=== PATIENT | male | born 1960 | race American Indian/Alaskan Native ===

== ENCOUNTER 2017-11-22 05:36 | Emergency (ER) | payer MEDICARE, OTHER ==
[~2017-11-22] VITALS: Ht 185.4 cm; Wt 140.6 kg
[~2017-11-22 05:36] MED LIST: ACETAMINOPHEN325 M1 PO; ASCORBIC ACID250 MG PO; AZITHROMYCIN250 MG PO; CATAPRES-TTS 31 EACH TD; CLEOCIN HCL300 MG PO; CYCLOBENZAPRINE5 MG PO; DAILY MULTIPLE1 EACH PO; DILAUDID2 MG PO; FEOSOL325 MG PO; GABAPENTIN300 MG PO; IBUPROFEN600 MG PO; LEVAQUIN500 MG PO; LISINOPRIL10 MG PO; NORCO 10-325 T1 EACH PO; NORVASC10 MG PO; NYSTATIN100000 UN1 PO; OS-CAL 500+D C1 EAC1 PO; OXYCONTIN20 MG PO; PERCOCET 5-3251 EACH PO; PREDNISONE20 MG PO; PROAIR HFA8.5 GM INH; PROVENTIL HFA6.7 GM INH; SYMBICORT 16010.2 GM INH; TRAMADOL HCL50 MG PO; VALIUM5 MG PO; VITAMIN D400 UNI1 PO
[2017-11-22] MEDS ORDERED: BACLOFEN10 MG PO (05:46)
[2017-11-22] MEDS ORDERED: EPIPEN 2-P0.3 MG/0.3 IM (06:40)
== END 2017-11-22 06:56 | disposition home or self-care (01) ==
LOC: ED 05:36
DX: L50.0 Allergic urticaria (principal); Z87.891 Personal history of nicotine dependence; Z79.899 Other long term (current) drug therapy
CPT/HCPCS: 96372; 99283; J1200

== ENCOUNTER 2017-12-17 22:47 | Emergency (ER) | payer MEDICARE, OTHER ==
[~2017-12-17] VITALS: Ht 185.4 cm; Wt 140.6 kg
[~2017-12-17 22:47] MED LIST changes: +BACLOFEN10 MG PO; +EPIPEN 2-P0.3 MG/0.3 IM
--- NOTE | 2017-12-18 21:55 | EKG ---
[facility] [address] [facility] [place], [place] [address] Signed Normal sinus rhythm Nonspecific intraventricular conduction delay Nonspecific T wave abnormality Abnormal ECG No previous ECGs available Confirmed by DAVID LIZARRAGA MD ([id number]) on 12/18/2017 9:55:06 PM Electronically Signed By: DAVID LIZARRAGA MD 12/18/17 2155 PATIENT NAME: HTOM POOLE Electrocardiogram DATE OF : 64 PHYSICIAN: DAVID LIZARRAGA MD REPORT #: [id number] REPORT IS CONFIDENTIAL AND NOT TO BE RELEASED WITHOUT AUTHORIZATION
== END 2017-12-18 03:13 | disposition home or self-care (01) ==
LOC: ED 22:47
DX: R07.9 Chest pain, unspecified (principal); Z87.891 Personal history of nicotine dependence; Z79.899 Other long term (current) drug therapy
CPT/HCPCS: 71045; 71260; 80053; 83690; 84484; 85025; 85379; 93005; 93010; 99284; Q9967

== ENCOUNTER 2018-02-24 22:59 | Emergency (ER) | payer MEDICARE, OTHER ==
[~2018-02-24] VITALS: Ht 185.4 cm; Wt 140.6 kg
== END 2018-02-25 01:03 | disposition home or self-care (01) ==
LOC: ED 22:59
DX: T78.2XXA Anaphylactic shock, unspecified, initial encounter (principal); L50.9 Urticaria, unspecified; Z87.891 Personal history of nicotine dependence
CPT/HCPCS: 96372; 96374; 96375; 99284; J0171; J1200; J2930

== ENCOUNTER 2018-04-18 20:11 | Emergency (ER) | payer MEDICARE, OTHER ==
[~2018-04-18] VITALS: Ht 185.4 cm; Wt 140.6 kg
--- OUTSIDE RECORDS SUMMARY | ~2018-04-18 | XMS | Encounter Summary ---
Demographics + + + | Address | [address] | | | [place] [address] | + + + | Home Phone | | + + + | Preferred Language | Unknown | + + + | Marital Status | Single | + + + | Gnosticism Affiliation | Unknown | + + + | Race | Unknown | + + + | Ethnic Group | Unknown | + + + Author + + + | Author | [facility] | | | and [place] | + + + | Organization | [facility] | | | and [place] | + + + | Address | Unknown | + + + | Phone | Unavailable | + + + Support + + + + + | Name | Relationship | Address | Phone | + + + + + | Bharath,Jollee | ECON | [address] | | | | | [place] | | | | | [address] | | + + + + + Care Team Providers + +------+ + | Care Social Services Analyst Name | Role | Phone | + +------+ + | Yulia Gutierrez PA-C | PCP | | + +------+ + Reason for Visit + + + | Reason | Comments | + + + | New Patient | allegies and talk about testing | + + + Evaluate & Treat (Routine) +--------+--------+ + + + + | Status | Reason | Specialty | Diagnoses / | Referred By | Referred To | | | | | Procedures | Contact | Contact | +--------+--------+ + + + + | Closed | | Otolaryngolog | Diagnoses | Brenda, | Garry Carias | | | | y | allergy | Yulia Torres, | MD Danny [address] | | | | | testing | [place] [address] [address] | | | | | consult, hx | | [address] | | | | | of | [address] | [place], | | | | | anaphylaxis | WAY | [place] [address] | | | | | | [place], | Phone: | | | | | | [place] [address] | [phone] | | | | | | Phone: | Fax: | | | | | | [phone] | [phone] | | | | | | Fax: | | | | | | | [phone] | | +--------+--------+ + + + + Encounter Details +--------+---------+ + + + | Date | Type | Department | Care Team | Description | +--------+---------+ + + + | 04/12/ | Office | [facility] | Garry Carias MD | Multiple allergies | | 2018 | Visit | OTOLARYNGOLOGY [address] | [address] [place] | (Primary Dx); [place] | | | | [address] | [address], | (obstructive sleep | | | | [place], [place] | [place] [address] | apnea) | | | | [address] | [phone] | | | | | [phone] | | | +--------+---------+ + + + [...] + +---------+ + | Alcohol Use | Drinks/We | oz/Week | Comments | | | ek | | | + + +---------+ + | Yes | 35 | 27.0 | today | | | Standard | | | | | drinks or | | | | | | | | | | equivalen | | | | | t 10 | | | | | Cans of | | | | | beer | | | + + +---------+ + + + + | Sex Assigned at | Date Recorded | | | | + + + | Not on file | | + + + as of this encounter Last Filed Vital Signs + + + + | Vital Sign | Reading | Time Taken | + + + + | Blood Pressure | - | - | + + + + | Pulse | 86 | 04/12/2018 1542 PDT | + + + + | Temperature | - | - | + + + + | Respiratory Rate | 16 | 04/12/20181541 PDT | + + + + | Oxygen Saturation | 91% | 04/12/20181541 PDT | + + + + | Inhaled Oxygen | - | - | | Concentration | | | + + + + | Weight | 131.5 kg (290 lb) | 04/12/20181541 PDT | + + + + | Height | 185.4 cm (6' 0.99") | 04/12/20181541 PDT | + + + + | Body Mass Index | 38.27 | 04/12/20181541 PDT | + + + + in this encounter Functional Status + + [...] | | | + + + + as of this encounter Progress Notes Garry Carias MD - 04/12/2018 1515 PDTPatient back a couple months ago suddenly broke out with a lot of welts and rash and had some swelling in the throat area. He was treated with some cortisone and handed this cleared up. He then had another event a back about to 3 week s ago and at the same problem with but was having even more problems with difficulty with br eathing because of the swelling of his throat. He had a lot of hives and welts and came on rather rapidly. He was sent to have this evaluated. He's not had problems with this before . He has no problem with seasonal allergies. He has no difficulty with his vocal function. He occasionally feels a bit of tickle in the back of his throat and some phlegm and has be en diagnosed with obstructive sleep apnea. Examination: Patient is a 57-year-old male in no acute distress. Ears are open and clean a nd drums were clear. Nasal passages did not appear to have any significant obstruction note d. No mass or lesion seen on either side. Patient has a very large tongue. No mass seen i n the oropharynx or the oral cavity. Tongue and soft palate are smooth the moves symmetrica lly. Teeth are in poor repair. His neck is very large and thick. No lymphadenopathy or ma sses noted. Thyroid area was smooth and trachea was midline. His medications were reviewed and is on very minimal medication at the current time. The main medications or medication for his lungs which is a cortisone spray and then also taking a stool softener and some Fab um. 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 Plan: Patient will have a food panel 35 obtained to look at the possible origin of his lisa oedema. He does have an EpiPen to use if he gets into severe problems. He has been encoureryn dasilva to get a CPAP machine because he has been diagnosed with significant obstructive sleep a pnea and has not been treating the problem. He denies any problem with heartburn.in this en counter Plan of Treatment +--------+---------+ + + + | Date | Type | Specialty | Care Team | Description | +--------+---------+ + + + | 04/26/ | Office | Otolaryngology | Garry Carias MD | | | 2017 | Visit | | [address] [facility] | | | | | | [address], | | | | | | [place] [address] | | | | | | [phone] | | | | | | | | +--------+---------+ + + + as of this encounter Results Allergen Panel, Adult Food (04/12/2018 1631) + + + + + | Component | Value | Ref Range | Performed At | + + + + + | Class Description | CommentComment: | | [facility] | | | Levels of | | [facility] | | | Specific IgE | | | | | Class Description of | | | | | | | | | | Class | | | | | ---- | | | | | - | | | | | - | | | | | < | | | | | 0.10 | | | | | 0 | | | | | Negative | | | | | 0.10 | | | | | - 0.31 | | | | | 0/I | | | | | Equivocal/Low | | | | | 0.32 | | | | | - 0.55 | | | | | I | | | | | Low | | | | | 0.56 | | | | | - 1.40 | | | | | | | | | | II Modera | | | | | te | | | | | 1.41 | | | | | - 3.90 | | | | | III | | | | | High | | | | | 3.91 - | | | | | 19.00 | | | | | IV Very | | | | | High | | | | | 19.01 | | | | | - 100.00 | | | | | V | | | | | Very | | | | | High | | | | | >100.00 | | | | | | | | | | Very | | | | | High | | | + + + + + | Egg White IgE | <0.10 | Class 0 kU/L | [facility] | | | | | [facility] | + + + + + | Cow's Milk IgE | <0.10 | Class 0 kU/L | [facility] | | | | | [facility] | + + + + + | Codfish IgE | <0.10 | Class 0 kU/L | [facility] | | | | | [facility] | + + + + + | Wheat IgE | <0.10 | Class 0 kU/L | [facility] | | | | | [facility] | + + + + + | Decker IgE | <0.10 | Class 0 kU/L | [facility] | | | | | [facility] | + + + + + | Barley IgE | <0.10 | Class 0 kU/L | [facility] | | | | | [facility] | + + + + + | Oat IgE | <0.10 | Class 0 kU/L | [facility] | | | | | [facility] | + + + + + | Rice IgE | <0.10 | Class 0 kU/L | [facility] | | | | | [facility] | + + + + + | Allergen Sesame Seed | <0.10 | Class 0 kU/L | [facility] | | IgE | | | [facility] | + + + + + | Pea IgE | <0.10 | Class 0 kU/L | [facility] | | | | | [facility] | + + + + + | Peanut IgE | <0.10 | Class 0 kU/L | [facility] | | | | | [facility] | + + + + + | Soybean IgE | <0.10 | Class 0 kU/L | [facility] | | | | | [facility] | + + + + + | White Reed IgE | <0.10 | Class 0 kU/L | [facility] | | | | | [facility] | + + + + + | Allergen Filbert | <0.10 | Class 0 kU/L | [facility] | | | | | [facility] | + + + + + | ALMONDS | <0.10 | Class 0 kU/L | [facility] | | | | | [facility] | + + + + + | Crab IgE | <0.10 | Class 0 kU/L | [facility] | | | | | [facility] | + + + + + | Shrimp IgE | <0.10 | Class 0 kU/L | [facility] | | | | | [facility] | + + + + + | Tomato IgE | <0.10 | Class 0 kU/L | [facility] | | | | | [facility] | + + + + + | Pork IgE | <0.10 | Class 0 kU/L | [facility] | | | | | [facility] | + + + + + | Beef IgE | <0.10 | Class 0 kU/L | [facility] | | | | | [facility] | + + + + + | Carrot IgE | <0.10 | Class 0 kU/L | [facility] | | | | | [facility] | + + + + + | Waterbury IgE | <0.10 | Class 0 kU/L | [facility] | | | | | [facility] | + + + + + | POTATO (WHITE) IGE | <0.10 | Class 0 kU/L | [facility] | | | | | [facility] | + + + + + | Tuna IgE | <0.10 | Class 0 kU/L | [facility] | | | | | [facility] | + + + + + | Allergen Savanna IgE | <0.10 | Class 0 kU/L | [facility] | | | | | [facility] | + + + + + | ALLERGEN YEAST | <0.10 | Class 0 kU/L | [facility] | | JESSICA'S IGE | | | [facility] | + + + + + | GARLIC | <0.10 | Class 0 kU/L | [facility] | | | | | [facility] | + + + + + | Chicken IgE | <0.10 | Class 0 kU/L | [facility] | | | | | [facility] | + + + + + | MUSTARD | <0.10 | Class 0 kU/L | [facility] | | | | | [facility] | + + + + + | CHOCOLATE, IGE | <0.10 | Class 0 kU/L | [facility] | | | | | [facility] | + + + + + | CASHEW | <0.10 | Class 0 kU/L | [facility] | | | | | [facility] | + + + + + | Lettuce IgE | <0.10 | Class 0 kU/L | [facility] | | | | | [facility] | + + + + + | WALNUT-FOOD IGE | <0.10 | Class 0 kU/L | [facility] | | | | | [facility] | + + + + + | [id number] Green Barrett | <0.10 | Class 0 kU/L | [facility] | | Pepper | | | [facility] | + + + + + | Scallop IgE | <0.10 | Class 0 kU/L | [facility] | | | | | [facility] | + + + + + + + | Specimen | + + | Blood | + + + + + | Narrative | Performed At | + + + | Test(s) [id number] Green Barrett Pepper were developed and had | [facility] | | performance characteristics determined by [facility]. These tests have | [facility] | | not been cleared or approved by the U.S. Food and Drug | | | Administration. The FDA has determined that such clearance or | | | approval is not necessary. These tests are used for clinical | | | purposes. These should not be regarded as investigational or for | | | research. Performed at: [address], | | | [place], [place] [id number] [employer]ractor Engine Assembler: Steve Stroud MD, | | | Phone: [phone] | | + + + + + + + + | Performing | Address | City/State/Zipcode | Phone Number | | Organization | | | | + + + + + | [facility] | [address] | [place] [address] | [phone] | | [facility] | [address] | | | + + + + + in this encounter Visit Diagnoses + + | Diagnosis | + + | Multiple allergies - Primary | + + | Other allergy, other than to medicinal agents | + + | MARY JANE (obstructive sleep apnea) | + + | Obstructive sleep apnea (adult) (pediatric) | + +
--- OUTSIDE RECORDS SUMMARY | ~2018-04-18 | XMS | Clinical Summary ---
Demographics + + + | Address | [address] | | | [place] [address] | + + + | Home Phone | | + + + | Preferred Language | Unknown | + + + | Marital Status | Single | + + + | Taoist Affiliation | Unknown | + + + | Race | Unknown | + + + | Ethnic Group | Unknown | + + + Author + + + | Author | [facility] | | | and [place] | + + + | Organization | [facility] [...] [place] | | | | | [address] | | + + + + + Care Team Providers + +------+ + | Care Patient Intake Representative Name | Role | Phone | + +------+ + | Yulia Gutierrez PA-C | PP | | + +------+ + Allergies No Known Allergies Current Medications + + + +---------+------+------+-------+ | Prescription | Sig. | Disp. | Refills | Star | End | [...] | [facility] | | | | | | + + + +---------+------+------+-------+ | Cholecalciferol | Take 5,000 Units by | | | | | Activ | | (VITAMIN D3) 5000 | mouth Daily. | | | | | e | | UNITS CAPS | | | | | | | + + + +---------+------+------+-------+ | LISINOPRIL PO | Take by mouth | | | | | Activ | | | Daily. | | | | | e | + + + +---------+------+------+-------+ | diazepam (VALIUM) | Take 1 tablet by | 60 | 1 | 07/0 | | Activ | | 5 mg tablet | mouth every 6 hours | tablet | | 920 | | e | | | as needed (muscle | | | 15 | | | | | spasm). | | | | | | + + + +---------+------+------+-------+ | docusate sodium | Take 100 mg by mouth | 60 | 1 | 07/0 | | Activ | | (COLACE) 100 MG | 2 times daily. | capsule | | /20 | | e | | capsule | | | | 15 | | | + + + +---------+------+------+-------+ | fluticasone | 1 spray by Nasal | | | | | Activ | | (FLONASE) 50 | route Daily. | | | | | e | | mcg/nasal spray | | | | | | | + + + +---------+------+------+-------+ | Fexofenadine HCl | Take by mouth. | | | | | Activ | | (DARBY PO) | | | | | | e | + + + +---------+------+------+-------+ | Cyclobenzaprine | Take 2 tablets by | | | | 09/2 | Disco | | HCl (FLEXERIL PO) | mouth nightly. | | | | 6/20 | ntinu | | | | | | | 18 | ed | + + + +---------+------+------+-------+ | fish oil 1,000 mg | Take 1,000 mg by | | | | 09/2 | Disco | | capsule | mouth 3 times daily. | | | | 6/20 | ntinu | | | | | | | 18 | ed | + + + +---------+------+------+-------+ | diazepam (VALIUM) | Take 1 tablet by | 60 | 0 | 09/2 | 09/2 | Disco | | 5 mg tablet | mouth every 6 hours | tablet | | 9/20 | 6/20 | ntinu | | | as needed (muscle | | | 14 | 18 | ed | | | spasm). | | | | | | + + + +---------+------+------+-------+ | Lactulose | Take 15-30 mLs by | 240 mL | 0 | 09/2 | 09/2 | Disco | | Encephalopathy 10 | mouth Daily as | | | 9/20 | 6/20 | ntinu | | g/15 mL SOLN | needed | | | 14 | 18 | ed | | | (Constipation). | | | | | | + + + +---------+------+------+-------+ | | Take 1-2 tablets by | 60 | 0 | 10/1 | 09/2 | Disco | | oxyCODONE-acetaminop | mouth every 4 hours | tablet | | 3/20 | 6/20 | ntinu | | hen (PERCOCET) 5-325 | as needed for Pain. | | | 14 | 18 | ed | | mg per tablet | | | | | | | + + + +---------+------+------+-------+ | | Take 1-2 tablets by | 60 | 0 | 10/1 | 09/2 | Disco | | oxyCODONE-acetaminop | mouth every 4 hours | tablet | | 3/20 | 6/20 | ntinu | | hen (PERCOCET) 5-325 | as needed for Pain. | | | 14 | 18 | ed | | mg per tablet | | | | | | | + + + +---------+------+------+-------+ | | Take 1-2 tablets by | 60 | 0 | 07/1 | 09/2 | Disco | | oxyCODONE-acetaminop | mouth every 4 hours | tablet | | 6/20 | 6/20 | ntinu | | hen (PERCOCET) 5-325 | as needed for Pain. | | | 15 | 18 | ed | | mg per tablet | | | | | | | + + + +---------+------+------+-------+ | | Take 1-2 tablets by | 100 | 0 | 07/2 | 09/2 | Disco | | HYDROcodone-acetamin | mouth every 6 hours | tablet | | 4/20 | 6/20 | ntinu | | ophen (NORCO) 10-325 | as needed for Pain. 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 | | manifestations, not stated as uncontrolled(250.40) (HCC) | | + + + | Hypertriglyceridemia [...] 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) | 01/02/20 | | | | 13 | 4 | + + + + Encounters +--------+---------+ + + + | Date | Type | Specialty | Care Team | Description | +--------+---------+ + + + | 04/12/ | Office | | Garry Carias MD | Multiple allergies | | 2018 | Visit | | | (Primary Dx); [place] | | | | | | (obstructive sleep | | | | | | apnea) | +--------+---------+ + + + from Last 3 Months Immunizations + + + + | Name | Dates Previously Given | Next Due | + + + [...] Comments | + +--------+ + + | Brother | Geoff | Alive | | + [...] on file | | + + + Last Filed Vital Signs + + + + | Vital Sign | Reading | Time Taken | + + + + | Blood Pressure | 146/80 | 02/07/2015 1133 PDT | + + + + | Pulse | 86 | 04/12/20181541 PDT | + + + + | Temperature | 37.1 C (98.8 F) | 02/07/2015 1133 PDT | + + + + | Respiratory [...] 04/12/20181541 PDT | + + + + Plan of Treatment +--------+---------+ + + + | Date | Type | Specialty | Care Team | Description | +--------+---------+ + + + | 04/26/ | Office | | Garry Carias MD | | | 2017 | Visit | | [address] [facility] | | | | | | [address], | | | | | | [place] [address] | | | | | | [phone] | | | | | | | | +--------+---------+ + + + + + + + + | Health Maintenance | Due Date | Last Done | Comments | + + + + + | Diabetic Eye Exam | | | | | (Bi-Annually) | 0 | | | + + + + + | Diabetic Foot Exam | | | | | | 0 | | | + + + + + | Colorectal Cancer | | | | | Screening | 2 | | | | (Colonoscopy) | | | | + + + + + | Hemoglobin A1c Q3 | | 02/07/2013, 12/04/2012 | | | Months | 3 | | | + + + + + | Vaccine: Influenza | | | | | (#1) | 8 | | | + + [...] | Pneumococcal 19-64 | | | | | (PPSV23 only) Medium | | | | | Risk | | | | + + + + + | Hepatitis C | Completed | 01/23/2015, 01/22/2015, | | | Screening | | 01/21/2015, Additional history | | | | | exists | | + + + + + Implants + +------+--------+ +--------+--------+--------+ | Implanted | Type | Area | Manufacture | Device | Expira | Model | | | | | r | | tion | / | | | | | | Identi | Date | Serial | | | | | | fier | | / Lot | + +------+--------+ +--------+--------+--------+ | Cancellous Chips | | N/A: | MEDTRONIC - | | 12/30/ | [id number] | | 5ccImplanted: Qty: 1 on | | Spine | MEDT | | 2019 | | | 04/09/2014 by Fam Bonds | | Lumbar | | | | /[id number] | | A, DO | | | | | | 0-036 | | | | | | | | / | + +------+--------+ +--------+--------+--------+ | ScrewImplanted: Qty: 5 on | | N/A: | MEDTRONIC - | | | [id number] | | 04/09/2014 by Fam Bonds | | Spine | MEDT | | | [id number] | | A, DO | | Lumbar | | | | / / | + +------+--------+ +--------+--------+--------+ | ScrewImplanted: Qty: 2 on | | N/A: | MEDTRONIC - | | | [id number] | | 04/09/2014 by Fam Bonds | | Spine | MEDT | | | [id number] | | A, DO | | Lumbar | | | | / / | + +------+--------+ +--------+--------+--------+ | ScrewImplanted: Qty: 1 on | | N/A: | MEDTRONIC - | | | [id number] | | 04/09/2014 by Fam Bonds | | Spine | MEDT | | | [id number] | | A, DO | | Lumbar | | | | / / | + +------+--------+ +--------+--------+--------+ | Screw 7.5x50mm Sextant - | | N/A: | MEDTRONIC - | | | [id number] | | [id number]: Qty: 2 on | | Spine | MEDT | | | [id number] | | 04/09/2014 by Fam Bonds | | Lumbar | | | | / / | | A DO | | | | | | | + +------+--------+ +--------+--------+--------+ | Imp Spn Spcr Cpstn [id number] - | | N/A: | SOFAMOR | | 08/24/ | [id number] | | [id number]: Qty: 1 on | | Spine | DANEK - DIV | | 2020 | 2 / | | 04/09/2014 by Fam Bonds | | Lumbar | MEDTRONIC | | | /[id number] | | DO Melissa | | | - SFDK | | | 032 | + +------+--------+ +--------+--------+--------+ | Sealant Duraseal Exact Sys | | N/A: | INTEGRA | | 06/16/ | [id number] | | 5ml - [id number]: | | Spine | LIFESCIENCE | | 2014 | / | | Qty: 1 on 04/09/2014 by | | Lumbar | S CHETNA - | | | /[id number] | | Fam Bonds DO | | | RUEL | | | 33X | + +------+--------+ +--------+--------+--------+ | Set Scrw Ns G5 Brk Off Ti | | N/A: | SOFAMOR | | | [id number] | | 4.75 - [id number]: | | Spine | DANEK - DIV | | | 0 / / | | Qty: 11 on 04/09/2014 by | | Lumbar | MEDTRONIC | | | | | Fam Bonds DO | | | - SFDK | | | | + +------+--------+ +--------+--------+--------+ | RodImplanted: Qty: 2 on | | N/A: | MEDTRONIC - | | | [id number] | | 04/09/2014 by Fam Bonds | | Spine | MEDT | | | 6210 / | | DO Melissa | | Lumbar | | | | / | + +------+--------+ +--------+--------+--------+ | Cancellous Chips | | | | | 12/30/ | [id number] | | 5ccImplanted: Qty: 1 on | | | | | 2019 | | | 04/09/2014 | | | | | | /[id number] | | | | | | | | 0-35 / | + +------+--------+ +--------+--------+--------+ | Cancellous Chips | | | | | 03/28/ | [id number] | | 5ccImplanted: Qty: 1 on | | | | | 2019 | | | 04/09/2014 | | | | | | /[id number] | | | | | | | | 7-033 | | | | | | | | / | + +------+--------+ +--------+--------+--------+ | Putty Alexis 10cc Dbm - | | N/A: | OSTEOTECH - | | 11/28/ | [id number] | | [id number]: Qty: 1 | | Spine | OSTT | | 2017 | | | on 04/09/2014 by Cammie, | | Lumbar | | | | /[id number] | | Fam Torres DO | | | | | | 5-036 | | | | | | | | / | + +------+--------+ +--------+--------+--------+ | Graft Infuse Bone Kit Xs - | | N/A: | SOFAMOR | | 10/15/ | [id number] | | [id number]: Qty: 3 on | | Spine | DANEK - DIV | | 2015 | 0 / | | 04/09/2014 by Fam Bonds | | Lumbar | MEDTRONIC | | | /[id number] | | DO Melissa | | | - SFDK | | | [id number] | + +------+--------+ +--------+--------+--------+ | Putty Alexis 10cc Dbm - | | N/A: | OSTEOTECH - | | 11/28/ | [id number] | | [id number]: Qty: 1 | | Spine | OSTT | | 2017 | | | on 04/09/2014 by Cammie, | | Lumbar | | | | /[id number] | | Fam Torres DO | | | | | | 5-033 | | | | | | | | / | + +------+--------+ +--------+--------+--------+ | Cage Xl Wide [id number] - | | N/A: | NUVASIVE - | | | 830010 | | [id number]: Qty: 2 on | | Spine | NVSV | | | 0 / / | | 04/09/2014 by Fam Bonds | | Lumbar | | | | | | DO Melissa | | | | | | | + +------+--------+ +--------+--------+--------+ | Imp Spn Spcr Peek Xlw | | N/A: | NUVASIVE - | | | [id number] | | [id number] - | | Spine | NVSV | | | 5 / / | | [id number]: Qty: 1 on | | Lumbar | | | | | | 04/09/2014 by Fam Bonds | | | | | | | | Melissa DO | | | | | | | + +------+--------+ +--------+--------+--------+ | Imp Spn Spcr Xlxw [id number] 10d | | N/A: | NUVASIVE - | | | [id number] | | - [id number]: Qty: 1 | | Spine | NVSV | | | 0 / / | | on 04/09/2014 by Cammie, | | Lumbar | | | | | | Fam Torres DO | | | | | | | + +------+--------+ +--------+--------+--------+ | Cage Capstone Peek 9x32mm - | | N/A: | MEDTRONIC - | | 03/13/ | [id number] | | [id number]: Qty: 1 on | | Spine | MEDT | | 2020 | 2 / | | 04/09/2014 by Fam Bonds | | Lumbar | | | | /[id number] | | DO Melissa | | | | | | 464 | + +------+--------+ +--------+--------+--------+ | ScrewImplanted: Qty: 1 on | | N/A: | MEDTRONIC - | | | [id number] | | 04/09/2014 by Fam Bonds | | Spine | MEDT | | | 26061 | | A, DO | | Lumbar | | | | / / | + +------+--------+ +--------+--------+--------+ Procedures + +--------+ + + + | Procedure Name | Priori | Date/Time | Associated Diagnosis | Comments | | | ty | | | | + +--------+ + + + | ALLERGEN PANEL, | Routin | 04/12/2018 | Multiple allergies | Results for this | | ADULT FOOD | e | 1631 PDT | | procedure are in the | | | | | | results section. | + +--------+ + + + from Last 3 Months Results Allergen Panel, Adult Food (04/12/2018 1631) [...] | + + + + + | [place] IgE | <0.10 | Class 0 kU/L [...] | + + + + + | [place] IgE | <0.10 | Class 0 kU/L [...] + + + + + | Allergen [place] IgE | <0.10 | Class 0 kU/L [...] | + + + + + | Q210-HgJ Green Barrett | <0.10 | Class 0 [...] At | + + + | Test(s) [id number] Green Barrett Pepper were developed and had | REFERENCE LAB | | performance characteristics determined by [facility]. These tests have | [facility] | | not been cleared or approved by the U.S. Food and Drug | | | Administration. The FDA has determined that such clearance or | | | approval is not necessary. These tests are used for clinical | | | purposes. These should not be regarded as investigational or for | | | research. Performed at: 01 - [facility] [address], | | | [place], [place] [id number] Resident Care Spec: Thom Stroud MD, | | | Phone: [phone] | | + + + + + + + + | Performing | Address | City/State/Zipcode | Phone Number | | Organization | | | | + + + + + | REFERENCE LAB | [address] | [place] [address] | [phone] | | [facility] | [place] | | | + + + + + from Last 3 Months Insurance + +--------+ +--------+-------+---------+ | Payer | Benefi | Subscriber | Type | Phone | Address | | | t Plan | ID | | | | | | / | | | | | | | Group | | | | | + +--------+ +--------+-------+---------+ | [facility] | IHS | [id number] | Indemn | | | | SERVICE | YELLOW | | ity | | | | | [place] | | | | | + +--------+ +--------+-------+---------+ + +--------+ +--------+ + + | Guarantor Name | Accoun | Relation to | Date | Phone | Billing Address | | | t Type | Patient | of | | | | | | | | | | + +--------+ +--------+ + + | THOM POOLE | Person | Self [birth year] Home: | [address] | | | al/Fam | | 2 | [phone] | [address] [place] | | | [place] | | | [phone] | [phone] | + +--------+ +--------+ + +
--- OUTSIDE RECORDS SUMMARY | ~2018-04-18 | XMS | Encounter Summary ---
Demographics + + + | Address | [address] | | | [place] [address] | + + + | Home Phone [...] | Organization | [facility] [...] [place] | | | | | [address] | | + + + + + Care Team Providers + +------+ + | Care Miller Supervisor Name | Role | Phone | + +------+ + | Yulia Gutierrze PA-C | PCP | | + +------+ [...] | | | | testing | [place] [address] | | | | | consult, hx | | [address] | | | | | of | [address] | [address], | | | | | anaphylaxis | [address] | [place] [address] | | | | | | [place], | Phone: | | | | | | [place] [address] | [phone] | | | | | | Phone: | Fax: | | | | | | [phone] | [phone] | | | | | | Fax: | | | | | | | [phone] | | +--------+--------+ + + + + Encounter Details +--------+---------+ + + + | Date | Type | Department | Care Team | Description | +--------+---------+ + + + | 04/12/ | Office | [facility] | Garry Carias MD | Multiple allergies | | 2018 | Visit | OTOLARYNGOLOGY [address] | [address] [place] | (Primary Dx); [place] | | | | [address] | [address], | (obstructive sleep | | | | [place], [place] | [place] [address] | apnea) | | | | [address] | [phone] | | | | | [phone] | | | +--------+---------+ + + + [...] 2017 | Visit | | [address] [facility] | | | | | | [address], | | | | | | [place] [address] | | | | | | [phone] | | | | | | | [...] | + + + + + | [place] IgE | <0.10 | Class 0 kU/L [...] | + + + + + | [place] IgE | <0.10 | Class 0 kU/L [...] + + + + + | Allergen [place] IgE | <0.10 | Class 0 kU/L [...] | + + + + + | Y315-BnK Green Barrett | <0.10 | Class 0 [...] At | + + + | Test(s) [id number] Green Barrett Pepper were developed and had | REFERENCE LAB | | performance characteristics determined by [employer]. These tests have | [facility] [...] | | research. Performed at: 01 - [address], | | | [place], [place] [id number] Practice Coordinator: Steve Stroud MD, | | | Phone: [phone] | | + + + + + + + + | Performing | Address | City/State/Zipcode | Phone Number | | Organization | | | | + + + + + | REFERENCE LAB | [address] | [place] [address] | [phone] | | [facility] | Drive [...]
--- OUTSIDE RECORDS SUMMARY | ~2018-04-18 | XMS | Clinical Summary ---
Demographics + + + | Address | [address] | | | [place] [address] | + + + | Home Phone [...] + | Organization | [facility] | [...] [place] | | | | | [address] | | + + + + + Care Team Providers + +------+ + | Care Vp Software Support Name | Role | Phone | + [...] + + + | Overview: Problem list flask maker utility | + + + + + [...] +--------+ + | Hypertension | Brother | Aaorn | | + + +--------+ + | [...] 2017 | Visit | | [address] [facility] | | | | | | [address], | | | | | | [place] [address] | | | | | | [phone] | | | | | | | [...] | MEDTRONIC - | | 12/30/ | [id number] | | 5ccImplanted: Qty: 1 on | [...] N/A: | MEDTRONIC - | | | [id number] | | 04/09/2014 by Fam Bonds | | Spine | MEDT | | | 49598 | | A, DO | | Lumbar | | | | / / | + +------+--------+ +--------+--------+--------+ | ScrewImplanted: Qty: 2 on | | N/A: | MEDTRONIC - | | | [id number] | | 04/09/2014 by Fam Bonds | | Spine | MEDT | | | 52405 | | A, DO | | Lumbar | | | | / / | + +------+--------+ +--------+--------+--------+ | ScrewImplanted: Qty: 1 on | | N/A: | MEDTRONIC - | | | [id number] | | 04/09/2014 by Fam Bonds | | Spine | MEDT | | | 40240 | | A, DO | | Lumbar | | | | / / | + +------+--------+ +--------+--------+--------+ | Screw 7.5x50mm Sextant - | | N/A: | MEDTRONIC - | | | [id number] | | [id number]: Qty: 2 on | | Spine | MEDT | | | [id number] | | 04/09/2014 by Fam Bonds | | Lumbar | | | | / / | | A DO | | | | | | | + +------+--------+ +--------+--------+--------+ | Imp Spn Spcr Cpstn [id number] - | | N/A: | SOFAMOR | | 08/24/ | [id number] | | [id number]: Qty: 1 on | | Spine | DANEK - DIV | | 2020 | 2 / | | 04/09/2014 by Fam Bonds | | Lumbar | MEDTRONIC | | | /[id number] | | DO Melissa | | | - SFDK | | | 032 | + +------+--------+ +--------+--------+--------+ | Sealant Duraseal Exact Sys | | N/A: | INTEGRA | | 06/16/ | [id number] | | 5ml - [id number]: | | Spine | LIFESCIENCE | | 2014 | / | | Qty: 1 on 04/09/2014 by | | Lumbar | S CHETNA - | | | /[id number] | | Fam Bonds DO | | | RUEL | | | 33X | + +------+--------+ +--------+--------+--------+ | Set Scrw Ns G5 Brk Off Ti | | N/A: | SOFAMOR | | | [id number] | | 4.75 - [id number]: | | Spine | DANEK - DIV | | | 0 / / | | Qty: 11 on 04/09/2014 by | | Lumbar | MEDTRONIC | | | | | Fam Bonds DO | | | - SFDK | | | | + +------+--------+ +--------+--------+--------+ | RodImplanted: Qty: 2 on | | N/A: | MEDTRONIC - | | | [id number] | | 04/09/2014 by Fam Bonds | | Spine | MEDT | | | 6210 / | | DO Melissa | | Lumbar | | | | / | + +------+--------+ +--------+--------+--------+ | Cancellous Chips | | | | | 12/30/ | [id number] | | 5ccImplanted: Qty: 1 on | | | | | 2019 | | | 04/09/2014 | | | | | | /[id number] | | | | | | | | 0-35 / | + +------+--------+ +--------+--------+--------+ | Cancellous Chips | | | | | 03/28/ | [id number] | | 5ccImplanted: Qty: 1 on | | | | | 2019 | | | 04/09/2014 | | | | | | /[id number] | | | | | | | | 7-033 | | | | | | | | / | + +------+--------+ +--------+--------+--------+ | Putty Alexis 10cc Dbm - | | N/A: | OSTEOTECH - | | 11/28/ | [id number] | | [id number]: Qty: 1 | | Spine | OSTT [...] N/A: | SOFAMOR | | 10/15/ | [id number] | | [id number]: Qty: 3 on | | Spine | [...] | OSTEOTECH - | | 11/28/ | [id number] | | [id number]: Qty: 1 | | Spine | OSTT | | 2017 | | | on 04/09/2014 by Cammie, | | Lumbar | | | | /[id number] | | Fam Torres DO | | | | | | 5-033 | | | | | | | | / | + +------+--------+ +--------+--------+--------+ | Cage Xl Wide [id number] - | | N/A: | NUVASIVE - | | | 632341 | | [id number]: Qty: 2 on | | Spine | NVSV | | | 0 / / | | 04/09/2014 by Fam Bonds | | Lumbar | | | | | | DO Melissa | | | | | | | + +------+--------+ +--------+--------+--------+ | Imp Spn Spcr Peek Xlw | | N/A: | NUVASIVE - | | | [id number] | | [id number] - | | Spine | NVSV | | | 5 / / | | [id number]: Qty: 1 on | | Lumbar | | | | | | 04/09/2014 by Fam Bonds | | | | | | | | Melissa DO | | | | | | | + +------+--------+ +--------+--------+--------+ | Imp Spn Spcr Xlxw [id number] 10d | | N/A: | NUVASIVE - | | | [id number] | | - [id number]: Qty: 1 | | Spine | NVSV | | | 0 / / | | on 04/09/2014 by Cammie, | | Lumbar | | | | | | Fam Torres DO | | | | | | | + +------+--------+ +--------+--------+--------+ | Cage Capstone Peek 9x32mm - | | N/A: | MEDTRONIC - | | 03/13/ | [id number] | | [id number]: Qty: 1 on | | Spine | MEDT | | 2020 | 2 / | | 04/09/2014 by Fam Bonds | | Lumbar | | | | /[id number] | | DO Melissa | | | | | | 464 | + +------+--------+ +--------+--------+--------+ | ScrewImplanted: Qty: 1 on | | N/A: | MEDTRONIC - | | | [id number] | | 04/09/2014 by Fam Bonds | | Spine | MEDT | | | 86290 | | A, DO | | Lumbar [...] | + + + + + | [place] IgE | <0.10 | Class 0 [...] | + + + + + | [place] IgE | <0.10 | Class 0 kU/L [...] + + + + + | Allergen [place] IgE | <0.10 | Class 0 kU/L [...] | + + + + + | R227-NgC Green Barrett | <0.10 | Class 0 [...] At | + + + | Test(s) [id number] Green Barrett Pepper were developed and had | REFERENCE LAB | | performance characteristics determined by [employer]. These tests have | [facility] [...] | | research. Performed at: 01 - [facility] [address], | | | [place], [place] [id number] Supervisor Metalizing: Thom Strodu MD, | | | Phone: [phone] | | + + + + + + + + | Performing | Address | City/State/Zipcode | Phone Number | | Organization | | | | + + + + + | REFERENCE LAB | [address] | [place] [address] | [phone] | | [facility] | Saleem [...] | | | + +--------+ +--------+-------+---------+ | [facility] | [facility] | [phone] | Indemn | | | | SERVICE [...] | | | [place] | | | [phone] | + +--------+ +--------+ + +
[2018-04-18] MEDS ORDERED: IPRAT-ALBUT 0.5-3 ML INH (21:29)
[2018-04-18] MEDS ORDERED: PREDNISONE20 MG PO (21:29)
[2018-04-18] MEDS ORDERED: TRUNEB NEBULIZ1 EACH NEB (21:30)
--- NOTE | 2018-04-19 14:47 | EKG ---
[facility] [address] [facility] [place] [address] Signed Normal sinus rhythm Nonspecific intraventricular block T wave abnormality, consider anterior ischemia Abnormal ECG When compared with ECG of 17-DEC-2017 22:48, T wave inversion more evident in Anterior leads Confirmed by WANDA GOOD DO ([id number]) on 04/19/2018 2:47:25 PM Electronically Signed By: WANDA GOOD DO 04/19/18 1447 PATIENT NAME: VIRGILIOTHOM RIZO Electrocardiogram DATE OF : 64 PHYSICIAN: WANDA GOOD DO REPORT #: [id number] REPORT IS CONFIDENTIAL AND NOT TO BE RELEASED WITHOUT AUTHORIZATION
== END 2018-04-18 21:39 | disposition home or self-care (01) ==
LOC: ED 20:11
DX: J44.1 Chronic obstructive pulmonary disease with (acute) exacerbation (principal); Z79.899 Other long term (current) drug therapy
CPT/HCPCS: 71045; 80053; 83735; 84484; 85025; 93005; 93010; 94640; 96374; 99285; J2930

== ENCOUNTER 2019-07-02 06:47 | Inpatient (IN) | payer MEDICARE, OTHER ==
[~2019-07-02] VITALS: Ht 185.4 cm; Wt 130.6 kg
--- OUTSIDE RECORDS SUMMARY | ~2019-07-02 | XMS | Encounter Summary ---
Demographics + + + | Address | [address] [facility] [address] | | | [place] [address] | + + + | Home Phone | | + + + | Preferred Language | Unknown | + + + | Marital Status | Single | + + + | Buddhism Affiliation | Unknown | + + + | Race | Unknown | + + + | Ethnic Group | Unknown | + + + Author + + + | Author | [facility] | | | and [place] | + + + | Organization | [facility] | | | and [place] | + + + | Address | Unknown | + + + | Phone | Unavailable | + + + Support + + + + + | Name | Relationship | Address | Phone | + + + + + | Craig Sinha | ECON | [address] | | | | | [place] | | | | | [address] | | + + + + + Care Team Providers + +------+ + | Care Mental Health Case Manager Name | Role | Phone | + +------+ + | Stefano Padgett PA-C | PCP | | + +------+ + Reason for Visit +--------+ + | Reason | Comments | +--------+ + | Other | Surgery reminder | +--------+ + Encounter Details +--------+ + + + + | Date | Type | Department | Care Team | Description | +--------+ + + + + | 04/05/ | Telephone | [facility] | Fam Bonds, | Other (Surgery | | 2013 | | NE[address]URGERY [address] | DO [address] | reminder ) | | | | [address] | [address] [place], [place] | | | | | [place], [place] | [id number] | | | | | [address] | | | | | | [phone] | | | +--------+ + + + + Social History + + + +--------+ + | Tobacco Use | Types | Packs/Day | Years | Date | | | | | Used | | + + + +--------+ + | Former Smoker | Cigarettes | 1 | 15 | Quit: 01/10/2013 | + + + +--------+ + + + | Comments: his sister smokes inside, has been around others who smoke | + + + + +---------+ + | Alcohol Use | Drinks/Week | oz/Week | Comments | + + +---------+ + | Yes | 35 Standard drinks | 29.2 | | | | or equivalent | | | + + +---------+ + + + + | Sex Assigned at | Date Recorded | | | | + + + | Not on file | | + + + + + + + | Job Start Date | Occupation | Industry | + + + + | Not on file | Not on file | Not on file | + + + + + + + + | Travel History | Travel Start | Travel End | + + + + + + | No recent travel history available. | + + documented as of this encounter Plan of Treatment +--------+---------+ + + + | Date | Type | Specialty | Care Team | Description | +--------+---------+ + + + | 07/04/ | Office | Gastroenterology | [facility], | | | 2019 | Visit | | GILMA Alexander [address] | | | | | | [address] | | | | | | [place] | | | | | | [id number] | | | | | | | | +--------+---------+ + + + documented as of this encounter Visit Diagnoses Not on filedocumented in this encounter"
--- OUTSIDE RECORDS SUMMARY | ~2019-07-02 | XMS | Encounter Summary ---
Demographics + + + | Address | [address] [facility] [address] | | | [place] [address] | + + + | Home Phone | | + + + | Preferred Language | Unknown | + + + | Marital Status | Single | + + + | Yazidi Affiliation | Unknown | + + + | Race | Unknown | + + + | Ethnic Group | Unknown | + + + Author + + + | Author | [facility] | | | and [place] | + + + | Organization | [facility] | | | and [place] | + + + | Address | Unknown | + + + | Phone | Unavailable | + + + Support + + + + + | Name | Relationship | Address | Phone | + + + + + | Craig Sinha | ECON | [address] | | | | [place] | | | | | [address] | | + + + + + Care Team Providers + +------+ + | Care Quality Control Analyst Name | Role | Phone | + +------+ + | Lisa Morrow MD | PCP | | + +------+ + Encounter Details +--------+ + + + + | Date | Type | Department | Care Team | Description | +--------+ + + + + | 09/07/ | Orders Only | [facility] [place] | Fam Bonds, | Back pain (Primary | | 2014 | | NEUROSUR[address]ERY [address] | DO [address] | Dx) | | | | [address] | [address] [place], [place] | | | | | [place], [place] | [address] | | | | | [address] | | | | | | [phone] | | | +--------+ + + + + Social History + +-------+ +--------+ + | Tobacco Use | Types | Packs/Day | Years | Date | | | | | Used | | + +-------+ +--------+ + | Former Smoker | | | | Quit: 01/10/2013 | + +-------+ +--------+ + + + + | Sex Assigned [...] | 07/04/ | Office | Gastroenterology | [facility], | | | 2019 | Visit | | GILMA Alexander [address] | | | | | | [address] | | | | | | [place] | | | | | | [address] | | | | | | | | +--------+---------+ + + + documented as of this encounter Results XR Lumbar Spine 2 or 3 Vw (10/22/2013 2:03 PM PDT) + + | Specimen | + + | | + + + + + | Narrative | Performed At | + + + | XR LUMBAR SPINE 2 OR 3 VW. 10/22/2013 2:03 PM HISTORY: Back pain | [facility] | | . COMPARISON: MRI lumbar spine 02/15/2013 FINDINGS: | LAB | | Vertebral body alignment is maintained on the upright neutral, as well | | | as the flexion and extension views. Vertebral body heights are | | | also maintained. There is diffuse degenerative disc disease, with | | | multilevel loss of disc height, endplate sclerotic change, and | | | osteophyte formation, greatest at the levels of L2-3 and L5-S1. | | | There is facet degenerative hypertrophy. IMPRESSION - | | | Degenerative disc disease and spondylotic change, without evidence of | | | spondylolisthesis. Dictated and Signed by: Richi Brown MD | | | Electronically signed: 10/22/2013 5:58 PM | | + + + + + | Procedure Note | + + | Kyle, Rad Results In - 10/22/2013 6:01 PM PDT XR LUMBAR SPINE 2 OR 3 VW. 10/22/2013 | | 2:03 PMHISTORY: Back pain . COMPARISON: MRI lumbar spine 02/15/2013FINDINGS:Vertebral | | body alignment is maintained on the upright neutral, as well as theflexion and extension | | views. Vertebral body heights are also maintained. Thereis diffuse degenerative disc | | disease, with multilevel loss of disc height,endplate sclerotic change, and osteophyte | | formation, greatest at the levels ofL2-3 and L5-S1. There is facet degenerative | | hypertrophy.IMPRESSION -Degenerative disc disease and spondylotic change, without | | evidence ofspondylolisthesis.Dictated and Signed by: Richi Brown MD Electronically | | signed: 10/22/2013 5:58 PM | |is diffuse degenerative disc disease, with multilevel loss of disc height, | |endplate sclerotic change, and osteophyte formation, greatest at the levels of | |L2-3 and L5-S1. There is facet degenerative hypertrophy. | | | | | |IMPRESSION - | |Degenerative disc disease and spondylotic change, without evidence of | |spondylolisthesis. | | | |Dictated and Signed by: Richi Brown MD | | Electronically signed: 10/22/2013 5:58 PM | + + + +---------+ + + | Performing | Address | City/State/Zipcode | Phone Number | | Organization | | | | + +---------+ + + | [facility] | | | [phone] | + +---------+ + + | [facility] | | | [phone] | + +---------+ + + documented in this encounter Visit Diagnoses + + | Diagnosis | + + | Back pain - Primary Backache, unspecified | + + documented in this encounter"
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
--- OUTSIDE RECORDS SUMMARY | ~2019-07-02 | XMS | Encounter Summary ---
Demographics + + + | Address | [address] [facility] [address] | | | [place] [address] | + + + | Home Phone | | + + + | Preferred Language | Unknown | + + + | Marital Status | Single | + + + | Mandaeism Affiliation | Unknown | + + + | Race | Unknown | + + + | Ethnic Group | Unknown | + + + Author + + + | Author | [facility] | | | and [place] | + + + | Organization | [facility] | | | and [place] | [...] [place] | | | | | [address] | | + + + + + Care Team Providers + +------+ + | Care Intermodal Dispatcher Name | Role | Phone | + +------+ + | Stefano Padgett PA-C | PCP | | + +------+ + Reason for Visit Auth/Cert +--------+--------+ + + + + | Status | Reason | Specialty | Diagnoses / | Referred By | Referred To | | | | | Procedures | Contact | Contact | +--------+--------+ + + + + | Closed | | | Diagnoses | | | | | | | Lumbosacral | | | | | | | spondylosis | | | | | | | without | | | | | | | myelopathy | | | | | | | Other | | | | | | | lordosis | | | | | | | (acquired) | | | | | | | Lipoma of | | | | | | | other | | | | | | | specified | | | | | | | sites | | | | | | | Spinal | | | | | | | stenosis, | | | | | | | lumbar | | | | | | | region, | | | | | | | without | | | | | | | neurogenic | | | | | | | claudication | | | | | | | Thoracic | | | | | | | or | | | | | | | lumbosacral | | | | | | | neuritis or | | | | | | | radiculitis, | | | | | | | unspecified | | | | | | | | | | | | | | Lumbosacral | | | | | | | spondylosis | | | | | | | without | | | | | | | myelopathy | | | | | | | Other | | | | | | | lordosis | | | | | | | (acquired) | | | | | | | Lipoma of | | | | | | | other | | | | | | | specified | | | | | | | sites | | | | | | | Spinal | | | | | | | stenosis, | | | | | | | lumbar | | | | | | | region, | | | | | | | without | | | | | | | neurogenic | | | | | | | claudication | | | | | | | Thoracic | | | | | | | or | | | | | | | lumbosacral | | | | | | | neuritis or | | | | | | | radiculitis, | | | | | | | unspecified | | | | | | | Procedures | | | | | | | [place] | | | | | | | ARTHRODESIS | | | | | | | POSTERIOR/PO | | | | | | | STEROLATERAL | | | | | | | LUMBAR [place] | | | | | | | LUMBAR SPINE | | | | | | | | | | | | | | FUSION,ANTER | | | | | | | APPRCH [place] | | | | | | | APPLICATION | | | | | | | INTERVERTEBR | | | | | | | AL | | | | | | | BIOMECHANICA | | | | | | | L DEVICE [place] | | | | | | | SPINE | | | | | | | FUSN,POST | | | | | | | TECH,EA | | | | | | | ADDNL SGMT | | | | | | | [place] SPINAL | | | | | | | FUSION,ANT,E | | | | | | | A ADNL LEVEL | | | | | | | [place] | | | | | | | APPLICATION | | | | | | | INTERVERTEBR | | | | | | | AL | | | | | | | BIOMECHANICA | | | | | | | L DEVICE | | | | | | | POSTERIOR | | | | | | | SEGMENTAL | | | | | | | INSTRUMENTAT | | | | | | | ION 3-6 VRT | | | | | | | SEG [place] | | | | | | | ARTHDSIS | | | | | | | POST/POSTERO | | | | | | | LATRL/POSTIN | | | | | | | TERBODY | | | | | | | LUMBAR | | | | | | | LAMINEC/FACE | | | | | | | TECT/FORAMIN | | | | | | | ,LUMBAR 1 | | | | | | | SEG [place] | | | | | | | LAMINEC/FACE | | | | | | | TECT/FORAMIN | | | | | | | ,EACH ADDNL | | | | | | | [place] ARTHDSIS | | | | | | | | | | | | | | POST/POSTERL | | | | | | | ATRL/POSTINT | | | | | | | RBDYADL | | | | | | | SPC/SEG | | | | | | | POSTERIOR | | | | | | | SEGMENTAL | | | | | | | INSTRUMENTAT | | | | | | | ION 3-6 VRT | | | | | | | SEG [place] | | | | | | | APPLICATION | | | | | | | INTERVERTEBR | | | | | | | AL | | | | | | | BIOMECHANICA | | | | | | | L DEVICE | | | | | | | FUSION-LUMBA | | | | | | | R DIRECT | | | | | | | LATERAL | | | | | | | INTERBODY | | | +--------+--------+ + + + + Encounter Details +--------+ + + + + | Date | Type | Department | Care Team | Description | +--------+ + + + + | 04/09/ | Anesthesia | [facility] | Branden Goldsmith MD | | | 2013 | Event | [facility] | [address] | | | | | [address] | [place] | | | | | [place] | [id number] | | | | | [phone] | | | | | | [phone] | | | +--------+ + + + + Anesthesia Record + + + + + | Procedure Name | Responsible | Anesthesia Start | Anesthesia Stop Time | | | Anesthesiologist | Time | | + + + + + | T12-L1, L1-2, L2-3, | | 04/09/14 1112 | 04/09/142004 | | L3-4, LAIF WITH L4-5 | | | | | AND L5-S1 TLIF AND | | | | | LAMINECTOMY T12-S1 | | | | | (N/A Spine Lumbar) | | | | + + + + + +----+---+ + + | Da | T | Event | Comment | | te | i | | | | | m | | | | | e | | | +----+---+ + + | 09 | 1 | An Checkout | Pre-use anesthesia machine/equipment checkout. | | /2 | 1 | | | | 3/ | 1 | | | | 20 | 2 | | | | 14 | | | | +----+---+ + + | | 1 | An Start | Reassessment prior to anesthesia induction/procedure. | | | 1 | | | | | 1 | | | | | 2 | | | +----+---+ + + | | 1 | Antibiotic | | | | 1 | Given | | | | 1 | | | | | 2 | | | +----+---+ + + | | 1 | Preoxygenat | | | | 1 | ed | | | | 1 | | | | | 9 | | | +----+---+ + + | | 1 | An | | | | 1 | Induction | | | | 2 | | | | | 0 | | | +----+---+ + + | | 1 | An | | | | 1 | Intubation | | | | 2 | | | | | 1 | | | +----+---+ + + | | 1 | [place] | | | | 1 | 43-degrees | | | | 5 | | | | | 6 | | | +----+---+ + + | | 1 | | | | | 8 | | | | | 3 | | | | | 2 | | | +----+---+ + + | | 1 | Breathing | | | | 9 | Spontaneous | | | | 2 | ly | | | | 9 | | | +----+---+ + + | | 2 | Oropharynx | | | | 0 | Suctioned | | | | 0 | | | | | 2 | | | +----+---+ + + | | 2 | Moving | | | | 0 | Purposefull | | | | 0 | y | | | | 2 | | | +----+---+ + + | | 2 | Extubated | | | | 0 | Awake | | | | 0 | | | | | 2 | | | +----+---+ + + | | 2 | an stop | | | | 0 | data | | | | 0 | | | | | 2 | | | +----+---+ + + | | 2 | An Stop | Patient handed off to recovery nurse. | | | 0 | | | | | 5 | | | +----+---+ + + +------+ | Meds | +------+ + + + | Name | Total | + + + | fentaNYL | 200 mcg | + + + | lidocaine 2% | 40 mg | + + + | propofol | 400 mg | + + + | HYDROmorphone | 6 mg | + + + | Phenylephrine 100mcg/mL SYRINGE | 100 mcg | + + + | ondansetron | 4 mg | + + + | midazolam | 2 mg | + + + | ceFAZolin in dextrose (ANCEF) | 3 g | | IVPB 2 g | | + + + | vasopressin | 2 Units | + + + | ketamine | 50 mg | + + + | ketamine | 101.15 mg | + + + | magnesium sulfate | 2 g | + + + | metoclopramide | 10 mg | + + + | diphenhydrAMINE | 25 mg | + + + | succinylcholine | 50 mg | + + + | dexmedetomidine (Bolus) | 40 mcg | + + + | labetalol | 10 mg | + + + | sodium chloride 0.9% (NS) | 1,000 mL | | infusion | | + + + | LR (Infusion) | 3,400 mL | + + + + + | Name | + + | N2O Flow Rate (L/Min) | + + | O2 Flow Rate (L/Min) | + + | Insp O2 | + + | Exp AMANDA | + + | Air Flow Rate (L/Min) | + + + + | No blood administrations on file. | + + +--------+ + + + | Type | Details | Placement | Removal | +--------+ + + + | [READ | 04/09/14; 828; Blood Bank (blood | 04/09/14 08 by | 04/12/14 0000 by | | ONLY] | sugar); healing within | Cornelia Torres | Agustina Hua RN | | | expectations; 04/12/14 | | | | Periph | | | | | eral | | | | | IV - | | | | | Single | | | | | Lumen | | | | | | | | | +--------+ + + + | Airway | Placement Date: 04/09/14; | 04/09/14 112 by | 04/09/142001 by | | | Placement Time: 1121; Mask | Branden Goldsmith MD | Branden Goldsmith MD | | | Ventilation: EZ w/OA; Airway | | | | | Grade: II; With: CP; Successful | | | | | Technique: Mac; Laryngoscope | | | | | Blade Size: 4; Attempts: 1; | | | | | Airway Type: endotracheal, | | | | | cuffed; Size: 6.5; Position: | | | | | Right; Airway Tube Secured At: | | | | | 0.22 m (8.66"); Tube Reference | | | | | Point: lip, secure and patent; | | | | | Trauma: none; Placement Check: | | | | | verified by capnography; Placed | | | | | By: Anesthesiologist; Removal | | | | | Date: 04/09/14; Removal Time: | | | | | 2001 | | | +--------+ + + + | Read | 04/09/14; 1246; Left; flank; | 04/09/14 1246 by | 04/15/14 0000 by | | only - | healing within expectations; | Christian De Leon RN | Carlita Queen RN | | | 04/15/14 | | | | Incisi | | | | | on | | | | +--------+ + + + | Read | 04/09/14; 1712; Bilateral; back; | 04/09/141711 by | 04/15/14 0000 by | | only - | healing within expectations; | Trixie Min RN | Carlita Queen RN | | | 04/15/14 | | | | Incisi | | | | | on | | | | +--------+ + + + | Drain/ | 04/09/14; 1918; #1; Right:; | 04/09/141918 by | 04/12/14 0000 by | | Device | lower; lumbar spine; 10mm ROUND; | Trixie Min RN | Agustina Hua RN | | Site | healing within expectations; | | | | | 04/12/14 | | | +--------+ + + + documented in this encounter Social History + + + +--------+ + [...] | 07/04/ | Office | Gastroenterology | [facility], | | | 2019 | Visit | | GILMA [address] | | | | | [place], [place] [address] | | | | | | [place] | | | | | | [id number] | | | | | | | | +--------+---------+ + + + documented as of this encounter Visit Diagnoses Not on filedocumented in this encounter Administered Medications + +--------+ +------+------+------+ | Medication Order | MAR | Action | Dose | Rate | Site | | | Action | Date | | | | + +--------+ +------+------+------+ | ceFAZolin in dextrose (ANCEF) | Given | 04/09/20 | 1 g | | | | IVPB 2 g 2 g, Intravenous, | | 14 4:18 | | | | | Administer over 30 Minutes, Prior | | PM PDT | | | | | to Incision, Starting Tue | | | | | | | 04/09/14 at 0756, For 1 dose, | | | | | | | Administer within 1 hour of | | | | | | | surgical incision., Pre-op | | | | | | + +--------+ +------+------+------+ +-------+ +-----+---+---+ | Given | 04/09/20 | 2 g | | | | | 14 11:12 | | | | | | AM PDT | | | | +-------+ +-----+---+---+ +---+---+ | | | +---+---+ + +-------+ +--------+---+---+ | dexmedetomidine (PRECEDEX) in | Given | 04/09/20 | 10 mcg | | | | sodium chloride bolus infusion | | 14 5:20 | | | | | Intravenous, PRN, Starting Tue | | PM PDT | | | | | 04/09/14 at 1659, Anesthesia | | | | | | | Intra-op | | | | | | + +-------+ +--------+---+---+ +-------+ +--------+---+---+ | Given | 04/09/20 | 10 mcg | | | | | 14 5:07 | | | | | | PM PDT | | | | +-------+ +--------+---+---+ | Given | 04/09/20 | 10 mcg | | | | | 14 5:02 | | | | | | PM PDT | | | | +-------+ +--------+---+---+ +---+---+ | | | +---+---+ + +-------+ +-------+---+---+ | diphenhydrAMINE (BENADRYL) | Given | 04/09/20 | 25 mg | | | | injection Intravenous, PRN, | | 14 12:29 | | | | | Itching, Starting 04/09/14 at | | PM PDT | | | | | 1229, Anesthesia Intra-op | | | | | | + +-------+ +-------+---+---+ +---+---+ | | | +---+---+ + +-------+ +---------+---+---+ | fentaNYL injection | Given | 04/09/20 | 100 mcg | | | | Intravenous, PRN, Pain, Starting | | 14 5:36 | | | | | e 04/09/14 at 1120, Anesthesia | | PM PDT | | | | | Intra-op | | | | | | + +-------+ +---------+---+---+ +-------+ +---------+---+---+ | Given | 04/09/20 | 100 mcg | | | | | 14 11:20 | | | | | | AM PDT | | | | +-------+ +---------+---+---+ +---+---+ | | | +---+---+ + +-------+ +------+---+---+ | HYDROmorphone (PF) (DILAUDID) 2 | Given | 04/09/20 | 1 mg | | | | mg/mL injection Intravenous, | | 14 6:13 | | | | | PRN, Pain, Starting 04/09/14 | | PM PDT | | | | | at 1126, Anesthesia Intra-op | | | | | | + +-------+ +------+---+---+ +-------+ +------+---+---+ | Given | 04/09/20 | 1 mg | | | | | 14 6:09 | | | | | | PM PDT | | | | +-------+ +------+---+---+ | Given | 04/09/20 | 2 mg | | | | | 14 12:20 | | | | | | PM PDT | | | | +-------+ +------+---+---+ +---+---+ | | | +---+---+ + +---------+ + +-------+---+ | ketamine 50 mg/mL injection | New Bag | 04/09/20 | 4 | 0.6 | | | CONTINUOUS PRN, Starting Tu | | 14 12:03 | mcg/kg/m | mL/hr | | | 04/09/14 at 1203, Anesthesia | | PM PDT | in | | | | Intra-op | | | | | | + +---------+ + +-------+---+ +---+---+ | | | +---+---+ + +-------+ +-------+---+---+ | ketamine 50 mg/mL injection | Given | 04/09/20 | 50 mg | | | | PRN, Starting 04/09/14 at | | 14 5:40 | | | | | 1740, Anesthesia Intra-op | | PM PDT | | | | + +-------+ +-------+---+---+ +---+---+ | | | +---+---+ + +-------+ +-------+---+---+ | labetalol (TRANDATE) 5 mg/mL | Given | 04/09/20 | 10 mg | | | | injection Intravenous, PRN, | | 14 5:47 | | | | | Starting Tue04/09/14 at 1747, | | PM PDT | | | | | Anesthesia Intra-op | | | | | | + +-------+ +-------+---+---+ +---+---+ | | | +---+---+ + +---------+ +----+---+---+ | lactated ringers (LR) infusion | New Bag | 04/09/20 | mL | | | | Intravenous, CONTINUOUS PRN, | | 14 1:43 | | | | | Starting Tue04/09/14 at 1343, | | PM PDT | | | | | Anesthesia Intra-op | | | | | | + +---------+ +----+---+---+ +---+---+ | | | +---+---+ + +-------+ +-------+---+---+ | lidocaine (PF) 2% injection | Given | 04/09/20 | 40 mg | | | | Intravenous, PRN, Starting e | | 14 11:20 | | | | | 04/09/14 at 1120, Anesthesia | | AM PDT | | | | | Intra-op | | | | | | + +-------+ +-------+---+---+ +---+---+ | | | +---+---+ + +-------+ +-----+---+---+ | magnesium sulfate 500 mg/mL | Given | 04/09/20 | 1 g | | | | injection Intravenous, PRN, | | 14 12:19 | | | | | Starting 04/09/14 at 1211, | | PM PDT | | | | | Anesthesia Intra-op | | | | | | + +-------+ +-----+---+---+ +-------+ +-----+---+---+ | Given | 04/09/20 | 1 g | | | | | 14 12:11 | | | | | | PM PDT | | | | +-------+ +-----+---+---+ +---+---+ | | | +---+---+ + +-------+ +-------+---+---+ | metoclopramide (REGLAN) 5 mg/mL | Given | 04/09/20 | 10 mg | | | | injection Intravenous, PRN, | | 14 12:29 | | | | | Nausea, Vomiting, Starting Tue | | PM PDT | | | | | 04/09/14 at 1229, Anesthesia | | | | | | | Intra-op | | | | | | + +-------+ +-------+---+---+ +---+---+ | | | +---+---+ + +-------+ +------+---+---+ | midazolam (VERSED) 1 mg/mL | Given | 04/09/20 | 2 mg | | | | injection Intravenous, PRN, | | 14 11:13 | | | | | Anxiety, Starting 04/09/14 at | | AM PDT | | | | | 1113, Anesthesia Intra-op | | | | | | + +-------+ +------+---+---+ +---+---+ | | | +---+---+ + +-------+ +------+---+---+ | ondansetron (ZOFRAN) injection | Given | 04/09/20 | 4 mg | | | | Intravenous, PRN, Nausea, | | 14 7:27 | | | | | Vomiting, Starting 04/09/14 at | | PM PDT | | | | | 1927, Anesthesia Intra-op | | | | | | + +-------+ +------+---+---+ +---+---+ | | | +---+---+ + +-------+ +---------+---+---+ | phenylephrine 100 mcg/mL | Given | 04/09/20 | 100 mcg | | | | (TERRI-SYNEPHRINE) injection | | 14 11:56 | | | | | Intravenous, PRN, Starting Tue | | AM PDT | | | | | 04/09/14 at 1156, Anesthesia | | | | | | | Intra-op | | | | | | + +-------+ +---------+---+---+ +---+---+ | | | +---+---+ + +-------+ +--------+---+---+ | propofol (DIPRIVAN) injection | Given | 04/09/20 | 400 mg | | | | Intravenous, PRN, Starting Tue | | 14 11:20 | | | | | 04/09/14 at 1120, Anesthesia | | AM PDT | | | | | Intra-op | | | | | | + +-------+ +--------+---+---+ +---+---+ | | | +---+---+ + +---------+ +----+---+---+ | sodium chloride 0.9% (NS) | New Bag | 04/09/20 | mL | | | | infusion at 10-100 mL/hr, | | 14 11:12 | | | | | Intravenous, CONTINUOUS, Starting | | AM PDT | | | | | 04/09/14 at 0815, TKO. Use | | | | | | | this instead of LR if both are | | | | | | | ordered., Pre-op | | | | | | + +---------+ +----+---+---+ +---------+ +---+ +---+ | New Bag | 04/09/20 | | 75 mL/hr | | | | 14 8:40 | | | | | | AM PDT | | | | +---------+ +---+ +---+ +---+---+ | | | +---+---+ + +-------+ +-------+---+---+ | succinylcholine (ANECTINE) | Given | 04/09/20 | 50 mg | | | | injection Intravenous, PRN, | | 14 11:20 | | | | | Starting 04/09/14 at 1120, | | AM PDT | | | | | Anesthesia Intra-op | | | | | | + +-------+ +-------+---+---+ +---+---+ | | | +---+---+ + +-------+ +---------+---+---+ | vasopressin (PITRESSIN) | Given | 04/09/20 | 2 Units | | | | injection Intravenous, PRN, | | 14 12:06 | | | | | Starting 04/09/14 at 1206, | | PM PDT | | | | | Anesthesia Intra-op | | | | | | + +-------+ +---------+---+---+ +---+---+ | | | +---+---+ documented in this encounter
--- OUTSIDE RECORDS SUMMARY | ~2019-07-02 | XMS | Clinical Summary ---
Demographics + + + | Address | [address] | | | [place] [address] | + + + | Home Phone | | + + + | Preferred Language | Unknown | + + + | Marital Status | Single | + + + | Evangelical Affiliation | Unknown | + + + | Race | Unknown | + + + | Ethnic Group | Unknown | + + + Author + + + | Author | [facility] | | | and [place] | + + + | Organization | [facility] | | | and [place] | + + + | Address | Unknown | + + + | Phone | Unavailable | + + + Support + + + + + | Name | Relationship | Address | Phone | + + + + + | Craig Sinha | ECON | [address] | | | | | [place] | | | | | [address] | | + + + + + Care Team Providers + +------+ + | Care Director Game Name | Role | Phone | + +------+ + | Yulia Gutierrez PA-C | PCP | | + +------+ + Allergies No Known Allergies Medications + + + +---------+------+------+-------+ | Medication | Sig | Dispensed | Refills | Star | End | Statu | | | | | | t | Date | s | | | | | | Date | | | + + + +---------+------+------+-------+ | | Inhale 2 puffs into | 1 | 11 | 07/0 | | Activ | | budesonide-formotero | the lungs 2 times | Inhaler | | 7/20 | | e | | l (SYMBICORT) | daily. Murali | | | 14 | | | | 160-4.5 mcg/puff | GOLDEN Padgett, | | | | | | | inhaler | Anahi | | | | | | + + + +---------+------+------+-------+ | Cholecalciferol | Take 5,000 Units by | | 0 | | | Activ | | (VITAMIN D3) 5000 | mouth Daily. | | | | | e | | UNITS CAPS | | | | | | | + + + +---------+------+------+-------+ | LISINOPRIL PO | Take by mouth | | 0 | | | Activ | | | Daily. | | | | | e | + + + +---------+------+------+-------+ | diazepam (VALIUM) | Take 1 tablet by | 60 | 1 | 07/0 | | Activ | | 5 mg tablet | mouth every 6 hours | tablet | | 9/20 | | e | | | as needed (muscle | | | 15 | | | | | spasm). | | | | | | + + + +---------+------+------+-------+ | docusate sodium | Take 100 mg by mouth | 60 | 1 | 07/0 | | Activ | | (COLACE) 100 MG | 2 times daily. | capsule | | 9/20 | | e | | capsule | | | | 15 | | | + + + +---------+------+------+-------+ | fluticasone | 1 spray by Nasal | | 0 | | | Activ | | (FLONASE) 50 | route Daily. | | | | | e | | mcg/nasal spray | | | | | | | + + + +---------+------+------+-------+ | Fexofenadine HCl | Take by mouth. 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 | + + + + + | PLMD (periodic limb movement disorder) | 01/21/2014 | + + + | COPD (chronic obstructive pulmonary disease) | 01/21/2014 | + + + | MARY JANE (obstructive sleep apnea) | 11/15/2013 | + + + | Lumbar radiculopathy | 04/14/2013 | + + + | Spinal stenosis of lumbar region at multiple levels - | 04/14/2013 | | multifactorial, prominent epidural lipomatosis | | + + + | DDD (degenerative disc disease), lumbar - multilevel | 04/14/2013 | + + + | Foraminal stenosis of lumbar region - especially right L5-S1 | 04/14/2013 | + + + | Obesity | 04/14/2013 | + + + | Chronic kidney disease, stage III (moderate) | 01/01/2013 | + + + | 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/01/2013 | | manifestations, not stated as uncontrolled(250.40) | | + + + | Hypertriglyceridemia | 01/01/2013 | + + + | Osteoarthritis | | + + + | Acid reflux | | + + + | Gout | | + + + | Hepatitis C | | + + + Resolved Problems + + + + | Problem | Noted | Resolved | | | Date | Date | + + + + | Need for Tdap vaccination | 01/22/20 | | | | 14 | 4 | + + + + | Acute kidney failure with lesion of tubular necrosis | 01/02/20 | | | | 13 | 4 | + + + + Encounters +--------+ + + + + | Date | Type | Specialty | Care Team | Description | +--------+ + + + + | 06/28/ | Abstract | Gastroenterology | Provider, | | | 2018 | | | MD Do | | +--------+ + + + + | 06/13/ | Abstract | Gastroenterology | Provider, | | | 2019 | | | MD Do | | +--------+ + + + + from Last 3 Months Immunizations + + + + | Name | Administration Dates | Next Due | + + + + | PNEUMOCOCCAL | 10/22/2013 | | | POLYSACCHARIDE | | | | 23-VALENT (PPSV23) | | | + + + + | TDAP, (ADOL/ADULT) | 01/21/2014 | | + + + + Family History + + +--------+ + | Medical History | Relation | Name | Comments | + + +--------+ + | Alcohol abuse | Brother | Geoff | | + + +--------+ + | Alcohol abuse | Brother | Kendell | | + + +--------+ + | Diabetes | Brother | Aaron | | + + +--------+ + | Hypertension | Brother | Aaron | | + + +--------+ + | Tobacco Use | Brother | | | + + +--------+ + | Alcohol abuse | Brother | | | + + +--------+ + | Alcohol abuse | Mother | | | + + +--------+ + | Breast cancer | Mother | | | + + +--------+ + | COPD | Sister | | | + + +--------+ + | Fibromyalgia | Sister | | | + + +--------+ + | Rheum arthritis | Sister | | | + + +--------+ + | Tobacco Use | Sister | | | + + +--------+ + | Substance abuse | Sister | Lauren | | + + +--------+ + | Tobacco Use | Sister | Lauren | | + + +--------+ + + +--------+ + + | Relation | Name | Status | Comments | + +--------+ + + | | Geoff | Alive | | + +--------+ + + | Brother | | Alive | | + +--------+ + + | Brother | Kendell | Alive | | + +--------+ + + | Brother | Aaron | Alive | | + +--------+ + + | Brother | | | pneumonia | + +--------+ + + | Brother | | | AIDs | + +--------+ + + | Father | | | pneumonia | | | | (Age | | | | | 49) | | + +--------+ + + | Mother | | | metastatic breast cancer | | | | (Age | | | | | 71) | | + +--------+ + + | Sister | | Alive | | + +--------+ + + | Sister | Lauren | Alive | | + +--------+ + + Social History + + + [...] recent travel history available. | + + Last Filed Vital Signs + + + + + | Vital Sign | Reading | Time Taken | Comments | + + + + + | Blood Pressure | 146/80 | 02/07/2015 11:33 AM | | | | | PDT | | + + + + + | Pulse | 97 | 04/26/2018 12:59 PM | | | | | PDT | | + + + + + | Temperature | 37.1 C (98.8 F) | 02/07/2015 11:33 AM | | | | | PDT | | + + + + + | Respiratory Rate | 16 | 04/26/2018 12:59 PM | | | | | PDT | | + + + + + | Oxygen Saturation | 93% | 04/26/2018 12:59 PM | | | | | PDT | | + + + + + | Inhaled Oxygen | - | - | | | Concentration | | | | + + + + + | Weight | 131.5 kg (290 lb) | 04/26/2018 12:59 PM | | | | | PDT | | + + + + + | Height | 182.9 cm (6') | 04/26/2018 12:59 PM | | | | | PDT | | + + + + + | Body Mass Index | 39.33 | 04/26/2018 12:59 PM | | | | | PDT | | + + + + + Plan of Treatment +--------+---------+ + + + | Date | Type | Specialty | Care Team | Description | +--------+---------+ + + + | 07/04/ | Office | Gastroenterology | [facility], | | | 2019 | Visit | | GILMA [address] | | | | | [address] | | | | | | [place] | | | | | | [phone] | | | | | | | | +--------+---------+ + + + + + + + + | Health Maintenance | Due Date | Last Done | Comments | + + + + + | Diabetic Eye Exam | | | | | | 0 | | | + + + + + | Diabetic Foot Exam | | | | | | 0 | | | + + + + + | Vaccine: Zoster (1 | | | | | of 2) | 2 | | | + + + + + | Adult Annual | | | | | Wellness Visit | 8 | | | + + + + + | Statin Therapy | | | | | (optimal intensity) | 8 | | | + + + + + | Vaccine: Influenza | | | | | (#1) | 9 | | | + + + + + | Hemoglobin A1c | | 05/16/2019, 02/07/2013, | | | Screening | 0 | 12/04/2012 | | + + + + + | Vaccine: | | 01/21/2014 | | | Dtap/Tdap/Td (2 - | 4 | | | | Td) | | | | + + + + + | Colorectal Cancer | | 07/23/2015 | | | Screening | 6 | | | | (Colonoscopy) | | | | + + + + + | Vaccine: | Completed | 10/22/2013 | | | Pneumococcal 19-64 | | | | + + + + + | Hepatitis C | Completed | 01/23/2015, 01/22/2015, | | | Screening | | 01/21/2015, Additional history | | | | | exists | | + + + + + Implants + +------+--------+ +--------+--------+--------+ | Implanted | Type | Area | Manufacture | Device | Shelf | Model | | | | | r | | Expira | / | | | | | | Identi | tion | Serial | | | | | | fier | Date | / Lot | + +------+--------+ +--------+--------+--------+ | Cancellous Chips | | N/A: | [employer] - | | 12/30/ | [id number] | | 5ccImplanted: Qty: 1 on | | Spine | MEDT | | 2019 | | | 04/09/2014 by Fam Bonds | | Lumbar | | | | /[id number] | | ADO at [facility] | | | | | | 0-036 | | [facility] | | | | | | / | + +------+--------+ +--------+--------+--------+ | ScrewImplanted: Qty: 5 on | | N/A: | [employer] - | | | [id number] | | 04/09/2014 by Fam Bonds | | Spine | MEDT | | | [id number] | | A, DO at [facility] | | Lumbar | | | | / / | | [facility] | | | | | | | + +------+--------+ +--------+--------+--------+ | ScrewImplanted: Qty: 2 on | | N/A: | [employer] - | | | [id number] | | 04/09/2014 by Fam Bonds | | Spine | MEDT | | | [id number] | | A, DO at [facility] | | Lumbar | | | | / / | | [facility] | | | | | | | + +------+--------+ +--------+--------+--------+ | ScrewImplanted: Qty: 1 on | | N/A: | [employer] - | | | [id number] | | 04/09/2014 by Fam Bonds | | Spine | MEDT | | | [id number] | | A, DO at [facility] | | Lumbar | | | | / / | | [facility] | | | | | | | + +------+--------+ +--------+--------+--------+ | Screw 7.5x50mm Sextant - | | N/A: | [employer] - | | | [id number] | | [id number]: Qty: 2 on | | Spine | MEDT | | | [id number] | | 04/09/2014 by Fam Bonds | | Lumbar | | | | / / | | A DO at [facility] | | | | | | | | [facility] | | | | | | | + +------+--------+ +--------+--------+--------+ | Imp Spn Spcr Cpstn [id number] - | | N/A: | SOFAMOR | | 08/24/ | [id number] | | [id number]: Qty: 1 on | | Spine | DANEK - DIV | | 2020 | 2 / | | 04/09/2014 by Fam Bonds | | Lumbar | [employer] | | | /[id number] | | A, DO at [facility] | | | - SFDK | | | 032 | | [facility] | | | | | | | + +------+--------+ +--------+--------+--------+ | Sealant Duraseal Exact Sys | | N/A: | [employer]TE[employer]RA | | 06/16/ | [id number] | | 5ml - [id number]: | | Spine | LIFESCIENCE | | 2015 | / | | Qty: 1 on 04/09/2014 by | | Lumbar | S CHETNA - | | | [id number] | | Fam Bonds DO at [facility] | | | RUEL | | | 33X | | [facility] | | [facility] | | | | | | | + +------+--------+ +--------+--------+--------+ | Set Scrw Ns G5 Brk Off Ti | | N/A: | SOFAMOR | | | [id number] | | 4.75 - [id number]: | | Spine | DANEK - DIV | | | 0 / / | | Qty: 11 on 04/09/2014 by | | Lumbar | [employer] | | | | | Fam Bonds DO at [facility] | | | - SFDK | | | | | [facility] | | | [facility] | [facility] | | | | | | | + +------+--------+ +--------+--------+--------+ | RodImplanted: Qty: 2 on | | N/A: | [employer] - | | | [id number] | | 04/09/2014 by Fam Bonds | | Spine | MEDT | | | [id number] / | Emerita Torres DO at [facility] | | Lumbar | | | | / | | [facility] | | | | | | | + +------+--------+ +--------+--------+--------+ | Cancellous Chips | | | | | 12/30/ | [id number] | | 5ccImplanted: Qty: 1 on | | | | | 2018 | | | 04/09/2014 at [facility] | | | | | | /[id number] | | [facility] | | | | | | 0-35 / | + +------+--------+ +--------+--------+--------+ | Cancellous Chips | | | | | 03/28/ | [id number] | | 5ccImplanted: Qty: 1 on | | | | | 2018 | | | 04/09/2014 at [facility] | | | | | | /[id number] | | [facility] | | | | | | 7-033 | | | | | | | | / | + +------+--------+ +--------+--------+--------+ | Putty Alexis 10cc Dbm - | | N/A: | [employer] - | | 11/28/ | [id number] | | [id number]: Qty: 1 | | Spine | OSTT | | 2017 | | | on 04/09/2014 by Cammie, | | Lumbar | | | | /[id number] | | Fam Torres DO at [facility] | | | | | | 5-036 | | [facility] | | | | | | / | + +------+--------+ +--------+--------+--------+ | Graft Infuse Bone Kit Xs - | | N/A: | SOFAMOR | | 10/15/ | [id number] | | [id number]: Qty: 3 on | | Spine | DANEK - DIV | | 2014 | 0 / | | 04/09/2014 by Fam Bonds | | Lumbar | [employer] | | | /[id number] | | DO Melissa at [facility] | | | - SFDK | | | [id number] | | [facility] | | | | | | | + +------+--------+ +--------+--------+--------+ | Putty Bacon 10cc Dbm - | | N/A: | OSTEOTECH - | | 11/28/ | [id number] | | [id number]: Qty: 1 | | Spine | OSTT | | 2017 | | | on 04/09/2014 by Cammie, | | Lumbar | | | | /[id number] | | Fam Torres DO at [facility] | | | | | | 5-033 | | [facility] | | | | | | / | + +------+--------+ +--------+--------+--------+ | Cage Xl Wide [id number] - | | N/A: | NUVASIVE - | | | [id number] | | [id number]: Qty: 2 on | | Spine | NVSV | | | 0 / / | | 04/09/2014 by Fam Bonds | | Lumbar | | | | | | A DO at [facility] | | | | | | | | [facility] | | | | | | | + +------+--------+ +--------+--------+--------+ | Imp Spn Spcr Peek Xlw | | N/A: | NUVASIVE - | | | [id number] | | [id number] | | Spine | NVSV | | | 5 / / | | [id number]: Qty: 1 on | | Lumbar | | | | | | 04/09/2014 by Fam Bonds | | | | | | | | ADO at [facility] | | | | | | | | [facility] | | | | | | | + +------+--------+ +--------+--------+--------+ | Imp Spn Spcr Xlxw [id number] | | N/A: | NUVASIVE - | | | [id number] | | - [id number]: Qty: 1 | | Spine | NVSV | | | 0 / / | | on 04/09/2014 by Cammie, | | Lumbar | | | | | | Fam Torres DO at [facility] | | | | | | | | [facility] | | | | | | | + +------+--------+ +--------+--------+--------+ | Cage Aston Miranda [id number] - | | N/A: | [employer] - | | 03/13/ | [id number] | | [id number]: Qty: 1 on | | Spine | MEDT | | 2021 | 2 / | | 04/09/2014 by Fam Bonds | | Lumbar | | | | /[id number] | | A, DO at [facility] | | | | | | 464 | | [facility] | | | | | | | + +------+--------+ +--------+--------+--------+ | ScrewImplanted: Qty: 1 on | | N/A: | [employer] - | | | [id number] | | 04/09/2014 by Fam Bonds | | Spine | MEDT | | | [id number] | | A, DO at [facility] | | Lumbar | | | | / / | | [facility] | | | | | | | + +------+--------+ +--------+--------+--------+ Procedures + +--------+ + + + | Procedure Name | Priori | Date/Time | Associated Diagnosis | Comments | | | ty | | | | + +--------+ + + + | CBC WITH | Routin | 05/16/2019 | | Results for this | | DIFFERENTIAL | e | | | procedure are in the | | | | | | results section. | + +--------+ + + + | EXTERNAL LAB: CBC | Routin | 05/16/2019 | | Results for this | | | e | | | procedure are in the | | | | | | results section. | + +--------+ + + + | EXTERNAL LAB: T4, | Routin | 05/16/2019 | | Results for this | | FREE | e | | | procedure are in the | | | | | | results section. | + +--------+ + + + | EXTERNAL LAB: | Routin | 05/16/2019 | | Results for this | | VITAMIN D, | e | | | procedure are in the | | 25-HYDROXY | | | | results section. | + +--------+ + + + | EXTERNAL LAB: TSH | Routin | 05/16/2019 | | Results for this | | | e | | | procedure are in the | | | | | | results section. | + +--------+ + + + | BASIC METABOLIC | Routin | 05/16/2019 | | Results for this | | PANEL | e | | | procedure are in the | | | | | | results section. | + +--------+ + + + | HEMOGLOBIN A1C | Routin | 05/16/2019 | | Results for this | | | e | | | procedure are in the | | | | | | results section. | + +--------+ + + + | EXTERNAL LAB: BUN | Routin | 05/16/2019 | | Results for this | | | e | | | procedure are in the | | | | | | results section. | + +--------+ + + + | EXTERNAL LAB: | Routin | 05/16/2019 | | Results for this | | GLUCOSE | e | | | procedure are in the | | | | | | results section. | + +--------+ + + + | EXTERNAL LAB: ALT | Routin | 05/16/2019 | | Results for this | | | e | | | procedure are in the | | | | | | results section. | + +--------+ + + + | EXTERNAL LAB: AST | Routin | 05/16/2019 | | Results for this | | | e | | | procedure are in the | | | | | | results section. | + +--------+ + + + | EXTERNAL LAB: | Routin | 05/16/2019 | | Results for this | | ALKALINE PHOSPHATASE | e | | | procedure are in the | | | | | | results section. | + +--------+ + + + | EXTERNAL LAB: | Routin | 05/16/2019 | | Results for this | | BILIRUBIN, TOTAL | e | | | procedure are in the | | | | | | results section. | + +--------+ + + + | EXTERNAL LAB: | Routin | 05/16/2019 | | Results for this | | ALBUMIN | e | | | procedure are in the | | | | | | results section. | + +--------+ + + + | EXTERNAL LAB: | Routin | 05/16/2019 | | Results for this | | PROTEIN, TOTAL | e | | | procedure are in the | | | | | | results section. | + +--------+ + + + | EXTERNAL LAB: | Routin | 05/16/2019 | | Results for this | | CALCIUM | e | | | procedure are in the | | | | | | results section. | + +--------+ + + + | EXTERNAL LAB: CARBON | Routin | 05/16/2019 | | Results for this | | DIOXIDE | e | | | procedure are in the | | | | | | results section. | + +--------+ + + + | EXTERNAL LAB: | Routin | 05/16/2019 | | Results for this | | CHLORIDE | e | | | procedure are in the | | | | | | results section. | + +--------+ + + + | EXTERNAL LAB: | Routin | 05/16/2019 | | Results for this | | POTASSIUM | e | | | procedure are in the | | | | | | results section. | + +--------+ + + + | EXTERNAL LAB: SODIUM | Routin | 05/16/2019 | | Results for this | | | e | | | procedure are in the | | | | | | results section. | + +--------+ + + + | EXTERNAL LAB: | Routin | 05/16/2019 | | Results for this | | TRIGLYCERIDES | e | | | procedure are in the | | | | | | results section. | + +--------+ + + + | EXTERNAL LAB: | Routin | 05/16/2019 | | Results for this | | CHOLESTEROL, HDL | e | | | procedure are in the | | | | | | results section. | + +--------+ + + + | EXTERNAL LAB: | Routin | 05/16/2019 | | Results for this | | CHOLESTEROL, TOTAL | e | | | procedure are in the | | | | | | results section. | + +--------+ + + + | EXTERNAL LAB: | Routin | 05/16/2019 | | Results for this | | CHOLESTEROL, LDL | e | | | procedure are in the | | | | | | results section. | + +--------+ + + + | EXTERNAL LAB: EGFR | Routin | 05/16/2019 | | Results for this | | | e | | | procedure are in the | | | | | | results section. | + +--------+ + + + | EXTERNAL LAB: | Routin | 05/16/2019 | | Results for this | | CREATININE | e | | | procedure are in the | | | | | | results section. | + +--------+ + + + from Last 3 Months Results External Lab: BUN (05/16/2019) + +-------+ + + + | Component | Value | Ref Range | Performed | Pathologist | | | | | At | Signature | + +-------+ + + + | BUN, | 6 (A) | 8 - 25 | EXTERNAL | | | External | | | LAB | | + +-------+ + + + + +---------+ + + | Performing | Address | City/State/Zipcode | Phone Number | | Organization | | | | + +---------+ + + | EXTERNAL LAB | | | | + +---------+ + + External Lab: Glucose (05/16/2019) + +---------+ + + + | Component | Value | Ref Range | Performed | Pathologist | | | | | At | Signature | + +---------+ + + + | Glucose, | 116 (A) | 65 - 99 | EXTERNAL | | | External | | | LAB | | + +---------+ + + + + +---------+ + + | Performing | Address | City/State/Zipcode | Phone Number | | Organization | | | | + +---------+ + + | EXTERNAL LAB | | | | + +---------+ + + External Lab: ALT (05/16/2019) + +--------+ + + + | Component | Value | Ref Range | Performed | Pathologist | | | | | At | Signature | + +--------+ + + + | ALT, | 68 (A) | 0 - 41 | EXTERNAL | | | External | | | LAB | | + +--------+ + + + + +---------+ + + | Performing | Address | City/State/Zipcode | Phone Number | | Organization | | | | + +---------+ + + | EXTERNAL LAB | | | | + +---------+ + + External Lab: AST (05/16/2019) + +--------+ + + + | Component | Value | Ref Range | Performed | Pathologist | | | | | At | Signature | + +--------+ + + + | AST, | 60 (A) | 0 - 40 | EXTERNAL | | | External | | | LAB | | + +--------+ + + + + +---------+ + + | Performing | Address | City/State/Zipcode | Phone Number | | Organization | | | | + +---------+ + + | EXTERNAL LAB | | | | + +---------+ + + External Lab: Alkaline Phosphatase (05/16/2019) + +-------+ + + + | Component | Value | Ref Range | Performed | Pathologist | | | | | At | Signature | + +-------+ + + + | ALP, | 125 | 40 - 129 | EXTERNAL | | | External | | | LAB | | + +-------+ + + + + +---------+ + + | Performing | Address | City/State/Zipcode | Phone Number | | Organization | | | | + +---------+ + + | EXTERNAL LAB | | | | + +---------+ + + External Lab: Bilirubin, Total (05/16/2019) + +-------+ + + + | Component | Value | Ref Range | Performed | Pathologist | | | | | At | Signature | + +-------+ + + + | Bilirubin, | 0.8 | 0.1 - 1.1 | EXTERNAL | | | Total, | | | LAB | | | External | | | | | + +-------+ + + + + +---------+ + + | Performing | Address | City/State/Zipcode | Phone Number | | Organization | | | | + +---------+ + + | EXTERNAL LAB | | | | + +---------+ + + External Lab: Albumin (05/16/2019) + +-------+ + + + | Component | Value | Ref Range | Performed | Pathologist | | | | | At | Signature | + +-------+ + + + | Albumin, | 4.2 | 3.5 - 5 | EXTERNAL | | | External | | | LAB | | + +-------+ + + + + +---------+ + + | Performing | Address | City/State/Zipcode | Phone Number | | Organization | | | | + +---------+ + + | EXTERNAL LAB | | | | + +---------+ + + External Lab: Protein, Total (05/16/2019) + +-------+ + + + | Component | Value | Ref Range | Performed | Pathologist | | | | | At | Signature | + +-------+ + + + | Protein, | 7.4 | 6.5 - 8.5 | EXTERNAL | | | Total, | | | LAB | | | External | | | | | + +-------+ + + + + +---------+ + + | Performing | Address | City/State/Zipcode | Phone Number | | Organization | | | | + +---------+ + + | EXTERNAL LAB | | | | + +---------+ + + External Lab: Calcium (05/16/2019) + +-------+ + + + | Component | Value | Ref Range | Performed | Pathologist | | | | | At | Signature | + +-------+ + + + | Calcium, | 9.7 | 8.5 - 10 | EXTERNAL | | | External | | | LAB | | + +-------+ + + + + +---------+ + + | Performing | Address | City/State/Zipcode | Phone Number | | Organization | | | | + +---------+ + + | EXTERNAL LAB | | | | + +---------+ + + External Lab: Carbon Dioxide (05/16/2019) + +-------+ + + + | Component | Value | Ref Range | Performed | Pathologist | | | | | At | Signature | + +-------+ + + + | Carbon | 29 | 22 - 29 | EXTERNAL | | | Dioxide, | | | LAB | | | External | | | | | + +-------+ + + + + +---------+ + + | Performing | Address | City/State/Zipcode | Phone Number | | Organization | | | | + +---------+ + + | EXTERNAL LAB | | | | + +---------+ + + External Lab: Chloride (05/16/2019) + +--------+ + + + | Component | Value | Ref Range | Performed | Pathologist | | | | | At | Signature | + +--------+ + + + | Chloride, | 96 (A) | 97 - 107 | EXTERNAL | | | External | | | LAB | | + +--------+ + + + + +---------+ + + | Performing | Address | City/State/Zipcode | Phone Number | | Organization | | | | + +---------+ + + | EXTERNAL LAB | | | | + +---------+ + + External Lab: Potassium (05/16/2019) + +-------+ + + + | Component | Value | Ref Range | Performed | Pathologist | | | | | At | Signature | + +-------+ + + + | Potassium, | 4.4 | 3.5 - 5 | EXTERNAL | | | External | | | LAB | | + +-------+ + + + + +---------+ + + | Performing | Address | City/State/Zipcode | Phone Number | | Organization | | | | + +---------+ + + | EXTERNAL LAB | | | | + +---------+ + + External Lab: Sodium (05/16/2019) + +---------+ + + + | Component | Value | Ref Range | Performed | Pathologist | | | | | At | Signature | + +---------+ + + + | Sodium, | 134 (A) | 135 - 145 | EXTERNAL | | | External | | | LAB | | + +---------+ + + + + +---------+ + + | Performing | Address | City/State/Zipcode | Phone Number | | Organization | | | | + +---------+ + + | EXTERNAL LAB | | | | + +---------+ + + External Lab: Vitamin D, 25-Hydroxy (05/16/2019) + +-------+ + + + | Component | Value | Ref Range | Performed | Pathologist | | | | | At | Signature | + +-------+ + + + | Vitamin D, | 99.7 | 30 - 100 | EXTERNAL | | | 25-Hydroxy, | | | LAB | | | External | | | | | + +-------+ + + + + + | Specimen | + + | Blood | + + + +---------+ + + | Performing | Address | City/State/Zipcode | Phone Number | | Organization | | | | + +---------+ + + | EXTERNAL LAB | | | | + +---------+ + + External Lab: CBC (05/16/2019) + + + + + + | Component | Value | Ref Range | Performed | Pathologist | | | | | At | Signature | + + + + + + | WBC, | 10.42 | 4 - 11 | EXTERNAL | | | External | | | LAB | | + + + + + + | HGB, | 14.14 | 13.5 - 16 | EXTERNAL | | | External | | | LAB | | + + + + + + | HCT, | 41.97 | 40 - 50 | EXTERNAL | | | External | | | LAB | | + + + + + + | PLT, | 274 | 140 - 440 | EXTERNAL | | | External | | | LAB | | + + + + + + | Neutrophils | 69.9 (A) | 37 - 67 | EXTERNAL | | | %, | | | LAB | | | External | | | | | + + + + + + | Lymphocytes | 20.1 (A) | 24 - 44 | EXTERNAL | | | %, | | | LAB | | | External | | | | | + + + + + + | Monocytes | 5.8 | 5 - 12 | EXTERNAL | | | %, External | | | LAB | | + + + + + + | Eosinophils | 3.6 | 0 - 5 | EXTERNAL | | | %, | | | LAB | | | External | | | | | + + + + + + | Neutrophils | 7.29 (A) | 1.3 - 7 | EXTERNAL | | | , Absolute, | | | LAB | | | External | | | | | + + + + + + | Lymphocytes | 2.1 | 0.8 - 3 | EXTERNAL | | | , Absolute, | | | LAB | | | External | | | | | + + + + + + | Monocytes, | 0.6 | 0.2 - 1 | EXTERNAL | | | Absolute, | | | LAB | | | External | | | | | + + + + + + | Eosinophils | 0.38 | 0 - 0.8 | EXTERNAL | | | , Absolute | | | LAB | | + + + + + + | Basophils, | 0.06 | 0 - 0.1 | EXTERNAL | | | Absolute | | | LAB | | + + + + + + | RBC, | 4.38 | 4.3 - 5 | EXTERNAL | | | External | | | LAB | | + + + + + + | MCV, | 96 | 81 - 99 | EXTERNAL | | | External | | | LAB | | + + + + + + | RDW, | 14.6 | 10.5 - 15 | EXTERNAL | | | External | | | LAB | | + + + + + + + +---------+ + + | Performing | Address | City/State/Zipcode | Phone Number | | Organization | | | | + +---------+ + + | EXTERNAL LAB | | | | + +---------+ + + External Lab: TSH (05/16/2019) + +-------+ + + + | Component | Value | Ref Range | Performed | Pathologist | | | | | At | Signature | + +-------+ + + + | TSH, | 3.36 | 0.45 - 5 | EXTERNAL | | | External | | | LAB | | + +-------+ + + + + + | Specimen | + + | Blood | + + + +---------+ + + | Performing | Address | City/State/Zipcode | Phone Number | | Organization | | | | + +---------+ + + | EXTERNAL LAB | | | | + +---------+ + + External Lab: Triglycerides (05/16/2019) + +-------+ + + + | Component | Value | Ref Range | Performed | Pathologist | | | | | At | Signature | + +-------+ + + + | Triglycerid | 56 | 0 - 150 | EXTERNAL | | | es, | | | LAB | | | External | | | | | + +-------+ + + + + + | Specimen | + + | Blood | + + + +---------+ + + | Performing | Address | City/State/Zipcode | Phone Number | | Organization | | | | + +---------+ + + | EXTERNAL LAB | | | | + +---------+ + + External Lab: Cholesterol, HDL (05/16/2019) + +-------+ + + + | Component | Value | Ref Range | Performed | Pathologist | | | | | At | Signature | + +-------+ + + + | HDL | 49 | 40 - 99,999 | EXTERNAL | | | Cholesterol | | mg/dl | LAB | | | , External | | | | | + +-------+ + + + + + | Specimen | + + | Blood | + + + +---------+ + + | Performing | Address | City/State/Zipcode | Phone Number | | Organization | | | | + +---------+ + + | EXTERNAL LAB | | | | + +---------+ + + External Lab: Cholesterol, Total (05/16/2019) + +---------+ + + + | Component | Value | Ref Range | Performed | Pathologist | | | | | At | Signature | + +---------+ + + + | Cholesterol | 201 (A) | 0 - 200 mg/dl | EXTERNAL | | | , Total, | | | LAB | | | External | | | | | + +---------+ + + + + + | Specimen | + + | Blood | + + + +---------+ + + | Performing | Address | City/State/Zipcode | Phone Number | | Organization | | | | + +---------+ + + | EXTERNAL LAB | | | | + +---------+ + + External Lab: Cholesterol, LDL (05/16/2019) + +---------+ + + + | Component | Value | Ref Range | Performed | Pathologist | | | | | At | Signature | + +---------+ + + + | LDL | 141 (A) | 0 - 100 | EXTERNAL | | | Cholesterol | | | LAB | | | , Direct, | | | | | | External | | | | | + +---------+ + + + + + | Specimen | + + | Blood | + + + +---------+ + + | Performing | Address | City/State/Zipcode | Phone Number | | Organization | | | | + +---------+ + + | EXTERNAL LAB | | | | + +---------+ + + External Lab: eGFR (05/16/2019) + +-------+ + + + | Component | Value | Ref Range | Performed | Pathologist | | | | | At | Signature | + +-------+ + + + | eGFR, | >60 | 60 - 99,999 | EXTERNAL | | | External | | | LAB | | + +-------+ + + + + + | Specimen | + + | Blood | + + + +---------+ + + | Performing | Address | City/State/Zipcode | Phone Number | | Organization | | | | + +---------+ + + | EXTERNAL LAB | | | | + +---------+ + + External Lab: Creatinine (05/16/2019) + +-------+ + + + | Component | Value | Ref Range | Performed | Pathologist | | | | | At | Signature | + +-------+ + + + | Creatinine, | 0.7 | 0.7 - 1.25 | EXTERNAL | | | External | | | LAB | | + +-------+ + + + + + | Specimen | + + | Blood | + + + +---------+ + + | Performing | Address | City/State/Zipcode | Phone Number | | Organization | | | | + +---------+ + + | EXTERNAL LAB | | | | + +---------+ + + External Lab: T4, Free (05/16/2019) + +-------+ + + + | Component | Value | Ref Range | Performed | Pathologist | | | | | At | Signature | + +-------+ + + + | Free T4, | 1.22 | 0.70 - 1.70 | EXTERNAL | | | External | | | LAB | | + +-------+ + + + + +---------+ + + | Performing | Address | City/State/Zipcode | Phone Number | | Organization | | | | + +---------+ + + | EXTERNAL LAB | | | | + +---------+ + + CBC with Differential (05/16/2019) + +-------+ + + + | Component | Value | Ref Range | Performed | Pathologist | | | | | At | Signature | + +-------+ + + + | MCH | 32.31 | 27 - 33 | | | + +-------+ + + + | MCHC | 32.31 | 30 - 36 | | | + +-------+ + + + | Basophils % | 0.6 | 0 - 2 | | | + +-------+ + + + + + | Specimen | + + | Blood | + + Hemoglobin A1C (05/16/2019) + + + + + + | Component | Value | Ref Range | Performed | Pathologist | | | | | At | Signature | + + + + + + | Hemoglobin | 5.5Comment: Estimated | % | EXTERNAL | | | A1c | average Glucose: 111 | | LAB | | + + + + + + + + | Specimen | + + | Blood | + + + +---------+ + + | Performing | Address | City/State/Zipcode | Phone Number | | Organization | | | | + +---------+ + + | EXTERNAL LAB | | | | + +---------+ + + Basic Metabolic Panel (05/16/2019) + +--------+ + + + | Component | Value | Ref Range | Performed | Pathologist | | | | | At | Signature | + +--------+ + + + | Anion Gap | 13 (A) | 14 - 22 mmol/L | | | + +--------+ + + + | BUN/Creatin | 9 (A) | 11 - 30 | | | | ine Ratio | | | | | + +--------+ + + + + + | Specimen | + + | Blood | + + from Last 3 Months Insurance + +--------+ +--------+ +---------+--------+ | Payer | Benefi | Subscriber | Effect | Phone | Address | Type | | | t Plan | ID | lucinda | | | | | | / | | Dates | | | | | | Group | | | | | | + +--------+ +--------+ +---------+--------+ | MEDICARE | MEDICA | [id number] | 07/18/19 | [phone] | | Medica | | | RE | | 16-Pre | 5 | | re | | | PART A | | sent | | | | | | AND B | | | | | | + +--------+ +--------+ +---------+--------+ | [place] | MEDICA | [id number] | | [phone] | | Medica | | | [place] | | 017-Pr | 2 | | id | | | PLUS | | esent | | | | + +--------+ +--------+ +---------+--------+ | [facility] | IHS | [id number] | 08/21/19 | | | [place] | | SERVICE | YELLOW | | 15-Pre | | | ity | | | HAWK | | sent | | | | + +--------+ +--------+ +---------+--------+ + +--------+ +--------+ + + | Guarantor Name | Accoun | Relation to | Date | Phone | Billing Address | | | t Type | Patient | of | | | | | | | | | | + +--------+ +--------+ + + | Steve Carpenter | Person | Self | [birth year] | [address] | | | al/Fam | | [phone] | [phone] | [address] | | | [place] | | | [address] (Home) | [place] [address] | + +--------+ +--------+ + + Advance Directives + + + + + | Type | Date Recorded | Patient | Explanation | | | | Restaurant Service Manager | | + + + + + | Power of | | | | | Advertising Manager | | | | + + + + + | Advance | 01/21/2014 12:32 | | | | Directive | PM | | | + + + + + + + + + + | Code Status | Date | Date | Comments | | | Activated | Inactivated | | + + + + + | Full Code | 01/18/2015 | 01/23/2015 | | | | 9:40 PM | 4:03 PM | | + + + + + + + + +---+ | | | | | + + + +---+ | Full Code | 04/09/2014 | 04/15/2014 | | | | 10:05 PM | 1:19 PM | | + + + +---+"
--- OUTSIDE RECORDS SUMMARY | ~2019-07-02 | XMS | Encounter Summary ---
Demographics + + + | Address | [address] [facility] [address] | | | [place] [address] | + + + | Home Phone | | + + + | Preferred Language | Unknown | + + + | Marital Status | Single | + + + | Faith Affiliation | Unknown | + + + | Race | Unknown | + + + | Ethnic Group | Unknown | + + + Author + + + | Author | [facility] | | | and [place] | + + + | Organization | [facility] | | | and [...] [place] | | | | | [address] | | + + + + + Care Team Providers + +------+ + | Care Land Mobile Radio Technician Name | Role | Phone | + +------+ + | Lisa Mrorow MD | PCP | | + +------+ [...] [address] | [address] [place], [place] | | | | | [place], [place] | [address] | | | | | [address] | | | | | | [phone] | | | +--------+ + + + [...] | 07/04/ | Office | Gastroenterology | [facility], | | | 2019 | Visit | | GILMA Alexander [address] | | | | | | [address] | | | | | | [place] | | | | | | [address] | | | | | | | [...] + | MISCELLANEOUS LAB | | | [phone] | + +---------+ + + | MISCELANIOUS LAB | | | [phone] | + +---------+ + + documented in this encounter Visit Diagnoses + + | Diagnosis | + + | Back pain - Primary Backache, unspecified | + + documented in this encounter"
--- OUTSIDE RECORDS SUMMARY | ~2019-07-02 | XMS | Encounter Summary ---
Demographics + + + | Address | [address] [facility] [address] | | | [place] [address] | + + + | Home Phone | | + + + | Preferred Language | Unknown | + + + | Marital Status | Single | + + + | Rastafari Affiliation | Unknown | + + + | Race | Unknown | + + + | Ethnic Group | Unknown | + + + Author + + + | Author | [facility] | | | and [place] | + + + | Organization | [facility] | | | and [place] [...] [place] | | | | | [address] | | + + + + + Care Team Providers + +------+ + | Care Welt Treater Name | Role | Phone | + +------+ + | Stefano Padgett PA-C | PCP | | + +------+ + Encounter Details +--------+ + + + + | Date | Type | Department | Care Team | Description | +--------+ + + + + | 08/22/ | Hospital | [facility] | Hola Villanueva, | S/P lumbar fusion | | 2015 | Encounter | MED CTR XRAY [address] | PA-C [address] | | | | | [facility] [place] | [address] [place] | | | | | [place] [address] | [place] [address] | | | | | [phone] | [phone] | | | | | | | [...] + + documented as of this encounter Medications at Time of Discharge + + + +---------+ + + | Medication | Sig | Dispensed | Refills | Start | End Date | | | | | | Date | | + + + +---------+ + + | | Inhale 2 puffs into | 1 | 11 | /02/03 | | | budesonide-formotero | the lungs 2 times | Inhaler | | 14 | | | l (SYMBICORT) | daily. Murali | | | | | | 160-4.5 mcg/puff | GOLDEN Padgett, | | | | | | inhaler | [facility] | | | | | + + + +---------+ + + | Cholecalciferol | Take 5,000 Units by | | 0 | | | | (VITAMIN D3) 5000 | mouth Daily. | | | | | | UNITS CAPS | | | | | | + + + +---------+ + + | LISINOPRIL PO | Take by mouth | | 0 | | | | | Daily. | | | | | + + + +---------+ + + | Cyclobenzaprine | Take 2 tablets by | | 0 | | | | HCl (FLEXERIL PO) | mouth nightly. | | | | 8 | + + + +---------+ + + | diazepam (VALIUM) | Take 1 tablet by | 60 | 0 | 04/15/20 | | | 5 mg tablet | mouth every 6 hours | tablet | | 14 | 8 | | | as needed (muscle | | | | | | | spasm). | | | | | + + + +---------+ + + | fish oil 1,000 mg | Take 1,000 mg by | | 0 | | | | capsule | mouth 3 times daily. | | | | 8 | + + + +---------+ + + | gabapentin | Take 1 capsule by | 90 | 2 | 04/25/20 | | | (NEURONTIN) 300 mg | mouth 3 times daily. | capsule | | 14 | 5 | | capsule | | | | | | + + + +---------+ + + | | Take 1 tablet by | 60 | 0 | 07/05/20 | | | HYDROcodone-acetamin | mouth every 8 hours | tablet | | 14 | 5 | | ophen (NORCO) 10-325 | as needed for Pain. | | | | | | mg per | | | | | | | tabletIndications: | | | | | | | Status post lumbar | | | | | | | spinal fusion | | | | | | + + + +---------+ + + | Lactulose | Take 15-30 mLs by | 240 mL | 0 | 04/15/20 | | | Encephalopathy 10 | mouth Daily as | | | 14 | 8 | | g/15 mL SOLN | needed | | | | | | | (Constipation). | | | | | + + + +---------+ + + | | Take 1-2 tablets by | 60 | 0 | 04/29/20 | | | oxyCODONE-acetaminop | mouth every 4 hours | tablet | | 14 | 8 | | hen (PERCOCET) 5-325 | as needed for Pain. | | | | | | mg per tablet | | | | | | + + + +---------+ + + | | Take 1-2 tablets by | 60 | 0 | 04/29/20 | | | oxyCODONE-acetaminop | mouth every 4 hours | tablet | | 14 | 8 | | hen (PERCOCET) 5-325 | as needed for Pain. | | | | | | mg per tablet | | | | | | + + + +---------+ + + documented as of this encounter Plan of Treatment +--------+---------+ + + + | Date | Type | Specialty | Care Team | Description | +--------+---------+ + + + | 07/04/ | Office | Gastroenterology | [facility], | | | 2019 | Visit | | GILMA Alexander [address] | | | | | | [address] | | | | | | [place] | | | | | | [address] | | | | | | | | +--------+---------+ + + + documented as of this encounter Procedures + +--------+ + + + | Procedure Name | Priori | Date/Time | Associated Diagnosis | Comments | | | ty | | | | + +--------+ + + + | XR LUMBAR SPINE 2 OR | Routin | 08/22/2014 | S/P lumbar fusion | Results for this | | 3 VW | e | 12:23 PM | | procedure are in the | | | | PST | | results section. | + +--------+ + + + documented in this encounter Results XR Lumbar Spine 2 or 3 Vw (08/22/2014 12:23 PM PST) + + | Specimen | + + | | + + + + + | Narrative | Performed At | + + + | LUMBAR SPINE: 08/22/2014 12:23 PM CLINICAL HISTORY: Postop | MISCELANIOUS | | COMPARISON: 06/17/2014 FINDINGS: AP and lateral views of the lumbar | LAB | | spine. Posterior pedicle screw and royal and interbody fusion | | | extending from T12 to L1 fixation components are intact and show | | | stable configuration and position. Vertebral body heights are normally | | | maintained. Redemonstration of endplate sclerotic changes with no | | | focal acute bony abnormality. Alignment is normal. Surgical clips in | | | the right lower quadrant. No other adjacent abnormality. | | | IMPRESSION - Stable T12-S1 posterior and interbody fusion. | | | Dictated and Signed by: Farrukh Sim MD Electronically signed: | | | 08/22/2014 2:02 PM | | + + + + + | Procedure Note | + + | Kyle, Rad Results In - 08/22/2014 2:05 PM PST LUMBAR SPINE: 08/22/2014 12:23 PM | | | | CLINICAL HISTORY: Postop | | | | COMPARISON: 06/17/2014 | | | | FINDINGS: AP and lateral views of the lumbar spine. Posterior pedicle screw and | | royal and interbody fusion extending from T12 to L1 fixation components are intact | | and show stable configuration and position. Vertebral body heights are normally | | maintained. Redemonstration of endplate sclerotic changes with no focal acute | | bony abnormality. Alignment is normal. Surgical clips in the right lower | | quadrant. No other adjacent abnormality. | | | | IMPRESSION - Stable T12-S1 posterior and interbody fusion. | | | | Dictated and Signed by: Farrukh Sim MD | | Electronically signed: 08/22/2014 2:02 PM | + + + +---------+ + + | Performing | Address | City/State/Zipcode | Phone Number | | Organization | | | | + +---------+ + + | MISCELLANEOUS LAB | | | [phone] | + +---------+ + + | MISCELANIOUS LAB | | | [phone] | + +---------+ + + documented in this encounter Visit Diagnoses + + | Diagnosis | + + | S/P lumbar fusion Arthrodesis status | + + documented in this encounter"
--- OUTSIDE RECORDS SUMMARY | ~2019-07-02 | XMS | Encounter Summary ---
Demographics + + + | Address | [address] [facility] [address] | | | [place] [address] | + + + | Home Phone | | + + + | Preferred Language | Unknown | + + + | Marital Status | Single | + + + | Restoration Affiliation | Unknown | + + + | Race | Unknown | + + + | Ethnic Group | Unknown | + + + Author + + + | Author | [facility] | | | and [place] | + + + | Organization | [facility] | | | and [place] [...] [place] | | | | | [address] | | + + + + + Care Team Providers + +------+ + | Care End Frazer Name | Role | Phone | + +------+ + | Stefano Padgett PA-C | PCP | | + +------+ + Reason for Visit +--------+ + | Reason | Comments | +--------+ + | Other | | +--------+ + Encounter Details +--------+ + + + + | Date | Type | Department | Care Team | Description | +--------+ + + + + | 06/26/ | Telephone | [facility] | Fam Bonds, | Other | | 2013 | | NEUROSURGERY [address] | DO [address] | | | | | [address] | [address] [place], [place] | | | | | [place], [place] | [address] | | | | | [address] | | | | | | [phone] | | | +--------+ + + + [...] | 07/04/ | Office | Gastroenterology | [facility], | | | 2018 | Visit | | GILMA Alexander [address] | | | | | | [address] | | | | | | [place] | | | | | | [address] | | | | | | | | +--------+---------+ + + + documented as of this encounter Visit Diagnoses Not on filedocumented in this encounter"
--- OUTSIDE RECORDS SUMMARY | ~2019-07-02 | XMS | Encounter Summary ---
Demographics + + + | Address | [address] [facility] [address] | | | [place] [address] | + + + | Home Phone | | + + + | Preferred Language | Unknown | + + + | Marital Status | Single | + + + | Christian Affiliation | Unknown | + + + | Race | Unknown | + + + | Ethnic Group | Unknown | + + + Author + + + | Author | [facility] | | | and [place] | + + + | Organization | [facility] | | | and [place] [...] [place] | | | | | [address] | | + + + + + Care Team Providers + +------+ + | Care Collar Turner Name | Role | Phone | + +------+ + | Stefano Padgett PA-C | PCP | | + +------+ + Reason for Visit +--------+ + | Reason | Comments | +--------+ + | Other | clarifying that rx fentanyl patches will be picked up at | | | [facility] | +--------+ + Encounter Details +--------+ + + + + | Date | Type | Department | Care Team | Description | +--------+ + + + + | 04/24/ | Telephone | [facility] | Fam Bonds, | Other (clarifying | | 2013 | | NEUROSURGERY [address] | DO [address] | that rx fentanyl | | | | [address] | [address] [place], [place] | patches will be | | | | [place] | [address] | picked up at | | | | [address] | | [place]) | | | | [phone] | | | +--------+ + + + [...] | 07/04/ | Office | Gastroenterology | [facility] | | | 2019 | Visit | | GILMA Alexander [address] | | | | | | [address] | | | | | | [place] | | | | | | [address] | | | | | | | | +--------+---------+ + + + documented as of this encounter Visit Diagnoses Not on filedocumented in this encounter"
--- OUTSIDE RECORDS SUMMARY | ~2019-07-02 | XMS | Encounter Summary ---
Demographics + + + | Address | [address] [facility] [address] | | | [place] [address] | + + + | Home Phone [...] + + + | Author | [facility] | | | and [place] | + + + | Organization | [facility] | | | and [place] [...] [place] | | | | | [address] | | + + + + + Care Team Providers + +------+ + | Care Construction Skills Teacher Name | Role | Phone | + [...] | | | | | | | Trauma Rib | | | | | | | fractures, | | | | | | | right, | | | | | | | closed, | | | | | | | initial | | | | | | | encounter | | | | | | | | | | +--------+--------+ + + + + Encounter Details +--------+ + + + + | Date | Type | Department | Care Team | Description | +--------+ + + + + | 01/21/ | Anesthesia | [facility] | Eddie Keating, | | | 2015 | Event | MED CTR SURGICAL | MD [address] | | | | | [address] [place] | [place] | | | | | [place] [address] | [address] | | | | | [phone] | | | +--------+ + + + + Anesthesia Record + + + + + | Procedure Name | Responsible | Anesthesia Start | Anesthesia Stop Time | | | Anesthesiologist | Time | | + + + + + | NEURAXIAL:THORACIC/C | | | | | ERVICAL CATHETER | | | | | PLACEMENT | | | | + + + + + +----+---+ + + | Da | T | Event | Comment | | te | i | | | | | m | | | | | e | | | +----+---+ + + | 07 | 1 | | | | /0 | 6 | | | | 7/ | 3 | | | | 20 | 6 | | | | 15 | | | | +----+---+ + + | | 1 | Pre-Procedu | | | | 6 | ral Timeout | | | | 3 | Completed | | | | 8 | | | +----+---+ + + | | 1 | an aaliyah now | Procedure aborted after draping and local anesthetic. Patient | | | 6 | | was in excruciating pain from original needle placement and could | | | 5 | | not sit still. After 7 cm on two separate tracks, no contact | | | 1 | | with transverse process. Wary of going deeper in patient is | | | | | moving. No landmarks were palpable on this patient. His | | | | | responses were our of proportion with what I expected given local | | | | | administration (included local administration). Discussed with | | | | | Dr. Hassan, who agreed the better part of valor may be | | | | | discontinuing this course of action. May be a candidate for | | | | | fluoroscopy-guided placement; however, I am not an expert on that | | | | | technique. Moreover, patient indicated he was not comfortable | | | | | with the idea of laying down, so I am not sure it will be an | | | | | amenable plan to the patient. | +----+---+ + + | | 1 | Out of OR | | | | 6 | Device Stop | | | | 5 | | | | | 6 | | | +----+---+ + + +------+ | Meds | +------+ + + + No medications | on file. | + + + + + | No agents on file. | + + + + | No blood administrations on file. | + + + + | No LDAs on file. | + + documented in this encounter Social [...] this encounter Last Filed Vital Signs + +---------+ + + | Vital Sign | Reading | Time Taken | Comments | + +---------+ + + | Blood Pressure | 164/126 | 01/21/2015 4:53 PM | | | | | PDT | | + +---------+ + + | Pulse | 92 | 01/21/2015 4:56 PM | | | | | PDT | | + +---------+ + + | Temperature | - | - | | + +---------+ + + | Respiratory Rate | 17 | 01/21/2015 4:56 PM | | | | | PDT | | + +---------+ + + | Oxygen Saturation | 95% | 01/21/2015 4:49 PM | | | | | PDT | | + +---------+ + + | Inhaled Oxygen | - | - | | | Concentration | | | | + +---------+ + + | Weight | - | - | | + +---------+ + + | Height | - | - | | + +---------+ + + | Body Mass Index | - | - | | + +---------+ + + documented in this encounter Plan of Treatment +--------+---------+ + + + | Date | Type | Specialty | Care Team | Description | +--------+---------+ + + + | 07/04/ | Office | Gastroenterology | [facility], | | | 2018 | Visit | | GILMA Alexander [address] | | | | | | [address] | | | | | | [place] | | | | | | [address] | | | | | | | | +--------+---------+ + + + documented as of this encounter Visit Diagnoses Not on filedocumented in this encounter"
--- OUTSIDE RECORDS SUMMARY | ~2019-07-02 | XMS | Encounter Summary ---
Demographics + + + | Address | [address] | | | [place] [address] | + + + | Home Phone | | + + + | Preferred Language | Unknown | + + + | Marital Status | Single | + + + | Caodaism Affiliation | Unknown | + + + | Race | Unknown | + + + | Ethnic Group | Unknown | + + + Author + + + | Author | [facility] | | | and [place] | + + + | Organization | [facility] | | | and [place] [...] [place] | | | | | [address] | | + + + + + Care Team Providers + +------+ + | Care Social Work Nurse Name | Role | Phone | + [...] | | | | | | | [place] | | | | | | | ARTHRODESIS | | | | | | | POSTERIOR/PO | | | | | | | STEROLATERAL | | | | | | | LUMBAR [place] | | | | | | | LUMBAR SPINE | | | | | | | | | | | | | | FUSION,ANTER | | | | | | | APPRCH [place] | | | | | | | APPLICATION | | | | | | | INTERVERTEBR | | | | | | | AL | | | | | | | BIOMECHANICA | | | | | | | L DEVICE [place] | | | | | | | SPINE | | | | | | | FUSN,POST | | | | | | | TECH,EA | | | | | | | ADDNL SGMT | | | | | | | [place] SPINAL | | | | | | | FUSION,ANT,E | | | | | | | A ADNL LEVEL | | | | | | | [place] | | | | | | | [...] | | | | | | SEG [place] | | | | | | | [...] | | | | | | SEG [place] | | | | | | | LAMINEC/FACE | | | | | | | TECT/FORAMIN | | | | | | | ,EACH ADDNL | | | | | | | [place] ARTHDSIS | | | | | | [...] | | | | | | SEG [place] | | | | | | | [...] + + + + | 04/09/ | Hospital | [facility] | Fam Bonds, | | | 2013 - | Encounter | [facility] | DO [address] | | | | | [address] [place] | [place] [address] [place] [address] | | | 04/15/ | | [place] [address] | [id number] | | | 2013 | | [phone] | | | +--------+ + + + [...] + + + | Blood Pressure | 145/92 | 04/15/2014 7:57 AM | | | | | PDT | | + + + + + | Pulse | 98 | 04/15/2014 7:57 AM | | | | | PDT | | + + + + + | Temperature | 35.6 C (96 F) | 04/15/2014 7:57 AM | | | | | PDT | | + + + + + | Respiratory Rate | 21 | 04/15/2014 7:57 AM | | | | | PDT | | + + + + + | Oxygen Saturation | 97% | 04/15/2014 7:57 AM | | | | | PDT | | + + + + + | Inhaled Oxygen | - | - | | | Concentration | | | | + + + + + | Weight | 133.8 kg (295 lb) | 04/09/2014 7:00 AM | | | | | PDT | | + + + + + | Height | 182.9 cm (6') | 04/09/2014 7:00 AM | | | | | PDT | | + + + + + | Body Mass Index | 40.01 | 04/09/2014 7:00 AM | | | | | PDT | | + + + + + documented in this encounter Discharge Summaries Fam Bonds DO - 04/15/2014 7:38 AM PDTFormatting of this note might be different fro m the original. Date of admission: 04/09/2014 Date of discharge: 04/15/2014 Admission diagnosis: Spondylosis and stenosis T12-S1 Discharge diagnosis: same Procedure performed: XLIF T12-L4, TLIF L4-S1 Service: Neurosurgery, Dr. Bonds, attending. Hospital course: Steve Carpenter was admitted 04/09/2014 to undergo elective T12-S1 fus ion. He tolerated the procedure well. Postoperatively, his course was uneventful. He is tole rating his orals, ambulating, and voiding. He is requesting to be discharged today. Disposition: Discharge to home. Condition: Improving Special instructions: Patient is instructed to follow-up with me in 1 month. He is to avoid any extreme bending o r twisting of his back or lifting more that 5 pounds. He verbally agrees to comply with the instructions. Medications: Steve Carpenter Home Medication Instructions JOAQUIN:[id number] Printed on:04/15/14 9152 Medication Information Cyclobenzaprine HCl (FLEXERIL PO) Take 2 tablets by mouth nightly. budesonide-formoterol (SYMBICORT) 160-4.5 mcg/puff inhaler Inhale 2 puffs into the lungs 2 times daily. GOLDEN Guzmán, [facility] Cholecalciferol (VITAMIN D3) 5000 UNITS CAPS Take 5,000 Units by mouth Daily. fish oil 1,000 mg capsule Take 1,000 mg by mouth 3 times daily. diazepam (VALIUM) 5 mg tablet Take 1 tablet by mouth every 6 hours as needed (muscle spasm). oxyCODONE (OXYCONTIN) 60 mg ER abuse-deterrent tablet Take 1 tablet by mouth every 12 hours. oxyCODONE-acetaminophen (PERCOCET) 5-325 mg per tablet Take 1-2 tablets by mouth every 4 hours as needed for Pain. Lactulose Encephalopathy 10 g/15 mL SOLN Take 15-30 mLs by mouth Daily as needed (Constipation). documented in this en counter Medications at Time of Discharge + + + +---------+ + + | Medication | Sig | Dispensed | Refills | Start | End Date | | | | | | Date | | + + + +---------+ + + | | Inhale 2 puffs into | 1 | 11 | 01/22/20 | | | budesonide-formotero | the lungs 2 times | Inhaler | | 14 | | | l (SYMBICORT) | daily. Murali | | | | | | 160-4.5 mcg/puff | GOLDEN Padgett, | | | | | | inhaler | [place] | | | | | + + [...] + + + +---------+ + + | oxyCODONE | Take 1 tablet by | 60 | 0 | 04/15/20 | | | (OXYCONTIN) 60 mg ER | mouth every 12 | tablet | | 14 | 4 | | abuse-deterrent | hours. | | | | | | tablet | | | | | | + + + +---------+ + + | | Take 1-2 tablets by | 60 | 0 | 04/15/20 | | | oxyCODONE-acetaminop | mouth every 4 hours | tablet | | 14 | 4 | | hen (PERCOCET) 5-325 | as needed for Pain. | | | | | | mg per tablet | | | | | | + + + +---------+ + + documented as of this encounter Progress Notes Fam Bonds DO - 04/15/2014 7:34 AM PDTFormatting of this note might be different fro m the original. Subjective The patient was seen and examined by me today. He feels okay today. Surgical pain and leg pain improved. He feels like he may have overdid it yesterday. He would like to go home today. Objective Filed Vitals: 04/15/14 0400 BP: 106/75 Pulse: 91 Temp: 36.5 C (97.7 F) Resp: 18 No results found for this or any previous visit (from the past 24 hour(s)). Level of consciousness: Alert and orientated to person, place, and time. Motor: Moving all extremities well. Sensations: Sensation intact. Incision: Dressing is clean, dry, and intact. Assessment Steve Carpenter is a 53 y.o. y.o. male s/p T12-S1 fusion postoperative day # 6. Plan -Neuro improved - doing well -Increase diet/activity -PT/OT -Pain control -DVT prophylaxis -DC plan: uncertain. DC home with [facility] today. Fam Cortez DO - 04/14/2014 9:07 AM PDT Subjective The patient was seen and examined by me today. He feels much better today. Surgical pain and leg pain significantly improved. He would lik e to go home tomorrow rather than try to find a rehab facility that will accept him. Objective Filed Vitals: 04/14/14 0835 BP: Pulse: 84 Temp: Resp: 16 No results found for this or any previous visit (from the past 24 hour(s)). Level of consciousness: Alert and orientated to person, place, and time. Motor: Moving all extremities well. Sensations: Sensation intact. Incision: Dressing is clean, dry, and intact. Assessment Steve Carpenter is a 53 y.o. y.o. male s/p T12-S1 fusion postoperative day # 5. Plan -Neuro improved - doing well -Increase diet/activity -PT/OT -Pain control -DVT prophylaxis -DC plan: uncertain. Plan for DC home tomorrow after inpatient therapy today and tomorrow i nstead of trying to find a rehab facility that will accept him. Nestor Heard RN - 04/13/2014 10:40 AM PDTPt refused OT this morning, wanted to sleep. Call light within reach. No other needs made known at the moment. Nestor Heard RN - 04/13/2014 9:00 AM PDTPatient c/ o back pain, oxycontin 60 mg routine pain medication given with Valium. Call light within r each. No other needs made known at the moment. Fam Cortez DO - 04/13/2014 7:54 AM PDTFormatting of t his note might be different from the original. Subjective The patient was seen and examined by me today. He complains of bilateral anterior thigh spasm. He says his surgical pain is not adequately controlled. He feels very strong, but says the pain too too severe. Objective Filed Vitals: 04/13/14 0736 BP: 160/84 Pulse: 82 Temp: 35.7 C (96.3 F) Resp: 20 No results found for this or any previous visit (from the past 24 hour(s)). Level of consciousness: Alert and orientated to person, place, and time. Motor: Moving all extremities well. Sensations: Sensation intact. Incision: Dressing is clean, dry, and intact. Assessment Steve Carpenter is a 53 y.o. y.o. male s/p T12-S1 fusion postoperative day # 4. Plan -Neuro stable -Increase diet/activity -PT/OT -Pain control -DVT prophylaxis -DC plan: uncertain. Likely not safe for home, but no rehab place is available to him. Poss ibly home after the weekend. Mary Castellon RN - 04/12/2014 9:25 AM PDTSpoke with patient and his sister regarding inpatient rehab and its requirements. Patient verbalized that he didn't think he would be able to participate fully in inpatient rehab program right away, but "maybe in a few days." Patient and his sister yana beauchamp said they would like to talk to Abbie in discharge planning before making a decision, as they would both like to "be closer to home" in [place]. Informed patient that insurance w ould need to give approval for inpatient rehab, so would need to know his decision soon. In formation relayed to Abbie Bhatt. Fam Cortez DO - 04/12/2014 8:00 AM PDTFormatting of this note might be dif ferent from the original. Subjective The patient was seen and examined by me today. He is sitting at the side of his bed. He feels much better then yesterday. He would like to get up and be more active today and possibly discharge tomorrow. He is requesting a short s nathaly at [facility] in [place] if possible. Objective Filed Vitals: 04/12/14 0505 BP: 120/72 Pulse: 98 Temp: 36.6 C (97.9 F) Resp: 18 No results found for this or any previous visit (from the past 24 hour(s)). Level of consciousness: Alert and orientated to person, place, and time. Motor: Moving all extremities well. Sensations: Sensation intact. Incision: Dressing is clean, dry, and intact. Assessment Steve Carpenter is a 53 y.o. y.o. male s/p T12-S1 fusion postoperative day # 3. Plan -Doing better -Increase diet/activity -PT/OT -Pain control -DVT prophylaxis -DC plan: ready for DC tomorrow - IPR versus SNF. He is requesting [facility] if not accep baltazar to IPR. Mary Castellon RN - 04/11/2014 2:22 PM PDTPatient hasn't been able to participate very well in therapy today, so isn't ready for inpatient rehab. His insurance requires that he be able to participate i n 3 hours of therapy 7 days a week. IPR will continue to follow progress. Electronically s igned by Mary Pradhan RN at 04/11/2014 2:24 PM Mary Castellon RN - 04/11/2014 8:13 AM PDTOrder received for acute rehab consult. Awaiting therapy evaluations to be completed before making a recommendation on rehab services. Insurance authorization will have to be obtained. IPR will follow progress. Thank you for this referral. Kalyan Marquez nically signed by Mary Pradhan RN at 04/11/2014 8:14 AM Fam Cortez DO - 014 6:56 AM PDT Subjective The patient was seen and examined by me today. He says his surgical pain is somewhat improved. He was able to get some sleep. He admits to some left thigh numbness and dyscordination. No other complaints. Objective Filed Vitals: 04/11/14 0453 BP: 150/90 Pulse: Temp: Resp: No results found for this or any previous visit (from the past 24 hour(s)). Level of consciousness: Alert and orientated to person, place, and time. Motor: Moving all extremities well. Sensations: Sensation intact except left anterior thigh dysesthesia. Incision: Dressing is clean, dry, and intact. DENNIS 165 cc Assessment Steve Carpenter is a 53 y.o. y.o. male s/p T12-S1 fusion postoperative day # 2. Plan -Doing well -Increase diet/activity -PT/OT -Pain control -DVT prophylaxis -DC plan: will obtain IPR consult for possible short IPR stay. est, GOLDEN Velazquez - 04/10/2014 7:30 AM PDT [facility] PROGRESS NOTE Pt. Name/Age/: Steve Carpenter 53 y.o. 1960 Med. Record Number: [id number] Date of admission: 04/09/2014 Subjective: The patient chart and medications were reviewed in detail and the patient was s een and examined. The patient is doing ok post op. Some Left ant thigh paresthesia. C/o pain. Pt has not p assed gas yet. Objective: Temp: 36.7 C (98.1 F) BP: 165/79 mmHg Pulse: 106 Resp: 22 SpO2: 94 % on Min/Max Temp past 24 hours:Temp Av.6 C (97.9 F) Min: 36.2 C (97.2 F) Max: 3 7.3 C (99.1 F) Intake/Output Summary (Last 24 hours) at 04/10/14 0731 Last data filed at 04/10/14 0615 Gross per 24 hour Intake 5458 ml Output 1765 ml Net 3693 ml Wt. Admission: Weight: 133.811 kg (295 lb) Wt. Current: Weight: 133.811 kg (295 lb) Exam: General: A&O Cardiovascular: RRR Respiratory: clear Abdomen: Distended./benign Extremities: No edema Skin: clear Neurological: Decreases sensation L ant thigh. Strength ok Diagnostic studies: Available data and images were reviewed personally. See reports. Signi ficant results and findings are addressed here or in the Assessment and Plan. Assessment and Plan: Sp lumbar fusion Patient Active Problem List Diagnosis Chronic kidney disease, stage III (moderate) Type II or unspecified type diabetes mellitus with renal manifestations, not stated as uncontrolled Hypertriglyceridemia Lumbar radiculopathy Spinal stenosis of lumbar region at multiple levels - multifactorial, prominent epidura l lipomatosis DDD (degenerative disc disease), lumbar - multilevel Foraminal stenosis of lumbar region - especially right L5-S1 Obesity Osteoarthritis Acid reflux MARY JANE (obstructive sleep apnea) PLMD (periodic limb movement disorder) COPD (chronic obstructive pulmonary disease) Gout Hepatitis C Plan. Start oxycontin. 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 Electronically signed by: Carson Alegria, 04/10/2014 7:31 [facility] documented in th is encounter Plan of Treatment +--------+---------+ + + + | Date | Type | Specialty | Care Team | Description | +--------+---------+ + + + | 07/04/ | Office | Gastroenterology | [facility], | | | 2018 | Visit | | GILMA Alexander [address] | | | | | | [address] | | | | | | [place] | | | | | | [id number] | | | | | | | | +--------+---------+ + + + documented as of this encounter Procedures + +--------+ + + + | Procedure Name | Priori | Date/Time | Associated Diagnosis | Comments | | | ty | | | | + +--------+ + + + | XR LUMBAR SPINE 2 OR | Routin | 04/11/2014 | | Results for this | | 3 VW | e | 2:16 PM | | procedure are in the | | | | PDT | | results section. | + +--------+ + + + | POC GLUCOSE | Routin | 04/09/2014 | | Results for this | | | e | 8:42 PM | | procedure are in the | | | | PDT | | results section. | + +--------+ + + + | FUSION-LUMBAR DIRECT | | 04/09/2014 | Lumbosacral | | | LATERAL INTERBODY | | 10:42 AM | spondylosis without | | | | | PDT | myelopathy Other | | | | | | lordosis (acquired) | | | | | | Lipoma of other | | | | | | specified sites | | | | | | Spinal stenosis, | | | | | | lumbar region, | | | | | | without neurogenic | | | | | | claudication | | | | | | Thoracic or | | | | | | lumbosacral neuritis | | | | | | or radiculitis, | | | | | | unspecified | | + +--------+ + + + +---+--------+ | | Case | | | Notes | | | | | | DRILL, | | | | | | MICROS | | | COPE, | | | METRX, | | | | | | O-ARMB | | | IOLOGI | | | CS: | | | INFUSE | | | , | | | GRAFTO | | | N | | | PASTE, | | | BONE | | | CHIPSE | | | ST | | | TIME: | | | 8 | | | HOURS | +---+--------+ | | | | | Specia | | | l | | | Needs | | | HALEY | | | | | | SHAKILA | | | ; | | | CAPSTO | | | NE; | | | LONGIT | | | UDE | | | AND | | | EDILIA | | | CONKLI | | | N; | | | XLIF | | | CAGE | +---+--------+ + +--------+ +---+ + | POC GLUCOSE | Routin | 04/09/2014 | | Results for this | | | e | 8:32 AM | | procedure are in the | | | | PDT | | results section. | + +--------+ +---+ + | TYPE AND SCREEN | Routin | 04/09/2014 | | Results for this | | | e | 8:30 AM | | procedure are in the | | | | PDT | | results section. | + +--------+ +---+ + documented in this encounter Results XR Lumbar Spine 2 or 3 Vw (04/11/2014 2:16 PM PDT) + + | Specimen | + + | | + + + + + | Narrative | Performed At | + + + | XR LUMBAR SPINE 2 OR 3 VW 04/11/2014 2:16 PM HISTORY: S/p fusion. | MISCELANIOUS | | COMPARISON: 10/22/2013. FINDINGS: There has been interval | LAB | | placement of hardware for posterior fusion extending from T12 through | | | S1 with interbody hardware at these levels. At levels L2 and L4, | | | only right screws are present. At levels L3 and L5, only right screws | | | are seen. The hardware remains intact. There is moderate spondylosis | | | of the lower thoracic spine and lumbar spine. Vertebral body height | | | are preserved with no evidence for compression fractures. Mild disc | | | narrowing is at L4-5. Multilevel facet sclerosis and hypertrophy are | | | seen. There is no evidence for spondylolysis. Visualized ribs and | | | pelvic osseous structures show no acute findings. A right drain | | | catheter is seen. There is an external brace. IMPRESSION - | | | Interval posterior fusion from T12 through S1. Dictated and Signed | | | by: Justin Menendez MD Electronically signed: 04/11/2014 3:16 PM | | + + + + + | Procedure Note | + + | Kyle, Rad Results In - 04/11/2014 3:19 PM PDT XR LUMBAR SPINE 2 OR 3 VW 04/11/2014 | | 2:16 PMHISTORY: S/p fusion.COMPARISON: 10/22/2013.FINDINGS:There has been interval | | placement of hardware for posterior fusion extendingfrom T12 through S1 with interbody | | hardware at these levels. At levels L2 andL4, only right screws are present. At levels | | L3 and L5, only right screws areseen. The hardware remains intact. There is moderate | | spondylosis of the lowerthoracic spine and lumbar spine. Vertebral body height are | | preserved with noevidence for compression fractures. Mild disc narrowing is at L4-5. | | Multilevelfacet sclerosis and hypertrophy are seen. There is no evidence | | forspondylolysis. Visualized ribs and pelvic osseous structures show no acutefindings. A | | right drain catheter is seen. There is an external brace.IMPRESSION -Interval posterior | | fusion from T12 through S1.Dictated and Signed by: Justin Menendez MD Electronically | | signed: 04/11/2014 3:16 PM | |evidence for compression fractures. Mild disc narrowing is at L4-5. Multilevel | |facet sclerosis and hypertrophy are seen. There is no evidence for | |spondylolysis. Visualized ribs and pelvic osseous structures show no acute | |findings. A right drain catheter is seen. There is an external brace. | | | |IMPRESSION - | |Interval posterior fusion from T12 through S1. | | | |Dictated and Signed by: Justin Menendez MD | | Electronically signed: 04/11/2014 3:16 PM | + + + +---------+ + + | Performing | Address | City/State/Zipcode | Phone Number | | Organization | | | | + +---------+ + + | [facility] | | | [phone] | + +---------+ + + | [facility] | | | [phone] | + +---------+ + + POC Glucose (04/09/2014 8:42 PM PDT) + +-------+ + + + | Component | Value | Ref Range | Performed | Pathologist | | | | | At | Signature | + +-------+ + + + | Glucose, | 144 | 79 - 150 mg/dL | [facility] | | [facility] | | | [facility] | | | | | | [facility]ICAL | | | | | | CENTER - | | | | | | LABORATORY | | + +-------+ + + + + + | Specimen | + + | Blood | + + + + + + + | Performing | Address | City/State/Zipcode | Phone Number | | Organization | | | | + + + + + | [facility] | [address] | [place] | [phone] | | [facility] | | [address] | | | - LABORATORY | | | | + + + + + | [facility] | [address] | [place] | | | [facility] | | [address] | | | - LABORATORY | | | | + + + + + POC Glucose (04/09/2014 8:32 AM PDT) + +-------+ + + + | Component | Value | Ref Range | Performed | Pathologist | | | | | At | Signature | + +-------+ + + + | Glucose, | 113 | 79 - 150 mg/dL | [facility] | | [facility] | | [facility] | | | | | | MEDICAL | | | | | | CENTER - | | | | | | LABORATORY | | + +-------+ + + + + + | Specimen | + + | Blood | + + + + + + + | Performing | Address | City/State/Zipcode | Phone Number | | Organization | | | | + + + + + | [facility] | [address] | [place] | [phone] | | [facility] | | [address] | | | - LABORATORY | | | | + + + + + | [facility] | [address] | [place] | | | [facility] | | [address] | | | - LABORATORY | | | | + + + + + Type and Screen (04/09/2014 8:30 AM PDT) + + + + + + | Component | Value | Ref Range | Performed | Pathologist | | | | | At | Signature | + + + + + + | ABO | O | | [facility] | | | | | | [facility] | | | | | | MEDICAL | | | | | | CENTER - | | | | | | BLOOD BANK | | + + + + + + | Rh Type | Positive | | [facility] | | | | | | [facility] | | | | | | MEDICAL | | | | | | CENTER - | | | | | | BLOOD BANK | | + + + + + + | Antibody | Negative | | [facility] | | | Screen | | | [facility] | | | | | | MEDICAL | | | | | | CENTER - | | | | | | BLOOD BANK | | + + + + + + + + | Specimen | + + | Blood specimen | | (specimen) | + + + + + + + | Performing | Address | City/State/Zipcode | Phone Number | | Organization | | | | + + + + + | [facility] | [address] | [place], [place] | | | [facility] | | [address] | | | - BLOOD BANK | | | | + + + + + documented in this encounter Visit Diagnoses Not on filedocumented in this encounter Administered Medications + +--------+ +--------+------+------+ | Medication Order | MAR | Action | Dose | Rate | Site | | | Action | Date | | | | + +--------+ +--------+------+------+ | albuterol 2.5 mg/3 mL nebulizer | Given | 04/14/20 | 2.5 mg | | | | solution 2.5 mg 2.5 mg, | | 14 8:25 | | | | | Nebulization, RT Q6H, First dose | | PM PDT | | | | | on Tue04/10/14 at 0900, | | | | | | | Therapeutic Interchange for | | | | | | | Symbicort (budesonide/formoterol) | | | | | | | . . Danay Crooks, PHARMD | | | | | | | 04/10/2014 8:42 RT will | | | | | | | administer., | | | | | | + +--------+ +--------+------+------+ +-------+ +--------+---+---+ | Given | 04/14/20 | 2.5 mg | | | | | 14 2:47 | | | | | | PM PDT | | | | +-------+ +--------+---+---+ | Given | 04/14/20 | 2.5 mg | | | | | 14 8:32 | | | | | | AM PDT | | | | +-------+ +--------+---+---+ +---+---+ | | | +---+---+ + +-------+ +--------+---+---+ | budesonide (PULMICORT) 0.5 mg/2 | Given | 04/14/20 | 0.5 mg | | | | mL nebulizer solution 0.5 mg | | 14 8:25 | | | | | 0.5 mg, Nebulization, RT BID, | | PM PDT | | | | | First dose on Tue04/10/14 at | | | | | | | 0900, Therapeutic Interchange for | | | | | | | Symbicort | | | | | | | (budesonide/formoterol) . Danay Adame | | | | | | | Daksha, PHARMRyan 04/10/2014 8:39 | | | | | | | RT will administer. Shake well. | | | | | | | Protect from light. Rinse mouth | | | | | | | after use., | | | | | | + +-------+ +--------+---+---+ +-------+ +--------+---+---+ | Given | 04/14/20 | 0.5 mg | | | | | 14 8:32 | | | | | | AM PDT | | | | +-------+ +--------+---+---+ | Given | 04/13/20 | 0.5 mg | | | | | 14 9:07 | | | | | | PM PDT | | | | +-------+ +--------+---+---+ +---+---+ | | | +---+---+ + +---------+ +-----+---+---+ | cefazolin in NS (ANCEF) IVPB 2 | New Bag | 04/10/20 | 2 g | | | | g 2 g, Intravenous, Administer | | 14 8:57 | | | | | over 30 Minutes, EVERY 8 HOURS | | AM PDT | | | | | INTERVAL, First dose on Wed | | | | | | | 04/10/14 at 0000, For 2 doses, | | | | | | | Start 8 hours after previous | | | | | | | dose, Post-op/Phase II | | | | | | + +---------+ +-----+---+---+ +---------+ +-----+---+---+ | New Bag | 04/10/20 | 2 g | | | | | 14 12:47 | | | | | | AM PDT | | | | +---------+ +-----+---+---+ +---+---+ | | | +---+---+ + +-------+ +------+---+---+ | dexamethasone (DECADRON) tablet | Given | 04/12/20 | 4 mg | | | | 4 mg 4 mg, Oral, EVERY 6 HOURS | | 14 12:02 | | | | | (4 times per day), First dose on | | AM PDT | | | | | [facility] 04/11/14 at 0615, For 4 doses | | | | | | + +-------+ +------+---+---+ +-------+ +------+---+---+ | Given | 04/11/20 | 4 mg | | | | | 14 5:55 | | | | | | PM PDT | | | | +-------+ +------+---+---+ | Given | 04/11/20 | 4 mg | | | | | 14 12:10 | | | | | | PM PDT | | | | +-------+ +------+---+---+ +---+---+ | | | +---+---+ + +-------+ +--------+---+---+ | diazepam (VALIUM) injection | Given | 04/10/20 | 2.5 mg | | | | 2.5-5 mg 2.5-5 mg, Intravenous, | | 14 4:18 | | | | | EVERY 6 HOURS PRN, Muscle spasms, | | AM PDT | | | | | Starting Tue04/09/14 at 2204, | | | | | | | Post-op/Phase II | | | | | | + +-------+ +--------+---+---+ +-------+ +--------+---+---+ | Given | 04/10/20 | 2.5 mg | | | | | 14 1:31 | | | | | | AM PDT | | | | +-------+ +--------+---+---+ +---+---+ | | | +---+---+ + +-------+ +------+---+---+ | diazepam (VALIUM) tablet 5 mg | Given | 04/15/20 | 5 mg | | | | 5 mg, Oral, EVERY 6 HOURS PRN, | | 14 8:20 | | | | | Muscle spasms, Starting Tue | | AM PDT | | | | | 04/09/14 at 2204, Post-op/Phase II | | | | | | + +-------+ +------+---+---+ +-------+ +------+---+---+ | Given | 04/14/20 | 5 mg | | | | | 14 11:00 | | | | | | PM PDT | | | | +-------+ +------+---+---+ | Given | 04/13/20 | 5 mg | | | | | 14 8:25 | | | | | | AM PDT | | | | +-------+ +------+---+---+ +---+---+ | | | +---+---+ + +-------+ +--------+---+---+ | docusate sodium (COLACE) | Given | 04/15/20 | 100 mg | | | | capsule 100 mg 100 mg, Oral, 2 | | 14 8:20 | | | | | TIMES DAILY, First dose on Tue | | AM PDT | | | | | 04/09/14 at 2230, Hold for loose | | | | | | | stools, Post-op/Phase II | | | | | | + +-------+ +--------+---+---+ +-------+ +--------+---+---+ | Given | 04/14/20 | 100 mg | | | | | 14 8:14 | | | | | | PM PDT | | | | +-------+ +--------+---+---+ | Given | 04/14/20 | 100 mg | | | | | 14 8:02 | | | | | | AM PDT | | | | +-------+ +--------+---+---+ +---+---+ | | | +---+---+ + +-------+ +-------+---+---+ | famotidine (PEPCID) tablet 20 | Given | 04/15/20 | 20 mg | | | | mg 20 mg, Oral, 2 TIMES DAILY, | | 14 8:20 | | | | | First dose on Tue04/09/14 at | | AM PDT | | | | | 2230, Post-op/Phase II | | | | | | + +-------+ +-------+---+---+ +-------+ +-------+---+---+ | Given | 04/14/20 | 20 mg | | | | | 14 8:14 | | | | | | PM PDT | | | | +-------+ +-------+---+---+ | Given | 04/14/20 | 20 mg | | | | | 14 8:04 | | | | | | AM PDT | | | | +-------+ +-------+---+---+ +---+---+ | | | +---+---+ + +-------+ +--------+---+---+ | gabapentin (NEURONTIN) capsule | Given | 04/10/20 | 300 mg | | | | 300 mg 300 mg, Oral, NIGHTLY, | | 14 9:16 | | | | | First dose on Tue04/09/14 at | | PM PDT | | | | | 2230, Post-op/Phase II | | | | | | + +-------+ +--------+---+---+ +-------+ +--------+---+---+ | Given | 04/09/20 | 300 mg | | | | | 14 10:43 | | | | | | PM PDT | | | | +-------+ +--------+---+---+ +---+---+ | | | +---+---+ + +-------+ +--------+---+---+ | gabapentin (NEURONTIN) capsule | Given | 04/12/20 | 300 mg | | | | 300 mg 300 mg, Oral, 3 TIMES | | 14 7:57 | | | | | DAILY, First dose (after last | | PM PDT | | | | | modification) on Darlene 04/11/14 at | | | | | | | 0900 | | | | | | + +-------+ +--------+---+---+ +-------+ +--------+---+---+ | Given | 04/12/20 | 300 mg | | | | | 14 2:28 | | | | | | PM PDT | | | | +-------+ +--------+---+---+ | Given | 04/12/20 | 300 mg | | | | | 14 8:38 | | | | | | AM PDT | | | | +-------+ +--------+---+---+ +---+---+ | | | +---+---+ + +-------+ +--------+---+---+ | gabapentin (NEURONTIN) capsule | Given | 04/15/20 | 600 mg | | | | 600 mg 600 mg, Oral, 3 TIMES | | 14 8:20 | | | | | DAILY, First dose (after last | | AM PDT | | | | | modification) on 04/13/14 at | | | | | | | 0900 | | | | | | + +-------+ +--------+---+---+ +-------+ +--------+---+---+ | Given | 04/14/20 | 600 mg | | | | | 14 8:14 | | | | | | PM PDT | | | | +-------+ +--------+---+---+ | Given | 04/14/20 | 600 mg | | | | | 14 1:33 | | | | | | PM PDT | | | | +-------+ +--------+---+---+ +---+---+ | | | +---+---+ + +-------+ +--------+---+---+ | HYDROmorphone (DILAUDID) | Given | 04/09/20 | 0.2 mg | | | | injection 0.2-0.5 mg 0.2-0.5 mg, | | 14 9:45 | | | | | Intravenous, EVERY 5 MIN PRN, | | PM PDT | | | | | Pain, Starting Tue04/09/14 at | | | | | | | 2005, Maximum total dose 4 mg. | | | | | | | PACU IV Narcotic Priority: Only | | | | | | | use fentanyl for immediate | | | | | | | post-op pain (one dose) or | | | | | | | breakthrough pain when any other | | | | | | | IV narcotics ordered have been | | | | | | | ineffective (if ordered). If | | | | | | | both morphine and hydromorphone | | | | | | | are ordered, use morphine first, | | | | | | | and use hydromporphone if | | | | | | | morphine ineffective., | | | | | | | Recovery/Phase I | | | | | | + +-------+ +--------+---+---+ +-------+ +--------+---+---+ | Given | 04/09/20 | 0.5 mg | | | | | 14 8:33 | | | | | | PM PDT | | | | +-------+ +--------+---+---+ | Given | 04/09/20 | 0.5 mg | | | | | 14 8:24 | | | | | | PM PDT | | | | +-------+ +--------+---+---+ +---+---+ | | | +---+---+ + +-------+ +------+---+---+ | HYDROmorphone (DILAUDID) | Given | 04/11/20 | 1 mg | | | | injection 0.25-1 mg 0.25-1 mg, | | 14 9:23 | | | | | Intravenous, EVERY 2 HOURS PRN, | | AM PDT | | | | | Pain, Starting 04/09/14 at | | | | | | | 2204, Slow IV push, not faster | | | | | | | than 0.3 mg/minute. If | | | | | | | ineffective or not tolerated and | | | | | | | unable to take oral opioid - | | | | | | | contact MDMercy, Post-op/Phase II | | | | | | + +-------+ +------+---+---+ +---+---+ | | | +---+---+ + +---------+ +-------+---+---+ | HYDROmorphone in saline | New Bag | 04/09/20 | 30 mg | | | | (DILAUDID) 1 mg/mL [employer] | | 14 10:33 | | | | | Intravenous, CONTINUOUS, Starting | | PM PDT | | | | | 04/09/14 at 2230, for adult | | | | | | | patients LESS than 65 years old | | | | | | | and NO risk of sleep apnea, | | | | | | | Post-op/Phase II, Loading | | | | | | | Dose(mg): 0, Starting [employer] | | | | | | | Dose(mg): 0.2, Incremental | | | | | | | Increase [employer] Dose(mg): 0.1, | | | | | | | Maximum [employer] Dose(mg): 0.4, | | | | | | | Lockout Interval(min): 10, One | | | | | | | Hour Limit(mg): 3 | | | | | | + +---------+ +-------+---+---+ +---+---+ | | | +---+---+ + +-------+ +-------+---+---+ | labetalol (TRANDATE) 5 mg/mL | Given | 04/11/20 | 20 mg | | | | injection 10-20 mg 10-20 mg, | | 14 10:24 | | | | | Intravenous, EVERY 1 HOUR PRN, | | AM PDT | | | | | SBP >160, hold if HR < 60, | | | | | | | Starting Darlene 04/11/14 at 1009 | | | | | | + +-------+ +-------+---+---+ +---+---+ | | | +---+---+ + +-------+ +-------+---+---+ | lisinopril (PRINIVIL, ZESTRIL) | Given | 04/15/20 | 10 mg | | | | tablet 10 mg 10 mg, Oral, DAILY, | | 14 8:20 | | | | | First dose on Tue04/10/14 at | | AM PDT | | | | | 1030 | | | | | | + +-------+ +-------+---+---+ +-------+ +-------+---+---+ | Given | 04/14/20 | 10 mg | | | | | 14 8:02 | | | | | | AM PDT | | | | +-------+ +-------+---+---+ | Given | 04/13/20 | 10 mg | | | | | 14 8:25 | | | | | | AM PDT | | | | +-------+ +-------+---+---+ +---+---+ | | | +---+---+ + +-------+ +---------+---+---+ | magnesium citrate liquid 300 mL | Given | 04/12/20 | 300 mLs | | | | 300 mL, Oral, ONCE, Tue04/12/14 | | 14 8:37 | | | | | at 0830, For 1 dose | | AM PDT | | | | + +-------+ +---------+---+---+ +---+---+ | | | +---+---+ + +---------+ +--------+--------+---+ | methocarbamol (ROBAXIN) 750 mg | New Bag | 04/10/20 | 750 mg | 143.3 | | | in sodium chloride 0.9% 100 mL | | 14 6:15 | | mL/hr | | | IVPB 750 mg, Intravenous, | | AM PDT | | | | | Administer over 45 Minutes, EVERY | | | | | | | 8 HOURS (3 times per day), First | | | | | | | dose on Tue04/09/14 at 2200, For | | | | | | | 3 doses | | | | | | + +---------+ +--------+--------+---+ +---------+ +--------+--------+---+ | New Bag | 04/09/20 | 750 mg | 143.3 | | | | 14 10:08 | | mL/hr | | | | PM PDT | | | | +---------+ +--------+--------+---+ +---+---+ | | | +---+---+ + +-------+ + +---+---+ | methocarbamol (ROBAXIN) tablet | Given | 04/14/20 | 1,500 mg | | | | 1,500 mg 1,500 mg, Oral, EVERY 6 | | 14 5:02 | | | | | HOURS PRN, Muscle spasms, | | PM PDT | | | | | Starting 04/10/14 at 1007, | | | | | | | Post-op/Phase II | | | | | | + +-------+ + +---+---+ +-------+ + +---+---+ | Given | 04/14/20 | 1,500 mg | | | | | 14 11:01 | | | | | | AM PDT | | | | +-------+ + +---+---+ | Given | 04/14/20 | 1,500 mg | | | | | 14 3:05 | | | | | | AM PDT | | | | +-------+ + +---+---+ +---+---+ | | | +---+---+ + +-------+ +--------+---+---+ | methocarbamol (ROBAXIN) tablet | Given | 04/10/20 | 750 mg | | | | 750 mg 750 mg, Oral, EVERY 6 | | 14 8:57 | | | | | HOURS PRN, Muscle spasms, | | AM PDT | | | | | Starting 04/09/14 at 2204, | | | | | | | Post-op/Phase II | | | | | | + +-------+ +--------+---+---+ +---+---+ | | | +---+---+ + +-------+ +-------+---+ + | methylnaltrexone (RELISTOR) | Given | 04/12/20 | 12 mg | | Abdomen- | | injection 12 mg 12 mg, | | 14 8:37 | | | LLQ | | Subcutaneous, ONCE, 04/12/14 | | AM PDT | | | | | at 0830, For 1 dose | | | | | | + +-------+ +-------+---+ + +---+---+ | | | +---+---+ + +-------+ +------+---+---+ | methylPREDNISolone (MEDROL) | Given | 04/15/20 | 4 mg | | | | tablet 4 mg 4 mg, Oral, EVERY 6 | | 14 6:33 | | | | | HOURS (4 times per day), First | | AM PDT | | | | | dose on 04/13/14 at 0815 | | | | | | + +-------+ +------+---+---+ +-------+ +------+---+---+ | Given | 04/15/20 | 4 mg | | | | | 14 12:51 | | | | | | AM PDT | | | | +-------+ +------+---+---+ | Given | 04/14/20 | 4 mg | | | | | 14 5:02 | | | | | | PM PDT | | | | +-------+ +------+---+---+ +---+---+ | | | +---+---+ + + + +-------+---+---+ | metoclopramide (REGLAN) 5 mg/mL | Given by | 04/09/20 | 10 mg | | | | injection 10 mg 10 mg, | Other | 14 10:41 | | | | | Intravenous, ONCE, 04/09/14 at | | PM PDT | | | | | 2030, For 1 dose, Recovery/Phase | | | | | | | I | | | | | | + + + +-------+---+---+ +-------+ +-------+---+---+ | Given | 04/09/20 | 10 mg | | | | | 14 9:41 | | | | | | PM PDT | | | | +-------+ +-------+---+---+ +---+---+ | | | +---+---+ + +-------+ +-------+---+---+ | metoclopramide (REGLAN) 5 mg/mL | Given | 04/09/20 | 10 mg | | | | injection 10 mg 10 mg, | | 14 11:00 | | | | | Intravenous, EVERY 4 HOURS PRN, | | PM PDT | | | | | Nausea, Vomiting, Starting Tue | | | | | | | 04/09/14 at 2204, Use if | | | | | | | ondansetron and prochlorperazine | | | | | | | ineffective after 30min or not | | | | | | | ordered. Use PO option unless NPO | | | | | | | status or unable to tolerate., | | | | | | | Post-op/Phase II | | | | | | + +-------+ +-------+---+---+ +---+---+ | | | +---+---+ + +-------+ +------+---+---+ | ondansetron (ZOFRAN) injection | Given | 04/09/20 | 4 mg | | | | 4 mg 4 mg, Intravenous, ONCE | | 14 9:16 | | | | | PRN, Nausea, Starting 04/09/14 | | PM PDT | | | | | at 2005, For 1 dose, | | | | | | | Recovery/Phase I | | | | | | + +-------+ +------+---+---+ +---+---+ | | | +---+---+ + +-------+ +-------+---+---+ | oxyCODONE (oxyCONTIN) ER | Given | 04/11/20 | 20 mg | | | | abuse-deterrent tablet 20 mg 20 | | 14 8:09 | | | | | mg, Oral, EVERY 12 HOURS (2 times | | AM PDT | | | | | per day), First dose on Tue | | | | | | | 04/10/14 at 0900, Do not cut or | | | | | | | crush., | | | | | | + +-------+ +-------+---+---+ +-------+ +-------+---+---+ | Given | 04/10/20 | 20 mg | | | | | 14 9:16 | | | | | | PM PDT | | | | +-------+ +-------+---+---+ | Given | 04/10/20 | 20 mg | | | | | 14 8:53 | | | | | | AM PDT | | | | +-------+ +-------+---+---+ +---+---+ | | | +---+---+ + +-------+ +-------+---+---+ | oxyCODONE (oxyCONTIN) ER | Given | 04/12/20 | 40 mg | | | | abuse-deterrent tablet 40 mg 40 | | 14 7:56 | | | | | mg, Oral, EVERY 12 HOURS (2 times | | PM PDT | | | | | per day), First dose (after last | | | | | | | modification) on [facility] 04/11/14 at | | | | | | | 2100, Do not cut or crush., | | | | | | + +-------+ +-------+---+---+ +-------+ +-------+---+---+ | Given | 04/12/20 | 40 mg | | | | | 14 8:38 | | | | | | AM PDT | | | | +-------+ +-------+---+---+ | Given | 04/11/20 | 40 mg | | | | | 14 9:12 | | | | | | PM PDT | | | | +-------+ +-------+---+---+ +---+---+ | | | +---+---+ + +-------+ +-------+---+---+ | oxyCODONE (oxyCONTIN) ER | Given | 04/15/20 | 60 mg | | | | abuse-deterrent tablet 60 mg 60 | | 14 8:20 | | | | | mg, Oral, EVERY 12 HOURS (2 times | | AM PDT | | | | | per day), First dose (after last | | | | | | | modification) on 04/13/14 at | | | | | | | 0900, Do not cut or crush., | | | | | | + +-------+ +-------+---+---+ +-------+ +-------+---+---+ | Given | 04/14/20 | 60 mg | | | | | 14 8:15 | | | | | | PM PDT | | | | +-------+ +-------+---+---+ | Given | 04/14/20 | 60 mg | | | | | 14 8:02 | | | | | | AM PDT | | | | +-------+ +-------+---+---+ +---+---+ | | | +---+---+ + +-------+ +---------+---+---+ | oxyCODONE-acetaminophen | Given | 04/15/20 | 2 | | | | (PERCOCET) 5-325 mg per tablet | | 14 5:14 | tablets | | | | 1-2 tablet 1-2 tablet, Oral, | | AM PDT | | | | | EVERY 4 HOURS PRN, Pain, Starting | | | | | | | Tu04/09/14 at 2204, If | | | | | | | ineffective use oxycodone if | | | | | | | ordered. If not tolerated use | | | | | | | NORCO 10/ if ordered. MAX 12 | | | | | | | tabs/24 hrs., Post-op/Phase II | | | | | | + +-------+ +---------+---+---+ +-------+ +---------+---+---+ | Given | 04/14/20 | 2 | | | | | 14 11:00 | tablets | | | | | PM PDT | | | | +-------+ +---------+---+---+ | Given | 04/14/20 | 2 | | | | | 14 1:33 | tablets | | | | | PM PDT | | | | +-------+ +---------+---+---+ +---+---+ | | | +---+---+ + +-------+ +--------+---+---+ | senna (SENOKOT) tablet 8.6 mg | Given | 04/15/20 | 8.6 mg | | | | 8.6 mg, Oral, 2 TIMES DAILY, | | 14 8:20 | | | | | First dose on e 04/09/14 at | | AM PDT | | | | | 2230, If docusate ineffective or | | | | | | | not ordered, give BID until BM, | | | | | | | then PRN. Hold for loose stools, | | | | | | | Post-op/Phase II | | | | | | + +-------+ +--------+---+---+ +-------+ +--------+---+---+ | Given | 04/14/20 | 8.6 mg | | | | | 14 8:14 | | | | | | PM PDT | | | | +-------+ +--------+---+---+ | Given | 04/14/20 | 8.6 mg | | | | | 14 8:04 | | | | | | AM PDT | | | | +-------+ +--------+---+---+ +---+---+ | | | +---+---+ + +-------+ +--------+---+---+ | senna (SENOKOT) tablet 8.6 mg | Given | 04/13/20 | 8.6 mg | | | | 8.6 mg, Oral, 2 TIMES DAILY PRN, | | 14 8:25 | | | | | Constipation, Starting Tue | | AM PDT | | | | | 04/09/14 at 2204, If docusate | | | | | | | ineffective or not ordered, give | | | | | | | BID until BM, then PRN. Hold for | | | | | | | loose stools, Post-op/Phase II | | | | | | + +-------+ +--------+---+---+ +-------+ +--------+---+---+ | Given | 04/10/20 | 8.6 mg | | | | | 14 6:30 | | | | | | PM [...] +---+ +---+---+ | | | +---+---+ + +---------+ +---+ +---+ | sodium chloride 0.9% (NS) | New Bag | 04/11/20 | | 25 mL/hr | | | infusion at 25 mL/hr, | | 14 9:16 | | | | | Intravenous, CONTINUOUS, Starting | | PM PDT | | | | | 04/09/14 at 2230, Stop when | | | | | | | tolerating orals, Post-op/Phase | | | | | | | II | | | | | | + +---------+ +---+ +---+ + + +---+ +---+ | Rate/Dose Change | 04/11/20 | | 25 mL/hr | | | | 14 11:25 | | | | | | AM PDT | | | | + + +---+ +---+ | New Bag | 04/10/20 | | 100 | | | | 14 8:57 | | mL/hr | | | | PM PDT | | | | + + +---+ +---+ +---+---+ | | | +---+---+ documented in this encounter
--- OUTSIDE RECORDS SUMMARY | ~2019-07-02 | XMS | Encounter Summary ---
Demographics + + + | Address | [address] | | | [place] [address] | + + + | Home Phone | | + + + | Preferred Language | Unknown | + + + | Marital Status | Single | + + + | Confucianism Affiliation | Unknown | + + + | Race | Unknown | + + + | Ethnic Group | Unknown | + + + Author + + + | Author | [facility] | | | and [place] | + + + | Organization | [facility] | | | and [place] [...] [place] | | | | | [address] | | + + + + + Care Team Providers + +------+ + | Care Health Care Recruiter Name | Role | Phone | + +------+ + | Lisa Morrow MD | PCP | | + +------+ + Encounter Details +--------+ + + + + | Date | Type | Department | Care Team | Description | +--------+ + + + + | 12/13/ | Hospital | [facility] | Nikki Muñiz, | | | 2013 - | Encounter | MED CTR MED ONC | [address] | | | | | [address] [place] | [place] | | | 12/18/ | | [place] [address] | [address] | | | 2012 | | [phone] | | | | | | | Aida Almazan | | | | | | M, DO [address] | | | | | | [address] | | | | | | [place] | | | | | | [address] | | | | | | | | +--------+ + + + + Social History + +-------+ +--------+------+ | Tobacco Use | Types | Packs/Day | Years | Date | | | | | Used | | + +-------+ +--------+------+ | Never Assessed | | | | | + +-------+ +--------+------+ + + + | Sex Assigned at [...] + + documented as of this encounter Discharge Summaries Aida Almazan DO - 03/12/2013 8:39 [place] [address] Patient Name: THOM POOLE Provider: Aida Almazan DO Unit #: [id number] Location : [address] [place] [address] #: [id number] : 1960 ADMISSION DATE: 12/13/2012 DISCHARGE DATE: 12/18/2012 DISCHARGE DIAGNOSES 1. NONOLIGURIC ANGELES, RESOLVING. 2. STATUS POST SEPSIS SYNDROME AND CELLULITIS LEFT LOWER EXTREMITY, RESOLVING. 3. 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 4. HISTORY OF HYPERTENSION. 5. HISTORY OF HEPATITIS C VIRUS. 6. HISTORY OF ETOH ABUSE. 7. CENTRIPETAL OBESITY. PROCEDURES: Renal ultrasound, 12/13/2012: Right kidney 15.0 cm, left 13.9 cm. No evidence o f obstruction, normal echogenicity. HOSPITAL COURSE: This is a very pleasant 52-year-old male who was transferr ed from the [facility] as a direct admit. He was recently admitted to [facility] with sepsis syndrome, originated from soft tissue infection and cellulitis in his left leg. At that institution he was treated with vancomycin. Apparently he had also, from review of the records, received 1 or 2 doses of IV Toradol. He also in that setting had had a contrast load to screen for pulmonary emboli. This culminated in oliguric and rise in Scr. His baseline Scr is apparently 1.27 and on a r outine followup to the clinic he was found to be more elevated at 9.25. However, he was janis ing urine, by his report. He was not uremic, encephalopathic, and did not have EKG change. He had very mild hyperkalemia with a serum potassium of 5.50 mEq/L. Basically, he was given 1 dose of Kayexalate and IV bicarbonate drip. His urine volume incr eased greatly from there and at one point he was making 7 liters of urine per day, and I el ected to watch him on step-down ICU and then the floor. Basically, given his robust urine o utput and his normal kidney size, I think there is a good probability that his Scr will ret urn to his previous baseline in the next 6 weeks. His cellulitis did appear to be resolved and he did not have a lot of erythema at this time . He was very alert and cooperative. He understands that he needs to avoid NSAIDs, and like ly try to make some efforts at lifestyle modification to see if his BMI could be reduced so mewhat to avoid him from evolving into a difficult to control diabetic. DISCHARGE MEDICATIONS 1. Clonidine TTS 0.3 mg patch q.week. 2. Ranitidine 300 mg daily. 3. Gabapentin 300 mg at bedtime for diabetic neuropathy. 4. Tylenol No. 3, one q.12h. p.r .n. 5. Clindamycin 300 mg p.o. t.i.d. for cellulitis. At the time of discharge his weight = 142.6 kg. The Scr was 9.28 at the time of discharge, but again, he was making approximately 5 liters of urine per day. At that point dialysis is not warranted as the potential for hypotension, and activation of his immune system in con tact with the artificial dialyzer could have deleterious effects. Basically, with medical a nd supportive therapy he appears to be improving over time. He is going to have followup clinic appointment with me in 1 week at the [facility]. I gave him a standing order to have a renal panel done outpatient week , to follow him. DICTATED BY: Aida Almazan DO Nephrology JOB #: [id number] EXT JOB #:[id number] cc: [facility] <<Signature on File>> Aida Almazan DO03/26/13 1056 < documented in t his encounter Medications at Time of Discharge + + + +---------+ + + | Medication | Sig | Dispensed | Refills | Start | End Date | | | | | | Date | | + + + +---------+ + + | | Take 1 tablet by | 30 | 0 | 12/19/19 | | | acetaminophen-codein | mouth Twice daily | tablet | | 13 | 3 | | e (TYLENOL #3) | as needed for Pain. | | | | | | 300-30 mg per tablet | | | | | | + + + +---------+ + + | cloNIDine | Place 1 patch onto | 4 patch | 0 | 12/19/19 | | | (CATAPRES) 0.3 mg/24 | the skin Once a | | | 13 | 3 | | hr | week. | | | | | + + + +---------+ + + | gabapentin | Take 1 capsule by | 30 | 11 | 12/19/19 | 09/29/201 | | (NEURONTIN) 300 mg | mouth nightly. | capsule | | 13 | 4 | | capsule | | | | | | + + + +---------+ + + | Multiple Vitamin | Take 1 tablet by | | 0 | 12/19/19 | | | Essential TABS | mouth Daily. | | | 13 | 4 | + + + +---------+ + + | ranitidine | Take 1 tablet by | 60 | 6 | 12/19/19 | | | (ZANTAC) 300 MG | mouth Daily. | tablet | | 13 | 4 | | tablet | | | | | | + + + +---------+ + + documented as of this encounter Plan of Treatment +--------+---------+ + + + | Date | Type | Specialty | Care Team | Description | +--------+---------+ + + + | 07/04/ | Office | Gastroenterology | [facility], | | | 2019 | Visit | | GILMA Alexander [address] | | | | | | [address] [place] [address] | | | | | | [place] | | | | | | [address] | | | | | | | | +--------+---------+ + + + documented as of this encounter Procedures + +--------+ + + + | Procedure Name | Priori | Date/Time | Associated Diagnosis | Comments | | | ty | | | | + +--------+ + + + | RENAL FUNCTION PANEL | Routin | 12/18/2012 | | Results for this | | | e | 6:10 AM | | procedure are in the | | | | PDT | | results section. | + +--------+ + + + | RENAL FUNCTION PANEL | Routin | 12/17/2012 | | Results for this | | | e | 6:35 AM | | procedure are in the | | | | PDT | | results section. | + +--------+ + + + | CBC WITH | Routin | 12/16/2012 | | Results for this | | DIFFERENTIAL | e | 6:50 AM | | procedure are in the | | | | PDT | | results section. | + +--------+ + + + | HEPATIC FUNCTION | Routin | 12/16/2012 | | Results for this | | PANEL | e | 6:50 AM | | procedure are in the | | | | PDT | | results section. | + +--------+ + + + | RENAL FUNCTION PANEL | Routin | 12/16/2012 | | Results for this | | | e | 6:50 AM | | procedure are in the | | | | PDT | | results section. | + +--------+ + + + | CBC WITH | Routin | 12/15/2012 | | Results for this | | DIFFERENTIAL | e | 4:53 AM | | procedure are in the | | | | PDT | | results section. | + +--------+ + + + | RENAL FUNCTION PANEL | Routin | 12/15/2012 | | Results for this | | | e | 4:53 AM | | procedure are in the | | | | PDT | | results section. | + +--------+ + + + | BASIC METABOLIC | Routin | 12/14/2012 | | Results for this | | PANEL | e | 6:09 PM | | procedure are in the | | | | PDT | | results section. | + +--------+ + + + | US RENAL LIMITED | Routin | 12/14/2012 | | Results for this | | | e | 8:52 AM | | procedure are in the | | | | PDT | | results section. | + +--------+ + + + | ANCA PANEL | Routin | 12/14/2012 | | Results for this | | | e | 5:11 AM | | procedure are in the | | | | PDT | | results section. | + +--------+ + + + | SEDIMENTATION RATE | Routin | 12/14/2012 | | Results for this | | | e | 4:29 AM | | procedure are in the | | | | PDT | | results section. | + +--------+ + + + | CBC WITH | Routin | 12/14/2012 | | Results for this | | DIFFERENTIAL | e | 4:29 AM | | procedure are in the | | | | PDT | | results section. | + +--------+ + + + | PROTEIN | Routin | 12/14/2012 | | Results for this | | ELECTROPHORESIS, | e | 4:29 AM | | procedure are in the | | SERUM | | PDT | | results section. | + +--------+ + + + | HEPATIC FUNCTION | Routin | 12/14/2012 | | Results for this | | PANEL | e | 4:29 AM | | procedure are in the | | | | PDT | | results section. | + +--------+ + + + | RENAL FUNCTION PANEL | Routin | 12/14/2012 | | Results for this | | | e | 4:29 AM | | procedure are in the | | | | PDT | | results section. | + +--------+ + + + | CBC WITH | Routin | 12/13/2012 | | Results for this | | DIFFERENTIAL | e | 3:35 PM | | procedure are in the | | | | PDT | | results section. | + +--------+ + + + | BASIC METABOLIC | Routin | 12/13/2012 | | Results for this | | PANEL | e | 3:35 PM | | procedure are in the | | | | PDT | | results section. | + +--------+ + + + | SODIUM, URINE, | Routin | 12/13/2012 | | Results for this | | RANDOM | e | 2:36 PM | | procedure are in the | | | | PDT | | results section. | + +--------+ + + + | OSMOLALITY, URINE | Routin | 12/13/2012 | | Results for this | | | e | 2:36 PM | | procedure are in the | | | | PDT | | results section. | + +--------+ + + + | CREATININE, URINE, | Routin | 12/13/2012 | | Results for this | | RANDOM | e | 2:36 PM | | procedure are in the | | | | PDT | | results section. | + +--------+ + + + | CULTURE, MRSA | Routin | 12/13/2012 | | | | | e | 2:07 PM | | | | | | PDT | | | + +--------+ + + + documented in this encounter Results Renal Function Panel (12/18/2012 6:10 AM PDT) + + + + + + | Component | Value | Ref Range | Performed | Pathologist | | | | | At | Signature | + + + + + + | Glucose | 93 | 70 - 109 mg/dL | [facility] | | | | | | [facility] | | | | | | [facility] | | | | | | [facility] - | | | | | | LABORATORY | | + + + + + + | Calcium | 8.7 | 8.3 - 10.5 | [facility] | | | | | mg/dL | [facility] | | | | | | MEDICAL | | | | | | CENTER - | | | | | | LABORATORY | | + + + + + + | Phosphorus | 9.0 ()Comment: @VALUE | 2.5 - 4.6 mg/dL | [facility] | | | | CONSISTENT WITH PREVIOUS | | [facility] | | | | RESULTS | | MEDICAL | | | | | | CENTER - | | | | | | LABORATORY | | + + + + + + | Albumin | 3.3 | 3.2 - 5.0 gm/dL | [facility] | | | | | | [facility] | | | | | | [facility] | | | | | | CENTER - | | | | | | LABORATORY | | + + + + + + | BUN | 57 (H) | 7 - 18 mg/dL | [facility] | | | | | | [facility] | | | | | | MEDICAL | | | | | | CENTER - | | | | | | LABORATORY | | + + + + + + | Creatinine | 9.28 (HH)Comment: @VALUE | 0.60 - 1.30 | [facility] | | | | CONSISTENT WITH | mg/dL | [facility] | | | | PREVIOUS RESULTS | | MEDICAL | | | | | | CENTER - | | | | | | LABORATORY | | + + + + + + | Estimated | 6 (L)Comment: For | >60 mL/min/A | [facility] | | | GFR | -Americans, | | [facility] | | | | please multiply the | | MEDICAL | | | | result by 1.210 | | CENTER - | | | | This is an estimated | | LABORATORY | | | | GFR and is based on a | | | | | | standard adult | | | | | | body mass (A=1.73m2) and | | | | | | serum creatinine | | | | + + + + + + | BUN/Creatin | 6.1 (L) | 12 - 20 | [facility] | | | ine Ratio | | | [facility] | | | | | | MEDICAL | | | | | | CENTER - | | | | | | LABORATORY | | + + + + + + | Na | 139 | 136 - 149 mEq/L | [facility] | | | | | | [facility] | | | | | | MEDICAL | | | | | | CENTER - | | | | | | LABORATORY | | + + + + + + | K | 4.1 | 3.5 - 5.1 mEq/l | [facility] | | | | | | [facility] | | | | | | MEDICAL | | | | | | CENTER - | | | | | | LABORATORY | | + + + + + + | Cl | 103 | 98 - 109 mEq/l | [facility] | | | | | | [facility] | | | | | | MEDICAL | | | | | | CENTER - | | | | | | LABORATORY | | + + + + + + | CO2 | 25 | 24 - 31 mEq/L | [facility] | | | | | | [facility] | | | | | | MEDICAL | | | | | | CENTER - | | | | | | LABORATORY | | + + + + + + | Anion Gap | 15.1 | 6.0 - 17.0 | [facility] | | | | | | [facility] | | | | | | MEDICAL | | | | | | CENTER - | | | | | | LABORATORY | | + + + + + + + + | Specimen | + + | | + + + + + + + | Performing | Address | City/State/Zipcode | Phone Number | | Organization | | | | + + + + + | [facility] | [address] | [place], [place] | [phone] | | [facility] | | [address] | | | - LABORATORY | | | | + + + + + | [facility] | [address] | [place], [place] | | | [facility] | | [address] | | | - LABORATORY | | | | + + + + + Renal Function Panel (12/17/2012 6:35 AM PDT) + + + + + + | Component | Value | Ref Range | Performed | Pathologist | | | | | At | Signature | + + + + + + | Glucose | 94 | 70 - 109 mg/dL | [facility] | | | | | | [facility] | | | | | | MEDICAL | | | | | | CENTER - | | | | | | LABORATORY | | + + + + + + | Calcium | 8.4 | 8.3 - 10.5 | [facility] | | | | | mg/dL | [facility] | | | | | | MEDICAL | | | | | | CENTER - | | | | | | LABORATORY | | + + + + + + | Phosphorus | 8.6 ()Comment: @VALUE | 2.5 - 4.6 mg/dL | [facility] | | | | CONSISTENT WITH PREVIOUS | | [facility] | | | | RESULTS | | MEDICAL | | | | | | CENTER - | | | | | | LABORATORY | | + + + + + + | Albumin | 3.3 | 3.2 - 5.0 gm/dL | [facility] | | | | | | [facility] | | | | | | MEDICAL | | | | | | CENTER - | | | | | | LABORATORY | | + + + + + + | BUN | 53 (H) | 7 - 18 mg/dL | [facility] | | | | | | [facility] | | | | | | MEDICAL | | | | | | CENTER - | | | | | | LABORATORY | | + + + + + + | Creatinine | 9.91 (HH)Comment: @VALUE | 0.60 - 1.30 | [facility] | | | | CONSISTENT WITH | mg/dL | [facility] | | | | PREVIOUS RESULTS | | MEDICAL | | | | | | CENTER - | | | | | | LABORATORY | | + + + + + + | Estimated | 6 (L)Comment: For | >60 mL/min/A | [facility] | | | GFR | -Americans, | | [facility] | | | | please multiply the | | MEDICAL | | | | result by 1.210 | | CENTER - | | | | This is an estimated | | LABORATORY | | | | GFR and is based on a | | | | | | standard adult | | | | | | body mass (A=1.73m2) and | | | | | | serum creatinine | | | | + + + + + + | BUN/Creatin | 5.3 (L)Comment: @VALUE | 12 - 20 | [facility] | | | ine Ratio | CONSISTENT WITH PREVIOUS | | [facility] | | | | RESULTS | | MEDICAL | | | | | | CENTER - | | | | | | LABORATORY | | + + + + + + | Na | 139 | 136 - 149 mEq/L | [facility] | | | | | | [facility] | | | | | | MEDICAL | | | | | | CENTER - | | | | | | LABORATORY | | + + + + + + | K | 4.1 | 3.5 - 5.1 mEq/l | [facility] | | | | | | [facility] | | | | | | MEDICAL | | | | | | CENTER - | | | | | | LABORATORY | | + + + + + + | Cl | 101 | 98 - 109 mEq/l | [facility] | | | | | | [facility] | | | | | | MEDICAL | | | | | | CENTER - | | | | | | LABORATORY | | + + + + + + | CO2 | 26 | 24 - 31 mEq/L | [facility] | | | | | | [facility] | | | | | | MEDICAL | | | | | | CENTER - | | | | | | LABORATORY | | + + + + + + | Anion Gap | 16.1 | 6.0 - 17.0 | [facility] | | | | | | [facility] | | | | | | MEDICAL | | | | | | CENTER - | | | | | | LABORATORY | | + + + + + + + + | Specimen | + + | | + + + + + + + | Performing | Address | City/State/Zipcode | Phone Number | | Organization | | | | + + + + + | [facility] | [address] | [place] | [phone] | | [facility] | | [address] | | | - LABORATORY | | | | + + + + + | [facility] | [address] | [place] | | | [facility] | | [address] | | | - LABORATORY | | | | + + + + + CBC with Differential (12/16/2012 6:50 AM PDT) + + + + + + | Component | Value | Ref Range | Performed | Pathologist | | | | | At | Signature | + + + + + + | MANUAL | NO | | [facility] | | | DIFFERENTIA | | | [facility] | | | L ? | | | MEDICAL | | | | | | CENTER - | | | | | | LABORATORY | | + + + + + + | WBC | 10.4 | 4.0 - 11.0 K/uL | [facility] | | | | | | [facility] | | | | | | MEDICAL | | | | | | CENTER - | | | | | | LABORATORY | | + + + + + + | RBC | 3.79 (L) | 4.30 - 5.70 | [facility] | | | | | M/uL | [facility] | | | | | | MEDICAL | | | | | | CENTER - | | | | | | LABORATORY | | + + + + + + | Hemoglobin | 11.6 (L) | 13.5 - 18.0 | [facility] | | | | | gm/dL | [facility] | | | | | | MEDICAL | | | | | | CENTER - | | | | | | LABORATORY | | + + + + + + | Hematocrit | 35.3 (L) | 40.0 - 51.0 % | [facility] | | | | | | [facility] | | | | | | MEDICAL | | | | | | CENTER - | | | | | | LABORATORY | | + + + + + + | MCV | 92.9 | 83.0 - 101.0 fL | [facility] | | | | | | [facility] | | | | | | MEDICAL | | | | | | CENTER - | | | | | | LABORATORY | | + + + + + + | MCH | 30.7 | 28.0 - 35.0 pg | [facility] | | | | | | [facility] | | | | | | MEDICAL | | | | | | CENTER - | | | | | | LABORATORY | | + + + + + + | MCHC | 33.0 | 32.0 - 36.0 | [facility] | | | | | g/dL | [facility] | | | | | | MEDICAL | | | | | | CENTER - | | | | | | LABORATORY | | + + + + + + | RDW-CV | 15.1 (H) | <15.0 % | [facility] | | | | | | [facility] | | | | | | MEDICAL | | | | | | CENTER - | | | | | | LABORATORY | | + + + + + + | Platelet | 377 | 140 - 440 K/uL | [facility] | | | Count | | | [facility] | | | | | | MEDICAL | | | | | | CENTER - | | | | | | LABORATORY | | + + + + + + | % | 69.7 | 45 - 75 % | [facility] | | | Neutrophils | | | [facility] | | | | | | MEDICAL | | | | | | CENTER - | | | | | | LABORATORY | | + + + + + + | % | 17.6 (L) | 20 - 45 % | [facility] | | | Lymphocytes | | | [facility] | | | | | | MEDICAL | | | | | | CENTER - | | | | | | LABORATORY | | + + + + + + | % Monocytes | 6.1 | 4 - 12 % | [facility] | | | | | | [facility] | | | | | | MEDICAL | | | | | | CENTER - | | | | | | LABORATORY | | + + + + + + | % | 6.0 (H) | 0 - 5 % | [facility] | | | Eosinophils | | | [facility] | | | | | | MEDICAL | | | | | | CENTER - | | | | | | LABORATORY | | + + + + + + | % Basophils | 0.6 | 0 - 1 % | [facility] | | | | | | [facility] | | | | | | MEDICAL | | | | | | CENTER - | | | | | | LABORATORY | | + + + + + + | Absolute | 7.2 (H) | 1.5 - 6.6 K/uL | [facility] | | | Neutrophils | | | [facility] | | | | | | MEDICAL | | | | | | CENTER - | | | | | | LABORATORY | | + + + + + + | Absolute | 1.8 | 0.6 - 3.2 K/uL | [facility] | | | Lymphocytes | | | [facility] | | | | | | MEDICAL | | | | | | CENTER - | | | | | | LABORATORY | | + + + + + + | Absolute | 0.6 | 0.0 - 1.0 K/uL | [facility] | | | Monocytes | | | [facility] | | | | | | MEDICAL | | | | | | CENTER - | | | | | | LABORATORY | | + + + + + + | Absolute | 0.6 (H) | 0.0 - 0.4 K/uL | [facility] | | | Eosinophils | | | [facility] | | | | | | MEDICAL | | | | | | CENTER - | | | | | | LABORATORY | | + + + + + + | Absolute | 0.1 | 0.0 - 0.1 K/uL | [facility] | | | Basophils | | | [facility] | | | | | | MEDICAL | | | | | | CENTER - | | | | | | LABORATORY | | + + + + + + + + | Specimen | + + | | + + + + + + + | Performing | Address | City/State/Zipcode | Phone Number | | Organization | | | | + + + + + | [facility] | [address] | [place] | [phone] | | [facility] | | [address] | | | - LABORATORY | | | | + + + + + | [facility] | [address] | [place] | | | [facility] | | [address] | | | - LABORATORY | | | | + + + + + Hepatic Function Panel (12/16/2012 6:50 AM PDT) + + + + + + | Component | Value | Ref Range | Performed | Pathologist | | | | | At | Signature | + + + + + + | Alkaline | 74 | 40 - 110 IU/L | [facility] | | | Phosphatase | | | [facility] | | | | | | MEDICAL | | | | | | CENTER - | | | | | | LABORATORY | | + + + + + + | AST | 22 | 10 - 42 IU/L | [facility] | | | | | | [facility] | | | | | | MEDICAL | | | | | | CENTER - | | | | | | LABORATORY | | + + + + + + | ALT | 28 | 6 - 45 IU/L | [facility] | | | | | | [facility] | | | | | | MEDICAL | | | | | | CENTER - | | | | | | LABORATORY | | + + + + + + | Bilirubin | 1.3 (H) | 0.2 - 1.0 mg/dL | [facility] | | | Total | | | [facility] | | | | | | MEDICAL | | | | | | CENTER - | | | | | | LABORATORY | | + + + + + + | Bilirubin | <0.1 | 0.0 - 0.2 mg/dL | [facility] | | | Direct | | | [facility] | | | | | | MEDICAL | | | | | | CENTER - | | | | | | LABORATORY | | + + + + + + | BILIRUBIN | 1.2 (H)Comment: DIRECT | 0.00 - 1.00 | [facility] | | | INDIRECT | BILI = CONJUGATED | mg/dL | [facility] | | | | INDIRECT BILI = | | MEDICAL | | | | UNCONJUGATED | | CENTER - | | | | | | LABORATORY | | + + + + + + | Total | 7.9 (H) | 6.0 - 7.8 gm/dL | [facility] | | | Protein | | | [facility] | | | | | | MEDICAL | | | | | | CENTER - | | | | | | LABORATORY | | + + + + + + + + | Specimen | + + | | + + + + + + + | Performing | Address | City/State/Zipcode | Phone Number | | Organization | | | | + + + + + | [facility] | [address] | [place], [place] | [phone] | | [facility] | | [address] | | | - LABORATORY | | | | + + + + + | [facility] | [address] | [place], [place] | | | [facility] | | [address] | | | - LABORATORY | | | | + + + + + Renal Function Panel (12/16/2012 6:50 AM PDT) + + + + + + | Component | Value | Ref Range | Performed | Pathologist | | | | | At | Signature | + + + + + + | Glucose | 97 | 70 - 109 mg/dL | [facility] | | | | | | [facility] | | | | | | MEDICAL | | | | | | CENTER - | | | | | | LABORATORY | | + + + + + + | Calcium | 8.1 (L) | 8.3 - 10.5 | [facility] | | | | | mg/dL | [facility] | | | | | | MEDICAL | | | | | | CENTER - | | | | | | LABORATORY | | + + + + + + | Phosphorus | 9.5 (HH)Comment: @VALUE | 2.5 - 4.6 mg/dL | [facility] | | | | CONSISTENT WITH PREVIOUS | | [facility] | | | | RESULTS | | MEDICAL | | | | | | CENTER - | | | | | | LABORATORY | | + + + + + + | Albumin | 3.2 | 3.2 - 5.0 gm/dL | [facility] | | | | | | [facility] | | | | | | MEDICAL | | | | | | CENTER - | | | | | | LABORATORY | | + + + + + + | BUN | 58 (H) | 7 - 18 mg/dL | [facility] | | | | | | [facility] | | | | | | MEDICAL | | | | | | CENTER - | | | | | | LABORATORY | | + + + + + + | Creatinine | 10.42 (HH)Comment: | 0.60 - 1.30 | [facility] | | | | @VALUE [facility] WITH | mg/dL | [facility] | | | | PREVIOUS RESULTS | | MEDICAL | | | | | | CENTER - | | | | | | LABORATORY | | + + + + + + | Estimated | 5 (L)Comment: For | >60 mL/min/A | [facility] | | | GFR | -Americans, | | [facility] | | | | please multiply the | | MEDICAL | | | | result by 1.210 | | CENTER - | | | | This is an estimated | | LABORATORY | | | | GFR and is based on a | | | | | | standard adult | | | | | | body mass (A=1.73m2) and | | | | | | serum creatinine | | | | + + + + + + | BUN/Creatin | 5.6 (L)Comment: @VALUE | 12 - 20 | [facility] | | | ine Ratio | [facility] WITH PREVIOUS | | [facility] | | | | RESULTS | | MEDICAL | | | | | | CENTER - | | | | | | LABORATORY | | + + + + + + | Na | 138 | 136 - 149 mEq/L | [facility] | | | | | | [facility] | | | | | | MEDICAL | | | | | | CENTER - | | | | | | LABORATORY | | + + + + + + | K | 4.0 | 3.5 - 5.1 mEq/l | [facility] | | | | | [facility] | | | | | | MED[facility] | | | | | | CENTER - | | | | | | LABORATORY | | + + + + + + | Cl | 99 | 98 - 109 mEq/l | [facility] | | [facility] | [facility] | | | | | | MED[facility] | | | | | | CENTER - | | | | | | LABORATORY | | + + + + + + | CO2 | 26 | 24 - 31 mEq/L | [facility] | [facility] | [facility] | | | | | | MED[facility] | | | | | | CENTER - | | | | | | LABORATORY | | + + + + + + | Anion Gap | 17.0 | 6.0 - 17.0 | [facility] | | | | | [facility] | | | | | | [facility] | | | | | | [facility]ENTER - | | | | | | LABORATORY | | + + + + + + + + | Specimen | + + | | + + + + + + + | Performing | Address | City/State/Zipcode | Phone Number | | Organization | | | | + + + + + | [facility] | [address] | [place], [place] | [phone] | | [facility] | | [id number] | | | - LABORATORY | | | | + + + + + | [facility] | [address] | [place], [place] | | | [facility] | | [id number] | | | - LABORATORY | | | | + + + + + CBC with Differential (12/15/2012 4:53 AM PDT) + + + + + + | Component | Value | Ref Range | Performed | Pathologist | | | | | At | Signature | + + + + + + | MANUAL | NO | | [facility] | [facility] | [facility] | | | [facility] ? | | | [facility] | | | | | | [facility] - | | | | | | LABORATORY | | + + + + + + | WBC | 9.5 | 4.0 - 11.0 K/uL | [facility] | | | | | | [facility] | | | | | | [facility] | | | | | | CENTER - | | | | | | LABORATORY | | + + + + + + | RBC | 3.59 (L) | 4.30 - 5.70 | [facility] | | | | | M/uL | [facility] | | | | | | MEDICAL | | | | | | CENTER - | | | | | | LABORATORY | | + + + + + + | Hemoglobin | 11.3 (L) | 13.5 - 18.0 | [facility] | | | | | gm/dL | [facility] | | | | | | MEDICAL | | | | | | CENTER - | | | | | | LABORATORY | | + + + + + + | Hematocrit | 32.9 (L) | 40.0 - 51.0 % | [facility] | | | | | | [facility] | | | | | | MEDICAL | | | | | | CENTER - | | | | | | LABORATORY | | + + + + + + | MCV | 91.9 | 83.0 - 101.0 fL | [facility] | | | | | | [facility] | | | | | | [facility] | | | | | | CENTER - | | | | | | LABORATORY | | + + + + + + | MCH | 31.4 | 28.0 - 35.0 pg | [facility] | | | | | | [facility] | | | | | | [facility]ICAL | | | | | | CENTER - | | | | | | LABORATORY | | + + + + + + | MCHC | 34.1 | 32.0 - 36.0 | [facility] | | | | | g/dL | [facility] | | | | | | MEDICAL | | | | | | CENTER - | | | | | | LABORATORY | | + + + + + + | RDW-CV | 15.4 (H) | <15.0 % | [facility] | | | | | | [facility] | | | | | | MEDICAL | | | | | | CENTER - | | | | | | LABORATORY | | + + + + + + | Platelet | 361 | 140 - 440 K/uL | [facility] | | | Count | | | [facility] | | | | | | MEDICAL | | | | | | CENTER - | | | | | | LABORATORY | | + + + + + + | % | 69.4 | 45 - 75 % | [facility] | | | Neutrophils | | | [facility] | | | | | | MEDICAL | | | | | | CENTER - | | | | | | LABORATORY | | + + + + + + | % | 17.1 (L) | 20 - 45 % | [facility] | | | Lymphocytes | | | [facility] | | | | | | MEDICAL | | | | | | CENTER - | | | | | | LABORATORY | | + + + + + + | % Monocytes | 7.0 | 4 - 12 % | [facility] | | | | | | [facility] | | | | | | MEDICAL | | | | | | CENTER - | | | | | | LABORATORY | | + + + + + + | % | 5.3 (H) | 0 - 5 % | [facility] | | | Eosinophils | | | [facility] | | | | | | MEDICAL | | | | | | CENTER - | | | | | | LABORATORY | | + + + + + + | % Basophils | 1.2 (H) | 0 - 1 % | [facility] | | | | | | [facility] | | | | | | [facility]ICAL | | | | | | CENTER - | | | | | | LABORATORY | | + + + + + + | Absolute | 6.6 | 1.5 - 6.6 K/uL | [facility] | | | Neutrophils | | | [facility] | | | | | | MEDICAL | | | | | | CENTER - | | | | | | LABORATORY | | + + + + + + | Absolute | 1.6 | 0.6 - 3.2 K/uL | [facility] | | | Lymphocytes | | | [facility] | | | | | | MEDICAL | | | | | | CENTER - | | | | | | LABORATORY | | + + + + + + | Absolute | 0.7 | 0.0 - 1.0 K/uL | [facility] | | | Monocytes | | | [facility] | | | | | | MEDICAL | | | | | | CENTER - | | | | | | LABORATORY | | + + + + + + | Absolute | 0.5 (H) | 0.0 - 0.4 K/uL | [facility] | | | Eosinophils | | | [facility] | | | | | | MEDICAL | | | | | | CENTER - | | | | | | LABORATORY | | + + + + + + | Absolute | 0.1 | 0.0 - 0.1 K/uL | [facility] | | | Basophils | | | [facility] | | | | | | MEDICAL | | | | | | CENTER - | | | | | | LABORATORY | | + + + + + + + + | Specimen | + + | | + + + + + + + | Performing | Address | City/State/Zipcode | Phone Number | | Organization | | | | + + + + + | [facility] | [address] | [place] | [phone] | | [facility] | | [address] | | | - LABORATORY | | | | + + + + + | [facility] | [address] | [place] | | | [facility] | | [address] | | | - LABORATORY | | | | + + + + + Renal Function Panel (12/15/2012 4:53 AM PDT) + + + + + + | Component | Value | Ref Range | Performed | Pathologist | | | | | At | Signature | + + + + + + | Glucose | 105 | 70 - 109 mg/dL | [facility] | | | | | | [facility] | | | | | | MEDICAL | | | | | | CENTER - | | | | | | LABORATORY | | + + + + + + | Calcium | 7.8 (L) | 8.3 - 10.5 | [facility] | | | | | mg/dL | [facility] | | | | | | MEDICAL | | | | | | CENTER - | | | | | | LABORATORY | | + + + + + + | Phosphorus | 9.4 (HH)Comment: | 2.5 - 4.6 mg/dL | [facility] | | | | ALERT | | [facility] | | | | VALUE PHOS, CREAT. | | MEDICAL | | | | DO NOT DISCARD WRITTEN | | CENTER - | | | | DOCUMENTATION. PLACE IN | | LABORATORY | | | | NURSING NOTES Nursing | | | | | | documentation will NOT | | | | | | be included on Summary | | | | | | Report @TELEPHONE | | | | | | NOTIFICATION? DC/ICU | | | | | | 12/15/12 @0505 by SHAYNE | | | | | | Clinical Provider | | | | | | notification at Nurses | | | | | | discretion Report | | | | | | by Nursing Staff to | | | | | | Clinical Provider who | | | | | | will act/intervene on | | | | | | this value: Nurse | | | | | | Calling Result: | | | | | | | | | | | | Date/Time: | | | | | | Provider or licensee | | | | | | called: | | | | | | | | | | | | Time Provider | | | | | | called/paged: | | | | | | Time spoke to | | | | | | Provider: | | | | + + + + + + | Albumin | 2.9 (L) | 3.2 - 5.0 gm/dL | [facility] | | | | | | [facility] | | | | | | MEDICAL | | | | | | CENTER - | | | | | | LABORATORY | | + + + + + + | BUN | 59 (H) | 7 - 18 mg/dL | [facility] | | | | | | [facility] | | | | | | MEDICAL | | | | | | CENTER - | | | | | | LABORATORY | | + + + + + + | Creatinine | 10.77 (HH) | 0.60 - 1.30 | [facility] | | | | | mg/dL | [facility] | | | | | | MEDICAL | | | | | | CENTER - | | | | | | LABORATORY | | + + + + + + | Estimated | 5 (L)Comment: For | >60 mL/min/A | [facility] | | | GFR | -Americans, | | [facility] | | | | please multiply the | | MEDICAL | | | | result by 1.210 | | CENTER - | | | | This is an estimated | | LABORATORY | | | | GFR and is based on a | | | | | | standard adult | | | | | | body mass (A=1.73m2) and | | | | | | serum creatinine | | | | + + + + + + | BUN/Creatin | 5.5 (L) | 12 - 20 | [facility] | | | ine Ratio | | | [facility] | | | | | | MEDICAL | | | | | | CENTER - | | | | | | LABORATORY | | + + + + + + | Na | 138 | 136 - 149 mEq/L | [facility] | | | | | | [facility] | | | | | | MEDICAL | | | | | | CENTER - | | | | | | LABORATORY | | + + + + + + | K | 4.2 | 3.5 - 5.1 mEq/l | [facility] | | | | | | [facility] | | | | | | MEDICAL | | | | | | CENTER - | | | | | | LABORATORY | | + + + + + + | Cl | 101 | 98 - 109 mEq/l | [facility] | | | | | | [facility] | | | | | | MEDICAL | | | | | | CENTER - | | | | | | LABORATORY | | + + + + + + | CO2 | 25 | 24 - 31 mEq/L | [facility] | | | | | | [facility] | | | | | | MEDICAL | | | | | | CENTER - | | | | | | LABORATORY | | + + + + + + | Anion Gap | 16.2 | 6.0 - 17.0 | [facility] | | | | | | [facility] | | | | | | MEDICAL | | | | | | CENTER - | | | | | | LABORATORY | | + + + + + + + + | Specimen | + + | | + + + + + + + | Performing | Address | City/State/Zipcode | Phone Number | | Organization | | | | + + + + + | [facility] | [address] | [place] | [phone] | | [facility] | | [address] | | | - LABORATORY | | | | + + + + + | [facility] | [address] | [place] | | | [facility] | | [address] | | | - LABORATORY | | | | + + + + + Basic Metabolic Panel (12/14/2012 6:09 PM PDT) + + + + + + | Component | Value | Ref Range | Performed | Pathologist | | | | | At | Signature | + + + + + + | Glucose | 102 | 70 - 109 mg/dL | [facility] | | | | | | [facility] | | | | | | MEDICAL | | | | | | CENTER - | | | | | | LABORATORY | | + + + + + + | Calcium | 8.1 (L) | 8.3 - 10.5 | [facility] | | | | | mg/dL | [facility] | | | | | | MEDICAL | | | | | | CENTER - | | | | | | LABORATORY | | + + + + + + | BUN | 55 (H) | 7 - 18 mg/dL | [facility] | | | | | | [facility] | | | | | | MEDICAL | | | | | | CENTER - | | | | | | LABORATORY | | + + + + + + | Creatinine | 10.47 (HH)Comment: | 0.60 - 1.30 | [facility] | | | | @VALUE CONSISTENT WITH | mg/dL | [facility] | | | | PREVIOUS RESULTS | | MEDICAL | | | | | | CENTER - | | | | | | LABORATORY | | + + + + + + | Estimated | 5 (L)Comment: For | >60 mL/min/A | [facility] | | | GFR | -Americans, | | [facility] | | | | please multiply the | | MEDICAL | | | | result by 1.210 | | CENTER - | | | | This is an estimated | | LABORATORY | | | | GFR and is based on a | | | | | | standard adult | | | | | | body mass (A=1.73m2) and | | | | | | serum creatinine | | | | + + + + + + | BUN/Creatin | 5.3 (L) | 12 - 20 | [facility] | | | ine Ratio | | | [facility] | | | | | | MEDICAL | | | | | | CENTER - | | | | | | LABORATORY | | + + + + + + | Na | 138 | 136 - 149 mEq/L | [facility] | | | | | | [facility] | | | | | | MEDICAL | | | | | | CENTER - | | | | | | LABORATORY | | + + + + + + | K | 4.2 | 3.5 - 5.1 mEq/l | [facility] | | | | | | [facility] | | | | | | MEDICAL | | | | | | CENTER - | | | | | | LABORATORY | | + + + + + + | Cl | 100 | 98 - 109 mEq/l | [facility] | | | | | | [facility] | | | | | | MEDICAL | | | | | | CENTER - | | | | | | LABORATORY | | + + + + + + | CO2 | 24 | 24 - 31 mEq/L | [facility] | | | | | | [facility] | | | | | | MEDICAL | | | | | | CENTER - | | | | | | LABORATORY | | + + + + + + | Anion Gap | 18.2 (H) | 6.0 - 17.0 | [facility] | | | | | | [facility] | | | | | | MEDICAL | | | | | | CENTER - | | | | | | LABORATORY | | + + + + + + + + | Specimen | + + | | + + + + + + + | Performing | Address | City/State/Zipcode | Phone Number | | Organization | | | | + + + + + | [facility] | [address] | [place] | [phone] | | [facility] | | [address] | | | - LABORATORY | | | | + + + + + | [facility] | [address] | [place] | | | [facility] | | [address] | | | - LABORATORY | | | | + + + + + US Renal Limited (12/14/2012 8:52 AM PDT) + + | Specimen | + + | | + + + + + | Narrative | Performed At | + + + | [facility] | [place] | | Department [address] [facility] | [facility] | | [ rep ct [address]] [ rep [facility] | | st zip] Signed | - IMAGING | | | | | Patient Name: THOM POOLE Physician: | | | STRO.01 : 1960 Age: 52 Sex: M Unit #: [id number] | | | Exam Date: 12/13/12 Location: [address] [place] [address] | | | Report #: [id number] Page: | | | %(RAD)RES..mtdd.print.filter("pg") of %(RAD) | | | RES..mtdd.print.filter("tpg") | | | | | | Accession Number: [id number] | | | ULTRASOUND RENAL CLINICAL HISTORY: ACUTE RENAL FAILURE. | | | COMPARISON: None. FINDINGS: Kidneys are | | | symmetric in size, contour, and echogenicity. Cortical echotexture | | | in the right kidney is normal. It is also normal in the left | | | kidney. In the inferior pole of the left kidney , there is a | | | somewhat hypoechoic region in the expected location of the calices. | | | Centrally, the renal pelvis is not dilated. The right | | | kidney measures 15.0 cm and the left 13.9 cm longitudinally. | | | Prevoid images of the bladder are unremarkable. Postvoid | | | residual is 28 mL. Ureteral jets are not identified. | | | Resistive indices on the right are 0.75 and 0.65, and on the left 0.68 | | | and 0.74. IMPRESSION: 1. NO RIGHT OBSTRUCTIVE | | | UROPATHY. 2. HYPOECHOIC REGION IN THE INFERIOR LEFT | | | POLE. LIMITED VISUALIZATION OF THIS PROCESS. IT MAY REPRESENT A | | | FOCALLY DILATED CALYX OR A PERIPELVIC CYST. Dictated | | | Date/Time: 12/14/2012 08:52 Transcribed Date/Time: 12/14/2012 | | | 09:06 Medical Doctor Md/Medical Director: <<Signature | | | on File>> | | | Ede | | | Samuel Tapia MD12/14/122009 <Electronically signed by Ede Baker | | | Willie FRANCIS> Ede Tapia MD 12/14/12 0852 | | | Medical Doctor Md/Medical Director: Vidable [id number] | | | Aida Almazan DO | | + + + + + + + + | Performing | Address | City/State/Zipcode | Phone Number | | Organization | | | | + + + + + | [facility] | [address] | [place] | [phone] | | [facility] | | [address] | | | - IMAGING | | | | + + + + + HUGH Blunt (12/14/2012 5:11 AM PDT) + + + + + + | Component | Value | Ref Range | Performed | Pathologist | | | | | At | Signature | + + + + + + | Anti-Neutro | 1:160Comment: Reference | () | [facility] | | | marcello | Range: <1:20 | | [facility] | | | Cytoplasmic | | | MEDICAL | | | Antibody | | | CENTER - | | | | | | LABORATORY | | + + + + + + | ANCA | SEE BELOWComment: | () | [facility] | | | PATTERN | PERINUCLEAR PATTERN | | [facility] | | | | The perinuclear | | MEDICAL | | | | pattern of anti | | CENTER - | | | | neutrophil cytoplasmic | | LABORATORY | | | | antibodies (P ANCA) is | | | | | | associated with several | | | | | | vasculitic diseases, | | | | | | inflammatory bowel | | | | | | disease and primary | | | | | | sclerosing | | | | | | cholangitis. The P | | | | | | ANCA pattern is | | | | | | associated with | | | | | | antibodies to several | | | | | | cellular antigens, | | | | | | including | | | | | | myeloperoxidase, | | | | | | lactoferrin, lysozyme, | | | | | | elastase, cathepsin G | | | | | | and other as yet | | | | | | undefined antigens. | | | | | | Antibodies to | | | | | | myeloperoxidase are | | | | | | associated with various | | | | | | diseases, including | | | | | | idiopathic crescentic | | | | | | glomerulonephritis, | | | | | | Churg-Harmony | | | | | | syndrome, polyarteritis | | | | | | nodosum with visceral | | | | | | involvement, and | | | | | | vasculitic overlap | | | | | | syndromes. The results | | | | | | of ANCA tests should | | | | | | always be interpreted in | | | | | | the context of other | | | | | | clinical, laboratory, | | | | | | and histopathologic data | | | | | | when establishing a | | | | | | diagnosis of Osman's | | | | | | granulomatosis or | | | | | | other systemic | | | | | | vasculitis or when | | | | | | making decisions about | | | | | | treatment. Testing | | | | | | Performed: [address] | | | | | | [address], [place] | | | | | | [address] CLIA: [id number] | | | | | | Test Performed by | | | | | | [facility] | | | | | | [facility] | | | | | | | | | | | | [address], | | | | | | [place] [address] | | | | + + + + + + + + | Specimen | + + | | + + + + + + + | Performing | Address | City/State/Zipcode | Phone Number | | Organization | | | | + + + + + | [facility] | [address] | [place] | [phone] | | [facility] | | [address] | | | - LABORATORY | | | | + + + + + | [facility] | [address] | [place], [place] | | | [facility] | | [address] | | | - LABORATORY | | | | + + + + + CBC with Differential (12/14/2012 4:29 AM PDT) + + + + + + | Component | Value | Ref Range | Performed | Pathologist | | | | | At | Signature | + + + + + + | MANUAL | NO | | [facility] | | | [facility] | | | [facility] | | | L ? | | | MEDICAL | | | | | | CENTER - | | | | | | LABORATORY | | + + + + + + | WBC | 9.9 (A) | 4.0 - 11.0 K/uL | [facility] | | | | | | [facility] | | | | | | MEDICAL | | | | | | CENTER - | | | | | | LABORATORY | | + + + + + + | RBC | 3.88 (L) | 4.30 - 5.70 | [facility] | | | | | M/uL | [facility] | | | | | | MEDICAL | | | | | | CENTER - | | | | | | LABORATORY | | + + + + + + | Hemoglobin | 12.0 (L) | 13.5 - 18.0 | [facility] | | | | | gm/dL | [facility] | | | | | | MEDICAL | | | | | | CENTER - | | | | | | LABORATORY | | + + + + + + | Hematocrit | 36.1 (L) | 40.0 - 51.0 % | [facility] | | | | | | [facility] | | | | | | MEDICAL | | | | | | CENTER - | | | | | | LABORATORY | | + + + + + + | MCV | 93.0 | 83.0 - 101.0 fL | [facility] | | | | | | [facility] | | | | | | MEDICAL | | | | | | CENTER - | | | | | | LABORATORY | | + + + + + + | MCH | 31.1 | 28.0 - 35.0 pg | [facility] | | | | | | [facility] | | | | | | MEDICAL | | | | | | CENTER - | | | | | | LABORATORY | | + + + + + + | MCHC | 33.4 | 32.0 - 36.0 | [facility] | | | | | g/dL | [facility] | | | | | | MEDICAL | | | | | | CENTER - | | | | | | LABORATORY | | + + + + + + | RDW-CV | 15.2 (H) | <15.0 % | [facility] | | | | | | [facility] | | | | | | MEDICAL | | | | | | CENTER - | | | | | | LABORATORY | | + + + + + + | Platelet | 380 | 140 - 440 K/uL | [facility] | | | Count | | | [facility] | | | | | | MEDICAL | | | | | | CENTER - | | | | | | LABORATORY | | + + + + + + | % | 72.8 | 45 - 75 % | [facility] | | | Neutrophils | | | [facility] | | | | | | MEDICAL | | | | | | CENTER - | | | | | | LABORATORY | | + + + + + + | % | 15.3 (L) | 20 - 45 % | [facility] | | | Lymphocytes | | | [facility] | | | | | | MEDICAL | | | | | | CENTER - | | | | | | LABORATORY | | + + + + + + | % Monocytes | 6.7 | 4 - 12 % | [facility] | | | | | | [facility] | | | | | | MEDICAL | | | | | | CENTER - | | | | | | LABORATORY | | + + + + + + | % | 4.7 | 0 - 5 % | [facility] | | | Eosinophils | | | [facility] | | | | | | MEDICAL | | | | | | CENTER - | | | | | | LABORATORY | | + + + + + + | % Basophils | 0.5 | 0 - 1 % | [facility] | | | | | | [facility] | | | | | | MEDICAL | | | | | | CENTER - | | | | | | LABORATORY | | + + + + + + | Absolute | 7.2 (H) | 1.5 - 6.6 K/uL | [facility] | | | Neutrophils | | | [facility] | | | | | | MEDICAL | | | | | | CENTER - | | | | | | LABORATORY | | + + + + + + | Absolute | 1.5 | 0.6 - 3.2 K/uL | [facility] | | | Lymphocytes | | | [facility] | | | | | | MEDICAL | | | | | | CENTER - | | | | | | LABORATORY | | + + + + + + | Absolute | 0.7 | 0.0 - 1.0 K/uL | [facility] | | | Monocytes | | | [facility] | | | | | | MEDICAL | | | | | | CENTER - | | | | | | LABORATORY | | + + + + + + | Absolute | 0.5 (H) | 0.0 - 0.4 K/uL | [facility] | | | Eosinophils | | | [facility] | | | | | | MEDICAL | | | | | | CENTER - | | | | | | LABORATORY | | + + + + + + | Absolute | 0.1 | 0.0 - 0.1 K/uL | [facility] | | | Basophils | | | [facility] | | | | | | MEDICAL | | | | | | CENTER - | | | | | | LABORATORY | | + + + + + + + + | Specimen | + + | | + + + + + + + | Performing | Address | City/State/Zipcode | Phone Number | | Organization | | | | + + + + + | [facility] | [address] | [place] | [phone] | | [facility] | | [address] | | | - LABORATORY | | | | + + + + + | [facility] | [address] | [place] | | | [facility] | | [address] | | | - LABORATORY | | | | + + + + + Sedimentation Rate (12/14/2012 4:29 AM PDT) + +--------+ + + + | Component | Value | Ref Range | Performed | Pathologist | | | | | At | Signature | + +--------+ + + + | ESR | 69 (H) | 0 - 15 mm/hr | [facility] | | | | | | [facility] | | | | | | MEDICAL | | | | | | CENTER - | | | | | | LABORATORY | | + +--------+ + + + + + | Specimen | + + | | + + + + + + + | Performing | Address | City/State/Zipcode | Phone Number | | Organization | | | | + + + + + | [facility] | [address] | [place], [place] | [phone] | | [facility] | | [address] | | | - LABORATORY | | | | + + + + + | [facility] | [address] | [place] | | | [facility] | | [address] | | | - LABORATORY | | | | + + + + + Protein Electrophoresis, Serum (12/14/2012 4:29 AM PDT) + + + + + + | Component | Value | Ref Range | Performed | Pathologist | | | | | At | Signature | + + + + + + | Total | 7.3 | 6.2 - 7.8 gm/dL | [facility] | | | Protein | | | [facility] | | | | | | MEDICAL | | | | | | CENTER - | | | | | | LABORATORY | | + + + + + + | SPEP | See BelowComment: | | [facility] | | | Interpretat | Negative for a | | [facility] | | | ion | monoclonal protein. | | MEDICAL | | | | Beth Adam MD | | CENTER - | | | | 12-15-12 | | LABORATORY | | | | PLEASE NOTE NEW | | | | | | REFERENCE RANGE | | | | + + + + + + | ELP | 49.7 | % | [facility] | | | Albumin% | | | [facility] | | | | | | MEDICAL | | | | | | CENTER - | | | | | | LABORATORY | | + + + + + + | ELP Albumin | 3.6 | 3.6 - 5.7 g/dL | [facility] | | | | | | [facility] | | | | | | MEDICAL | | | | | | CENTER - | | | | | | LABORATORY | | + + + + + + | ELP Alpha | 3.8 | % | [facility] | | | A1% | | | [facility] | | | | | | MEDICAL | | | | | | CENTER - | | | | | | LABORATORY | | + + + + + + | ELP Alpha | 0.3 (H) | 0.1 - 0.2 g/dL | [facility] | | | A1 | | | [facility] | | | | | | MEDICAL | | | | | | CENTER - | | | | | | LABORATORY | | + + + + + + | ELP Alpha | 11.6 | % | [facility] | | | A2 % | | | [facility] | | | | | | MEDICAL | | | | | | CENTER - | | | | | | LABORATORY | | + + + + + + | ELP Alpha | 0.8 | 0.4 - 0.9 g/dL | [facility] | | | A2 | | | [facility] | | | | | | [facility] | | | | | | CENTER - | | | | | | LABORATORY | | + + + + + + | ELP Beta 1 | 7.6 | % | [facility] | | | % | | | [facility] | | | | | | [facility] | | | | | | CENTER - | | | | | | LABORATORY | | + + + + + + | ELP Beta 1 | 0.6 | 0.3 - 0.7 g/dL | [facility] | | | | | | [facility] | | | | | | [facility] | | | | | | [facility] - | | | | | | LABORATORY | | + + + + + + | ELP Beta 2 | 5.9 | % | [facility] | | | % | | | [facility] | | [facility] | | | [facility] | | | | | | CENTER - | | | | | | LABORATORY | | + + + + + + | ELP Beta 2 | 0.4 | 0.1 - 0.4 g/dL | [facility] | | | | | | [facility] | | | | | | [facility] | | | | | | [facility] - | | | | | | LABORATORY | | + + + + + + | ELP Gamma % | 21.4 | % | [facility] | | [facility] | [facility] | | | [facility] | | [facility] | | | | | | C[facility] - | | | | | | LABORATORY | | + + + + + + | ELP Gamma | 1.6 (H) | 0.4 - 1.2 g/dL | [facility] | | | | | | [facility] | | | | | | [facility] | | | | | | CENTER - | | | | | | LABORATORY | | + + + + + + | ELP A/G | 0.99 | | [facility] | | | RATIO | | | [facility] | | | | | | [facility]ICAL | | | | | | CENTER - | | | | | | LABORATORY | | + + + + + + + + | Specimen | + + | | + + + + + + + | Performing | Address | City/State/Zipcode | Phone Number | | Organization | | | | + + + + + | [facility] | [address] | [place] | [phone] | | [facility] | | [address] | | | - LABORATORY | | | | + + + + + | [facility] | [address] | [place] | | | [facility] | | [address] | | | - LABORATORY | | | | + + + + + Hepatic Function Panel (12/14/2012 4:29 AM PDT) + + + + + + | Component | Value | Ref Range | Performed | Pathologist | | | | | At | Signature | + + + + + + | Alkaline | 72 | 40 - 110 IU/L | [facility] | | | Phosphatase | | | [facility] | | | | | | [facility] | | | | | | CENTER - | | | | | | LABORATORY | | + + + + + + | AST | 23 | 10 - 42 IU/L | [facility] | | | | | | [facility] | | | | | | MEDICAL | | | | | | CENTER - | | | | | | LABORATORY | | + + + + + + | ALT | 40 | 6 - 45 IU/L | [facility] | | | | | | [facility] | | | | | | MEDICAL | | | | | | CENTER - | | | | | | LABORATORY | | + + + + + + | Bilirubin | 0.9 | 0.2 - 1.0 mg/dL | [facility] | | | Total | | | [facility] | | | | | | MEDICAL | | | | | | CENTER - | | | | | | LABORATORY | | + + + + + + | Bilirubin | 0.1 | 0.0 - 0.2 mg/dL | [facility] | | | Direct | | | [facility] | | | | | | MEDICAL | | | | | | CENTER - | | | | | | LABORATORY | | + + + + + + | BILIRUBIN | 0.8Comment: DIRECT BILI | 0.00 - 1.00 | [facility] | | | INDIRECT | = CONJUGATED | mg/dL | [facility] | | | | INDIRECT BILI = | | MEDICAL | | | | UNCONJUGATED | | CENTER - | | | | | | LABORATORY | | + + + + + + | Total | 7.4 | 6.0 - 7.8 gm/dL | [facility] | | | Protein | | | [facility] | | | | | | MEDICAL | | | | | | CENTER - | | | | | | LABORATORY | | + + + + + + + + | Specimen | + + | | + + + + + + + | Performing | Address | City/State/Zipcode | Phone Number | | Organization | | | | + + + + + | [facility] | [address] | [place] | [phone] | | [facility] | | [address] | | | - LABORATORY | | | | + + + + + | [facility] | [address] | [place] | | | [facility] | | [address] | | | - LABORATORY | | | | + + + + + Renal Function Panel (12/14/2012 4:29 AM PDT) + + + + + + | Component | Value | Ref Range | Performed | Pathologist | | | | | At | Signature | + + + + + + | Glucose | 106 | 70 - 109 mg/dL | [facility] | | | | | | [facility] | | | | | | MEDICAL | | | | | | CENTER - | | | | | | LABORATORY | | + + + + + + | Calcium | 8.1 (L) | 8.3 - 10.5 | [facility] | | | | | mg/dL | [facility] | | | | | | MEDICAL | | | | | | CENTER - | | | | | | LABORATORY | | + + + + + + | Phosphorus | 10.3 (HH)Comment: | 2.5 - 4.6 mg/dL | [facility] | | | | | | [facility] | | | | ALERT VALUE | | MEDICAL | | | | DO NOT DISCARD WRITTEN | | CENTER - | | | | DOCUMENTATION. PLACE IN | | LABORATORY | | | | NURSING NOTES Nursing | | | | | | documentation will NOT | | | | | | be included on Summary | | | | | | Report @TELEPHONE | | | | | | NOTIFICATION? JANN/ICU | | | | | | 12/14/12 @0520 by SHAYNE | | | | | | Clinical Provider | | | | | | notification at Nurses | | | | | | discretion Report | | | | | | by Nursing Staff to | | | | | | Clinical Provider who | | | | | | will act/intervene on | | | | | | this value: Nurse | | | | | | Calling Result: | | | | | | | | | | | | Date/Time: | | | | | | Provider or licensee | | | | | | called: | | | | | | | | | | | | Time Provider | | | | | | called/paged: | | | | | | Time spoke to | | | | | | Provider: | | | | + + + + + + | Albumin | 2.8 (L) | 3.2 - 5.0 gm/dL | [facility] | | | | | | [facility] | | | | | | [facility]ICAL | | | | | | [facility] - | | | | | | LABORATORY | | + + + + + + | BUN | 51 (H) | 7 - 18 mg/dL | [facility] | | | | | | [facility] | | | | | | MEDICAL | | | | | | CENTER - | | | | | | LABORATORY | | + + + + + + | Creatinine | 10.01 ()Comment: | 0.60 - 1.30 | [facility] | | | | | mg/dL | [facility] | | | | ALERT VALUE | | MEDICAL | | | | DO NOT DISCARD WRITTEN | | CENTER - | | | | DOCUMENTATION. PLACE IN | | LABORATORY | | | | NURSING NOTES Nursing | | | | | | documentation will NOT | | | | | | be included on Summary | | | | | | Report @TELEPHONE | | | | | | NOTIFICATION? DC/ICU | | | | | | 12/14/12 @0451 by SHAYNE | | | | | | Clinical Provider | | | | | | notification at Nurses | | | | | | discretion Report | | | | | | by Nursing Staff to | | | | | | Clinical Provider who | | | | | | will act/intervene on | | | | | | this value: Nurse | | | | | | Calling Result: | | | | | | | | | | | | Date/Time: | | | | | | Provider or licensee | | | | | | called: | | | | | | | | | | | | Time Provider | | | | | | called/paged: | | | | | | Time spoke to | | | | | | Provider: | | | | + + + + + + | Estimated | 6 (L)Comment: For | >60 mL/min/A | [facility] | | | GFR | -Americans, | | [facility] | | | | please multiply the | | MEDICAL | | | | result by 1.210 | | CENTER - | | | | This is an estimated | | LABORATORY | | | | GFR and is based on a | | | | | | standard adult | | | | | | body mass (A=1.73m2) and | | | | | | serum creatinine | | | | + + + + + + | BUN/Creatin | 5.1 (L) | 12 - 20 | [facility] | | | ine Ratio | [facility] | | | | | [facility] | | | | | | CENTER - | | | | | | LABORATORY | | + + + + + + | Na | 136 | 136 - 149 mEq/L | [facility] | | | | | [facility] | [facility] | [facility] | | | | | | CENTER - | | | | | | LABORATORY | | + + + + + + | K | 4.7 | 3.5 - 5.1 mEq/l | [facility] | | | | | | [facility] | | | | | | MEDICAL | | | | | | CENTER - | | | | | | LABORATORY | | + + + + + + | Cl | 105 | 98 - 109 mEq/l | [facility] | | | | | | [facility] | | | | | | MEDICAL | | | | | | CENTER - | | | | | | LABORATORY | | + + + + + + | CO2 | 20 (L) | 24 - 31 mEq/L | [facility] | | | | | | [facility] | | | | | | MEDICAL | | | | | | CENTER - | | | | | | LABORATORY | | + + + + + + | Anion Gap | 15.7 | 6.0 - 17.0 | [facility] | | | | | | [facility] | | | | | | [facility]ICAL | | | | | | CENTER - | | | | | | LABORATORY | | + + + + + + + + | Specimen | + + | | + + + + + + + | Performing | Address | [facility] | Phone Number | | Organization | | | | + + + + + | [facility] | [address] | [place] | [phone] | | [facility] | | [address] | | | - LABORATORY | | | | + + + + + | [facility] | [address] | [place] | | | [facility] | | [address] | | | - LABORATORY | | | | + + + + + CBC with Differential (12/13/2012 3:35 PM PDT) + + + + + + | Component | Value | Ref Range | Performed | Pathologist | | | | | At | Signature | + + + + + + | MANUAL | NO | | [facility] | | | DIFFERENTIA | | | [facility] | | | L ? | | | MEDICAL | | | | | | CENTER - | | | | | | LABORATORY | | + + + + + + | WBC | 11.2 (H) | 4.0 - 11.0 K/uL | [facility] | | | | | | [facility] | | | | | | [facility] | | | | | | CENTER - | | | | | | LABORATORY | | + + + + + + | RBC | 3.58 (L) | 4.30 - 5.70 | [facility] | | | | | M/uL | [facility] | | | | | | MEDICAL | | | | | | CENTER - | | | | | | LABORATORY | | + + + + + + | Hemoglobin | 11.0 (L) | 13.5 - 18.0 | [facility] | | | | | gm/dL | [facility] | | | | | | MEDICAL | | | | | | CENTER - | | | | | | LABORATORY | | + + + + + + | Hematocrit | 33.1 (L) | 40.0 - 51.0 % | [facility] | | | | | | [facility] | | | | | | MEDICAL | | | | | | CENTER - | | | | | | LABORATORY | | + + + + + + | MCV | 92.5 | 83.0 - 101.0 fL | [facility] | | | | | | [facility] | | | | | | MEDICAL | | | | | | CENTER - | | | | | | LABORATORY | | + + + + + + | MCH | 30.6 | 28.0 - 35.0 pg | [facility] | | | | | | [facility] | | | [facility] | | MEDICAL | | | | | | CENTER - | | | | | | LABORATORY | | + + + + + + | MCHC | 33.1 | 32.0 - 36.0 | [facility] | | | | | g/dL | [facility] | | | | | | MEDICAL | | | | | | CENTER - | | | | | | LABORATORY | | + + + + + + | RDW-CV | 15.1 (H) | <15.0 % | [facility] | | | | | | [facility] | | | | | | MEDICAL | | | | | | CENTER - | | | | | | LABORATORY | | + + + + + + | Platelet | 349 | 140 - 440 K/uL | [facility] | | | Count | | | [facility] | | | | | | MEDICAL | | | | | | CENTER - | | | | | | LABORATORY | | + + + + + + | % | 73.8 | 45 - 75 % | [facility] | | | Neutrophils | | | [facility] | | | | | | MEDICAL | | | | | | CENTER - | | | | | | LABORATORY | | + + + + + + | % | 15.8 (L) | 20 - 45 % | [facility] | | | Lymphocytes | | | [facility] | | | | | | MEDICAL | | | | | | CENTER - | | | | | | LABORATORY | | + + + + + + | % Monocytes | 6.1 | 4 - 12 % | [facility] | | | | | | [facility] | | | | | | MEDICAL | | | | | | CENTER - | | | | | | LABORATORY | | + + + + + + | % | 3.7 | 0 - 5 % | [facility] | | | Eosinophils | | | [facility] | | | | | | MEDICAL | | | | | | CENTER - | | | | | | LABORATORY | | + + + + + + | % Basophils | 0.6 | 0 - 1 % | [facility] | | | | | | [facility] | | | | | | MEDICAL | | | | | | CENTER - | | | | | | LABORATORY | | + + + + + + | Absolute | 8.3 (H) | 1.5 - 6.6 K/uL | [facility] | | | Neutrophils | | | [facility] | | | | | | MEDICAL | | | | | | CENTER - | | | | | | LABORATORY | | + + + + + + | Absolute | 1.8 | 0.6 - 3.2 K/uL | [facility] | | | Lymphocytes | | | [facility] | | | | | | MEDICAL | | | | | | CENTER - | | | | | | LABORATORY | | + + + + + + | Absolute | 0.7 | 0.0 - 1.0 K/uL | [facility] | | | Monocytes | | | [facility] | | | | | | MEDICAL | | | | | | CENTER - | | | | | | LABORATORY | | + + + + + + | Absolute | 0.4 | 0.0 - 0.4 K/uL | [facility] | | | Eosinophils | | | [facility] | | | | | | MEDICAL | | | | | | CENTER - | | | | | | LABORATORY | | + + + + + + | Absolute | 0.1 | 0.0 - 0.1 K/uL | [facility] | | | Basophils | | | [facility] | | | | | | MEDICAL | | | | | | CENTER - | | | | | | LABORATORY | | + + + + + + + + | Specimen | + + | | + + + + + + + | Performing | Address | City/State/Zipcode | Phone Number | | Organization | | | | + + + + + | [facility] | [address] | [place] | [phone] | | [facility] | | [address] | | | - LABORATORY | | | | + + + + + | [facility] | [address] | [place] | | | [facility] | | [address] | | | - LABORATORY | | | | + + + + + Basic Metabolic Panel (12/13/2012 3:35 PM PDT) + + + + + + | Component | Value | Ref Range | Performed | Pathologist | | | | | At | Signature | + + + + + + | Glucose | 95 | 70 - 109 mg/dL | [facility] | | | | | | [facility] | [facility] | | | | | | CENTER - | | | | | | LABORATORY | | + + + + + + | Calcium | 8.0 (L) | 8.3 - 10.5 | [facility] | | | | | mg/dL | [facility] | | | | | | MEDICAL | | | | | | CENTER - | | | | | | LABORATORY | | + + + + + + | BUN | 46 (H) | 7 - 18 mg/dL | [facility] | | | | | | [facility] | | | | | | MEDICAL | | | | | | CENTER - | | | | | | LABORATORY | | + + + + + + | Creatinine | 9.25 (HH)Comment: RESULT | 0.60 - 1.30 | [facility] | | | | CALLED TO DR. MUÑIZ | mg/dL | [facility] | | | | 12/13/12 @5865 by JONNA | | MEDICAL | | | | @ * READ BACK MUST BE | | CENTER - | | | | OBTAINED * READ BACK | | LABORATORY | | | | PERFORMED? YES | | | | + + + + + + | Estimated | 6 (L)Comment: For | >60 mL/min/A | [facility] | | | GFR | -Americans, | | [facility] | | | | please multiply the | | MEDICAL | | | | result by 1.210 | | CENTER - | | | | This is an estimated | | LABORATORY | | | | GFR and is based on a | | | | | | standard adult | | | | | | body mass (A=1.73m2) and | | | | | | serum creatinine | | | | + + + + + + | BUN/Creatin | 5.0 (L) | 12 - 20 | [facility] | | | ine Ratio | | | [facility] | | | | | | MEDICAL | | | | | | CENTER - | | | | | | LABORATORY | | + + + + + + | Na | 134 (L) | 136 - 149 mEq/L | [facility] | | | | | | [facility] | | | | | | MEDICAL | | | | | | CENTER - | | | | | | LABORATORY | | + + + + + + | K | 5.5 (H) | 3.5 - 5.1 mEq/l | [facility] | | | | | | [facility] | | | | | | MEDICAL | | | | | | CENTER - | | | | | | LABORATORY | | + + + + + + | Cl | 102 | 98 - 109 mEq/l | [facility] | | | | | | [facility] | | | | | | MEDICAL | | | | | | CENTER - | | | | | | LABORATORY | | + + + + + + | CO2 | 19 (L) | 24 - 31 mEq/L | [facility] | | | | | | [facility] | | | | | | MEDICAL | | | | | | CENTER - | | | | | | LABORATORY | | + + + + + + | Anion Gap | 18.5 (H) | 6.0 - 17.0 | [facility] | | | | | | [facility] | | | | | | MEDICAL | | | | | | CENTER - | | | | | | LABORATORY | | + + + + + + + + | Specimen | + + | | + + + + + + + | Performing | Address | City/State/Zipcode | Phone Number | | Organization | | | | + + + + + | [facility] | [address] | [place] | [phone] | | [facility] | | [address] | | | - LABORATORY | | | | + + + + + | [facility] | [address] | [place] | | | [facility] | | [address] | | | - LABORATORY | | | | + + + + + Sodium, Urine, Random (12/13/2012 2:36 PM PDT) + + + + + + | Component | Value | Ref Range | Performed | Pathologist | | | | | At | Signature | + + + + + + | Sodium, | 34Comment: NO NORMAL | mEq/L | [facility] | | | Urine | RANGE FOR RANDOM URINE | | [facility] | | | Random | SPECIMEN | | MEDICAL | | | | | | CENTER - | | | | | | LABORATORY | | + + + + + + + + | Specimen | + + | | + + + + + + + | Performing | Address | City/State/Zipcode | Phone Number | | Organization | | | | + + + + + | [facility] | [address] | [place] | [phone] | | [facility] | | [address] | | | - LABORATORY | | | | + + + + + | [facility] | [address] | [place] | | | [facility] | | [address] | | | - LABORATORY | | | | + + + + + Creatinine, Urine, Random (12/13/2012 2:36 PM PDT) + + + + + + | Component | Value | Ref Range | Performed | Pathologist | | | | | At | Signature | + + + + + + | Creatinine, | 42.04Comment: NO NORMAL | mg/dL | [facility] | | | Urine, | RANGE FOR RANDOM URINE | | [facility] | | | Random | SPECIMEN | | MEDICAL | | | | | | CENTER - | | | | | | LABORATORY | | + + + + + + + + | Specimen | + + | | + + + + + + + | Performing | Address | City/State/Zipcode | Phone Number | | Organization | | | | + + + + + | [facility] | [address] | [place] | [phone] | | [facility] | | [address] | | | - LABORATORY | | | | + + + + + | [facility] | [address] | [place] | | | [facility] | | [address] | | | - LABORATORY | | | | + + + + + Osmolality, Urine (12/13/2012 2:36 PM PDT) + +---------+ + + + | Component | Value | Ref Range | Performed | Pathologist | | | | | At | Signature | + +---------+ + + + | OSMO URINE | 138 (L) | 300 - 1,000 | [facility] | | | | | MOSM/KG | [facility] | | | | | | MEDICAL | | | | | | CENTER - | | | | | | LABORATORY | | + +---------+ + + + + + | Specimen | + + | | + + + + + + + | Performing | Address | City/State/Zipcode | Phone Number | | Organization | | | | + + + + + | [facility] | [address] | [place], [place] | [phone] | | [facility] | | [address] | | | - LABORATORY | | | | + + + + + | [facility] | [address] | [place], [place] | | | [facility] | | [address] | | | - LABORATORY | | | | + + + + + Culture, MRSA (12/13/2012 2:07 PM PDT) + + | Specimen | + + | | + + + + + + + | Performing | Address | City/State/Zipcode | Phone Number | | Organization | | | | + + + + + | [facility] | [address] | [place] | [phone] | | [facility] | | [address] | | | - LABORATORY | | | | + + + + + documented in this encounter Visit Diagnoses Not on filedocumented in this encounter
--- OUTSIDE RECORDS SUMMARY | ~2019-07-02 | XMS | Encounter Summary ---
Demographics + + + | Address | [address] | | | [place] [address] | + + + | Home Phone | | + + + | Preferred Language | Unknown | + + + | Marital Status | Single | + + + | Jew Affiliation | Unknown | + + + | Race | Unknown | + + + | Ethnic Group | Unknown | + + + Author + + + | Author | [facility] | | | and [place] | + + + | Organization | [facility] | | | and [...] [place] | | | | | [address] | | + + + + + Care Team Providers + +------+ + | Care Procurement Manager Name | Role | Phone | + +------+ + | Lisa Morrow MD | PCP | | + +------+ + Encounter Details +--------+ + + + + | Date | Type | Department | Care Team | Description | +--------+ + + + + | 02/15/ | Hospital | [facility] | Lisa Morrow MD | | | 2012 | Encounter | MED CTR XRAY [address] | | | | | [place] | [place], [place] | | | | | [place] [address] | [address] | | | | | [phone] | | | +--------+ + + + [...] | | 0 | | | | capsuleIndications: | mouth 3 times daily. 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 | capsule | | 13 | 4 | | capsule | | | | | | + + + +---------+ + + | lisinopril | Take 1 tablet by | 30 | 0 | 01/02/20 | | | (PRINIVIL, ZESTRIL) | mouth Daily. | tablet | | 13 | 4 | | 5 mg tablet | | | | | | [...] | 07/04/ | Office | Gastroenterology | [facility] | | | 2019 | Visit | | GILMA Alexander [address] | | | | | | [address] | | | | | | [place] | | | | | | [address] | | | | | | | | +--------+---------+ + + + documented as of this encounter Procedures + +--------+ + + + | Procedure Name | Priori | Date/Time | Associated Diagnosis | Comments | | | ty | | | | + +--------+ + + + | MRI LUMBAR SPINE WO | Routin | 02/15/2013 | | Results for this | | CONTRAST | e | 1:53 PM | | procedure are in the | | | | PDT | | results section. | + +--------+ + + + documented in this encounter Results MRI Lumbar Spine wo Contrast (02/15/2013 1:53 PM PDT) + + | Specimen | + + | | + + + + + | Narrative | Performed At | + + + | [facility] | [facility] | | Department [address] | [facility] | | [ rep [address]] [ rep [facility] | | st zip] Signed | - IMAGING | | | | | Patient Name: STEVE POOLE Physician: | | | EHLE. : 1960 Age: 52 Sex: M Unit #: [id number] | | | Exam Date: 02/15/13 Location: [facility] | | | Report #: [id number] Page: | | | %(RAD)RES..mtdd.print.filter("pg") of %(RAD) | | | RES..mtdd.print.filter("tpg") | | | | | | Accession Number: [id number] | | | MRI OF THE LUMBAR SPINE CLINICAL HISTORY: LUMBAR | | | RADICULOPATHY ON THE RIGHT SIDE. COMPARISON: None. | | | PROTOCOL: Sagittal T2, sagittal T1, axial T2, axial T1, | | | sagittal STIR, and coronal T2. FINDINGS: There is | | | minimal dextroscoliosis of the lumbar spine. Vertebral body heights | | | are preserved with no evidence for compression fractures. There | | | are moderate-sized anterior osteophytes of the lower thoracic spine. | | | Moderate to large anterior osteophytes extend from L1 through L3. | | | There are large anterior osteophytes at L4. Moderate-sized | | | anterior osteophytes are at L5. Modic type II changes are seen at | | | L1-2, L2-3, L4-5, and L5-S1. There is disk desiccation | | | throughout the entire lumbar spine. Moderate disk height loss at | | | L1-L2, moderate to severe disk height loss is at L2-3. Moderate | | | disk height loss is present from L3-4 through L5-S1. | | | Visualized spinal cord and cauda equina demonstrate normal signal | | | with no evidence for myelomalacia or mass lesions. There is | | | extensive epidural fat involving the lower thoracic spine through the | | | upper sacrum. There are no acute findings in the | | | visualized abdomen or pelvis. T12-L1: A 5-mm | | | posterior disk bulge is present along with prominent epidural fat. | | | There is overall moderate central canal stenosis. The AP | | | dimension of the central canal is 8 mm. Mild left neural foraminal | | | canal stenosis is seen. L1-2: A 4-mm posterior disk | | | bulge is present along with moderate facet hypertrophy and prominent | | | epidural fat. There is overall moderate to severe central canal | | | stenosis. AP dimension of the central canal is 7 mm. Mild | | | bilateral neural foraminal canal stenoses are seen. | | | L2-3: A 3-mm posterior disk bulge is present along with moderate | | | facet hypertrophy, right facet joint small effusion, and prominent | | | epidural fat that lead to severe central canal stenosis. The AP | | | dimension of the central canal is 6 mm. Mild right and moderate left | | | neural foraminal canal stenoses are present. L3-4: | | | A 2-mm posterior disk bulge is present along with severe facet | | | hypertrophy and prominent epidural fat. There is severe central | | | canal stenosis. The AP dimension of the central canal is 4 mm. | | | Mild bilateral neural foraminal canal stenoses are seen. | | | L4-5: A 4-mm posterior disk bulge is present along with facet | | | hypertrophy, left small facet effusion , and prominent epidural fat. | | | There is overall severe central canal stenosis. The AP dimension | | | of the central canal is 3 mm. Mild right and moderate left neural | | | foraminal canal stenoses are seen. There is encroachment upon the | | | left L4 nerve root. L5-S1: A 5-mm posterior disk | | | bulge is present along with moderate facet hypertrophy and prominent | | | epidural fat. There is severe central canal stenosis. The AP | | | dimension is 3 mm. Moderate right and mild left neural foraminal | | | canal stenoses are present. On the right side, there is encroachment | | | upon the right L5 and S1 nerve roots by the disk bulge. On the | | | left side, there is encroachment upon the left L5 nerve root. | | | IMPRESSION: 1. EXTENSIVE PROMINENT EPIDURAL FAT FROM | | | THE THORACIC SPINE DOWN TO THE UPPER SACRUM. ALONG WITH DISK | | | BULGES AND FACET HYPERTROPHY, THERE ARE SEVERE CENTRAL CANAL STENOSES | | | FROM L2-3 THROUGH L5-S1. MILD TO MODERATE NEURAL FORAMINAL CANAL | | | STENOSES ARE NOTED AT MULTIPLE LEVELS WELL. AT THE LEVEL OF | | | L4-5, THERE IS ENCROACHMENT UPON THE LEFT L4 NERVE ROOT. AT THE | | | LEVEL OF L5-S1, THERE IS ENCROACHMENT UPON THE RIGHT L5 AND S1 NERVE | | | ROOTS WELL THE LEFT L5 NERVE ROOT. Dictated | | | Date/Time: 02/15/2013 13:53 Transcribed Date/Time: 02/15/2013 | | | 14:11 Information Security Engineer: <<Signature | | | on File>> | | | Justin | | | MD Shon02/15/132 <Electronically signed by Justin Menendez MD> | | | Justin Menendez MD 02/15/13 1953 Information Security Engineer: Radha | | | [id number]/01/13 1411 Lisa Morrow MD | | + + + + + + + + | Performing | Address | City/State/Zipcode | Phone Number | | Organization | | | | + + + + + | [facility] | [address] | [place] | [phone] | | [facility] | | [address] | | | - IMAGING | | | | + + + + + documented in this encounter Visit Diagnoses Not on filedocumented in this encounter
--- OUTSIDE RECORDS SUMMARY | ~2019-07-02 | XMS | Encounter Summary ---
Demographics + + + | Address | [address] | | | [place] [address] | + + + | Home Phone | | + + + | Preferred Language | Unknown | + + + | Marital Status | Single | + + + | Shinto Affiliation | Unknown | + + + | Race | Unknown | + + + | Ethnic Group | Unknown | + + + Author + + + | Author | [facility] | | | and [place] | + + + | Organization | [facility] | | | and [place] [...] [place] | | | | | [address] | | + + + + + Care Team Providers + +------+ + | Care Scientific Process Operator Name | Role | Phone | + +------+ + | Stefano Padgett PA-C | PCP | | + +------+ + Reason for Visit + + + | Reason | Comments | + + + | Letter for | | | School/Work | | + + + Encounter Details +--------+ + + + + | Date | Type | Department | Care Team | Description | +--------+ + + + + | 10/23/ | Telephone | [facility] | Fam Bonds, | Letter for | | 2013 | | NEUROSURGERY [address] | DO [address] | School/Work | | | | [address] | [address] [place], [place] | | | | | [place], [place] | [id number] | | | | | [address] | | | | | | [phone] | | | +--------+ + + + + Social History + + + +--------+ + | Tobacco Use | Types | Packs/Day | Years | Date | | | | | Used | | + + + +--------+ + | Former Smoker | Cigarettes | | | Quit: 01/10/2013 | + + + +--------+ + + + +---------+ + | Alcohol Use | Drinks/Week | oz/Week | Comments | + + +---------+ + | Yes | | | moderately | + + +---------+ + + + [...] | 07/04/ | Office | Gastroenterology | [facility], | | | 2019 | Visit | | GILMA [address] | | | | | | [address] | | | | | | [place] | | | | | | [id number] | | | | | | | | +--------+---------+ + + + documented as of this encounter Visit Diagnoses Not on filedocumented in this encounter"
--- OUTSIDE RECORDS SUMMARY | ~2019-07-02 | XMS | Encounter Summary ---
Demographics + + + | Address | [address] | | | [place] [address] | + + + | Home Phone | | + + + | Preferred Language | Unknown | + + + | Marital Status | Single | + + + | Mu-Ism Affiliation | Unknown | + + + | Race | Unknown | + + + | Ethnic Group | Unknown | + + + Author + + + | Author | [facility] | | | and [place] | + + + | Organization | [facility] | | | and [...] [place] | | | | | [address] | | + + + + + Care Team Providers + +------+ + | Care Director Of Recruitment Name | Role | Phone | + +------+ + | Stefano Padgett PA-C | PCP | | + +------+ + Reason for Visit +--------+ + | Reason | Comments | +--------+ + | Other | Surgery clearance | +--------+ + Encounter Details +--------+ + + + + | Date | Type | Department | Care Team | Description | +--------+ + + + + | 04/08/ | Telephone | [facility] | Fam Bonds, | Other (Surgery | | 2013 | | NEUROSURGERY [address] | DO [address] | clearance) | | | | [address] | [address] [place], [place] | | | | | [place], [place] | [id number] | | | | | [address] | | | | | | [phone] | | | +--------+ + + + [...] | 07/04/ | Office | Gastroenterology | [facility], | | | 2019 | Visit | | GILMA Alexander [address] | | | | | | [address] | | | | | | [place] | | | | | | [address] | | | | | | | | +--------+---------+ + + + documented as of this encounter Visit Diagnoses Not on filedocumented in this encounter"
--- OUTSIDE RECORDS SUMMARY | ~2019-07-02 | XMS | Encounter Summary ---
Demographics + + + | Address | [address] | | | [place] [address] | + + + | Home Phone | | + + + | Preferred Language | Unknown | + + + | Marital Status | Single | + + + | Christian Affiliation | Unknown | + + + | Race | Unknown | + + + | Ethnic Group | Unknown | + + + Author + + + | Author | [facility] | | | and [place] | + + + | Organization | [facility] | | | and [...] [place] | | | | | [address] | | + + + + + Care Team Providers + +------+ + | Care Marketing Operations Intern Name | Role | Phone | + [...] | | | | | | | CA | | | | | | | ARTHRODESIS | | | | | | | POSTERIOR/PO | | | | | | | STEROLATERAL | | | | | | | LUMBAR CA | | | | | | | LUMBAR SPINE | | | | | | | | | | | | | | FUSION,ANTER | | | | | | | APPRCH CA | | | | | | | APPLICATION | | | | | | | INTERVERTEBR | | | | | | | AL | | | | | | | BIOMECHANICA | | | | | | | L DEVICE CA | | | | | | | SPINE | | | | | | | FUSN,POST | | | | | | | TECH,EA | | | | | | | ADDNL SGMT | | | | | | | CA SPINAL | | | | | | | FUSION,ANT,E | | | | | | | A ADNL LEVEL | | | | | | | CA | | | | | | | [...] | | | | | | SEG CA | | | | | | | [...] | | | | | | SEG CA | | | | | | | LAMINEC/FACE | | | | | | | TECT/FORAMIN | | | | | | | ,EACH ADDNL | | | | | | | CA ARTHDSIS | | | | | | [...] | | | | | | SEG CA | | | | | | | [...] + + | 04/09/ | Hospital | [facility] | Fam Bonds, | Lumbosacral | | 2013 | Encounter | MED CTR XRAY [address] | DO [address] | spondylosis without | | | | [place] | [address] [place] | myelopathy (Primary | | | | [place] [address] | [address] | Dx) | | | | [phone] | | | +--------+ + + + [...] | Anahi | | | | | + + + +---------+ + + | Cholecalciferol | Take 5,000 Units by | | 0 | | | | (VITAMIN D3) 5000 | mouth Daily. | | | | | | UNITS CAPS | | | | | | + + + +---------+ + + | albuterol | Inhale 2 puffs into | 1 | 6 | 01/22/20 | | | (PROVENTIL HFA) 90 | the lungs every 4 | Inhaler | | 14 | 4 | | mcg/puff inhaler | hours as needed for | | | | | | | Wheezing or | | | | | | | Shortness of Breath. | | | | | | | GOLDEN Guzmán | | | | | | | [place] | | | | | + + [...] | | Take 1 tablet by | | 0 | | | | HYDROcodone-acetamin | mouth every 8 hours | | | | 4 | | ophen (NORCO) 10-325 | as needed. | | | | | | mg [...] + + + +---------+ + + | traMADol (ULTRAM) | Take 50 mg by mouth | | 0 | | | | 50 mg tablet | every 6 hours as | | | | 4 | | | needed. | | | | | + + + +---------+ + + documented as of this encounter Plan of Treatment +--------+---------+ + + + | Date | Type | Specialty | Care Team | Description | +--------+---------+ + + + | 07/04/ | Office | Gastroenterology | [facility], | | | 2019 | Visit | | GILMA Alexander [address] | | | | | | [address] | | | | | | [place] | | | | | | [address] | | | | | | | | +--------+---------+ + + + documented as of this encounter Procedures + +--------+ + + + | Procedure Name | Priori | Date/Time | Associated Diagnosis | Comments | | | ty | | | | + +--------+ + + + | FL BARAK STATS NO | Routin | 04/09/2014 | Lumbosacral | Results for this | | CHARGE | e | 7:33 PM | spondylosis without | procedure are in the | | | | PDT | myelopathy | results section. | + +--------+ + + + documented in this encounter Results SURINDER Jules (04/09/2014 7:33 PM PDT) + + | Specimen | + + | | + + + + + | Narrative | Performed At | + + + | No Radiologist interpretation, please see Chart Review. | [facility] | + + + + + | Procedure Note | + + | 04/09/2014 7:33 PM PDT No Radiologist interpretation, please see Chart Review. 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
--- OUTSIDE RECORDS SUMMARY | ~2019-07-02 | XMS | Encounter Summary ---
Demographics + + + | Address | [address] [facility] [address] | | | [place] [address] | + + + | Home Phone | | + + + | Preferred Language | Unknown | + + + | Marital Status | Single | + + + | Congregational Affiliation | Unknown | + + + | Race | Unknown | + + + | Ethnic Group | Unknown | + + + Author + + + | Author | [facility] | | | and [place] | + + + | Organization | [facility] | | | and [place] [...] [place] | | | | | [address] | | + + + + + Care Team Providers + +------+ + | Care Stable Hand Name | Role | Phone | + +------+ + | Stefano Padgett PA-C | PCP | | + +------+ + Reason for Visit +--------+ + | Reason | Comments | +--------+ + | Other | Medication approval | +--------+ + Encounter Details +--------+ + + + + | Date | Type | Department | Care Team | Description | +--------+ + + + + | 04/16/ | Telephone | [facility] | Fam Bonds, | Other (Medication | | 2013 | | NEUROSURGERY [address] | DO [address] | approval ) | | | | [address] | [address] [place], [place] | | | | | [place], [place] | [address] | | | | | [address] | | | | | | [phone] | | | +--------+ + + + [...] | 07/04/ | Office | Gastroenterology | [facility], | | | 2019 | Visit | | GILMA Alexander [address] | | | | | | [address] | | | | | | [place] | | | | | | [address] | | | | | | | | +--------+---------+ + + + documented as of this encounter Visit Diagnoses Not on filedocumented in this encounter"
--- OUTSIDE RECORDS SUMMARY | ~2019-07-02 | XMS | Encounter Summary ---
Demographics + + + | Address | [address] | | | [place] [address] | + + + | Home Phone | | + + + | Preferred Language | Unknown | + + + | Marital Status | Single | + + + | Episcopal Affiliation | Unknown | + + + | Race | Unknown | + + + | Ethnic Group | Unknown | + + + Author + + + | Author | [facility] | | | and [place] | + + + | Organization | [facility] | | | and [place] [...] [place] | | | | | [address] | | + + + + + Care Team Providers + +------+ + | Care Manager Bar Name | Role | Phone | + +------+ + | Stefano Padgett PA-C | PCP | | + +------+ + Encounter Details +--------+ + + + + | Date | Type | Department | Care Team | Description | +--------+ + + + + | 06/17/ | Hospital | [facility] | Fam Bonds, | Status post lumbar | | 2013 | Encounter | MED CTR XRAY [address] | DO [address] | spinal fusion | | | | [place] | [address] [place], [place] | | | | | [place] [address] | [address] | | | | | [phone] | | | +--------+ + + + [...] tablet by | 60 | 0 | 06/17/20 | | | HYDROcodone-acetamin | mouth every 8 hours | tablet | | 14 | 4 | | ophen (NORCO) 10-325 [...] | 07/04/ | Office | Gastroenterology | [place], | | | 2019 | Visit | | GILMA Alexander [address] | | | | | | [address] | | | | | | [place] | | | | | | [address] | | | | | | | | +--------+---------+ + + + documented as of this encounter Procedures + +--------+ + + + | Procedure Name | Priori | Date/Time | Associated Diagnosis | Comments | | | ty | | | | + +--------+ + + + | XR LUMBAR SPINE 2 OR | Routin | 06/17/2014 | Status post lumbar | Results for this | | 3 VW | e | 10:44 AM | spinal fusion | procedure are in the | | | | PST | | results section. | + +--------+ + + + documented in this encounter Results XR Lumbar Spine 2 or 3 Vw (06/17/2014 10:44 AM [facility]) + + | Specimen | + + | | + + + + + | Narrative | Performed At | + + + | XR LUMBAR SPINE 2 OR 3 VW 06/17/2014 10:44 AM HISTORY: S/P lumbar | MISCELANIOUS | | fusion. COMPARISON: 04/11/2014. FINDINGS: There is stable | LAB | | hardware for posterior fusion from T12 through S1 with interbody | | | hardware at these levels. At levels L2 and L4, only left screws are | | | present. At levels L3 and L5, only right screws are seen. The spacer | | | hardware at level L2-3 extends just posterior to the vertebral | | | endplates, as before. The hardware remains intact. There is moderate | | | spondylosis of the lower thoracic spine and lumbar spine. Vertebral | | | body height are preserved with no evidence for compression fractures. | | | Mild disc narrowing is at L4-5. Multilevel facet sclerosis and | | | hypertrophy are seen. There is no evidence for spondylolysis. | | | Visualized ribs and pelvic osseous structures show no acute findings. | | | There is a mild to moderate atherosclerosis. IMPRESSION - | | | Interval posterior fusion from T12 through S1. Dictated and Signed | | | by: Justin Menendez MD Electronically signed: 06/17/2014 1:34 PM | | + + + + + | Procedure Note | + + | He Wright Results In - 06/17/2014 1:37 PM PST XR LUMBAR SPINE 2 OR 3 VW 06/17/2014 | | 10:44 AMHISTORY: S/P lumbar fusion.COMPARISON: 04/11/2014.FINDINGS:There is stable | | hardware for posterior fusion from T12 through S1 with interbodyhardware at these | | levels. At levels L2 and L4, only left screws are present. Atlevels L3 and L5, only | | right screws are seen. The spacer hardware at level L2-3extends just posterior to the | | vertebral endplates, as before. The hardwareremains intact. There is moderate | | spondylosis of the lower thoracic spine andlumbar spine. Vertebral body height are | | preserved with no evidence forcompression fractures. Mild disc narrowing is at L4-5. | | Multilevel facetsclerosis and hypertrophy are seen. There is no evidence for | | spondylolysis.Visualized ribs and pelvic osseous structures show no acute findings. | | There is amild to moderate atherosclerosis.IMPRESSION -Interval posterior fusion from | | T12 through S1.Dictated and Signed by: Justin Menendez MD Electronically signed: 06/17/2014 | | 1:34 PM | |compression fractures. Mild disc narrowing is at L4-5. Multilevel facet | |sclerosis and hypertrophy are seen. There is no evidence for spondylolysis. | |Visualized ribs and pelvic osseous structures show no acute findings. There is a | |mild to moderate atherosclerosis. | | | |IMPRESSION - | |Interval posterior fusion from T12 through S1. | | | |Dictated and Signed by: Justin Menendez MD | | Electronically signed: 06/17/2014 1:34 PM | + + + +---------+ + + | Performing | Address | City[facility]State[facility] | Phone Number | | Organization | | | | + +---------+ + + | [facility] | | | [phone] | + +---------+ + + | [facility] | | | [phone] | + +---------+ + + documented in this encounter Visit Diagnoses + + | Diagnosis | + + | Status post lumbar spinal fusion Arthrodesis status | + + documented in this encounter"
--- OUTSIDE RECORDS SUMMARY | ~2019-07-02 | XMS | Encounter Summary ---
Demographics + + + | Address | [address] [facility] | | | [place] [address] | + + + | Home Phone | | + + + | Preferred Language | Unknown | + + + | Marital Status | Single | + + + | Caodaism Affiliation | Unknown | + + + | Race | Unknown | + + + | Ethnic Group | Unknown | + + + Author + + + | Author | [facility] | | | and [place] | + + + | Organization | [facility] | | | and [...] [place] | | | | | [address] | | + + + + + Care Team Providers + +------+ + | Care Research And Development Tester Name | Role | Phone | + +------+ + | Stefano Padgett PA-C | PCP | | + +------+ + Encounter Details +--------+ + + + + | Date | Type | Department | Care Team | Description | +--------+ + + + + | 01/21/ | Hospital | [facility] | Offenstein, | Chronic bronchitis | | 2013 | Encounter | MED CTR PULMONARY | Jennifer Ladd MD | ([facility]) | | | | FUNCTION [address] | | | | | | [place], | | | | | | [place] [address] | | | | | | [phone] | | | +--------+ + + + [...] | | | | | inhaler | [place] | | | | | + + [...] | 07/04/ | Office | Gastroenterology | [facility], | | | 2019 | Visit | | GILMA Alexander [address] | | | | | | [address] | | | | | | [place] | | | | | | [address] | | | | | | | | +--------+---------+ + + + documented as of this encounter Procedures + +--------+ + + + | Procedure Name | Priori | Date/Time | Associated Diagnosis | Comments | | | ty | | | | + +--------+ + + + | PFT PULMONARY | DESTIN | 01/21/2014 | Chronic bronchitis | Results for this | | FUNCTION TESTING | | 5:16 PM | ([facility]) | procedure are in the | | ORDERS | | PDT | | results section. | + +--------+ + + + | PFT PULMONARY | DESTIN | 01/21/2014 | Chronic bronchitis | Results for this | | FUNCTION TESTING | | 5:16 PM | (HCC) | procedure are in the | | ORDERS | | PDT | | results section. | + +--------+ + + + | PFT PULMONARY | DESTIN | 01/21/2014 | Chronic bronchitis | Results for this | | FUNCTION TESTING | | 5:16 PM | (HCC) | procedure are in the | | ORDERS | | PDT | | results section. | + +--------+ + + + | PFT PULMONARY | DESTIN | 01/21/2014 | Chronic bronchitis | Results for this | | FUNCTION TESTING | | 5:16 PM | (HCC) | procedure are in the | | ORDERS | | PDT | | results section. | + +--------+ + + + | DIAGNOSTIC REPORT - | | 01/21/2014 | | | | EXTERNAL SCAN | | 12:00 AM | | | | | | PDT | | | + +--------+ + + + documented in this encounter Results PFT PULMONARY FUNCTION TESTING ORDERS Full PFT ([place] w/BD, lung volumes, diffusion)?: Yes (01/21/2014 5:16 PM PDT) + + + | Narrative | Performed At | + + + | Jennifer Raines MD 01/21/2014 17:16 PULMONARY | | | FUNCTION TESTING SPIROMETRY: Prior to administration of inhaled | | | bronchodilator, FVC was mildly reduced at 3.90 L or 72% of | | | predicted. FEV1 was moderately reduced at 2.32 L or 56% of | | | predicted. FEV1/FVC ratio was reduced at 59%. After administration | | | of inhaled bronchodilator, FVC increased by 14 % to 4.46 L or 14% of | | | predicted. FEV1 increased by 19 % to 2.75 L or 66% of predicted. | | | FEV1/FVC ratio was reduced at 62%. LUNG VOLUMES: Total lung | | | capacity was normal at 7.11 L or 96% of predicted. Residual volume | | | was elevated at 3.13 L or 144% of predicted. RV/TLC ratio was | | | elevated at 44% or 148 % of predicted. DIFFUSION CAPACITY: | | | Diffusion capacity was mildly reduced at 26.8 mL/mmHg per minute or | | | 69% of predicted and was not corrected for a measured hemoglobin. | | | IMPRESSION: Spirometry is consistent with moderate obstructive | | | physiology. There was a significant response to inhaled | | | bronchodilator based on change in both FVC and FEV1. Lung volume | | | testing is consistent with obstructive physiology. Diffusion | | | capacity is mildly reduced and is not corrected for measured | | | hemoglobin. Electronically signed by: Jennifer Raines MD | | | 01/21/2014 17:13 [facility] CC: | | | Stefano Padgett | | + + + + + | Procedure Note | + + | Jennifer Raines MD - 01/21/2014 5:[address] [facility] PULMONARY FUNCTION TESTING | | SPIROMETRY: Prior to administration of inhaled bronchodilator, FVC was mildly reduced at | | 3.90 L or 72% of predicted. FEV1 was moderately reduced at 2.32 L or 56% of predicted. | | FEV1/FVC ratio was reduced at 59%. After administration of inhaled bronchodilator, FVC | | increased by 14 % to 4.46 L or 14% of predicted. FEV1 increased by 19 % to 2.75 L or 66% | | of predicted. FEV1/FVC ratio was reduced at 62%.LUNG VOLUMES: Total lung capacity was | | normal at 7.11 L or 96% of predicted. Residual volume was elevated at 3.13 L or 144% of | | predicted. RV/TLC ratio was elevated at 44% or 148 % of predicted. DIFFUSION CAPACITY: | | Diffusion capacity was mildly reduced at 26.8 mL/mmHg per minute or 69% of predicted and | | was not corrected for a measured hemoglobin.IMPRESSION: Spirometry is consistent with | | moderate obstructive physiology. There was a significant response to inhaled | | bronchodilator based on change in both FVC and FEV1. Lung volume testing is consistent | | with obstructive physiology. Diffusion capacity is mildly reduced and is not corrected | | for measured hemoglobin.Electronically signed by: Jennifer Raines MD 01/21/2014 | | 17:13[facility] Stefano [facility] | |[facility] | | | |CC: Stefano Padgett | + + documented in this encounter Visit Diagnoses + + | Diagnosis | + + | Chronic bronchitis (HCC) Unspecified chronic bronchitis | + + documented in this encounter Administered Medications + +--------+ +--------+------+------+ | Medication Order | MAR | Action | Dose | Rate | Site | | | Action | Date | | | | + +--------+ +--------+------+------+ | albuterol 2.5 mg/3 mL nebulizer | Given | 01/22/20 | 2.5 mg | | | | solution 2.5 mg 2.5 mg, | | 14 1:51 | | | | | Nebulization, RT Once, 01/21/14 | | PM PDT | | | | | at 1415, For 1 dose, RT will | | | | | | | administer., | | | | | | + +--------+ +--------+------+------+ +---+---+ | | | +---+---+ documented in this encounter"
--- OUTSIDE RECORDS SUMMARY | ~2019-07-02 | XMS | Encounter Summary ---
Demographics + + + | Address | [address] | | | [place] [address] | + + + | Home Phone | | + + + | Preferred Language | Unknown | + + + | Marital Status | Single | + + + | Religion Affiliation | Unknown | + + + | Race | Unknown | + + + | Ethnic Group | Unknown | + + + Author + + + | Author | [facility] | | | and [place] | + + + | Organization | [facility] | | | and [place] [...] [place] | | | | | [address] | | + + + + + Care Team Providers + +------+ + | Care Budget Technician Name | Role | Phone | [...] [address] | [address] [place], [place] | | | | | [place], [place] | [address] | | | | | [address] | | | | | | [phone] | | | +--------+ + + + [...] | 07/04/ | Office | Gastroenterology | [facility], | | | 2018 | Visit | | GILMA Alexander [address] | | | | | | [address] | | | | | | [place] | | | | | | [address] | | | | | | | | +--------+---------+ + + + documented as of this encounter Visit Diagnoses Not on filedocumented in this encounter"
--- OUTSIDE RECORDS SUMMARY | ~2019-07-02 | XMS | Encounter Summary ---
Demographics + + + | Address | [address] | | | [place] [address] | + + + | Home Phone | | + + + | Preferred Language | Unknown | + + + | Marital Status | Single | + + + | Rastafarian Affiliation | Unknown | + + + | Race | Unknown | + + + | Ethnic Group | Unknown | + + + Author + + + | Author | [facility] | | | and [place] | + + + | Organization | [facility] | | | and [place] [...] [place] | | | | | [address] | | + + + + + Care Team Providers + +------+ + | Care Certified Surgical Assistant Name | Role | Phone | + +------+ + | Lisa Morrow MD | PCP | | + +------+ + Encounter Details +--------+ + + + + | Date | Type | Department | Care Team | Description | +--------+ + + + + | 12/13/ | Hospital | [facility] | Nikki Muñiz, | | | 2013 - | Encounter | MED CTR MED ONC | [address] | | | | | [address] [place] | [place] | | | 12/18/ | | [place] [address] | [address] | | | 2012 | | [phone] | | | | | | | Aida Almazan | | | | | | M, DO [address] | | | | [address] | | | | | | [place] | | | | | | [address] | | | | | | | [...] Almazan DO - 03/12/2013 8:39 [place] [address] Patient Name: THOM POOLE Provider: Aida Almazan DO Unit #: [id number] Location : [address] [place] [address] #: [id number] : 1960 ADMISSION DATE: 12/13/2012 DISCHARGE DATE: [...] male who was transferr ed from the [facility] as a direct admit. He was recently admitted to [facility] with sepsis syndrome, originated from soft tissue [...] with me in 1 week at the [facility]. I gave him a standing order to have a renal panel done outpatient week , to follow him. DICTATED BY: Aida Almazan DO Nephrology JOB #: [id number] EXT JOB #:[id number] cc: [facility] <<Signature on File>> Aida Almazan DO03/26/13 1056 [...] [place] | | | | | | [address] | | | | | | | [...] + | [facility] | [address] | [place], [place] | [phone] | | [facility] | | [address] | | | - LABORATORY | | | | + + + + + | [facility] | [address] | [place], [place] | | | [facility] | | [address] | | | - LABORATORY | | [...] + | [facility] | [address] | [place] | [phone] | | [facility] | | [address] | | | - LABORATORY | | | | + + + + + | [facility] | [address] | [place] | | | [facility] | | [address] | | | - LABORATORY | | [...] [address] | [place] | [phone] | | [facility] | | [address] | | | - LABORATORY | | | | + + + + + | [facility] | [address] | [place] | | | [facility] | | [address] | | | - LABORATORY | | [...] + | [facility] | [address] | [place], [place] | [phone] | | [facility] | | [address] | | | - LABORATORY | | | | + + + + + | [facility] | [address] | [place], [place] | | | [facility] | | [address] | | | - LABORATORY | | [...] + | [facility] | [address] | [place], [place] | [phone] | | [facility] | | [address] | | | - LABORATORY | | | | + + + + + | [facility] | [address] | [place], [place] | | | [facility] | | [address] | | | - LABORATORY | | [...] [address] | [place] | [phone] | | [facility] | | [address] | | | - LABORATORY | | | | + + + + + | [facility] | [address] | [place] | | | [facility] | | [address] | | | - LABORATORY | | [...] [address] | [place] | [phone] | | [facility] | | [address] | | | - LABORATORY | | | | + + + + + | [facility] | [address] | [place] | | | [facility] | | [address] | | | - LABORATORY | | [...] + | [facility] | [address] | [place] | [phone] | | [facility] | | [address] | | | - LABORATORY | | | | + + + + + | [facility] | [address] | [place] | | | [facility] | | [address] | | | - LABORATORY | | | | + + + + + US Renal Limited (12/14/2012 8:52 AM PDT) + + | Specimen | + + | | + + + + + | Narrative | Performed At | + + + | [facility] | [place] | | Department [address] [facility] | [facility] | | [ rep [address]] [ rep [facility] | | st zip] Signed | - IMAGING | | | | | Patient Name: THOM POOLE Physician: | | | STRO.01 : 1960 Age: 52 Sex: M Unit #: [id number] | | | Exam Date: 12/13/12 Location: [address] [place] [address] | | | Report #: [id number] Page: | | | %(RAD)RES..mtdd.print.filter("pg") of %(RAD) | | | RES..mtdd.print.filter("tpg") | | | | | | Accession Number: [id number] | | | ULTRASOUND RENAL CLINICAL HISTORY: [...] Transcribed Date/Time: 12/14/2012 | | | 09:06 Insurance Account Executive: <<Signature | | | on File>> | | | Ede | | | Samuel Tapia MD12/14/122009 <Electronically signed by Ede Baker | | | Willie FRANCIS> Ede Tapia MD 12/14/12 0852 | | | Insurance Account Executive: Hoonto [id number] | | | Aida Almazan DO | | + + + + + + + + | Performing | Address | City/State/Zipcode | Phone Number | | Organization | | | | + + + + + | [facility] | [address] | [place] | [phone] | | [facility] | | [address] | | | - IMAGING | | [...] [place] | | | | | | [address] CLIA: [id number] | | | | | | Test Performed by | | | | | | [facility] | | | | | | [facility] | | | | | | | | | | | | [address], | | | | | | [place] [address] | | | | + + + + + + + + | Specimen | + + | | + + + + + + + | Performing | Address | City/State/Zipcode | Phone Number | | Organization | | | | + + + + + | [facility] | [address] | [place] | [phone] | | [facility] | | [address] | | | - LABORATORY | | | | + + + + + | [facility] | [address] | [place], [place] | | | [facility] | | [address] | | | - LABORATORY | | [...] | | | | g/dL | [facility] | | | | | | MEDICAL [...] + | [facility] | [address] | [place] | [phone] | | [facility] | | [address] | | | - LABORATORY | | | | + + + + + | [facility] | [address] | [place] | | | [facility] | | [address] | | | - LABORATORY | | [...] + | [facility] | [address] | [place], [place] | [phone] | | [facility] | | [address] | | | - LABORATORY | | | | + + + + + | [facility] [facility] | [address] | [place] | | | [facility] | | [address] | | | - LABORATORY | | [...] + | [facility] | [address] | [place] | [phone] | | [facility] | | [address] | | | - LABORATORY | | | | + + + + + | [facility] | [address] | [place] | | | [facility] | | [address] | | | - LABORATORY | | [...] + | [facility] | [address] | [place] | [phone] | | [facility] | | [address] | | | - LABORATORY | | | | + + + + + | [facility] | [address] | [place] | | | [facility] | | [address] | | | - LABORATORY | | [...] MEDICAL | | | | | | MALAGA - | | | | | | [...] + + | Performing | Address | [facility] | Phone Number | | Organization | | | | + + + + + | [facility] | [address] | [place] | [phone] | | [facility] | | [address] | | | - LABORATORY | | | | + + + + + | [facility] | [address] | [place] | | | [facility] | | [address] | | | - LABORATORY | | [...] + | [facility] | [address] | [place] | [phone] | | [facility] | | [address] | | | - LABORATORY | | | | + + + + + | [facility] | [address] | [place] | | | [facility] | | [address] | | | - LABORATORY | | [...] [facility] | | | | 12/13/12 @6455 by JONNA | | MEDICAL | | [...] [address] | [place] | [phone] | | [facility] | | [address] | | | - LABORATORY | | | | + + + + + | [facility] | [address] | [place] | | | [facility] | | [address] | | | - LABORATORY | | [...] + | [facility] | [address] | [place] | [phone] | | [facility] | | [address] | | | - LABORATORY | | | | + + + + + | [facility] | [address] | [place] | | | [facility] | | [address] | | | - LABORATORY | | [...] + | [facility] | [address] | [place] | [phone] | | [facility] | | [address] | | | - LABORATORY | | | | + + + + + | [facility] | [address] | [place] | | | [facility] | | [address] | | | - LABORATORY | | [...] | | | | | MOSM/KG | [facility] | | | | | | MEDICAL [...] + | [facility] | [address] | [place], [place] | [phone] | | [facility] | | [address] | | | - LABORATORY | | | | + + + + + | [facility] | [address] | [place], [place] | | | [facility] | | [address] | | | - LABORATORY | | [...] [address] | [place] | [phone] | | [facility] | | [address] | | | - LABORATORY | | | | + + + + + documented in this encounter Visit Diagnoses Not on filedocumented in this encounter
--- OUTSIDE RECORDS SUMMARY | ~2019-07-02 | XMS | Encounter Summary ---
Demographics + + + | Address | [address] [facility] [address] | | | [place] [address] | + + + | Home Phone | | + + + | Preferred Language | Unknown | + + + | Marital Status | Single | + + + | Restorationism Affiliation | Unknown | + + + | Race | Unknown | + + + | Ethnic Group | Unknown | + + + Author + + + | Author | [facility] | | | and [place] | + + + | Organization | [facility] | | | and [place] [...] [place] | | | | | [address] | | + + + + + Care Team Providers + +------+ + | Care Order Desk Caller Name | Role | Phone | + +------+ + | Stefano Padgett PA-C | PCP | | + +------+ + Reason for Visit +--------+ + | Reason | Comments | +--------+ + | Other | | +--------+ + Encounter Details +--------+ + + + + | Date | Type | Department | Care Team | Description | +--------+ + + + + | 04/22/ | Telephone | [facility] | Fam Bonds, | Other | | 2013 | | NEUROSURGERY [address] | DO [address] | | | | | [address] | [address] [place], [place] | | | | | [place], [place] | [address] | | | | | [address] | | | | | | [phone] | | | +--------+ + + + [...] | 07/04/ | Office | Gastroenterology | [facility], | | | 2018 | Visit | | GILMA Alexander [address] | | | | | | [address] | | | | | | [place] | | | | | | [address] | | | | | | | | +--------+---------+ + + + documented as of this encounter Visit Diagnoses Not on filedocumented in this encounter"
--- OUTSIDE RECORDS SUMMARY | ~2019-07-02 | XMS | Encounter Summary ---
Demographics + + + | Address | [address] [facility] [address] | | | [place] [address] | + + + | Home Phone | | + + + | Preferred Language | Unknown | + + + | Marital Status | Single | + + + | Quaker Affiliation | Unknown | + + + | Race | Unknown | + + + | Ethnic Group | Unknown | + + + Author + + + | Author | [facility] | | | and [place] | + + + | Organization | [facility] | | | and [place] [...] [place] | | | | | [address] | | + + + + + Care Team Providers + +------+ + | Care Slope Runner Name | Role | Phone | + +------+ + | Stefano Padgett PA-C | PCP | | + +------+ + Reason for Referral Evaluate & Treat (Routine) +--------+ + + + + + | Status | Reason | Specialty | Diagnoses / | Referred By | Referred To | | | | | Procedures | Contact | Contact | +--------+ + + + + + | Closed | Specialty | Physical | Diagnoses | Sucharda, | | | | Services | Therapy | S/P lumbar | Hola E, | | | | Required | | fusion | PA-C [address] | | | | | | [address] | | | | | | | [address] | | | | | | | [place], | | | | | | | [place] [address] | | | | | | | Phone: | | | | | | | [phone] | | | | | | | Fax: | | | | | | | [phone] | | +--------+ + + + + + Reason for Visit + + + | Reason | Comments | + + + | Follow-up | 4 Week PO | + + + Encounter Details +--------+---------+ + + + | Date | Type | Department | Care Team | Description | +--------+---------+ + + + | 06/17/ | Office | [facility] | Hola Villanueva, | S/P lumbar fusion | | 2013 | Visit | NEUROSURGERY [address] | PA-C [address] | (Primary Dx) | | | | [address] | [address] [place] | | | | | [place], [place] | [place] [address] | | | | | [address] | [phone] | | | | | [phone] | | | +--------+---------+ + + + Social History [...] + + + | Blood Pressure | 137/87 | 06/17/2014 11:54 AM | | | | | PST | | + + + + + | Pulse | 111 | 06/17/2014 11:54 AM | | | | | PST | | + + + + + | Temperature | - | - | | + + + + + | Respiratory Rate | 20 | 06/17/2014 11:54 AM | | | | | PST | | + + + + + | Oxygen Saturation | - | - | | + + + + + | Inhaled Oxygen | - | - | | | Concentration | | | | + + + + + | Weight | 128.4 kg (283 lb) | 06/17/2014 11:54 AM | | | | | PST | | + + + + + | Height | 182.9 cm (6') | 06/17/2014 11:54 AM | | | | | PST | | + + + + + | Body Mass Index | 38.38 | 06/17/2014 11:54 AM | | | | | PST | | + + + + + documented in this encounter Patient Instructions Patient Instructions Hola Villanueva PA - 06/17/2014 12:25 PM PSTYou may now slowly incr ease your lifting up to 15 pounds as tolerated. I would like you to start physical therapy in approximately 2 weeks. Lastly, you will see Dr. Bonds in approximately 2 months where a new x-ray will be taken at that time. In the meantime, you can also begin to wean out of yo ur brace as instructed below. SPINE BRACE WEANING PROTOCOL (5 WEEKS) Below are instructions for weaning your brace. You can move through the weeks slower if yo u feel the need to do so, but the overall goal is to get you out of the brace slowly over th e next several weeks. WEEK 1 If you have been using your brace for activities like sleeping, showering, do not use the b race for these activities any longer but continue using it for everything else. WEEK 2 Stop wearing your brace for sitting and short distance walking. You should use the brace f or anything more involved. WEEK 3 Stop using the brace for medium distance walking. You can bend and twist your back but sti ll proceed slowly with these activities. WEEK 4 Stop using the brace for everything but the most difficult tasks. You should now be able to go on long walks and lift more weight as directed. Add more bending and twisting as tolera baltazar. WEEK 5 Stop using the brace for daily use. I would encourage you to use the brace in the future f or activities that you know might aggravate your back or cause pain. You should still work to strengthen your back and use good technique when knot picker cloth things and bending. documented in this encounter Progress Notes Hola Villanueva PA - 06/17/2014 12:05 PM PSTFormatting of this note might be different f rom the original. GOLDEN Muñoz [address] [facility] [place], [place] [id number] FAX: NEUROSURGERY SURGICAL FOLLOW-UP CHIEF COMPLAINT: Chief Complaint Patient presents with Follow-up 4 Week PO HISTORY OF PRESENT ILLNESS: The patient is a 53 y.o. male that had a lumbar fusion by Dr. Bonds me for back and right leg numbness around 4 weeks ago. He returns and overall is doi ng well. The patient complains of left leg numbness that he had after he woke up from Surg shalini, and this has gotten better. The patient has been walking as much as possible. He is s till taking pain medications at this point. The patient has had no issues with his surgical site. He was needing to take several percocet a day and was not finding these helpful. His PCP ch anged him to Vicodin a couple weeks ago and this is helping more. He is needing less. He got #60 from here around 2 weeks ago and is requesting a refill. He is taking about 2 a day now . CURRENT MEDICATIONS: Current Outpatient Prescriptions Medication Sig Dispense Refill budesonide-formoterol (SYMBICORT) 160-4.5 mcg/puff inhaler Inhale 2 puffs into the lung s 2 times daily. GOLDEN Guzmán, Anahi 1 Inhaler 11 Cholecalciferol (VITAMIN D3) 5000 UNITS CAPS Take 5,000 Units by mouth Daily. Cyclobenzaprine HCl (FLEXERIL PO) Take 2 tablets by mouth nightly. diazepam (VALIUM) 5 mg tablet Take 1 tablet by mouth every 6 hours as needed (muscle sp asm). 60 tablet 0 fish oil 1,000 mg capsule Take 1,000 mg by mouth 3 times daily. gabapentin (NEURONTIN) 300 mg capsule Take 1 capsule by mouth 3 times daily. 90 capsul e 2 HYDROcodone-acetaminophen (NORCO) 10-325 mg per tablet Take 1 tablet by mouth every 8 h ours as needed for Pain. 60 tablet 0 [...] as needed for Pain. 60 tablet 0 ALLERGIES: No Known Allergies SOCIAL HISTORY: The patient reports that he quit smoking about 17 months ago. His smoking use included Cig arettes. He has a 15 pack-year smoking history. He has never used smokeless tobacco. He repo rts that he drinks about 17.5 ounces of alcohol per week. He reports that he uses illicit dr ponce (Marijuana and Methamphetamines). INTERIM PHYSICAL EXAMINATION: Blood pressure 137/87, pulse 111, resp. rate 20, height 1.829 m (6'), weight 128.368 kg (28 3 lb). Body mass index is 38.37 kg/(m^2). GENERAL: Steve Carpenter is in no acute distress with unlabored respirations. SPINE: The patient s incisions are healing well without drainage, significant erythema, o r discharge EXTREMITIES: No lower extremity edema. NEUROLOGICAL EXAMINATION: MENTAL STATUS: The patient is awake, alert, and oriented. He follows simple and complex commands MOTOR EXAM: Motor strength is 5/5. This is improved from the preoperative exam. SENSORY EXAM: The sensory examination improved from the preoperative exam. RADIOGRAPHIC REVIEW: The patient s postoperative x-rays show stable instrumentation and alignment and were rev iewed with the patient today. There have been no interval changes since the immediate posto perative films. Complete fusion has not yet occurred, but this is normal and would not be e xpected at this time. ASSESSMENT: Encounter Diagnosis Name Primary? S/P lumbar fusion Yes Past Medical History Diagnosis Date Hypertension Chronic kidney disease (HCC) Gout Hepatitis C Lumbar radiculopathy 04/14/2013 Spinal stenosis of lumbar region at multiple levels - multifactorial, prominent epidura l lipomatosis 04/14/2013 DDD (degenerative disc disease), lumbar - multilevel 04/14/2013 Foraminal stenosis of lumbar region - especially right L5-S1 04/14/2013 Obesity 04/14/2013 Osteoarthritis DM type 2 (diabetes mellitus, type 2) ([facility]) elevated blood sugars while hospitalized Esophageal reflux ANGELES (acute kidney injury) ([facility]) 12/13/2012 creatinine 10.77 Rib fracture PLMD (periodic limb movement disorder) reportedly severe Cellulitis of left leg 11/2012 with sepsis Appendicitis 05/2012 MARY JANE (obstructive sleep apnea) borderline on recent study. No CPAP. Unspecified adverse effect of anesthesia stopped breathing. Difficult intubation scar tissue PLAN: Overall, the patient is doing well. He is using less and less pain medication and is notic ing steady improvement in his left leg. 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 Otherwise, no other complaints or conc erns. I increased the patient s activities slowly now allowing 15 pound lifting and also will b egin the process of brace weaning. I would like the patient to advance slowly with this pro cess and discussed this at length during today's visit. I would also like the patient to co ntinue with postoperative rehabilitation and to advance with therapy as tolerated. I am hoping to see improvement over the coming weeks to months and plan to continue to foll ow this patient. The patient will follow-up with Dr. Bonds in around 8 weeks for re-evaluation. ELECTRONICALLY SIGNED BY: GOLDEN Muñoz, 06/17/2014 12:17 documented in this encounter Plan of Treatment +--------+---------+ + + + | Date | Type | Specialty | Care Team | Description | +--------+---------+ + + + | 07/04/ | Office | Gastroenterology | [facility], | | | 2019 | Visit | | GILMA Alexander [address] | | | | | | [address] | | | | | | [place] | | | | | | [address] | | | | | | | | +--------+---------+ + + + + + +--------+ + + | Name | Type | Priori | Associated Diagnoses | Order Schedule | | | | ty | | | + + +--------+ + + | Ambulatory referral | Outpatient | Routin | S/P lumbar fusion | Ordered: 06/17/2014 | | to Physical Therapy | Referral | e | | | + + +--------+ + + documented as of this encounter [...] + | MISCELLANEOUS LAB | | | [phone] | + +---------+ + + | MISCELANIOUS LAB | | | [phone] | + +---------+ + + documented in this encounter Visit Diagnoses + + | Diagnosis | + + | S/P lumbar fusion - Primary Arthrodesis status | + + documented in this encounter"
--- OUTSIDE RECORDS SUMMARY | ~2019-07-02 | XMS | Encounter Summary ---
Demographics + + + | Address | [address] [facility] [address] | | | [place] [address] | + + + | Home Phone | | + + + | Preferred Language | Unknown | + + + | Marital Status | Single | + + + | Nondenominational Affiliation | Unknown | + + + | Race | Unknown | + + + | Ethnic Group | Unknown | + + + Author + + + | Author | [facility] | | | and [place] | + + + | Organization | [facility] | | | and [...] [place] | | | | | [address] | | + + + + + Care Team Providers + +------+ + | Care Power Engineer Name | Role | Phone | + +------+ + | Stefano Padgett PA-C | PCP | | + +------+ + Reason for Visit +---------+ + | Reason | Comments | +---------+ + | Results | | +---------+ + Encounter Details +--------+ + + + + | Date | Type | Department | Care Team | Description | +--------+ + + + + | 02/15/ | Documentati | [facility] [place] | Danicaenstein, | Results | | 2013 | on | PULMONARY [address] | Jennifer Ladd MD | | | | | [place], | | | | | | [place] [address] | | | | | | [phone] | | | +--------+ + + + [...] documented as of this encounter Progress Notes Altagracia Talbot RN - 02/18/2014 2:31 PM PDTThis message was relayed to William. Jacky carver patient to discuss at follow up.Electronically signed by Altagracia Talbot RN at 2:32 PM Jennifer Hunter MD - 02/15/2014 8:47 AM [facility]ec[facility], and reviewed. Chest x-ray was done on October 06, 2013 and was reviewed and interpreted today. It shows hyp erinflation consistent with obstructive disease. Polysomnogram was done on November 22, 2013 at [facility]. AHI was noted to be 5.5 indicating mild sleep apnea, but in REM sleep increased to 29.2, the majority of these were obstructive events. He spent 11.6 minutes with a saturation less than 88%. They describe severe periodi c limb movements of sleep, with 469 limb movements noted, but the arousal index was only 1.2 /hr. A trial of PAP therapy was recommended by the interpreting physician and should be consider ed. Also checking TSH. Plan: Let the patient know he has mild sleep apnea, and does have some low oxygen at night. We can discuss at his follow up using PAP therapy or oxygen at night. He should also have a TSH and ferritin checked. We can discuss at his follow up. CC: Stefano Padgett, PA documented in this encounter Plan of Treatment [...] [place] | | | | | | [id number] | | | | | | | | +--------+---------+ + + + documented as of this encounter Visit Diagnoses Not on filedocumented in this encounter"
--- OUTSIDE RECORDS SUMMARY | ~2019-07-02 | XMS | Encounter Summary ---
Demographics + + + | Address | [address] [facility] [address] | | | [place] [address] | + + + | Home Phone | | + + + | Preferred Language | Unknown | + + + | Marital Status | Single | + + + | Sikhism Affiliation | Unknown | + + + | Race | Unknown | + + + | Ethnic Group | Unknown | + + + Author + + + | Author | [facility] | | | and [place] | + + + | Organization | [facility] | | | and [place] [...] [place] | | | | | [address] | | + + + + + Care Team Providers + +------+ + | Care Mental Health Practitioner Name | Role | Phone | + +------+ + | Yulia Gutierrez PA-C PCP | | + +------+ + Encounter Details +--------+ + + + + | Date | Type | Department | Care Team | Description | +--------+ + + + + | 06/13/ | Abstract | [facility] | Wan, | | | 2018 | | GASTROENTEROLOGY | MD [address] | | | | | [address] [facility] | [place] | | | | | [address] [place] | [place] [address] | | | | | [address] | | | | | | [phone] | | | +--------+ + + + [...] + + documented as of this encounter Functional Status + + + [...] | 07/04/ | Office | Gastroenterology | [facility], | | | 2019 | Visit | | GILMA Alexander [address] | | | | | | [address] | | | | | | [place] | | | | | | [address] | | | | | | | | +--------+---------+ + + + documented as of this encounter Procedures + +--------+ + + + | Procedure Name | Priori | Date/Time | Associated Diagnosis | Comments | | | ty | | | | + +--------+ + + + | EXTERNAL: | Routin | 07/23/2015 | | Results for this | | COLONOSCOPY | e | | | procedure are in the | | | | | | results section. | + +--------+ + + + documented in this encounter Results EXTERNAL: COLONOSCOPY (07/23/2015) + + + + + + | Component | Value | Ref Range | Performed | Pathologist | | | | | At | Signature | + + + + + + | Colonoscopy | See Full Report~ JOSE Temple | | | | | | Negin | | | | | Impression, | | | | | | External | | | | | + + + + + + documented in this encounter Visit Diagnoses Not on filedocumented in this encounter"
--- OUTSIDE RECORDS SUMMARY | ~2019-07-02 | XMS | Encounter Summary ---
Demographics + + + | Address | [address] [facility] [address] | | | [place] [address] | + + + | Home Phone | | + + + | Preferred Language | Unknown | + + + | Marital Status | Single | + + + | Sabianist Affiliation | Unknown | + + + | Race | Unknown | + + + | Ethnic Group | Unknown | + + + Author + + + | Author | [facility] | | | and [place] | + + + | Organization | [facility] | | | and [place] [...] [place] | | | | | [address] | | + + + + + Care Team Providers + +------+ + | Care Food Service Aide Name | Role | Phone | + +------+ + | Lisa Morrow MD | PCP | | + +------+ + Encounter Details +--------+ + + + + | Date | Type | Department | Care Team | Description | +--------+ + + + + | 12/18/ | Orders Only | [facility] [place] | Aida Almazan | | | 2012 | | NEPHROLOGY [address] | M, DO [address] | | | | | [address] | [place] | | | | | [place], [place] | [place], [place] | | | | | [address] | [address] | | | | | [phone] | | | +--------+ + + + [...] | Office | Gastroenterology | [facility], | | | 2018 | Visit | | GILMA Alexander [address] | | | | | | [address] | | | | | | [place] | | | | | | [id number] | | | | | | | | +--------+---------+ + + + documented as of this encounter Visit Diagnoses Not on filedocumented in this encounter"
--- OUTSIDE RECORDS SUMMARY | ~2019-07-02 | XMS | Encounter Summary ---
Demographics + + + | Address | [address] [facility] [address] | | | [place] [address] | + + + | Home Phone | | + + + | Preferred Language | Unknown | + + + | Marital Status | Single | + + + | Hinduism Affiliation | Unknown | + + + | Race | Unknown | + + + | Ethnic Group | Unknown | + + + Author + + + | Author | [facility] | | | and [place] | + + + | Organization | [facility] | | | and [place] | + + + | Address | Unknown | + + + | Phone | Unavailable | + + + Support + + + + + | Name | Relationship | Address | Phone | + + + + + | Craig Sinha | ECON | [address] | | | | | [place] | | | | | [address] | | + + + + + Care Team Providers + +------+ + | Care Basin Finish Operator Tig Welder Name | Role | Phone | + +------+ + | Stefano Padgett PA-C | PCP | | + +------+ + Reason for Visit +--------+ + | Reason | Comments | +--------+ + | Other | Rx ready | +--------+ + Encounter Details +--------+ + + + + | Date | Type | Department | Care Team | Description | +--------+ + + + + | 04/17/ | Telephone | [facility] | Fam Bonds, | Other (Rx ready ) | | 2013 | | NEUROSURGERY [address] | DO [address] | | | | | [address] | [address] [place], [place] | | | | | [place], [place] | [id number] | | | | | [address] | | | | | | [phone] | | | +--------+ + + + [...] | 07/04/ | Office | Gastroenterology | [facility], | | | 2019 | Visit | | GILMA Alexander [address] | | | | | | [address] | | | | | | [place] | | | | | | [id number] | | | | | | | | +--------+---------+ + + + documented as of this encounter Visit Diagnoses Not on filedocumented in this encounter"
--- OUTSIDE RECORDS SUMMARY | ~2019-07-02 | XMS | Encounter Summary ---
Demographics + + + | Address | [address] [facility] [address] | | | [place] [address] | + + + | Home Phone | | + + + | Preferred Language | Unknown | + + + | Marital Status | Single | + + + | Taoism Affiliation | Unknown | + + + | Race | Unknown | + + + | Ethnic Group | Unknown | + + + Author + + + | Author | [facility] | | | and [place] | + + + | Organization | [facility] | | [...] [place] | | | | | [address] | | + + + + + Care Team Providers + +------+ + | Care Digital Field Service Technician Name | Role | Phone | + +------+ + | Stefano Padgett PA-C | PCP | | + +------+ + Reason for Visit + + + | Reason | Comments | + + + | Appointment | | + + + Encounter Details +--------+ + + + + | Date | Type | Department | Care Team | Description | +--------+ + + + + | 11/14/ | Telephone | [facility] [place] | Danicaenstein, | Appointment | | 2013 | | PULMONARY [address] | Jennifer Ladd MD | | | | | [place], | | | | | | [place] [address] | | | | | | [phone] | | | +--------+ + + + [...] | 07/04/ | Office | Gastroenterology | [facility], | | | 2018 | Visit | | GILMA Alexander [address] | | | | | | [address] | | | | | | [place] | | | | | | [address] | | | | | | | | +--------+---------+ + + + documented as of this encounter Visit Diagnoses Not on filedocumented in this encounter"
--- OUTSIDE RECORDS SUMMARY | ~2019-07-02 | XMS | Encounter Summary ---
Demographics + + + | Address | [address] [facility] [address] | | | [place] [address] | + + + | Home Phone | | + + + | Preferred Language | Unknown | + + + | Marital Status | Single | + + + | Yazdanism Affiliation | Unknown | + + + | Race | Unknown | + + + | Ethnic Group | Unknown | + + + Author + + + | Author | [facility] | | | and [place] | + + + | Organization | [facility] [...] [place] | | | | | [address] | | + + + + + Care Team Providers + +------+ + | Care Thresher Broomcorn Name | Role | Phone | + +------+ + | Stefano Padgett PA-C | PCP | | + +------+ + Encounter Details +--------+ + + + + | Date | Type | Department | Care Team | Description | +--------+ + + + + | 04/08/ | Orders Only | [facility] [place] | Fam Bonds, | Status post lumbar | | 2014 | | NEUROSURGERY [address] | DO [address] | spinal fusion | | | | [address] | [address] [place], [place] | (Primary Dx) | | | | [place], [place] | [address] | | | | | [address] | | | | | | [phone] | | | +--------+ + + + [...] W | | | | | | [place] | | | | | | [place] | | | | | | [address] | | | | | | | | +--------+---------+ + + + documented as of this encounter Results XR Lumbar Spine 2 or 3 Vw (06/17/2014 10:44 AM PST) + + | Specimen | + [...] + | Kyle, Rad Results In - 06/17/2014 1:37 PM PST [...] + | MISCELLANEOUS LAB | | | [phone] | + +---------+ + + | MISCELANIOUS LAB | | | [phone] | + +---------+ + + documented in this encounter Visit Diagnoses + + | Diagnosis | + + | Status post lumbar spinal fusion - Primary Arthrodesis status | + + documented in this encounter"
--- OUTSIDE RECORDS SUMMARY | ~2019-07-02 | XMS | Encounter Summary ---
Demographics + + + | Address | [address] [facility] [address] | | | [place] [address] | + + + | Home Phone | | + + + | Preferred Language | Unknown | + + + | Marital Status | Single | + + + | Buddhist Affiliation | Unknown | + + + | Race | Unknown | + + + | Ethnic Group | Unknown | + + + Author + + + | Author | [facility] | | | and [place] | + + + | Organization | [facility] | | | and [...] [place] | | | | | [address] | | + + + + + Care Team Providers + +------+ + | Care Mincemeat Maker Name | Role | Phone | + +------+ + | Stefano Padgett PA-C | PCP | | + +------+ + Reason for Visit +--------+ + | Reason | Comments | +--------+ + | Other | | +--------+ + Encounter Details +--------+ + + + + | Date | Type | Department | Care Team | Description | +--------+ + + + + | 10/03/ | Telephone | [facility] [place] | Fam Bonds, | Other | | 2014 | | NEUROSURGERY [address] | DO [address] | | | | | [address] | [address] [place], [place] | | | | | [place], [place] | [address] | | | | | [address] | | | | | | [phone] | | | +--------+ + + + [...] | 07/04/ | Office | Gastroenterology | [facility], | | | 2018 | Visit | | GILMA Alexander [address] | | | | | | [address] | | | | | | [place] | | | | | | [address] | | | | | | | | +--------+---------+ + + + documented as of this encounter Visit Diagnoses Not on filedocumented in this encounter"
--- OUTSIDE RECORDS SUMMARY | ~2019-07-02 | XMS | Encounter Summary ---
Demographics + + + | Address | [address] [facility] [address] | | | [place] [address] | + + + | Home Phone | | + + + | Preferred Language | Unknown | + + + | Marital Status | Single | + + + | Yazdanism Affiliation | Unknown | + + + | Race | Unknown | + + + | Ethnic Group | Unknown | + + + Author + + + | Author | [facility] | | | and [place] | + + + | Organization | [facility] | | | and [place] [...] [place] | | | | | [address] | | + + + + + Care Team Providers + +------+ + | Care Kitchen Mechanic Name | Role | Phone | + [...] | | | | | | | [place] | | | | | | | ARTHRODESIS | | | | | | | POSTERIOR/PO | | | | | | | STEROLATERAL | | | | | | | LUMBAR [place] | | | | | | | LUMBAR SPINE | | | | | | | | | | | | | | FUSION,ANTER | | | | | | | APPRCH [place] | | | | | | | APPLICATION | | | | | | | INTERVERTEBR | | | | | | | AL | | | | | | | BIOMECHANICA | | | | | | | L DEVICE [place] | | | | | | | SPINE | | | | | | | FUSN,POST | | | | | | | TECH,EA | | | | | | | ADDNL SGMT | | | | | | | [place] SPINAL | | | | | | | FUSION,ANT,E | | | | | | | A ADNL LEVEL | | | | | | | [place] | | | | | | | [...] | | | | | | SEG [place] | | | | | | | [...] | | | | | | SEG [place] | | | | | | | LAMINEC/FACE | | | | | | | TECT/FORAMIN | | | | | | | ,EACH ADDNL | | | | | | | [place] ARTHDSIS | | | | | | [...] | | | | | | SEG [place] | | | | | | | [...] Description | +--------+---------+ + + + | 04/09/ | Surgery | [facility] | Fam Bonds, | T12-L1, L1-2, L2-3, | | 2013 | | MED CTR OR INTRA OP | DO [address] | L3-4, LAIF WITH L4-5 | | | | [address] | [address] [place] | AND L5-S1 TLIF AND | | | | [place] | [address] | LAMINECTOMY T12-S1 | | | | [address] | | | | | | [phone] | | | +--------+---------+ + + + [...] instructions. Medications: Steve Carpenter Home Medication Instructions JOAQUIN:[id number] Printed on:04/15/14 3397 Medication Information Cyclobenzaprine HCl (FLEXERIL PO) Take 2 tablets by mouth nightly. budesonide-formoterol (SYMBICORT) 160-4.5 mcg/puff inhaler Inhale 2 puffs into the lungs 2 times daily. GOLDEN Guzmán [place] Cholecalciferol (VITAMIN D3) 5000 UNITS CAPS Take [...] prophylaxis -DC plan: uncertain. DC home with [facility] today. Fam Cortez DO - 04/14/2014 9:07 [...] like to "be closer to home" in [place]. Informed patient that insurance w ould need [...] at [facility] in [place] if possible. Objective Filed Vitals: 04/12/14 0505 [...] - IPR versus SNF. He is requesting [facility] if not accep baltazar to IPR. Mary [...] IPR consult for possible short IPR stay. Carson Casillas PA - 04/10/2014 7:30 AM PDT [facility] PROGRESS NOTE Pt. Name/Age/: Steve Carpenter 53 y.o. 1960 Med. Record Number: [id number] Date of admission: 04/09/2014 Subjective: The patient [...] Plan. Start oxycontin. Mobilize. Wean and DC BUS WASHER Electronically signed by: Carson Alegria, 04/10/2014 7:31 [facility] documented in th is encounter Plan of Treatment +--------+---------+ + + + | Date | Type | Specialty | Care Team | Description | +--------+---------+ + + + | 07/04/ | Office | Gastroenterology | [facility], | | | 2019 | Visit | | GILMA Alexander [address] | | | | | | [address] | | | | | | [place] | | | | | | [phone] | | | | | | | [...] + | MISCELLANEOUS LAB | | | [phone] | + +---------+ + + | MISCELANIOUS LAB | | | [phone] | + +---------+ + + POC Glucose (04/09/2014 8:42 PM PDT) + +-------+ + + + | Component | Value | Ref Range | Performed | Pathologist | | | | | At | Signature | + +-------+ + + + | Glucose, | 144 | 79 - 150 mg/dL | ANTOL[place] | | | POC | | | [facility] | | [...] [address] | [place] | [phone] | | [facility] | | [address] | | | - LABORATORY | | | | + + + + + | [facility] | [address] | [place] | | | [facility] | | [address] | | | - LABORATORY | | [...] | | | POC | | | [facility] | | | | | | [...] + | [facility] [facility] | [address] | [place] | [phone] | | [facility] | | [address] | | | - LABORATORY | | | | + + + + + | [facility] | [address] | [place] | | | [facility] | | [address] | | | - LABORATORY | | [...] ST. | [address] | [place] | | | [facility] | | [address] | | | - BLOOD BANK | | | | + + + + + documented in this encounter Visit Diagnoses + + | Diagnosis | + + | Lumbosacral spondylosis without myelopathy | + + | Other lordosis (acquired) | + + | Lipoma of other specified sites | + + | Spinal stenosis, lumbar region, without neurogenic claudication | + + | Thoracic or lumbosacral neuritis or radiculitis, unspecified | + + documented in this encounter Administered Medications + +--------+ +--------+------+ + | Medication Order | MAR | Action | Dose | Rate | Site | | | Action | Date | | | | + +--------+ +--------+------+ + | bupivacaine 0.25%-epinephrine | Given | 04/09/20 | 30 mLs | | Surgical | | 1:200,000 0.25-1:973569 % | | 14 12:26 | | | Site | | injection PRN, Starting Tue | | PM PDT | | | | | 04/09/14 at 1226, Intra-op | | | | | | + +--------+ +--------+------+ + +---+---+ | | | +---+---+ + +-------+ +---------+---+ + | thrombin (THROMBIN-JMI) 5,000 | Given | 04/09/20 | 10,000 | | Surgical | | units powder PRN, Starting Tue | | 14 12:26 | Units | | Site | | 04/09/14 at 1226, Intra-op | | PM PDT | | | | + +-------+ +---------+---+ + +---+---+ | | | +---+---+ documented in this encounter
--- OUTSIDE RECORDS SUMMARY | ~2019-07-02 | XMS | Encounter Summary ---
Demographics + + + | Address | [address] [facility] [address] | | | [place] [address] | + + + | Home Phone | | + + + | Preferred Language | Unknown | + + + | Marital Status | Single | + + + | Christianity Affiliation | Unknown | + + + | Race | Unknown | + + + | Ethnic Group | Unknown | + + + Author + + + | Author | [facility] | | | and [place] | + + + | Organization | [facility] | | | and [place] | [...] [place] | | | | | [address] | | + + + + + Care Team Providers + +------+ + | Care Housekeeper Nanny Name | Role | Phone | + [...] Ladd MD | | | | | [place], | | | | | | [place] [address] | | | | | | [phone] | | | +--------+ + + + [...] | 07/04/ | Office | Gastroenterology | [facility], | | | 2018 | Visit | | GILMA Alexander [address] | | | | | | [address] | | | | | | [place] | | | | | | [address] | | | | | | | | +--------+---------+ + + + documented as of this encounter Visit Diagnoses Not on filedocumented in this encounter"
--- OUTSIDE RECORDS SUMMARY | ~2019-07-02 | XMS | Encounter Summary ---
Demographics + + + | Address | [address] [facility] [address] | | | [place] [address] | + + + | Home Phone | | + + + | Preferred Language | Unknown | + + + | Marital Status | Single | + + + | Jain Affiliation | Unknown | + + + | Race | Unknown | + + + | Ethnic Group | Unknown | + + + Author + + + | Author | [facility] | | | and [place] | + + + | Organization | [facility] | | | and [place] [...] [place] | | | | | [address] | | + + + + + Care Team Providers + +------+ + | Care Supervisor Sewer System Name | Role | Phone | + +------+ + | Lisa Morrow MD | PCP | | + +------+ + Encounter Details +--------+ + + + + | Date | Type | Department | Care Team | Description | +--------+ + + + + | 01/22/ | Orders Only | [facility] [place] | Aida Almazan | Chronic kidney | | 2012 | | NEPHROLOGY [address] | M, DO [address] | disease, stage III | | | | [address] | [place] | (moderate) (Primary | | | | [place], [place] | [place], [place] | Dx); Diabetes type | | | | [address] | [address] | 2, controlled (HCC); | | | | [phone] | | HTN (hypertension) | +--------+ + + + + Social [...] + documented as of this encounter Progress Jossie Judge RN - 01/22/2013 1:39 PM PDTLabs for nephrology appt on 02/12/13 sent to Samir Kruger documented in this encounter Plan of Treatment +--------+---------+ + + + | Date | Type | Specialty | Care Team | Description | +--------+---------+ + + + | 07/04/ | Office | Gastroenterology | [facility] | | | 2019 | Visit | | GILMA Alexander [address] | | | | | | [address] | | | | | | [place] | | | | | | [address] | | | | | | | | +--------+---------+ + + + + +------+--------+ + + | Name | Type | Priori | Associated Diagnoses | Order Schedule | | | | ty | | | + +------+--------+ + + | Hemoglobin and | Lab | Routin | HTN (hypertension) | Expected: 02/05/2013 | | Hematocrit | | e | | (Approximate), | | | | | | Expires: 01/22/2014 | + +------+--------+ + + | Renal Function Panel | Lab | Routin | Chronic kidney | Expected: 02/05/2013 | | | | e | disease, stage III | (Approximate), | | | | | (moderate) | Expires: 01/22/2014 | + +------+--------+ + + | Parathyroid Hormone, | Lab | Routin | Chronic kidney | Expected: 02/05/2013 | | Intact | | e | disease, stage III | (Approximate), | | | | | (moderate) | Expires: 01/22/2014 | + +------+--------+ + + | Hemoglobin A1C | Lab | Routin | Diabetes type 2, | Expected: 02/05/2013 | | | | e | controlled (HCC) | (Approximate), | | | | | | Expires: 01/22/2014 | + +------+--------+ + + documented as of this encounter Visit Diagnoses + + | Diagnosis | + + | Chronic kidney disease, stage III (moderate) (HCC) - Primary Chronic kidney disease, | | Stage III (moderate) | + + | Diabetes type 2, controlled ([facility]) Type II or unspecified type diabetes mellitus | | without mention of complication, not stated as uncontrolled | + + | HTN (hypertension) Unspecified essential hypertension | + + documented in this encounter"
--- OUTSIDE RECORDS SUMMARY | ~2019-07-02 | XMS | Encounter Summary ---
Demographics + + + | Address | [address] [facility] [address] | | | [place] [address] | + + + | Home Phone [...] Organization | [facility] | | | and [...] [place] | | | | | [address] | | + + + + + Care Team Providers + +------+ + | Care Interlocking Machine Operator Name | Role | Phone | + +------+ + | Yulia Gutierrez PA-C | PCP | | + +------+ + Reason for Visit + + + | Reason | Comments | + + + | Follow-up | food panel | + + + Evaluate & Treat (Routine) +--------+--------+ + + + + | Status | Reason | Specialty | Diagnoses / | Referred By | Referred To | | | | | Procedures | Contact | Contact | +--------+--------+ + + + + | Closed | | Otolaryngolog | Diagnoses | Brenda, | Garry Carias | | | | y | 10 follow | Yulia Torres, | MD Danny [address] | | | | | up, food | [place]-C [id number] [address] | | | | | panel/self/Y | | [address] | | | | | claudia/Si | [place] | [place], | | | | | eders/LVM | WAY | [place] [address] | | | | | w/Mikhy at | [place], | Phone: | | | | | [facility] to | [place] [address] | [phone] | | | | | request auth | Phone: | Fax: | | | | | Spoke to | [phone] | [phone] | | | | | Mikhy at [facility] | Fax: | | | | | | and she | [phone] | | | | | | will be | | | | | | | sending auth | | | | | | | | | | | | | | <<04/26/18, | | | | | | | mlm, LVM for | | | | | | | Mikhy at [facility] | | | | | | | to resend | | | | | | | auth>> | | | | | | | Procedures | | | | | | | OFFICE VISIT | | | | | | | REGULAR | | | +--------+--------+ + + + + Encounter Details +--------+---------+ + + + | Date | Type | Department | Care Team | Description | +--------+---------+ + + + | 04/26/ | Office | [facility] | Garry Carias MD | Angioedema, sequela | | 2018 | Visit | OTOLARYNGOLOGY [address] | [address] | (Primary Dx) | | | | [address] | [address] [place], | | | | | [place], [place] | [place] [address] | | | | | [address] | [phone] | | | | | [phone] | | | +--------+---------+ + + + [...] + + + | Blood Pressure | - | - | | + [...] documented as of this encounter Progress Notes Garry Carias MD - 04/26/2018 1:15 PM PDTPatient was seen last month with a history of an gioedema. He has had no further reaction since the previous reaction and since his last vis it. He thought that perhaps it was the port that had caused him problems but since then he has eaten some pork and this had no reaction. He has completed the allergy panel and comes in for follow-up visit. Examination: The panel 35 foods was reviewed with the patient. It was noted he had no reac tion to any of the 35 foods and so it would appear that he does not have a extensive problem with being allergic to foods. He was advised that the 35 foods that are on the list should be able to be eaten without concerns about developing angioedema. He has a EpiPen availabl e should he have another severe reaction. Impression: Angioedema reaction. Plan: Patient to if he does have another reaction will use his EpiPen as needed. He will a lso then keep track of any food that he had over the previous 8 hours in a diary. If he has any medications or wony-tij-wturggx medicines he needs to keep track of these and the previ ous 8 hours to try to identify what may be causing his problem. He also was advised that he may not have this problem again. If increasing problems she will recheck with Juan hamlin signed by Garry Carias MD at 04/26/2018 1:25 PM PDTdocumented in this encounter Plan of Treatment +--------+---------+ + + + | Date | Type | Specialty | Care Team | Description | +--------+---------+ + + + | 07/04/ | Office | Gastroenterology | [facility], | | | 2018 | Visit | | GILMA Alexander [address] | | | | | | [address] | | | | | | [place] | | | | | | [address] | | | | | | | | +--------+---------+ + + + documented as of this encounter Visit Diagnoses + + | Diagnosis | + + | Angioedema, sequela - Primary | + + documented in this encounter"
--- OUTSIDE RECORDS SUMMARY | ~2019-07-02 | XMS | Encounter Summary ---
Demographics + + + | Address | [address] [facility] [address] | | | [place] [address] | + + + | Home Phone | | + + + | Preferred Language | Unknown | + + + | Marital Status | Single | + + + | Yazdanism Affiliation | Unknown | + + + | Race | Unknown | + + + | Ethnic Group | Unknown | + + + Author + + + | Author | [facility] | | | and [place] | + + + | Organization | [facility] | | | and [place] [...] [place] | | | | | [address] | | + + + + + Care Team Providers + +------+ + | Care Pressroom Worker Name | Role | Phone | + [...] Ladd MD | | | | | [place], | | | | | | [place] [address] | | | | | | [phone] | | | +--------+ + + + [...] | 07/04/ | Office | Gastroenterology | [facility], | | | 2018 | Visit | | GILMA Alexander [address] | | | | | | [address] | | | | | | [place] | | | | | | [address] | | | | | | | | +--------+---------+ + + + documented as of this encounter Visit Diagnoses Not on filedocumented in this encounter"
--- OUTSIDE RECORDS SUMMARY | ~2019-07-02 | XMS | Encounter Summary ---
Demographics + + + | Address | [address] [facility] [address] | | | [place] [address] | + + + | Home Phone | | + + + | Preferred Language | Unknown | + + + | Marital Status | Single | + + + | Taoism Affiliation | Unknown | + + + | Race | Unknown | + + + | Ethnic Group | Unknown | + + + Author + + + | Author | [facility] | | | and [place] | + + + | Organization | [facility] | [...] [place] | | | | | [address] | | + + + + + Care Team Providers + +------+ + | Care Rubber Mill Operator Name | Role | Phone | [...] | y | allergy | Yulia Torres, Emerita Delgado MD [address] | | | | | testing | [place]C [id number] [address] | | | | | consult, hx | | [address] | | | | | of | [place] | [place], | | | | | anaphylaxis | WAY | [place] [address] | | | | | | [place], | Phone: | | | | | | [place] [address] | [phone] | | | | | | Phone: | Fax: | | | | | | [phone] | [phone] | | | | | | Fax: | | | | | | | [phone] | | +--------+--------+ + + + + Encounter Details +--------+---------+ + + + | Date | Type | Department | Care Team | Description | +--------+---------+ + + + | 04/12/ | Office | [facility] | Garry Carias MD | Multiple allergies | | 2018 | Visit | OTOLARYNGOLOGY [address] | [address] [place] | (Primary Dx); MARY JANE | | | | [address] | [address], | (obstructive sleep | | | | [place], [place] | [place] [address] | apnea) | | | | [address] | [phone] | | | | | [phone] | | | +--------+---------+ + + + [...] + | Pulse | 86 | 04/12/2018 3:42 PM | | | | | PDT | | + + + + + | Temperature | - | - | | + + + + + | Respiratory Rate | 16 | 04/12/2018 3:42 PM | | | | | PDT | | + + + + + | Oxygen Saturation | 91% | 04/12/2018 3:42 PM | | | | | PDT | | + + + + + | Inhaled Oxygen | - | - | | | Concentration | | | | + + + + + | Weight | 131.5 kg (290 lb) | 04/12/2018 3:42 PM | | | | | PDT | | + + + + + | Height | 185.4 cm (6' 0.99") | 04/12/2018 3:42 PM | | | | | PDT | | + + + + + | Body Mass Index | 38.27 | 04/12/2018 3:42 PM | | | | | PDT [...] Progress Notes Garry Carias MD - 04/12/2018 3:15 PM PDTPatient back a couple months ago suddenly broke out with a lot of welts and rash and had some swelling in the throat area. He was treated w ith some cortisone and handed this cleared up. He then had another event a back about to 3 weeks ago and at the same problem with but was having even more problems with difficulty wit h breathing because of the swelling of his throat. He had a lot of hives and welts and came on rather rapidly. He was sent to have this evaluated. He's not had problems with this be fore. He has no problem with seasonal allergies. He has no difficulty with his vocal funct ion. He occasionally feels a bit of tickle in the back of his throat and some phlegm and cordero s been diagnosed with obstructive sleep apnea. Examination: Patient [...] gets into severe problems. [facility] because he has been diagnosed with significant obstructive sleep a pnea and has not been treating the problem. He denies any problem with heartburn.Electronic ally signed by Garry Carias MD at 04/12/2018 4:29 PM PDTdocumented in this encounter Plan of Treatment +--------+---------+ + + + | Date | Type | Specialty | Care Team | Description | +--------+---------+ + + + | 07/04/ | Office | Gastroenterology | [facility], | | | 2018 | Visit | | GILMA Alexander [address] | | | | | | [address] | | | | | | [place] | | | | | | [id number] | | | | | | | | +--------+---------+ + + + documented as of this encounter Results Allergen Panel, Adult Food (04/12/2018 4:31 PM PDT) + + + + + + | Component | Value | Ref Range | Performed | Pathologist | | | | | At | Signature | + + + + + + | Class | CommentComment: | | REFERENCE | | | Description | Levels of Specific IgE | | LAB [facility] | | | | Class | | - BKR | | | | Description of Class | | | | | | | | | | | | | | | | | | ----- ----- | | | | | | | | | | | | | | | | | | < 0.10 0 | | | | | | Negative | | | | | | 0.10 - | | | | | | 0.31 0/I | | | | | | Equivocal/Low | | | | | | 0.32 - | | | | | | 0.55 I | | | | | | Low | | | | | | 0.56 - 1.40 | | | | | | II | | | | | | Moderate | | | | | | 1.41 - 3.90 | | | | | | III | | | | | | High 3.91 | | | | | | - 19.00 | | | | | | IV Very High | | | | | | 19.01 - | | | | | | 100.00 V | | | | | | Very High | | | | | | | | | | | | >100.00 | | | | | | Very High | | | | + + + + + + | Egg White | <0.10 | Class 0 kU/L | REFERENCE | | | IgE | | | LAB [facility] | | | | | | - BKR | | + + + + + + | Cow's Milk | <0.10 | Class 0 kU/L | REFERENCE | | | IgE | | | LAB [facility] | | | | | | - BKR | | + + + + + + | Codfish IgE | <0.10 | Class 0 kU/L | REFERENCE | | | | | | LAB [facility] | | | | | | - BKR | | + + + + + + | Wheat IgE | <0.10 | Class 0 kU/L | REFERENCE | | | | | | LAB [facility] | | | | | | - BKR | | + + + + + + | Hampton IgE | <0.10 | Class 0 kU/L | REFERENCE | | | | | | LAB [facility] | | | | | | - BKR | | + + + + + + | Barley IgE | <0.10 | Class 0 kU/L | REFERENCE | | | | | | LAB [facility] | | | | | | - BKR | | + + + + + + | Oat IgE | <0.10 | Class 0 kU/L | REFERENCE | | | | | | LAB [facility] | | | | | | - BKR | | + + + + + + | Rice IgE | <0.10 | Class 0 kU/L | REFERENCE | | | | | | LAB [facility] | | | | | | - BKR | | + + + + + + | Allergen | <0.10 | Class 0 kU/L | REFERENCE | | | Sesame Seed | | | LAB [facility] | | | IgE | | | - BKR | | + + + + + + | Pea IgE | <0.10 | Class 0 kU/L | REFERENCE | | | | | | LAB [facility] | | | | | | - BKR | | + + + + + + | Peanut IgE | <0.10 | Class 0 kU/L | REFERENCE | | | | | | LAB [facility] | | | | | | - BKR | | + + + + + + | Soybean IgE | <0.10 | Class 0 kU/L | REFERENCE | | | | | | LAB [facility] | | | | | | - BKR | | + + + + + + | White Reed | <0.10 | Class 0 kU/L | REFERENCE | | | IgE | | | LAB [facility] | | | | | | - BKR | | + + + + + + | Allergen | <0.10 | Class 0 kU/L | REFERENCE | | | Filbert | | | LAB [facility] | | | | | | - BKR | | + + + + + + | ALMONDS | <0.10 | Class 0 kU/L | REFERENCE | | | | | | LAB [facility] | | | | | | - BKR | | + + + + + + | Crab IgE | <0.10 | Class 0 kU/L | REFERENCE | | | | | | LAB [facility] | | | | | | - BKR | | + + + + + + | Shrimp IgE | <0.10 | Class 0 kU/L | REFERENCE | | | | | | LAB [facility] | | | | | | - BKR | | + + + + + + | Tomato IgE | <0.10 | Class 0 kU/L | REFERENCE | | | | | | LAB [facility] | | | | | | - BKR | | + + + + + + | Pork IgE | <0.10 | Class 0 kU/L | REFERENCE | | | | | | LAB [facility] | | | | | | - BKR | | + + + + + + | Beef IgE | <0.10 | Class 0 kU/L | REFERENCE | | | | | | LAB [facility] | | | | | | - BKR | | + + + + + + | Carrot IgE | <0.10 | Class 0 kU/L | REFERENCE | | | | | | LAB [facility] | | | | | | - BKR | | + + + + + + | Audrain IgE | <0.10 | Class 0 kU/L | REFERENCE | | | | | | LAB [facility] | | | | | | - BKR | | + + + + + + | POTATO | <0.10 | Class 0 kU/L | REFERENCE | | | (WHITE) IGE | | | LAB [facility] | | | | | | - BKR | | + + + + + + | Tuna IgE | <0.10 | Class 0 kU/L | REFERENCE | | | | | | LAB [facility] | | | | | | - BKR | | + + + + + + | Allergen | <0.10 | Class 0 kU/L | REFERENCE | | | Cecil IgE | | | LAB [facility] | | | | | | - BKR | | + + + + + + | ALLERGEN | <0.10 | Class 0 kU/L | REFERENCE | | | YEAST | | | LAB [facility] | | | JESSICA'S IGE | | | - BKR | | + + + + + + | GARLIC | <0.10 | Class 0 kU/L | REFERENCE | | | | | | LAB [facility] | | | | | | - BKR | | + + + + + + | Chicken IgE | <0.10 | Class 0 kU/L | REFERENCE | | | | | | LAB [facility] | | | | | | - BKR | | + + + + + + | MUSTARD | <0.10 | Class 0 kU/L | REFERENCE | | | | | | LAB [facility] | | | | | | - BKR | | + + + + + + | CHOCOLATE, | <0.10 | Class 0 kU/L | REFERENCE | | | IGE | | | LAB [facility] | | | | | | - BKR | | + + + + + + | CASHEW | <0.10 | Class 0 kU/L | REFERENCE | | | | | | LAB [facility] | | | | | | - BKR | | + + + + + + | Lettuce IgE | <0.10 | Class 0 kU/L | REFERENCE | | | | | | LAB [facility] | | | | | | - BKR | | + + + + + + | WALNUT-FOOD | <0.10 | Class 0 kU/L | REFERENCE | | | IGE | | | LAB [facility] | | | | | | - BKR | | + + + + + + | [id number] | <0.10 | Class 0 kU/L | REFERENCE | | | Green Barrett | | | LAB [facility] | | | Pepper | | | - BKR | | + + + + + + | Scallop IgE | <0.10 | Class 0 kU/L | REFERENCE | | | | | | LAB [facility] | | | | | | - BKR | | + + + + + + + + | Specimen | + + | Blood | + + + + + | Narrative | Performed At | + + + | Test(s) [id number] Green Barrett Pepper were developed and had | REFERENCE LAB | | performance characteristics determined by [employer]. These tests have | [facility] [...] for | | | research. Performed at: - [address], | | | [place], [place] [id number] Veterinary Livestock Inspector: Steve Stroud MD, Phone: | | | [phone] | | + + + + + + + + | Performing | Address | City/State/Zipcode | Phone Number | | Organization | | | | + + + + + | REFERENCE LAB | [address] | [place] [address] | [phone] | | [facility] | [place] | | | + + + + + documented in this encounter Visit Diagnoses + + | Diagnosis | + + | Multiple allergies - Primary Other allergy, other than to medicinal agents | + + | MARY JANE (obstructive sleep apnea) Obstructive sleep apnea (adult) (pediatric) | + + documented in this encounter
--- OUTSIDE RECORDS SUMMARY | ~2019-07-02 | XMS | Encounter Summary ---
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 [facility] | | | | | | CENTER - | | | | | | LABORATORY | | + + + + + + | Platelet | 193 | 140 - 440 K/uL | [facility] | | | Count | | | [facility] | | | | | | [facility] | | | | | | CENTER - | | | | | | LABORATORY | | + + + + + + | MPV | 8.3 | fL | [facility] | | | | | | [facility] | | | | | | [facility] | | | | | | CENTER - | | | | | | LABORATORY | | + + + + + + | % | 61.1 | 45.0 - 82.0 % | [facility] | | | Neutrophils | | | [facility] | | | | | | [facility] | | | | | | CENTER - | | | | | | LABORATORY | | + + + + + + | % | 28.8 | 20.0 - 45.0 % | [facility] | | | Lymphocytes | | | [facility] | | | | | | [facility] | | | | | | CENTER - | | | | | | LABORATORY | | + + + + + + | % Monocytes | 5.8 | 4.0 - 12.0 % | [facility] | | | | | | [facility] | | | | | | [facility] | | | | | | CENTER - | | | | | | LABORATORY | | + + + + + + | % | 3.9 | 0.0 - 5.0 % | [facility] | | | Eosinophils | | | [facility] | | | | | | [facility]ICAL | | | | | | CENTER - | | | | | | LABORATORY | | + + + + + + | % Basophils | 0.4 | 0.0 - 1.0 % | [facility] | | | | | | [facility] | | | | | | [facility] | | | | | | CENTER - | | | | | | LABORATORY | | + + + + + + | Absolute | 3.30 | 1.80 - 8.50 | [facility] | | | Neutrophils | | K/uL | [facility] | | | | | | [facility] | | | | | | CENTER - | | | | | | LABORATORY | | + + + + + + | Absolute | 1.50 | 0.60 - 3.20 | [facility] | | | Lymphocytes | | K/uL | [facility] | | | | | | [facility]ICAL | | | | | | CENTER - | | | | | | LABORATORY | | + + + + + + | Absolute | 0.30 | 0.00 - 1.00 | [facility] | | | Monocytes | | K/uL | [facility] | | | | | | [facility]ICAL | | | | | | CENTER - | | | | | | LABORATORY | | + + + + + + | Absolute | 0.20 | 0.00 - 0.40 | [facility] | | | Eosinophils | | K/uL | [facility] | | | [facility] | | MEDICAL | | | | | | CENTER - | | | | | | LABORATORY | | + + + + + + | Absolute | 0.00 | 0.00 - 0.10 | [facility] | | | Basophils | | K/uL | [facility] | | | | [...] + | [facility] | [address] | [place], [place] | [phone] | | [facility] | | [address] | | | - LABORATORY | | | | + + + + + XR Chest AP Portable (01/21/2015 5:48 AM PDT) + + | Specimen | + + | | + + + + + | Narrative | Performed At | + + + | XR CHEST AP PORTABLE. 01/21/2015 5:48 AM HISTORY: follow right | [facility] | | rib fractures . COMPARISON: 01/20/2015 FINDINGS: Stable | | | cardiac and mediastinal contours. Persistent low lung volumes with | | | bilateral atelectasis, predominantly at the lung bases. No | | | radiographic evidence of pleural effusion or pneumothorax. | | | Previously described right fifth through ninth costochondral | | | junction region fractures are again not appreciated on this x-ray. | | | No acute soft tissue abnormalities. IMPRESSION - Continued | | | low lung volumes with bilateral predominantly basilar atelectasis. | | | Previously described right fifth through ninth costochondral junction | | | fractures seen on the prior CT are not appreciated on this x-ray. | | | Dictated and Signed by: Richi Brown MD Electronically | | | signed: 01/21/2015 8:11 AM | | + + + + + | Procedure Note | + + | Kyle, Rad Results In - 01/21/2015 8:14 AM PDT XR CHEST AP PORTABLE. 01/21/2015 5:48 AM | | | | HISTORY: follow right rib fractures . | | | | COMPARISON: 01/20/2015 | | | | FINDINGS: | | Stable cardiac and mediastinal contours. Persistent low lung volumes with | | bilateral atelectasis, predominantly at the lung bases. No radiographic | | evidence of pleural effusion or pneumothorax. Previously described right fifth | | through ninth costochondral junction region fractures are again not appreciated | | on this x-ray. No acute soft tissue abnormalities. | | | | | | IMPRESSION - | | Continued low lung volumes with bilateral predominantly basilar atelectasis. | | Previously described right fifth through ninth costochondral junction fractures | | seen on the prior CT are not appreciated on this x-ray. | | | | Dictated and Signed by: Richi Brown MD | | Electronically signed: 01/21/2015 8:11 AM | + + + +---------+ + + | Performing | Address | City/State/Zipcode | Phone Number | | Organization | | | | + +---------+ + + | [facility] | | | | + +---------+ + + ECG 12 lead (01/20/2015 8:53 AM PDT) + + + | Narrative | Performed At | + + + | Camilo Devi MD 01/20/2015 8:53 Adult ECG Report | | | Name: Steve Carpenter Age: 54 y.o. Gender: male 01/18/15 at | | | 19:48 Narrative Interpretation: Sinus tachycardia. Right axis | | | deviation. | | + + + Basic Metabolic Panel (01/20/2015 6:15 AM PDT) + + + + + + | Component | Value | Ref Range | Performed | Pathologist | | | | | At | Signature | + + + + + + | Na | 134 (L) | 136 - 149 | [facility] | | | | | mmol/L | [facility] | | | | | | MEDICAL | | | | | | CENTER - | | | | | | LABORATORY | | + + + + + + | K | 3.9 | 3.5 - 5.1 | [facility] | | | | | mmol/L | [facility] | | | | | | MEDICAL | | | | | | CENTER - | | | | | | LABORATORY | | + + + + + + | Cl | 105 | 98 - 109 mmol/L | [facility] | | | | | | [facility] | | | | | | MEDICAL | | | | | | CENTER - | | | | | | LABORATORY | | + + + + + + | CO2 | 25 | 24 - 31 mmol/L | [facility] | | | | | | [facility] | | | | | | MEDICAL | | | | | | CENTER - | | | | | | LABORATORY | | + + + + + + | Anion Gap | 4 | 3 - 16 mmol/L | [facility] | | | | | | [facility] | | | | | | MEDICAL | | | | | | CENTER - | | | | | | LABORATORY | | + + + + + + | Glucose | 101 | 70 - 109 mg/dL | [facility] | | | | | | [facility] | | | | | | MEDICAL | | | | | | CENTER - | | | | | | LABORATORY | | + + + + + + | BUN | 8 | 7 - 18 mg/dL | [facility] | | | | | | [facility] | | | | | | MEDICAL | | | | | | CENTER - | | | | | | LABORATORY | | + + + + + + | Creatinine | 0.81 | 0.60 - 1.30 | [facility] | | | | | mg/dL | [facility] | | | | | | MEDICAL | | | | | | CENTER - | | | | | | LABORATORY | | + + + + + + | eGFR if not | >60Comment: GLOMERULAR | >=60 | [facility] | | | | FILTRATION | mL/min/1.73m2 | [facility] | | | [facility] | RATE,ESTIMATED | | MEDICAL | | | | mL/min/1.88l9Euzw than | | CENTER - | | | | 60 Chronic kidney | | LABORATORY | | | | disease,if found over a | | | | | | 3-month period.Less than | | | | | | 15 Kidney failureFor | | | | | | | | | | | | Americans,multiply the | | | | | | calculated GFR by 1.21. | | | | | | | | | | + + + + + + | Calcium | 7.8 (L) | 8.3 - 10.5 | [facility] | | | | | mg/dL | [facility] | | | | | | MEDICAL | | | | | | CENTER - | | | | | | LABORATORY | | + + + + + + | BUN/Creatin | 9.9 | | [facility] | | | ine Ratio | | | [facility] | | [...] + | [facility] | [address] | [place] | [phone] | | [facility] | | [address] | | | - LABORATORY | | | | + + + + + CBC no Differential (01/20/2015 6:15 AM PDT) + + + + + + | Component | Value | Ref Range | Performed | Pathologist | | | | | At | Signature | + + + + + + | WBC | 6.1 | 4.0 - 11.0 K/uL | [facility] | | | | | | [facility] | | | | | | MEDICAL | | | | | | CENTER - | | | | | | LABORATORY | | + + + + + + | RBC | 3.98 (L) | 4.30 - 5.70 | [facility] | | | | | M/uL | [facility] | | | | | | MEDICAL [...] + + + + | Hematocrit | 36.5 (L) | 40.0 - 51.0 % | [facility] | | | | | | [facility] | | | | | | MEDICAL | | | | | | CENTER - | | | | | | LABORATORY | | + + + + + + | MCV | 91.6 | 83.0 - 101.0 fL | [facility] | | | | | | [facility] | | | | | | MEDICAL | | | | | | CENTER - | | | | | | LABORATORY | | + + + + + + | MCH | 30.2 | 28.0 - 35.0 pg | [facility] [...] + + + + | RDW-CV | 14.8 | <15.0 % | [facility] | | | | | | [facility] | | | | | | MEDICAL | | | | | | CENTER - | | | | | | LABORATORY | | + + + + + + | Platelet | 182 | 140 - 440 K/uL | [facility] | | | Count | | | [facility] | | | | | | MEDICAL | | | | | | CENTER - | | | | | | LABORATORY | | + + + + + + | MPV | 8.5 | fL | [facility] | | | | | [...] [address] | [place] | [phone] | | [facility] | | [address] | | | - LABORATORY | | | | + + + + + XR Chest AP Portable (01/20/2015 5:52 AM PDT) + + | Specimen | + + | | + + + + + | Narrative | Performed At | + + + | XR CHEST AP PORTABLE. 01/20/2015 5:14 AM HISTORY: trauma . | [facility] | | COMPARISON: 01/19/2015 FINDINGS: Stable cardiac and mediastinal | | | contours. Low lung volumes with bilateral atelectasis, greatest at | | | the lung bases. No definite pleural effusion or pneumothorax. | | | Previously described right fifth through ninth costochondral | | | junction fractures not appreciated on this x-ray. Soft tissues are | | | unremarkable. IMPRESSION - Low lung volumes with bilateral | | | predominantly bibasilar atelectasis. Previously described right fifth | | | through ninth costochondral junction fractures not appreciated on | | | this x-ray. Dictated and Signed by: Richi Brown MD | | | Electronically signed: 01/20/2015 8:58 AM | | + + + + + | Procedure Note | + + | Kyle, Rad Results In - 01/20/2015 9:01 AM PDT XR CHEST AP PORTABLE. 01/20/2015 5:14 AM | | | | HISTORY: trauma . | | | | COMPARISON: 01/19/2015 | | | | FINDINGS: | | Stable cardiac and mediastinal contours. Low lung volumes with bilateral | | atelectasis, greatest at the lung bases. No definite pleural effusion or | | pneumothorax. Previously described right fifth through ninth costochondral | | junction fractures not appreciated on this x-ray. Soft tissues are | | unremarkable. | | | | | | IMPRESSION - | | Low lung volumes with bilateral predominantly bibasilar atelectasis. | | Previously described right fifth through ninth costochondral junction fractures | | not appreciated on this x-ray. | | | | Dictated and Signed by: Richi Brown MD | | Electronically signed: 01/20/2015 8:58 AM | + + + +---------+ + + | Performing | Address | City/State/Zipcode | Phone Number | | Organization | | | | + +---------+ + + | [facility] | | | | + +---------+ + + EXTRA GREEN TOP TUBE (01/19/2015 5:54 PM PDT) + +-------+ + + + | Component | Value | Ref Range | Performed | Pathologist | | | | | At | Signature | + +-------+ + + + | Extra Green | Done | | [facility] | | | Top Tube | | | [facility] | | [...] + | [facility] | [address] | [place] | [phone] | | [facility] | | [address] | | | - LABORATORY | | | | + + + + + Hemoglobin and Hematocrit (01/19/2015 5:50 PM PDT) + + + + + + | Component | Value | Ref Range | Performed | Pathologist | | | | | At | Signature | + + + + + + | Hemoglobin | 12.7 (L) | 13.5 - 18.0 | [facility] | | | | | g/dL | [facility] | | | | | | MEDICAL | | | | | | CENTER - | | | | | | LABORATORY | | + + + + + + | Hematocrit | 38.8 (L) | 40.0 - 51.0 % | [...] ST. | [address] | [place] | [phone] | | [facility] | | [address] | | | - LABORATORY | | | | + + + + + XR Chest AP Portable (01/19/2015 5:31 AM PDT) + + | Specimen | + + | | + + + + + | Narrative | Performed At | + + + | SINGLE AP CHEST 01/19/2015 5:31 AM CLINICAL HISTORY: Follow-up | [facility] | | trauma and right rib fractures COMPARISON: Chest CT from the | | | previous day, chest radiographs March 2014 FINDINGS: The | | | cardiomediastinal silhouette and pulmonary vasculature are | | | unremarkable. Mild hazy reticular opacity in the lung bases favors | | | atelectasis. The lungs are clear elsewhere, without visible | | | pneumothorax or pleural effusion. Previously described right | | | costochondral fractures are not visible radiographically. Bones and | | | soft tissues are otherwise unremarkable. IMPRESSION - 1. | | | BASILAR RETICULAR OPACITY FAVORING ATELECTASIS IN THE SETTING OF LOW | | | LUNG VOLUMES. Dictated and Signed by: Demetris Morgan MD | | | Electronically signed: 01/19/2015 2:46 PM | | + + + + + | Procedure Note | + + | Kyle, Rad Results In - 01/19/2015 2:49 PM PDT SINGLE AP CHEST 01/19/2015 5:31 AM | | | | CLINICAL HISTORY: Follow-up trauma and right rib fractures | | | | COMPARISON: Chest CT from the previous day, chest radiographs March 2014 | | | | FINDINGS: The cardiomediastinal silhouette and pulmonary vasculature are | | unremarkable. Mild hazy reticular opacity in the lung bases favors atelectasis. | | The lungs are clear elsewhere, without visible pneumothorax or pleural | | effusion. Previously described right costochondral fractures are not visible | | radiographically. Bones and soft tissues are otherwise unremarkable. | | | | IMPRESSION - | | | | 1. BASILAR RETICULAR OPACITY FAVORING ATELECTASIS IN THE SETTING OF LOW LUNG | | VOLUMES. | | | | Dictated and Signed by: Demetris Morgan MD | | Electronically signed: 01/19/2015 2:46 PM | + + + +---------+ + + | Performing | Address | City/State/Zipcode | Phone Number | | Organization | | | | + +---------+ + + | [facility] | | | | + +---------+ + + CBC with Differential (01/19/2015 5:21 AM PDT) + + + + + + | Component | Value | Ref Range | Performed | Pathologist | | | | | At | Signature | + + + + + + | WBC | 8.2 | 4.0 - 11.0 K/uL | [facility] | | | | | | [facility] | | [facility] | | | MEDICAL | | | | | | CENTER - | | | | | | LABORATORY | | + + + + + + | RBC | 4.20 (L) | 4.30 - 5.70 | [facility] | | | | | M/uL | [facility] | | | | | | MEDICAL | | | | | | CENTER - | | | | | | LABORATORY | | + + + + + + | Hemoglobin | 12.7 (L) | 13.5 - 18.0 | [facility] | | | | | g/dL | [facility] | | | | | | MEDICAL | | | | | | CENTER - | | | | | | LABORATORY | | + + + + + + | Hematocrit | 38.4 (L) | 40.0 - 51.0 % | [facility] | | | | | | [facility] | | | | | | MEDICAL | | | | | | CENTER - | | | | | | LABORATORY | | + + + + + + | MCV | 91.6 | 83.0 - 101.0 fL | [facility] | | | | | | [facility] | | | | | | MEDICAL | | | | | | CENTER - | | | | | | LABORATORY | | + + + + + + | MCH | 30.2 | 28.0 - 35.0 pg | [facility] | | | | | | [facility] | | | | | | MEDICAL | | | | | | CENTER - | | | | | | LABORATORY | | + + + + + + | MCHC | 32.9 | 32.0 - 36.0 | [facility] | | | | | g/dL | [facility] | | | | | | MEDICAL | | | | | | CENTER - | | | | | | LABORATORY | | + + + + + + | RDW-CV | 14.8 | <15.0 % | [facility] | | | | | | [facility] | | | | | | MEDICAL | | | | | | CENTER - | | | | | | LABORATORY | | + + + + + + | Platelet | 190 | 140 - 440 K/uL | [facility] | | | Count | | | [facility] | | | | | | MEDICAL | | | | | | CENTER - | | | | | | LABORATORY | | + + + + + + | MPV | 7.7 | fL | [facility] | | | | | | [facility] | | | | | | MEDICAL | | | | | | CENTER - | | | | | | LABORATORY | | + + + + + + | % | 71.4 | 45.0 - 82.0 % | [facility] | | | Neutrophils | | | [facility] | | | | | | MEDICAL | | | | | | CENTER - | | | | | | LABORATORY | | + + + + + + | % | 20.6 | 20.0 - 45.0 % | [facility] | | | Lymphocytes | | | [facility] | | | | | | MEDICAL | | | | | | CENTER - | | | | | | LABORATORY | | + + + + + + | % Monocytes | 7.0 | 4.0 - 12.0 % | [facility] | | | | | | [facility] | | | | | | MEDICAL | | | | | | CENTER - | | | | | | LABORATORY | | + + + + + + | % | 0.6 | 0.0 - 5.0 % | [facility] | | | Eosinophils | | | [facility] | | | | | | MEDICAL | | | | | | CENTER - | | | | | | LABORATORY | | + + + + + + | % Basophils | 0.4 | 0.0 - 1.0 % | [facility] | | | | | | [facility] | | | | | | MEDICAL | | | | | | CENTER - | | | | | | LABORATORY | | + + + + + + | Absolute | 5.80 | 1.80 - 8.50 | [facility] | | | Neutrophils | | K/uL | [facility] | | | | | | MEDICAL | | | | | | CENTER - | | | | | | LABORATORY | | + + + + + + | Absolute | 1.70 | 0.60 - 3.20 | [facility] | | | Lymphocytes | | K/uL | [facility] | | | | | | MEDICAL | | | | | | CENTER - | | | | | | LABORATORY | | + + + + + + | Absolute | 0.60 | 0.00 - 1.00 | [facility] | | | Monocytes | | K/uL | [facility] | | | | | | MEDICAL | | | | | | CENTER - | | | | | | LABORATORY | | + + + + + + | Absolute | 0.00 | 0.00 - 0.40 | [facility] | | | Eosinophils | | K/uL | [facility] | | | | | | MEDICAL | | | | | | CENTER - | | | | | | LABORATORY | | + + + + + + | Absolute | 0.00 | 0.00 - 0.10 | [facility] | | | Basophils | | K/uL | [facility] | | | | [...] [facility] | [address] | [place] | [phone] | | [facility] | | [address] | | | - LABORATORY | | | | + + + + + Basic Metabolic Panel (01/19/2015 5:21 AM PDT) + + + + + + | Component | Value | Ref Range | Performed | Pathologist | | | | | At | Signature | + + + + + + | Na | 140 | 136 - 149 | [facility] | | | | | mmol/L | [facility] | | | | | | MEDICAL | | | | | | CENTER - | | | | | | LABORATORY | | + + + + + + | K | 4.2 | 3.5 - 5.1 | [facility] | | | | | mmol/L | [facility] | | | | | | MEDICAL | | | | | | CENTER - | | | | | | LABORATORY | | + + + + + + | Cl | 110 (H) | 98 - 109 mmol/L | [facility] | | | | | | [facility] | | | | | | MEDICAL | | | | | | CENTER - | | | | | | LABORATORY | | + + + + + + | CO2 | 26 | 24 - 31 mmol/L | [facility] | | | | | | [facility] | | | | | | MEDICAL | | | | | | CENTER - | | | | | | LABORATORY | | + + + + + + | Anion Gap | 4 | 3 - 16 mmol/L | [facility] | | | | | | [facility] | | | | | | MEDICAL | | | | | | CENTER - | | | | | | LABORATORY | | + + + + + + | Glucose | 101 | 70 - 109 mg/dL | [facility] | | | | | | [facility] | | | | | | MEDICAL | | | | | | CENTER - | | | | | | LABORATORY | | + + + + + + | BUN | 10 | 7 - 18 mg/dL | [facility] | | | | | | [facility] | | | | | | MEDICAL | | | | | | CENTER - | | | | | | LABORATORY | | + + + + + + | Creatinine | 1.08 | 0.60 - 1.30 | [facility] | | | | | mg/dL | [facility] | | | | | | MEDICAL | | | | | | CENTER - | | | | | | LABORATORY | | + + + + + + | eGFR if not | >60Comment: GLOMERULAR | >=60 | [facility] | | | | FILTRATION | mL/min/1.73m2 | [facility] | | | [facility] | RATE,ESTIMATED | | MEDICAL | | | | mL/min/1.98m9Fqct than | | CENTER - | | | | 60 Chronic kidney | | LABORATORY | | | | disease,if found over a | | | | | | 3-month period.Less than | | | | | | 15 Kidney failureFor | | | | | | | | | | | | Americans,multiply the | | | | | | calculated GFR by 1.21. | | | | | | | [...] + + + + | BUN/Creatin | 9.3 | | [facility] | | | ine Ratio [...] ST. | [address] | [place] | [phone] | | [facility] | | [address] | | | - LABORATORY | | | | + + + + + Hemoglobin and Hematocrit (01/18/2015 10:49 PM PDT) + + + + + + | Component | Value | Ref Range | Performed | Pathologist | | | | | At | Signature | + + + + + + | Hemoglobin | 13.4 (L) | 13.5 - 18.0 | [facility] | | | | | g/dL | [facility] | | | | | | MEDICAL | | | | | | CENTER - | | | | | | LABORATORY | | + + + + + + | Hematocrit | 40.2 | 40.0 - 51.0 % | [facility] [...] [facility] | [address] | [place], [place] | [phone] | | [facility] | | [address] | | | - LABORATORY | | | | + + + + + Culture, MRSA (01/18/2015 9:39 PM PDT) + + + + + + | Component | Value | Ref Range | Performed | Pathologist | | | | | At | Signature | + + + + + + | Culture | Negative for MRSA by | | [facility] | | | | chromogenic agar method | | [facility] | | | | | | MEDICAL | | | | | | CENTER - | | | | | | LABORATORY | | + + + + + + + + | Specimen | + + | Respiratory - Both | | anterior nares (body | | structure) | + + + + + + + | Performing | Address | City/State/Zipcode | Phone Number | | Organization | | | | + + + + + | [facility] | [address] | [place] | [phone] | | [facility] | | [address] | | | - LABORATORY | | | | + + + + + Drugs of Abuse, Screen, Urine (01/18/2015 8:27 PM PDT) + + + + + + | Component | Value | Ref Range | Performed | Pathologist | | | | | At | Signature | + + + + + + | Amphetamine | Negative | Negative | [facility] | | | Screen, | | | [facility] | | | Urine | | | MEDICAL | | | | | | CENTER - | | | | | | LABORATORY | | + + + + + + | Barbiturate | Negative | Negative | [facility] | | | s Screen, | | | [facility] | | | Urine | | | MEDICAL | | | | | | CENTER - | | | | | | LABORATORY | | + + + + + + | Benzodiazep | Negative | Negative | [facility] | | | dusty | | | [facility] | | | Screen, | | | MEDICAL | | | Urine | | | CENTER - | | | | | | LABORATORY | | + + + + + + | Cannabinoid | Negative | Negative | [facility] | | | s Screen, | | | [facility] | | | Urine | | | MEDICAL | | | | | | CENTER - | | | | | | LABORATORY | | + + + + + + | Cocaine | Negative | Negative | [facility] | | | Screen, | | | [facility] | | | Urine | | | MEDICAL | | | | | | CENTER - | | | | | | LABORATORY | | + + + + + + | Methadone | Negative | Negative | [facility] | | | Screen, | | | [facility] | | | Urine | | | MEDICAL | | | | | | CENTER - | | | | | | LABORATORY | | + + + + + + | Opiates | Positive (A) | Negative | [facility] | | | Screen, | | | [facility] | | | Urine | | | MEDICAL | | | | | | CENTER - | | | | | | LABORATORY | | + + + + + + + + | Specimen | + + | Urine | + + + + + + + | Performing | Address | City/State/Zipcode | Phone Number | | Organization | | | | + + + + + | [facility] | [address] | [place] | [phone] | | [facility] | | [address] | | | - LABORATORY | | | | + + + + + Urinalysis with Microscopic with Culture if Indicated (01/18/2015 8:26 PM PDT) + + + + + + | Component | Value | Ref Range | Performed | Pathologist | | | | | At | Signature | + + + + + + | Color | Yellow | Light Yellow, | [facility] | | | | | Yellow | [facility] | | | | | | MEDICAL | | | | | | CENTER - | | | | | | LABORATORY | | + + + + + + | Clarity | Clear | Clear | [facility] | | | | | [facility] | [facility] | | [facility] | [facility] - | | | | | | LABORATORY | | + + + + + + | pH, Urine | 5.0 | 5.0 - 8.0 | [facility] | | | | | | [facility] | | | | | | MEDICAL | | | | | | CENTER - | | | | | | LABORATORY | | + + + + + + | Specific | 1.020 | 1.001 - 1.030 | [facility] | | | [place] | | | [facility] | | | | | | MEDICAL | | | | | | CENTER - | | | | | | LABORATORY | | + + + + + + | Protein, | Negative | Negative | [facility] | | | Urine | | | [facility] | | | | | | MEDICAL | | | | | | CENTER - | | | | | | LABORATORY | | + + + + + + | Blood, | Small (A) | Negative | [facility] | | | Urine | | | [facility] | | | | | | MEDICAL | | | | | | CENTER - | | | | | | LABORATORY | | + + + + + + | Glucose, | Negative | Negative | [facility] | | | Urine | | | [facility] | | | | | | [facility]ICAL | | | | | | CENTER - | | | | | | LABORATORY | | + + + + + + | Ketones, | Negative | Negative | [facility] | | | Urine | | | [facility] | | | | | | MEDICAL | | | | | | CENTER - | | | | | | LABORATORY | | + + + + + + | Bilirubin, | Negative | Negative | [facility] | | | Urine | | | [facility] | | | | | | MEDICAL | | | | | | CENTER - | | | | | | LABORATORY | | + + + + + + | Nitrite, | Negative | Negative | [facility] | | | Urine | | | [facility] | | | | | | MEDICAL | | | | | | CENTER - | | | | | | LABORATORY | | + + + + + + | Leukocyte | Negative | Negative | [facility] | | | Esterase, | | | [facility] | | | Urine | | | MEDICAL | | | | | | CENTER - | | | | | | LABORATORY | | + + + + + + | Urobilinoge | 0.2 E.U./dL | 0.2 E.U./dL, | [facility] | | | n, Urine | | 1.0 E.U./dL | [facility] | | | | | | MEDICAL | | | | | | CENTER - | | | | | | LABORATORY | | + + + + + + | WBC UA | 0-2 | 0 - 2 /HPF | [facility] | | | | | | [facility] | | | | | | [facility]ICAL | | | | | | CENTER - | | | | | | LABORATORY | | + + + + + + | RBC UA | 0-2 | 0 - 2 /HPF | [facility] | | | | | | [facility] | | | | | | MEDICAL | | | | | | CENTER - | | | | | | LABORATORY | | + + + + + + | SQUAMOUS | 2-5 (A) | 0 - 2 /LPF | [facility] | | | EPIT[facility] | | | [facility] | | | UA | | | MEDICAL | | | | | | CENTER - | | | | | | LABORATORY | | + + + + + + | BACTERIA UA | Negative | Negative /HPF | [facility] | | | | | | [facility] | | | | | | MEDICAL | | | | | | CENTER - | | | | | | LABORATORY | | + + + + + + | HYALINE | 0-2 | 0 - 2 /LPF | [facility] | [facility] | | [facility] | | | | | | MEDICAL | | | | | | CENTER - | | | | | | LABORATORY | | + + + + + + | GRANULAR | 2-5 (A) | 0 - 2 /LPF | [facility] | [facility] | | | | | | MEDICAL | | | | | | CENTER - | | | | | | LABORATORY | | + + + + + + + + | Specimen | + + | Urine | + + + + + + + | Performing | Address | City/State/Zipcode | Phone Number | | Organization | | | | + + + + + | [facility] | [address] | [place], [place] | [phone] | | [facility] | | [address] | | | - LABORATORY | | | | + + + + + XR Shoulder Right 2 + Vw (01/18/2015 7:45 PM PDT) + + | Specimen | + + | | + + + + + | Narrative | Performed At | + + + | THREE VIEWS RIGHT SHOULDER 01/18/2015 7:37 PM CLINICAL HISTORY: | [facility] | | CHEST INJURY COMPARISON: CHEST CT FROM THE SAME DAY FINDINGS: | | | The bones are well-mineralized and well aligned. Right anterior | | | costochondral fractures described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 PDT) + + + + + [...] St | [place] | | | [facility] | | [address] | | | - BLOOD BANK | | | | + + + + + Protime INR (01/18/2015 6:10 PM PDT) + + + + + + | Component | Value | Ref Range | Performed | Pathologist | | | | | At | Signature | + + + + + + | Prothrombin | 12.7 | 11.3 - 13.9 | [facility] | | | Time | | seconds | [facility] | | | | | | MEDICAL | | | | | | CENTER - | | | | | | LABORATORY | | + + + + + + | INR | 0.95Comment: Usual Oral | 0.90 - 1.10 | [facility] | | | | Anticoagulation Range: | | [facility] | | | | 2.0 - 3.0High | | MEDICAL | | | | Level Oral | | CENTER - | | | | Anticoagulation Range: | | LABORATORY | | | | 2.5 - 3.5 | | | | + + + + + + + + | Specimen | + + | Blood | + + + + + + + | Performing | Address | City/State/Zipcode | Phone Number | | Organization | | | | + + + + + | [facility] | [address] | [place] | [phone] | | [facility] | | [address] | | | - LABORATORY | | | | + + + + + PTT (01/18/2015 6:10 PM PDT) + +-------+ + + + | Component | Value | Ref Range | Performed | Pathologist | | | | | At | Signature | + +-------+ + + + | aPTT | 27 | 22 - 36 seconds | [facility] | | | | | | [facility] | | [...] + | [facility] | [address] | [place] | [phone] | | [facility] | | [address] | | | - LABORATORY | | | | + + + + + Ethanol (01/18/2015 6:10 PM PDT) + +-------+ + + + | Component | Value | Ref Range | Performed | Pathologist | | | | | At | Signature | + +-------+ + + + | ALCOHOL, | 175 | <400 mg/dL | [facility] | | | SERUM/PLASM | | | [facility] | | | A | | | MEDICAL | | | [...] ST. | [address] | [place] | [phone] | | [facility] | | [address] | | | - LABORATORY | | | | + + + + + Comprehensive Metabolic Panel (01/18/2015 6:10 PM PDT) + + + + + + | Component | Value | Ref Range | Performed | Pathologist | | | | | At | Signature | + + + + + + | Na | 140 | 136 - 149 | [facility] | | | | | mmol/L | [facility] | | | | | | MEDICAL | | | | | | CENTER - | | | | | | LABORATORY | | + + + + + + | K | 4.1 | 3.5 - 5.1 | [facility] | | | | | mmol/L | [facility] | | | | | | MEDICAL | | | | | | CENTER - | | | | | | LABORATORY | | + + + + + + | Cl | 109 | 98 - 109 mmol/L | [facility] | | | | | | [facility] | | | | | | MEDICAL | | | | | | CENTER - | | | | | | LABORATORY | | + + + + + + | CO2 | 22 (L) | 24 - 31 mmol/L | [facility] | | | | | [facility] | | | | | | MEDICAL | | | | | | CENTER - | | | | | | LABORATORY | | + + + + + + | Anion Gap | 9 | 3 - 16 mmol/L | [facility] | | | | | | [facility] | | | | | | MEDICAL | | | | | | CENTER - | | | | | | LABORATORY | | + + + + + + | Glucose | 109 | 70 - 109 mg/dL | [facility] | | | | | | [facility] | | | | | | MEDICAL | | | | | | CENTER - | | | | | | LABORATORY | | + + + + + + | BUN | 10 | 7 - 18 mg/dL | [facility] | | | | | | [facility] | | | | | | MEDICAL | | | | | | CENTER - | | | | | | LABORATORY | | + + + + + + | Creatinine | 1.04 | 0.60 - 1.30 | [facility] | | | | | mg/dL | [facility] | | | | | | MEDICAL | | | | | | CENTER - | | | | | | LABORATORY | | + + + + + + | eGFR if not | >60Comment: GLOMERULAR | >=60 | [facility] | | | | FILTRATION | mL/min/1.73m2 | [facility] | | | [place] | RATE,ESTIMATED | | MEDICAL | | | | mL/min/1.85p1Wmwf than | | CENTER - | | | | 60 Chronic kidney | | LABORATORY | | | | disease,if found over a | | | | | | 3-month period.Less than | | | | | | 15 Kidney failureFor | | | | | | | | | | | | Americans,multiply the | | | | | | calculated GFR by 1.21. | | | | | | | | | | + + + + + + | Calcium | 8.3 | 8.3 - 10.5 | [facility] | | | | | mg/dL | [facility] | | | | | | MEDICAL | | | | | | CENTER - | | | | | | LABORATORY | | + + + + + + | Albumin | 3.9 | 3.2 - 5.0 g/dL | [facility] | | | | | | [facility] | | | | | | MEDICAL | | | | | | CENTER - | | | | | | LABORATORY | | + + + + + + | Bilirubin | 0.4 | 0.1 - 1.5 mg/dL | [facility] | | | Total | | | [facility] | | | | | | MEDICAL | | | | | | CENTER - | | | | | | LABORATORY | | + + + + + + | Total | 7.0 | 6.0 - 7.8 g/dL | [facility] | | | Protein | | | [facility] | | | | | | MEDICAL | | | | | | CENTER - | | | | | | LABORATORY | | + + + + + + | AST | 161 (H) | 10 - 42 U/L | [facility] | | | | | | [facility] | | | | | | MEDICAL | | | | | | CENTER - | | | | | | LABORATORY | | + + + + + + | ALT | 112 (H) | 6 - 45 U/L | [facility] | | | | | | [facility] | | | | | | MEDICAL | | | | | | CENTER - | | | | | | LABORATORY | | + + + + + + | Alkaline | 88 | 40 - 110 U/L | [facility] | | | Phosphatase | | | [facility] | | | | | | MEDICAL | | | | | | CENTER - | | | | | | LABORATORY | | + + + + + + | Globulin | 3.1 | g/dL | [facility] | | | | | | [facility] | | | | | | MEDICAL | | | | | | CENTER - | | | | | | LABORATORY | | + + + + + + | Albumin/Frances | 1.3 | | [facility] | | | bulin Ratio | | | [facility] | | | | | | MEDICAL | | | | | | CENTER - | | | | | | LABORATORY | | + + + + + + | BUN/Creatin | 9.6 | | [facility] | | | ine Ratio [...] ST. | [address] | [place] | [phone] | | [facility] | | [address] | | | - LABORATORY | | | | + + + + + CBC with Differential (01/18/2015 6:10 PM PDT) + + + + + + | Component | Value | Ref Range | Performed | Pathologist | | | | | At | Signature | + + + + + + | WBC | 7.9 | 4.0 - 11.0 K/uL | [facility] | | | | | | [facility] | | [facility] | | | MEDICAL | | | | | | CENTER - | | | | | | LABORATORY | | + + + + + + | RBC | 4.60 | 4.30 - 5.70 | [facility] | | | | | M/uL | [facility] | | | | | | MEDICAL | | | | | | CENTER - | | | | | | LABORATORY | | + + + + + + | Hemoglobin | 13.9 | 13.5 - 18.0 | [facility] | | | | | g/dL | [facility] | | | | | | MEDICAL | | | | | | CENTER - | | | | | | LABORATORY | | + + + + + + | Hematocrit | 42.0 | 40.0 - 51.0 % | [facility] | | | | | | [facility] | | | | | | MEDICAL | | | | | | CENTER - | | | | | | LABORATORY | | + + + + + + | MCV | 91.4 | 83.0 - 101.0 fL | [facility] | | | | | | [facility] | | | | | | MEDICAL | | | | | | CENTER - | | | | | | LABORATORY | | + + + + + + | MCH | 30.1 | 28.0 - 35.0 pg | [facility] [...] + + + + | RDW-CV | 14.9 | <15.0 % | [facility] | | | | | | [facility] | | | | | | MEDICAL | | | | | | CENTER - | | | | | | LABORATORY | | + + + + + + | Platelet | 229 | 140 - 440 K/uL | [facility] | | | Count | | | [facility] | | | | | | MEDICAL | | | | | | CENTER - | | | | | | LABORATORY | | + + + + + + | MPV | 7.8 | fL | [facility] | | | | | | [facility] | | | | | | MEDICAL | | | | | | CENTER - | | | | | | LABORATORY | | + + + + + + | % | 75.0 | 45.0 - 82.0 % | [facility] | | | Neutrophils | | | [facility] | | | | | | MEDICAL | | | | | | CENTER - | | | | | | LABORATORY | | + + + + + + | % | 16.7 (L) | 20.0 - 45.0 % | [facility] | | | Lymphocytes | | | [facility] | | | | | | MEDICAL | | | | | | CENTER - | | | | | | LABORATORY | | + + + + + + | % Monocytes | 6.9 | 4.0 - 12.0 % | [facility] | | | | | | [facility] | | | | | | MEDICAL | | | | | | CENTER - | | | | | | LABORATORY | | + + + + + + | % | 0.9 | 0.0 - 5.0 % | [facility] | | | Eosinophils | | | [facility] | | | | | | MEDICAL | | | | | | CENTER - | | | | | | LABORATORY | | + + + + + + | % Basophils | 0.5 | 0.0 - 1.0 % | [facility] | | | | | | [facility] | | | | | | MEDICAL | | | | | | CENTER - | | | | | | LABORATORY | | + + + + + + | Absolute | 5.90 | 1.80 - 8.50 | [facility] | | | Neutrophils | | K/uL | [facility] | | | [facility] | | MEDICAL | | | | | | CENTER - | | | | | | LABORATORY | | + + + + + + | Absolute | 1.30 | 0.60 - 3.20 | [facility] | | | Lymphocytes | | K/uL | [facility] | | | | | | MEDICAL | | | | | | CENTER - | | | | | | LABORATORY | | + + + + + + | Absolute | 0.50 | 0.00 - 1.00 | [facility] | | | Monocytes | | K/uL | [facility] | | | | | | MEDICAL | | | | | | CENTER - | | | | | | LABORATORY | | + + + + + + | Absolute | 0.10 | 0.00 - 0.40 | [facility] | | | Eosinophils | | K/uL | [facility] | | | | | | MEDICAL | | | | | | CENTER - | | | | | | LABORATORY | | + + + + + + | Absolute | 0.00 | 0.00 - 0.10 | [facility] | | | Basophils | | K/uL | [facility] | | | | [...] ST. | [address] | [place], [place] | [phone] | | [facility] | | [address] | | | - LABORATORY | | | | + + + + + documented in this encounter Visit Diagnoses + + | Diagnosis | + + | Rib fractures, right, closed, initial encounter - Primary | + + | Trauma Injury, other and unspecified, unspecified site | + + | Rib fractures, right, closed, initial encounter Closed fracture of one rib | + + documented in this encounter Administered Medications + +--------+ +--------+------+------+ | Medication Order | MAR | Action | Dose | Rate | Site | | | Action | Date | | | | + +--------+ +--------+------+------+ | acetaminophen (TYLENOL) tablet | Given | 01/20/20 | 650 mg | | | | 650 mg 650 mg, Oral, EVERY 4 | | 15 7:07 | | | | | HOURS PRN, Pain, Starting Sat | | AM PDT | | | | | 7/4/15 at 2140 | | | | | | + +--------+ +--------+------+------+ +-------+ +--------+---+---+ | Given | 01/20/20 | 650 mg | | | | | 15 2:49 | | | | | | AM PDT | | | | +-------+ +--------+---+---+ | Given | 01/19/20 | 650 mg | | | | | 15 10:21 | | | | | | PM PDT | | | | +-------+ +--------+---+---+ +---+---+ | | | +---+---+ + +-------+ +--------+---+---+ | albuterol 2.5 mg/3 mL nebulizer | Given | 01/24/20 | 2.5 mg | | | | solution 2.5 mg 2.5 mg, | | 15 8:34 | | | | | Nebulization, RT Q6H, First dose | | AM PDT | | | | | on 01/19/15 at 0930, | | | | | | | Therapeutic Interchange for | | | | | | | Symbicort . Alexandra Hyde, | | | | | | | PHARMD 01/19/2015 9:10 RT will | | | | | | | administer., | | | | | | + +-------+ +--------+---+---+ +-------+ +--------+---+---+ | Given | 01/24/20 | 2.5 mg | | | | | 15 2:58 | | | | | | AM PDT | | | | +-------+ +--------+---+---+ | Given | 01/23/20 | 2.5 mg | | | | | 15 9:48 | | | | | | PM PDT | | | | +-------+ +--------+---+---+ +---+---+ | | | +---+---+ + +-------+ +--------+---+---+ | budesonide (PULMICORT) 0.5 mg/2 | Given | 01/24/20 | 0.5 mg | | | | mL nebulizer solution 0.5 mg | | 15 8:35 | | | | | 0.5 mg, Nebulization, RT BID, | | AM PDT | | | | | First dose on 01/19/15 at 1000, | | | | | | | Therapeutic Interchange for | | | | | | | Symbicort . Alexandra Hyde, | | | | | | | PHARMD 01/19/2015 9:10 RT will | | | | | | | administer. Shake well. Protect | | | | | | | from light. Rinse mouth after | | | | | | | use., | | | | | | + +-------+ +--------+---+---+ +-------+ +--------+---+---+ | Given | 01/23/20 | 0.5 mg | | | | | 15 9:48 | | | | | | PM PDT | | | | +-------+ +--------+---+---+ | Given | 01/23/20 | 0.5 mg | | | | | 15 9:07 | | | | | | AM PDT | | | | +-------+ +--------+---+---+ +---+---+ | | | +---+---+ + +-------+ +------+---+---+ | diazepam (VALIUM) tablet 5 mg | Given | 01/24/20 | 5 mg | | | | 5 mg, Oral, EVERY 6 HOURS PRN, | | 15 1:10 | | | | | muscle spasm, Starting 01/18/15 | | PM PDT | | | | | at 2140 | | | | | | + +-------+ +------+---+---+ +-------+ +------+---+---+ | Given | 01/24/20 | 5 mg | | | | | 15 6:01 | | | | | | AM PDT | | | | +-------+ +------+---+---+ | Given | 01/23/20 | 5 mg | | | | | 15 10:23 | | | | | | PM PDT | | | | +-------+ +------+---+---+ +---+---+ | | | +---+---+ + +-------+ +---------+---+---+ | diphenhydrAMINE (BENADRYL) | Given | 01/19/20 | 12.5 mg | | | | injection 12.5 mg 12.5 mg, | | 15 10:22 | | | | | Intravenous, EVERY 4 HOURS PRN, | | PM PDT | | | | | Itching, Starting 01/18/15 at | | | | | | | 2140, Give nalbuphine 1st, if | | | | | | | ineffective, administer | | | | | | | diphenhydrAMINE, if ordered. | | | | | | | Oral route is preferred, | | | | | | + +-------+ +---------+---+---+ +---+---+ | | | +---+---+ + +-------+ +--------+---+---+ | docusate sodium (COLACE) | Given | 01/22/20 | 100 mg | | | | capsule 100 mg 100 mg, Oral, 2 | | 15 9:46 | | | | | TIMES DAILY PRN, Constipation, | | AM PDT | | | | | Starting 01/18/15 at 2140, | | | | | | | First line agent for | | | | | | | constipation, | | | | | | + +-------+ +--------+---+---+ +-------+ +--------+---+---+ | Given | 01/21/20 | 100 mg | | | | | 15 6:54 | | | | | | PM PDT | | | | +-------+ +--------+---+---+ | Given | 01/21/20 | 100 mg | | | | | 15 8:27 | | | | | | AM PDT | | | | +-------+ +--------+---+---+ +---+---+ | | | +---+---+ + +-------+ +--------+---+---+ | docusate sodium (COLACE) | Given | 01/23/20 | 100 mg | | | | capsule 100 mg 100 mg, Oral, 2 | | 15 7:45 | | | | | TIMES DAILY, First dose (after | | PM PDT | | | | | last modification) on Tue01/21/15 | | | | | | | at 2100, First line agent for | | | | | | | constipation, | | | | | | + +-------+ +--------+---+---+ +-------+ +--------+---+---+ | Given | 01/23/20 | 100 mg | | | | | 15 8:51 | | | | | | AM PDT | | | | +-------+ +--------+---+---+ | Given | 01/22/20 | 100 mg | | | | | 15 8:54 | | | | | | PM PDT | | | | +-------+ +--------+---+---+ +---+---+ | | | +---+---+ + +-------+ +--------+---+---+ | gabapentin (NEURONTIN) capsule | Given | 01/24/20 | 300 mg | | | | 300 mg 300 mg, Oral, 3 TIMES | | 15 1:24 | | | | | DAILY, First dose on 01/18/15 | | PM PDT | | | | | at 2200 | | | | | | + +-------+ +--------+---+---+ +-------+ +--------+---+---+ | Given | 01/24/20 | 300 mg | | | | | 15 9:15 | | | | | | AM PDT | | | | +-------+ +--------+---+---+ | Given | 01/23/20 | 300 mg | | | | | 15 7:45 | | | | | | PM PDT | | | | +-------+ +--------+---+---+ +---+---+ | | | +---+---+ + +-------+ +--------+---+ + | heparin 5,000 units/mL | Given | 01/22/20 | 5,000 | | Abdomen- | | injection 5,000 Units 5,000 | | 15 9:27 | Units | | LLQ | | Units, Subcutaneous, EVERY 12 | | AM PDT | | | | | HOURS (2 times per day), First | | | | | | | dose on [facility] 01/18/15 at 2200 | | | | | | + +-------+ +--------+---+ + +-------+ +--------+---+ + | Given | 01/21/20 | 5,000 | | Abdomen- | | | 15 9:28 | Units | | LLQ | | | PM PDT | | | | +-------+ +--------+---+ + | Given | 01/21/20 | 5,000 | | Abdomen- | | | 15 8:27 | Units | | LUQ | | | AM PDT | | | | +-------+ +--------+---+ + +---+---+ | | | +---+---+ + +-------+ + +---+---+ | HYDROcodone-acetaminophen | Given | 01/23/20 | 1 tablet | | | | (NORCO) 10-325 mg per tablet 1 | | 15 1:12 | | | | | tablet 1 tablet, Oral, EVERY 8 | | AM PDT | | | | | HOURS PRN, Pain, Starting Sat | | | | | | | 01/18/15 at 2140 | | | | | | + +-------+ + +---+---+ +-------+ + +---+---+ | Given | 01/22/20 | 1 tablet | | | | | 15 5:06 | | | | | | PM PDT | | | | +-------+ + +---+---+ | Given | 01/21/20 | 1 tablet | | | | | 15 2:10 | | | | | | PM PDT | | | | +-------+ + +---+---+ +---+---+ | | | +---+---+ + +-------+ +---------+---+---+ | HYDROcodone-acetaminophen | Given | 01/22/20 | 2 | | | | (NORCO) 5-325 mg per tablet 1-2 | | 15 2:14 | tablets | | | | tablet 1-2 tablet, Oral, EVERY 4 | | PM PDT | | | | | HOURS PRN, Pain, Starting Sat | | | | | | | 01/18/15 at 2140, If ineffective | | | | | | | use Cascadia 10/325 if ordered. If | | | | | | | not tolerated, use Percocet then | | | | | | | Oxycodone if ordered., | | | | | | + +-------+ +---------+---+---+ +-------+ +---------+---+---+ | Given | 01/22/20 | 2 | | | | | 15 10:52 | tablets | | | | | AM PDT | | | | +-------+ +---------+---+---+ | Given | 01/21/20 | 2 | | | | | 15 6:08 | tablets | | | | | AM PDT | | | | +-------+ +---------+---+---+ +---+---+ | | | +---+---+ + +-------+ +---------+---+---+ | HYDROcodone-acetaminophen | Given | 01/23/20 | 2 | | | | (NORCO) 5-325 mg per tablet 1-2 | | 15 10:23 | tablets | | | | tablet 1-2 tablet, Oral, EVERY 4 | | PM PDT | | | | | HOURS PRN, Pain, Starting Tue | | | | | | | 01/21/15 at 1422, If ineffective | | | | | | | use Cascadia 10/325 if ordered. If | | | | | | | not tolerated, use Percocet then | | | | | | | Oxycodone if ordered., | | | | | | | Anesthesiology approved? Yes, | | | | | | | Intra-op | | | | | | + +-------+ +---------+---+---+ +---+---+ | | | +---+---+ + +-------+ +------+---+---+ | HYDROmorphone (PF) (DILAUDID) 1 | Given | 01/19/20 | 1 mg | | | | mg/mL injection 1-2 mg 1-2 mg, | | 15 7:00 | | | | | Intravenous, ONCE, 01/18/15 at | | PM PDT | | | | | 1915, For 1 dose | | | | | | + +-------+ +------+---+---+ +---+---+ | | | +---+---+ + +-------+ +--------+---+---+ | iohexol (OMNIPAQUE 350) 350 | Given | 01/19/20 | 90 mLs | | | | mg/mL injection 90 mL 90 mL, | | 15 6:40 | | | | | Intravenous, ONCE PRN, Other, | | PM PDT | | | | | Starting 01/18/15 at 1840, For | | | | | | | 1 dose, Cat Scanner | | | | | | + +-------+ +--------+---+---+ +---+---+ | | | +---+---+ + +-------+ +-------+---+---+ | ketorolac (TORADOL) injection | Given | 01/23/20 | 30 mg | | | | 30 mg 30 mg, Intravenous, EVERY | | 15 9:28 | | | | | 6 HOURS PRN, Pain, Starting Tue | | AM PDT | | | | | 01/21/15 at 1421, For 24 hours, If | | | | | | | urine output is less that 240 | | | | | | | mL/8 hours (30 mL/hr) or if signs | | | | | | | of bleeding, contact ordering | | | | | | | provider and hold ketorolac., | | | | | | | Intra-op | | | | | | + +-------+ +-------+---+---+ +---+---+ | | | +---+---+ + +-------+ +-------+---+---+ | lisinopril (PRINIVIL, ZESTRIL) | Given | 01/24/20 | 10 mg | | | | tablet 10 mg 10 mg, Oral, DAILY, | | 15 9:15 | | | | | First dose on 01/19/15 at 0900 | | AM PDT | | | | + +-------+ +-------+---+---+ +-------+ +-------+---+---+ | Given | 01/23/20 | 10 mg | | | | | 15 8:51 | | | | | | AM PDT | | | | +-------+ +-------+---+---+ | Given | 01/22/20 | 10 mg | | | | | 15 9:26 | | | | | | AM PDT | | | | +-------+ +-------+---+---+ +---+---+ | | | +---+---+ + +-------+ +------+---+---+ | morphine injection 2-8 mg 2-8 | Given | 01/24/20 | 4 mg | | | | mg, Intravenous, EVERY 2 HOURS | | 15 9:05 | | | | | PRN, Pain, Starting 01/18/15 at | | AM PDT | | | | | 2140, Slow IV push, not faster | | | | | | | than 2 mg/minute. If ineffective | | | | | | | or not tolerated, use | | | | | | | hydromorphone IV if ordered, | | | | | | + +-------+ +------+---+---+ +-------+ +------+---+---+ | Given | 01/23/20 | 8 mg | | | | | 15 4:41 | | | | | | PM PDT | | | | +-------+ +------+---+---+ | Given | 01/23/20 | 4 mg | | | | | 15 6:28 | | | | | | AM PDT | | | | +-------+ +------+---+---+ +---+---+ | | | +---+---+ + +-------+ +---+---+---+ | lzwbajin-jzldnrqvs-lfureefpii | Given | 01/23/20 | | | | | (NEOSPORIN) ointment Topical, 3 | | 15 7:44 | | | | | TIMES DAILY, First dose on Sat | | PM PDT | | | | | 01/18/15 at 2200 | | | | | | + +-------+ +---+---+---+ +-------+ +---+---+---+ | Given | 01/23/20 | | | | | | 15 2:25 | | | | | | PM PDT | | | | +-------+ +---+---+---+ | Given | 01/23/20 | | | | | | 15 9:00 | | | | | | AM PDT | | | | +-------+ +---+---+---+ +---+---+ | | | +---+---+ + +-------+ +------+---+---+ | ondansetron (ZOFRAN) injection | Given | 01/24/20 | 4 mg | | | | 4 mg 4 mg, Intravenous, EVERY 6 | | 15 6:04 | | | | | HOURS PRN, Nausea, Vomiting, | | AM PDT | | | | | Starting 01/21/15 at 1421, | | | | | | | First line agent, Intra-op | | | | | | + +-------+ +------+---+---+ +---+---+ | | | +---+---+ + +-------+ +---------+---+---+ | oxyCODONE-acetaminophen | Given | 01/24/20 | 2 | | | | (PERCOCET) 5-325 mg per tablet | | 15 1:10 | tablets | | | | 1-2 tablet 1-2 tablet, Oral, | | PM PDT | | | | | EVERY 4 HOURS PRN, Pain, Starting | | | | | | | 01/18/15 at 2140 | | | | | | + +-------+ +---------+---+---+ +-------+ +---------+---+---+ | Given | 01/24/20 | 2 | | | | | 15 7:52 | tablets | | | | | AM PDT | | | | +-------+ +---------+---+---+ | Given | 01/24/20 | 2 | | | | | 15 2:52 | tablets | | | | | AM PDT | | | | +-------+ +---------+---+---+ +---+---+ | | | +---+---+ + +-------+ +-------+---+---+ | pantoprazole (PROTONIX) DR | Given | 01/24/20 | 40 mg | | | | tablet 40 mg 40 mg, Oral, DAILY | | 15 6:02 | | | | | BEFORE BREAKFAST, First dose on | | AM PDT | | | | | 01/19/15 at 0730, Do not cut or | | | | | | | crush., | | | | | | + +-------+ +-------+---+---+ +-------+ +-------+---+---+ | Given | 01/23/20 | 40 mg | | | | | 15 7:00 | | | | | | AM PDT | | | | +-------+ +-------+---+---+ | Given | 01/22/20 | 40 mg | | | | | 15 6:30 | | | | | | AM PDT | | | | +-------+ +-------+---+---+ +---+---+ | | | +---+---+ + +-------+ +------+---+---+ | polyethylene glycol (MIRALAX) | Given | 01/22/20 | 17 g | | | | powder 17 g 17 g, Oral, DAILY | | 15 9:46 | | | | | PRN, Constipation, Starting Sat | | AM PDT | | | | | 01/18/15 at 2140, If docusate and | | | | | | | senna ineffective or not ordered, | | | | | | | | | | | | | + +-------+ +------+---+---+ +-------+ +------+---+---+ | Given | 01/21/20 | 17 g | | | | | 15 8:27 | | | | | | AM PDT | | | | +-------+ +------+---+---+ +---+---+ | | | +---+---+ + +---------+ +--------+-------+---+ | sodium chloride 0.9% (NS) bolus | New Bag | 01/19/20 | 1,000 | 1000 | | | 1,000 mL 1,000 mL, Intravenous, | | 15 6:48 | mLs | mL/hr | | | Administer over 1 Hours, ONCE, | | PM PDT | | | | | 01/18/15 at 1915, For 1 dose | | | | | | + +---------+ +--------+-------+---+ +---+---+ | | | +---+---+ + +---------+ +---+-------+---+ | sodium chloride 0.9% (NS) | New Bag | 01/22/20 | | 125 | | | infusion at 125 mL/hr, | | 15 9:53 | | mL/hr | | | Intravenous, CONTINUOUS, Starting | | AM PDT | | | | | 01/18/15 at 2200 | | | | | | + +---------+ +---+-------+---+ +---------+ +--------+-------+---+ | New Bag | 01/22/20 | 1,000 | 125 | | | | 15 1:32 | mLs | mL/hr | | | | AM PDT | | | | +---------+ +--------+-------+---+ | New Bag | 01/21/20 | | 125 | | | | 15 7:38 | | mL/hr | | | | AM PDT | | | | +---------+ +--------+-------+---+ +---+---+ | | | +---+---+ + +---------+ +--------+ +---+ | sodium chloride 0.9% (NS) | New Bag | 01/23/20 | 1,000 | 50 mL/hr | | | infusion at 50 mL/hr, | | 15 4:37 | mLs | | | | Intravenous, CONTINUOUS, Starting | | PM PDT | | | | | 01/21/15 at 1545 | | | | | | + +---------+ +--------+ +---+ + + +---+ +---+ | New Bag | 01/22/20 | | 50 mL/hr | | | | 15 8:05 | | | | | | PM PDT | | | | + + +---+ +---+ | Rate/Dose Change | 01/22/20 | | 50 mL/hr | | | | 15 4:00 | | | | | | PM PDT | | | | + + +---+ +---+ +---+---+ | | | +---+---+ documented in this encounter
--- OUTSIDE RECORDS SUMMARY | ~2019-07-02 | XMS | Encounter Summary ---
Demographics + + + | Address | [address] [facility] [address] | | | [place] [address] | + + + | Home Phone | | + + + | Preferred Language | Unknown | + + + | Marital Status | Single | + + + | Jewish Affiliation | Unknown | + + + | Race | Unknown | + + + | Ethnic Group | Unknown | + + + Author + + + | Author | [facility] | | | and [place] | + + + | Organization | [facility] | | | and [...] [place] | | | | | [address] | | + + + + + Care Team Providers + +------+ + | Care Carbide Die Maker Name | Role | Phone | + +------+ + | Stefano Padgett PA-C | PCP | | + +------+ + Encounter Details +--------+ + + + + | Date | Type | Department | Care Team | Description | +--------+ + + + + | 05/31/ | Orders Only | [facility] [place] | Fam Bonds, | Spinal stenosis, | | 2013 | | NEUROSURGERY [address] | DO [address] | lumbar region, | | | | [address] | [address] [place] | without neurogenic | | | | [place], [place] | [address] | claudication | | | | [address] | | (Primary Dx); Spinal | | | | [phone] | | stenosis, lumbar | | | | | | region, with | | | | | | neurogenic | | | | | | claudication; | | | | | | Thoracic or | | | | | | lumbosacral neuritis | | | | | | or radiculitis, | | | | | | unspecified | +--------+ + + + + Social [...] | 07/04/ | Office | Gastroenterology | [facility], | | | 2019 | Visit | | GILMA Alexander [address] | | | | | | [address] | | | | | | [place] | | | | | | [address] | | | | | | | | +--------+---------+ + + + documented as of this encounter Visit Diagnoses + + | Diagnosis | + + | Spinal stenosis, lumbar region, without neurogenic claudication - Primary | + + | Spinal stenosis, lumbar region, with neurogenic claudication | + + | Thoracic or lumbosacral neuritis or radiculitis, unspecified | + + documented in this encounter"
--- OUTSIDE RECORDS SUMMARY | ~2019-07-02 | XMS | Encounter Summary ---
Demographics + + + | Address | [address] [facility] [address] | | | [place] [address] | + + + | Home Phone | | + + + | Preferred Language | Unknown | + + + | Marital Status | Single | + + + | Baptism Affiliation | Unknown | + + + | Race | Unknown | + + + | Ethnic Group | Unknown | + + + Author + + + | Author | [facility] | | | and [place] | + + + | Organization | [facility] | | | and [...] [place] | | | | | [address] | | + + + + + Care Team Providers + +------+ + | Care Radiation Protection Engineer Name | Role | Phone | + +------+ + | Yulia Gutierrez PA-C | PCP | | + +------+ + Encounter Details +--------+ + + + + | Date | Type | Department | Care Team | Description | +--------+ + + + + | 07/28/ | Orders Only | [facility] | Stefano Padgett, | | | 2017 | | CARDIOLOGY JOHN Felder PA-C [address] | | | | | [address] | [address] | | | | | [address] | [place] [address] | | | | | [place] | [phone] | | | | | [address] | | | | | | [phone] | | | +--------+ + + + [...] | 07/04/ | Office | Gastroenterology | [facility], | | | 2019 | Visit | | GILMA Alexander [address] | | | | | | [address] | | | | | | [place] | | | | | | [address] | | | | | | | | +--------+---------+ + + + documented as of this encounter Procedures + +--------+ + + + | Procedure Name | Priori | Date/Time | Associated Diagnosis | Comments | | | ty | | | | + +--------+ + + + | NM MYOCARDIAL | Routin | 07/28/2017 | | Results for this | | PERFUSION MULT SPECT | e | 11:41 AM | | procedure are in the | | | | PST | | results section. | + +--------+ + + + documented in this encounter Results NM Myocardial Perfusion Mult SPECT (07/28/2017 11:41 AM PST) + + | Specimen | + + | | + + + + + | Impressions | Performed At | + + + | This is a low-risk stress test. Carlene Perea MD, [facility], | | | | | + + + + + + | Narrative | Performed At | + + + | [facility] CARDIOLOGY [address], [place], [place] | | | [phone] NUCLEAR LEXISCAN-WALK STRESS TEST TEST DATE: | | | 07/27/2017 NAME: Steve Carpenter : 1960 | | | ORDERING MD: Stefano Padgett MD INDICATION FOR TEST: 57 year | | | old male being evaluated for Chest pain on exertion RISK FACTORS: | | | Hypertension, hyperlipidemia, obesity, history of tobacco abuse | | | PROCEDURE: 34.1 mCi of 99m Tc Cardiolite was given intravenously for | | | rest images. The patient received 0.4 mg of Lexiscan given | | | intravenously over 10 seconds. At 00:35 seconds 36.0 mCi of 99m Tc | | | Cardiolite was given intravenously for stress images, and mg of | | | aminophylline intravenously for post infusion. Patient walked on the | | | treadmill for three minutes at 1.0 mph during the test. Effective Dose | | | Equivalent: 36.5 mSv. REST DATA: HR: 83 bpm BP: 148/96. Resting | | | EKG showed sinus rhythm with no significant changes. STRESS DATA: | | | Peak heart rate 125 bpm, Peak BP: 216/84. Symptoms shortness of | | | breath, lightheaded Stress EKG showed sinus rhythm with no significant | | | ST abnormalities. EJECTION FRACTION: Rest EF: 53% Stress EF: 56% | | | IMAGIN. The quality of the study is increased liver uptake | | | as well as intestinal uptake. 2. SPECT images showed no significant | | | perfusion abnormality seen. (SSS: 0 SRS: 0 SDS: 0 TID: 0.89). 3. | | | Gated SPECT images showed normal wall motions. 4. Gated SPECT | | | images showed normal wall thickening. 5. The RV is not seen 6. | | | There is no previous test to compare with. | | + + + + + | Procedure Note | + + | Kyle, Rad Conversion - 03/08/2019 4:46 PM [facility] [id number] | | , [address], [place], [phone] NUCLEAR LEXISCAN-WALK STRESS TESTTEST DATE: | | 07/27/2017NAME: Steve CarpenterDOB: 1960MRN: [id number] MD: Stefano Bowers | | MD Lorin INDICATION FOR TEST: 57 year old male being evaluated for Chest pain on | | exertion RISK FACTORS: Hypertension, hyperlipidemia, obesity, history of tobacco abuse | | PROCEDURE: 34.1 mCi of 99m Tc Cardiolite was given intravenously for rest images. The | | patient received 0.4 mg of Lexiscan given intravenously over 10 seconds. At 00:35 | | seconds 36.0 mCi of 99m Tc Cardiolite was given intravenously for stress images, and mg | | of aminophylline intravenously for post infusion. Patient walked on the treadmill for | | three minutes at 1.0 mph during the test. Effective Dose Equivalent: 36.5 mSv. REST | | DATA: HR: 83 bpm BP: 148/96. Resting EKG showed sinus rhythm with no significant | | changes. STRESS DATA: Peak heart rate 125 bpm, Peak BP: 216/84. Symptoms shortness of | | breath, lightheaded Stress EKG showed sinus rhythm with no significant ST abnormalities. | | EJECTION FRACTION: Rest EF: 53% Stress EF: 56% IMAGIN. The quality of the study is | | increased liver uptake as well as intestinal uptake.2. SPECT images showed no | | significant perfusion abnormality seen. (SSS: 0 SRS: 0 SDS: 0 TID: 0.89).3. Gated | | SPECT images showed normal wall motions.4. Gated SPECT images showed normal wall | | thickening.5. The RV is not seen6. There is no previous test to compare with. | | IMPRESSION: This is a low-risk stress test. Carlene Perea MD, FACC, Electronically | | signed by Carlene Perea MD on 07/30/2017 3:40 PM | | | |STRESS DATA: Peak heart rate 125 bpm, Peak BP: 216/84. Symptoms shortness of breath, lighth eaded Stress EKG showed sinus rhythm with no significant ST abnormalities. | | | |EJECTION FRACTION: Rest EF: 53% Stress EF: 56% | | | |IMAGING: | |1. The quality of the study is increased liver uptake as well as intestinal uptake. | |2. SPECT images showed no significant perfusion abnormality seen. (SSS: 0 SRS: 0 SDS: 0 T ID: 0.89). | |3. Gated SPECT images showed normal wall motions. | |4. Gated SPECT images showed normal wall thickening. | |5. The RV is not seen | |6. There is no previous test to compare with. | | | |IMPRESSION: | |This is a low-risk stress test. | | | | | |Carlene Perea MD, [facility], | | | | | + + documented in this encounter Visit Diagnoses Not on filedocumented in this encounter"
--- OUTSIDE RECORDS SUMMARY | ~2019-07-02 | XMS | Encounter Summary ---
Demographics + + + | Address | [address] [facility] [address] | | | [place] [address] | + + + | Home Phone | | + + + | Preferred Language | Unknown | + + + | Marital Status | Single | + + + | Yarsanism Affiliation | Unknown | + + + | Race | Unknown | + + + | Ethnic Group | Unknown | + + + Author + + + | Author | [facility] | | | and [place] | + + + | Organization | [facility] | | | and [place] [...] [place] | | | | | [address] | | + + + + + Care Team Providers + +------+ + | Care Performance Makeup Artist Name | Role | Phone | + +------+ + | Lisa Morrow MD | PCP | | + +------+ + Reason for Visit +--------+ + | Reason | Comments | +--------+ + | Other | discuss injection | +--------+ + Encounter Details +--------+ + + + + | Date | Type | Department | Care Team | Description | +--------+ + + + + | 08/22/ | Telephone | [facility] [place] | Mey De Santiago, | Other (discuss | | 2013 | | PHYSIATRY [address] | ACID SUPERVISOR | injection) | | | | [place], | | | | | | [place] [address] | | | | | | [phone] | | | +--------+ + + + [...] | 07/04/ | Office | Gastroenterology | [facility], | | | 2019 | Visit | | GILMA Alexander [address] | | | | | | [address] | | | | | | [place] | | | | | | [address] | | | | | | | | +--------+---------+ + + + documented as of this encounter Visit Diagnoses Not on filedocumented in this encounter"
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
--- OUTSIDE RECORDS SUMMARY | ~2019-07-02 | XMS | Encounter Summary ---
Demographics + + + | Address | [address] [facility] [address] | | | [place] [address] | + + + | Home Phone | | + + + | Preferred Language | Unknown | + + + | Marital Status | Single | + + + | Catholic Affiliation | Unknown | + + + | Race | Unknown | + + + | Ethnic Group | Unknown | + + + Author + + + | Author | [facility] | | | and [place] | + + + | Organization | [facility] | | | and [place] [...] [place] | | | | | [address] | | + + + + + Care Team Providers + +------+ + | Care Accounting System Expert Name | Role | Phone | + +------+ + | Lisa Morrow MD | PCP | | + +------+ + Encounter Details +--------+ + + + + | Date | Type | Department | Care Team | Description | +--------+ + + + + | 10/08/ | Abstract | [facility] [place] | Fam Bonds, | Arthritis (Primary | | 2013 | | [address]UROSURGERY [address] | DO [address] | Dx); Acid reflux | | | | [address] | [address] [place], [place] | | | | | [place], [place] | [address] | | | | | [address] | | | | | | [phone] | | | +--------+ + + + [...] | 07/04/ | Office | Gastroenterology | [facility], | | | 2019 | Visit | | GILMA Alexander [address] | | | | | | [address] | | | | | | [place] | | | | | | [address] | | | | | | | | +--------+---------+ + + + documented as of this encounter Visit Diagnoses + + | Diagnosis | + + | Arthritis - Primary Arthropathy, unspecified, site unspecified | + + | Acid reflux Esophageal reflux | + + documented in this encounter"
--- OUTSIDE RECORDS SUMMARY | ~2019-07-02 | XMS | Encounter Summary ---
Demographics + + + | Address | [address] [facility] [address] | | | [place] [address] | + + + | Home Phone | | + + + | Preferred Language | Unknown | + + + | Marital Status | Single | + + + | Lutheran Affiliation | Unknown | + + + | Race | Unknown | + + + | Ethnic Group | Unknown | + + + Author + + + | Author | [facility] | | | and [place] | + + + | Organization | [facility] | | | [...] [place] | | | | | [address] | | + + + + + Care Team Providers + +------+ + | Care Tube Coremaker Name | Role | Phone | + +------+ + | Stefano Padgett PA-C | PCP | | + +------+ + Reason for Visit + + + | Reason | Comments | + + + | Imaging Only | 6m PO Xrays | + + + Encounter Details +--------+ + + + + | Date | Type | Department | Care Team | Description | +--------+ + + + + | 11/25/ | Telephone | [facility] [place] | Fam Bonds, | Imaging Only (6m PO | | 2015 | | NEUROSURGERY [address] | DO [address] | Xrays ) | | | | [address] | [address] [place], [place] | | | | | [place], [place] | [id number] | | | | | [address] | | | | | | [phone] | | | +--------+ + + + [...] | 07/04/ | Office | Gastroenterology | [facility] | | 2019 | Visit | | GILMA Alexander [address] | | | | | | [address] | | | | | | [place] | | | | | | [address] | | | | | | | | +--------+---------+ + + + documented as of this encounter Visit Diagnoses Not on filedocumented in this encounter"
--- OUTSIDE RECORDS SUMMARY | ~2019-07-02 | XMS | Encounter Summary ---
Demographics + + + | Address | [address] [facility] | | | [place] [address] | + + + | Home Phone [...] | Author | [facility] | | | and [place] | + + + | Organization | [facility] | | | and [place] [...] [place] | | | | | [address] | | + + + + + Care Team Providers + +------+ + | Care Phlebotomy Lab Assistant Name | Role | Phone | + +------+ + | Lisa Morrow MD | PCP | | + +------+ + Encounter Details +--------+ + + + + | Date | Type | Department | Care Team | Description | +--------+ + + + + | 08/15/ | Hospital | [facility] | Quirino Warren | | | 2013 | Encounter | MED CTR XRAY [address] | | | | | [place] | [address] [place], [place] | | | | | [place] [address] | [address] | | | | | [phone] | | | +--------+ + + + [...] | | | | | ([facility]), Chronic | | | | | | | kidney disease, | | | | | | | stage III (moderate) | | | | | | | ([facility]), Type II or | | | [...] | | | | | ([facility]), | | | | | | [...] | 07/04/ | Office | Gastroenterology | [facility], | | | 2019 | Visit | | GILMA Alexander [address] | | | | | | [address] | | | | | | [place] | | | | | | [address] | | | | | | | | +--------+---------+ + + + documented as of this encounter Procedures + +--------+ + + + | Procedure Name | Priori | Date/Time | Associated Diagnosis | Comments | | | ty | | | | + +--------+ + + + | FL EPIDURAL OR | Routin | 08/15/2013 | | Results for this | | SUBARACHNOID | e | 6:07 PM | | procedure are in the | | INJECTION LUMBAR | | PST | | results section. | | SACRAL | | | | | + +--------+ + + + documented in this encounter Results FL Injection Epidural Lumbar Sacral (08/15/2013 6:07 PM PST) + + | Specimen | + + | | + + + + + | Narrative | Performed At | + + + | [facility] | [place] | | Department [address] [facility], [place] | [facility] | | [ rep [address]] [ rep ct [facility] | | st zip] Signed | - IMAGING | | | | | Patient Name: STEVE POOLE Physician: | | | CASI. : 1960 Age: 53 Sex: M Unit #: [id number] | | | Exam Date: 08/15/13 Location: [facility] | | | Report #: [id number] Page: | | | %(RAD)RES..mtdd.print.filter("pg") of %(RAD) | | | RES..mtdd.print.filter("tpg") | | | | | | Accession Number: [id number] | | | 08/15/2013, EPIDURAL STEROID INJECTIONS CLINICAL HISTORY: | | | ICD-9 CODE IS 724.4, LUMBAR RADICULOPATHY. Mr. Wilson | | | Jayden presents to the fluoroscopy suite for fluoroscopically guided | | | bilateral L5-S1 transforaminal epidural steroid injections as part | | | of conservative management for chronic pain with lumbar | | | radiculopathy and degenerative disk disease. After informed consent | | | was obtained the patient laid in the prone position on the | | | fluoroscopy table. The areas were identified under fluoroscopic | | | guidance. The areas were prepped and draped in a sterile fashion. | | | A 25-gauge 1-1/2 inch needle was inserted into each region and | | | approximately 3 mL of buffered 1% lidocaine was infused. Then a 22- | | | gauge spinal needle was inserted into the posterior superior | | | transforaminal space bilaterally and advanced into the epidural | | | space under fluoroscopic guidance. Confirmation into the epidural | | | space was obtained with the infusion of approximately 1 mL of Isovue | | | contrast which showed epidural flow as well as nerve sheath flow. | | | Then a combination of 2 mL of 1% lidocaine and 2 mL of 6 mg per | | | milliliter Celestone was infused divided between the 2-sides. The | | | patient tolerated the procedure well without complications. | | | Pre-procedure and postprocedure blood pressures were stable. The | | | patient was given verbal as well as written followup instructions. | | | Prior to the start of the procedure the following were | | | performed and verified including correct patient identity, correct | | | site/side marked and visible, agreement of the procedure to be done, | | | correct patient positioning and an accurate procedure consent form. | | | Any safety precautions based on clinical history and/or medication | | | use have been addressed. I personally performed the | | | procedure above. Dictated Date/Time: 08/15/2013 18:07 | | | Transcribed Date/Time: 08/15/2013 18:11 Performance Test Consultant: | | | <<Signature on File>> | | | Quirino T | | | MD Briana08/28/131815 <Electronically signed by Quirino Baker | | | Briana FRANCIS> Quirino Warren MD 08/15/131806 | | | Performance Test Consultant: Radha Olguin08/15/131810 | | | | | + + + + + + + + | Performing | Address | City/State/Zipcode | Phone Number | | Organization | | | | + + + + + | [address] | [address] | [place] | [phone] | | [facility] | | [address] | | | - IMAGING | | | | + + + + + documented in this encounter Visit Diagnoses Not on filedocumented in this encounter
--- OUTSIDE RECORDS SUMMARY | ~2019-07-02 | XMS | Encounter Summary ---
Demographics + + + | Address | [address] [facility] [address] | | | [place] [address] | + + + | Home Phone [...] + + + | Author | [facility] | | | and [place] | + + + | Organization | [facility] | | | and [place] | [...] [place] | | | | | [address] | | + + + + + Care Team Providers + +------+ + | Care Junction Maker Name | Role | Phone | [...] [address] | [address] [place] | without neurogenic | | | | [place], [place] | [address] | claudication | | | | [address] | | (Primary Dx); Spinal | | | | [phone] | | stenosis, lumbar | | | [...] | 07/04/ | Office | Gastroenterology | [facility], | | | 2019 | Visit | | GILMA Alexander [address] | | | | | | [address] | | | | | | [place] | | | | | | [address] | | | | | | | [...]
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
--- OUTSIDE RECORDS SUMMARY | ~2019-07-02 | XMS | Encounter Summary ---
Demographics + + + | Address | [address] | | | [place] [address] | + + + | Home Phone [...] + | Organization | [facility] [place] [...] [place] | | | | | [address] | | + + + + + Care Team Providers + +------+ + | Care Furnace Filler Name | Role | Phone | + +------+ + | Lisa Morrow MD | PCP | | + +------+ + Encounter Details +--------+ + + + + | Date | Type | Department | Care Team | Description | +--------+ + + + + | 01/01/ | Off-Site | [facility] [place] | [facility] | Acute kidney failure | | 2012 | Visit | NEPHROLOGY [address] | M, DO [address] | with lesion of | | | | [address] | [place] | tubular necrosis | | | | [place], [place] | [place], [place] | (HCC) (Primary Dx); | | | | [address] | [address] | Chronic kidney | | | | [phone] | | disease, stage III | | | | | | (moderate); Type II | | | | | | or unspecified type | | | | | | diabetes mellitus | | | | | | with renal | | | | | | manifestations, not | | | | | | stated as | | | | | | uncontrolled ([facility]); | | | | | | Hypertriglyceridemia | +--------+ + + + + Social [...] + + + | Blood Pressure | 160/90 | 01/01/2013 5:09 PM | | | | | PDT | | + + + + + | Pulse | - | - | | + + + + + | Temperature | 36.9 C (98.4 F) | 01/01/2013 5:09 PM | | | | | PDT [...] + + + + | Weight | 145 kg (319 lb 10.7 | 01/01/2013 5:09 PM | | | | oz) | PDT | | + + + + + | Height | - | - | | + + + + + | Body Mass Index | - | - | | + + + + + documented in this encounter Progress Notes Aida Almazan DO - 01/01/2013 5:12 PM PDT Subjective: NEPHROLOGY Patient ID: Steve Carpenter is a 52 y.o. male. HPI Comments: Post hospital follow up for this pleasant, 52 year old Male erum serrano was recently DC'd from [facility] with non-oliguric, ANGELES, right lower extremity cellulitis, Ty pe II DM, and metabolic acidosis secondary to ANGELES. He fortunately improved with time, suppo rtive care, and bicarb. Rx. Luckily, he did not require dialysis, due to prompt return of a generous urine output. He was discharged on 12/18/12, with a Scr of 9.3 mg/dl. It had pea ked at 10.7 mg/dl, and last week is down to 1.68 mg/dl. His leg swelling and erythema have resolved. He also has probable MARY JANE, venous stasis at his left lower extremity, essential hypertension , Type 2 DM, morbid obesity, and hypertriglyceridemia. He states that he feels well today.S PEP was negative last admission, and renal US was negative for obstruction. Outpatient Prescriptions Marked as Taking for the 01/01/13 encounter (Off-Site Visit) with Danielito Almazan DO Medication Sig Dispense Refill acetaminophen-codeine (TYLENOL #3) 300-30 mg per tablet Take 1 tablet by mouth Twice d aily as needed for Pain. 30 tablet 0 cloNIDine (CATAPRES) 0.3 mg/[address] 1 patch onto the skin Once a week. 4 patch gabapentin (NEURONTIN) 300 mg capsule Take 1 capsule by mouth nightly. 30 capsule 11 Multiple Vitamin Essential TABS Take 1 tablet by mouth Daily. 0 ranitidine (ZANTAC) 300 MG tablet Take 1 tablet by mouth Daily. 60 tablet 6 No Known Allergies Review of Systems Objective: Blood pressure 160/90, temperature 36.9 C (98.4 F), weight 145 kg (319 lb 10.7 oz). Physical Exam Heart: Regular rate and rhythm with no S3, S4, murmur or rub. Lungs: CTA bilaterally. No rales or wheezes. Abdomen: Soft, flat, nontender, normoactive bowel sounds. Extremities: Trace edema , much decreased, no clubbing, no asterixis, no erythema. LAB: BUN 24, Cr 1.68, K+ 4.0, HCO3 24, Glu 90, H/H = 12.3/36.2 . Assessment: 1. S/p ANGELES, in setting of background CKD, likely secondary to diabetic nephropathy, and hy pertensive nephrosclerosis? Scr is steadily falling. 2. Hypertension--will not pursue "tight' Rx until Scr fully nadirs. 3. Type 2 DM--stable with diet Rx. 4. Cellulitis--resolved. Although, he is at risk for it again in future with his height, weight. 5. MARY JANE/morbid obesity--same. 6. Hepatitis C--transaminases have bene stable recently. 7. Hypertriglyceridemia--may need addition agent? Plan: 1. I recommended to Bill that he try walking at least 30 min. daily. Also, that he should consider giving up red meat, except for elk meat, fish, and skinless chicken. 2. Will observe his BP further, until it is completely clear where the Scr will janette? I told him to check his BP frequently, and if >180/90, he will start Lisinopril 5mg, daily, wh ich is helpful in all forms of CKD, especially diabetic nephropathy. 3. He will DC the weekly blood draws. 4. Will plan to see him back at the [facility] [place], on 02/12/13, at 12 Noon. He will have an H/H, Renal panel, iPTH, Hbaic, one week before. 5. If his BP significantly worsens to >180/90 mmHg, in the interim, will have him begin th e Lisinopril sooner, to optimize his BP. 6. Regarding his triglycerides, and probable hyperlipidemia, I asked him to begin Fish oil , 1g capsules, 1, PO , TID. CC: Lisa Morrow MD, [facility]. documented in th is encounter Plan of Treatment +--------+---------+ + + + | Date | Type | Specialty | Care Team | Description | +--------+---------+ + + + | 07/04/ | Office | Gastroenterology | [facility], | | | 2019 | Visit | | [address]ILMA [address] | | | | | | [address] | | | | | | [place], [place] | | | | | | [address] | | | | | | | | +--------+---------+ + + + documented as of this encounter Visit Diagnoses + + | Diagnosis | + + | Acute kidney failure with lesion of tubular necrosis ([facility]) - Primary Acute kidney | | failure with lesion of tubular necrosis | + + | Chronic kidney disease, stage III (moderate) ([facility]) Chronic kidney disease, Stage III | | (moderate) | + + | Type II or unspecified type diabetes mellitus with renal manifestations, not stated as | | uncontrolled(250.40) ([facility]) Type II or unspecified type diabetes mellitus with renal | | manifestations, not stated as uncontrolled | + + | Hypertriglyceridemia Pure hyperglyceridemia | + + documented in this encounter
--- OUTSIDE RECORDS SUMMARY | ~2019-07-02 | XMS | Encounter Summary ---
Demographics + + + | Address | [address] | | | [place] [address] | + + + | Home Phone | | + + + | Preferred Language | Unknown | + + + | Marital Status | Single | + + + | Baptist Affiliation | Unknown | + + + | Race | Unknown | + + + | Ethnic Group | Unknown | + + + Author + + + | Author | [facility] [place] | | | and [place] | + + + | Organization | [facility] [place] | | | and [place] [...] [place] | | | | | [address] | | + + + + + Care Team Providers + +------+ + | Care Ear Flap Binder Name | Role | Phone | + [...] | 11/25/ | Telephone | [facility] [place] | [facility], | Imaging Only ([address] | | 2015 | | NEUROSURGERY [address] | DO [address] | Xrays ) | | | | [address] | [address] [place], [place] | | | | | [place], [place] | [id number] | | | | | [address] | | | | | | [phone] | | | +--------+ + + + [...] | 07/04/ | Office | Gastroenterology | [facility] | | 2019 | Visit | | GILMA [address] | | | | | | [address] | | | | | | [place] | | | | | | [id number] | | | | | | | | +--------+---------+ + + + documented as of this encounter Visit Diagnoses Not on filedocumented in this encounter"
--- OUTSIDE RECORDS SUMMARY | ~2019-07-02 | XMS | Encounter Summary ---
Demographics + + + | Address | [address] [facility] | | | [place] [address] | + + + | Home Phone [...] | Organization | [facility] [place] [...] [address] | | | | | [place] | | | | | [address] | | + + + + + Care Team Providers + +------+ + | Care Prepress Technician Name | Role | Phone | [...] 2013 | | PHYSIATRY [address] | SCREW MACHINE OPERATOR | injection) | | | | [place], | | | | | | [place] [address] | | | | | | [phone] | | | +--------+ + + + [...] | 07/04/ | Office | Gastroenterology | [facility], | | | 2019 | [...]
--- OUTSIDE RECORDS SUMMARY | ~2019-07-02 | XMS | Encounter Summary ---
Demographics + + + | Address | [address] [facility] [address] | | | [place] [address] | + + + | Home Phone | | + + + | Preferred Language | Unknown | + + + | Marital Status | Single | + + + | Lutheran Affiliation | Unknown | + + + | Race | Unknown | + + + | Ethnic Group | Unknown | + + + Author + + + | Author | [facility] | | | and [place] | + + + | Organization | [facility] | | | and [...] [place] | | | | | [address] | | + + + + + Care Team Providers + +------+ + | Care Heddler Tier Name | Role | Phone | + +------+ + | Stefano Padgett PA-C | PCP | | + +------+ + Reason for Visit +--------+ + | Reason | Comments | +--------+ + | Other | | +--------+ + Encounter Details +--------+ + + + + | Date | Type | Department | Care Team | Description | +--------+ + + + + | 02/07/ | Telephone | [facility] [place] | [facility], | Other | | 2015 | | NEUROSUR[address]ERY [address] | DO [address] | | | | | [address] | [address] [place], [place] | | | | | [place], [place] | [address] | | | | | [address] | | | | | | [phone] | | | +--------+ + + + [...] | 07/04/ | Office | Gastroenterology | [facility], | | 2019 | Visit | | GILMA Alexander [address] | | | | | | [address] | | | | | | [place] | | | | | | [id number] | | | | | | | | +--------+---------+ + + + documented as of this encounter Visit Diagnoses Not on filedocumented in this encounter"
--- OUTSIDE RECORDS SUMMARY | ~2019-07-02 | XMS | Encounter Summary ---
Demographics + + + | Address | [address] [facility] [address] | | | [place] [address] | + + + | Home Phone | | + + + | Preferred Language | Unknown | + + + | Marital Status | Single | + + + | Amish Affiliation | Unknown | + + + | Race | Unknown | + + + | Ethnic Group | Unknown | + + + Author + + + | Author | [facility] | | | and [place] | + + + | Organization | [facility] | | | and [place] [...] [place] | | | | | [address] | | + + + + + Care Team Providers + +------+ + | Care Mathematical Engineer Name | Role | Phone | + +------+ + | Stefano Padgett PA-C | PCP | | + +------+ + Reason for Visit +--------+ + | Reason | Comments | +--------+ + | Other | Patient called wondering why he had not heard back from the nurse | +--------+ + Encounter Details +--------+ + + + + | Date | Type | Department | Care Team | Description | +--------+ + + + + | 01/30/ | Telephone | [facility] | [place] | Other (Patient | | 2014 | | SURGERY [address] | MD Demi, FACS [address] | called wondering why | | | | [facility] [place] | [address] [facility] | he had not heard | | | | [address] | [facility] [place] [place] [place] [address] | back from the nurse) | | | | [phone] | [phone] | | | | | | | [...] [facility], | | | 2019 | Visit | | GILMA Alexander [address] | | | | | | [address] | | | | | | [place] | | | | | | [address] | | | | | | | | +--------+---------+ + + + documented as of this encounter Visit Diagnoses Not on filedocumented in this encounter"
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
--- OUTSIDE RECORDS SUMMARY | ~2019-07-02 | XMS | Encounter Summary ---
Demographics + + + | Address | [address] [facility] | | | [place] [address] | + + + | Home Phone | | + + + | Preferred Language | Unknown | + + + | Marital Status | Single | + + + | Mosque Affiliation | Unknown | + + + | Race | Unknown | + + + | Ethnic Group | Unknown | + + + Author + + + | Author | [facility] | | | and [place] | + + + | Organization | [facility] | | | and [...] [place] | | | | | [address] | | + + + + + Care Team Providers + +------+ + | Care Weed Science Research Technician Name | Role | Phone | [...] | | | up, food | PA-C [id number] | [address] | | | | | panel/self/Y | | [address] | | | | | claudia/Si | [address] | [place], | | | | | eders/LVM | [address] | [place] [address] | | | | | w/Mikhy at | [place], | Phone: | | | | | [facility] to | [place] [address] | [phone] | | | | | request auth | Phone: | Fax: | | | | | Spoke to | [phone] | [phone] | | | | | Mikhy at [facility] | Fax: | | | | | | and she | [phone] | | | | | | will [...] + + | 04/26/ | Office | [facility] | Garry Carias MD | Angioedema, sequela | | 2018 | Visit | OTOLARYNGOLOGY [address] | [address] [place] | (Primary Dx) | | | | [address] | [address] [place], | | | | | [place], [place] | [place] [address] | | | | | [address] | [phone] | | | | | [phone] | | | +--------+---------+ + + + [...] diary. If he has any medications or cfby-pbd-gfjntun medicines he needs to keep track of [...] [place] | | | | | | [address] | | | | | | | | +--------+---------+ + + + documented as of this encounter Visit Diagnoses + + | Diagnosis | + + | Angioedema, sequela - Primary | + + documented in this encounter"
--- OUTSIDE RECORDS SUMMARY | ~2019-07-02 | XMS | Encounter Summary ---
Demographics + + + | Address | [address] [facility] [address] | | | [place] [address] | + + + | Home Phone | | + + + | Preferred Language | Unknown | + + + | Marital Status | Single | + + + | Methodist Affiliation | Unknown | + + + | Race | Unknown | + + + | Ethnic Group | Unknown | + + + Author + + + | Author | [facility] | | | and [place] | + + + | Organization | [facility] | | | and [place] | [...] [place] | | | | | [address] | | + + + + + Care Team Providers + +------+ + | Care Visual C Developer Name | Role | Phone | + +------+ + | Stefano Padgett PA-C | PCP | | + +------+ + Reason for Visit +--------+ + | Reason | Comments | +--------+ + | Other | Patient stated he is returning Edin's call | +--------+ + Encounter Details +--------+ + + + + | Date | Type | Department | Care Team | Description | +--------+ + + + + | 01/30/ | Telephone | [facility] | [place] | Other (Patient | | 2015 | | SURGERY [address] | MD Demi, FACS [address] | stated he is | | | | [place], [place] | [facility] | returning Edin's | | | | [address] | [place] [address] | call) | | | | [phone] | [phone] | | | | | | | [...] | 07/04/ | Office | Gastroenterology | [facility] | | 2019 | Visit | | GILMA [place] [address] | | | | | | [address] | | | | | | [place] | | | | | | [address] | | | | | | | | +--------+---------+ + + + documented as of this encounter Visit Diagnoses Not on filedocumented in this encounter"
--- OUTSIDE RECORDS SUMMARY | ~2019-07-02 | XMS | Encounter Summary ---
Demographics + + + | Address | [address] [facility] [address] | | | [place] [address] | + + + | Home Phone [...] Organization | [facility] | | | and [place] [...] [place] | | | | | [address] | | + + + + + Care Team Providers + +------+ + | Care Game And Fish Protector Name | Role | Phone | + [...] [address] | [address] [place], [place] | | | | | [place], [place] | [address] | | | | | [address] | | | | | | [phone] | | | +--------+ + + + [...] | 07/04/ | Office | Gastroenterology | [facility], | | 2019 | Visit | | GILMA Alexander [address] | | | | | | [address] | | | | | | [place] | | | | | | [address] | | | | | | | | +--------+---------+ + + + documented as of this encounter Visit Diagnoses Not on filedocumented in this encounter"
--- OUTSIDE RECORDS SUMMARY | ~2019-07-02 | XMS | Encounter Summary ---
Demographics + + + | Address | [address] [facility] [address] | | | [place] [address] | + + + | Home Phone | | + + + | Preferred Language | Unknown | + + + | Marital Status | Single | + + + | Scientology Affiliation | Unknown | + + + | Race | Unknown | + + + | Ethnic Group | Unknown | + + + Author + + + | Author | [facility] | | | and [place] | + + + | Organization | [facility] [...] [place] | | | | | [address] | | + + + + + Care Team Providers + +------+ + | Care Metal Leaf Layer Name | Role | Phone | + +------+ + | Stefano Padgett PA-C | PCP | | + +------+ + Encounter Details +--------+ + + + + | Date | Type | Department | Care Team | Description | +--------+ + + + + | 10/22/ | Hospital | [facility] | Fam Bonds, | Back pain | | 2014 | Encounter | MED CTR XRAY [address] | DO [address] | | | | | [place] | [address] [place], [place] | | | | | [place] [address] | [address] | | | | | [phone] | | | +--------+ + + + [...] | | | | | | | ([facility]), Chronic | | | | | | | kidney disease, | | | | | | | stage III (moderate) | | | | | | | ([facility]), 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 | | | | | | | manifestations, not | | | | | | | stated as | | | | | | | uncontrolled(250.40) | | | | | | | ([facility]), | | | | | | | [...] | [facility], | | | 2019 | Visit | | GILMA Alexander [address] | | | | | | [address] | | | | | | [place] | | | | | | [address] | | | | | | | | +--------+---------+ + + + documented as of this encounter Procedures + +--------+ + + + | Procedure Name | Priori | Date/Time | Associated Diagnosis | Comments | | | ty | | | | + +--------+ + + + | XR LUMBAR SPINE 2 OR | Routin | 10/22/2013 | Back pain | Results for this | | 3 VW | e | 2:03 PM | | procedure are in the [...] + | MISCELLANEOUS LAB | | | [phone] | + +---------+ + + | MISCELANIOUS LAB | | | [phone] | + +---------+ + + documented in this encounter Visit Diagnoses + + | Diagnosis | + + | Back pain Backache, unspecified | + + documented in this encounter"
--- OUTSIDE RECORDS SUMMARY | ~2019-07-02 | XMS | Encounter Summary ---
Demographics + + + | Address | [address] [facility] [address] | | | [place] [address] | + + + | Home Phone | | + + + | Preferred Language | Unknown | + + + | Marital Status | Single | + + + | Spiritism Affiliation | Unknown | + + + | Race | Unknown | + + + | Ethnic Group | Unknown | + + + Author + + + | Author | [facility] | | | and [place] | + + + | Organization | [facility] | | | and [...] [place] | | | | | [address] | | + + + + + Care Team Providers + +------+ + | Care Director Foundation Name | Role | Phone | + +------+ + | Stefano Padgett PA-C | PCP | | + +------+ + Encounter Details +--------+ + + + + | Date | Type | Department | Care Team | Description | +--------+ + + + + | 02/07/ | Hospital | [facility] | [place] | Fracture of rib of | | 2015 | Encounter | MED CTR LULU XRAY | MD Demi, FACS [address] | right side, closed, | | | | [address] [place] | [address] [place] | initial encounter | | | | [place], [place] | [place] [address] | | | | | [address] | [phone] | | | | | [phone] | | | +--------+ + + + [...] | | Take 1-2 tablets by | 100 | 0 | 02/08/20 | | | HYDROcodone-acetamin | mouth every 6 hours | tablet | | 15 | 8 | | ophen (NORCO) 10-325 | as [...] tablets by | 60 | 0 | 01/31/20 | | | oxyCODONE-acetaminop | mouth every 4 hours | tablet | | 15 | 8 | | hen (PERCOCET) 5-325 | as needed for Pain. | | | | | | mg per tablet | | | | | | + + + +---------+ + + | | Take 1-2 tablets by | 60 | 0 | 04/29/ | | | oxyCODONE-acetaminop | mouth every 4 hours | tablet | | 14 | 8 | | hen (PERCOCET) 5-325 | as needed for Pain. | | | | | | mg per tablet | | | | | | + + + +---------+ + + | | Take 1-2 tablets by | 60 | 0 | 04/29/ | | | oxyCODONE-acetaminop | mouth every [...] 07/04/ | Office | Gastroenterology | [facility], | | | 2019 | Visit | | GILMA Alexander [address] | | | | | | [address] | | | | | | [place] | | | | | | [address] | | | | | | | | +--------+---------+ + + + documented as of this encounter Procedures + +--------+ + + + | Procedure Name | Priori | Date/Time | Associated Diagnosis | Comments | | | ty | | | | + +--------+ + + + | XR CHEST PA AND | Routin | 02/07/2015 | Fracture of rib of | Results for this | | LATERAL | e | 12:41 PM | right side, closed, | procedure are in the | | | | PDT | initial encounter | results section. | + +--------+ + + + documented in this encounter Results XR Chest PA and Lateral (02/07/2015 12:41 PM PDT) + + | Specimen | + + | | + + + + + | Narrative | Performed At | + + + | TWO-VIEW CHEST: 02/07/2015 12:36 PM CLINICAL HISTORY: follow up | [facility] | | right rib fractures COMPARISON: 01/21/2015 FINDINGS: Heart size | . [facility] | | is normal. Aorta and pulmonary [...] cardiopulmonary abnormality. Dictated and Signed by: Farrukh | | | MD Roney Electronically signed: 02/07/2015 [...] + | [address] | [address] | [place] | [phone] | | [facility] | | [address] | | | - IMAGING | | | | + + + + + documented in this encounter Visit Diagnoses + + | Diagnosis | + + | Fracture of rib of right side, closed, initial encounter | + + documented in this encounter"
--- OUTSIDE RECORDS SUMMARY | ~2019-07-02 | XMS | Encounter Summary ---
Demographics + + + | Address | [address] [facility] [address] | | | [place] [address] | + + + | Home Phone | | + + + | Preferred Language | Unknown | + + + | Marital Status | Single | + + + | Mormonism Affiliation | Unknown | + + + | Race | Unknown | + + + | Ethnic Group | Unknown | + + + Author + + + | Author | [facility] | | | and [place] | + + + | Organization | [facility] | | [...] [place] | | | | | [address] | | + + + + + Care Team Providers + +------+ + | Care Airfield Services Officer Name | Role | Phone | + +------+ + | Stefano Padgett PA-C | PCP | | + +------+ + Reason for Visit + + + | Reason | Comments | + + + | Medication Refill | | + + + Encounter Details +--------+--------+ + + + | Date | Type | Department | Care Team | Description | +--------+--------+ + + + | 07/03/ | Refill | [facility] [place] | Fam Bonds, | Medication Refill | | 2013 | | NEUROSURGERY [address] | DO [address] | | | | | [address] | [address] [place], [place] | | | | | [place], [place] | [id number] | | | | | [address] | | | | | | [phone] | | | +--------+--------+ + + + Social History + + [...] | 07/04/ | Office | Gastroenterology | [facility], | | | 2019 | Visit | | GILMA Alexander [address] | | | | | | [address] | | | | | | [place] | | | | | | [address] | | | | | | | | +--------+---------+ + + + documented as of this encounter Visit Diagnoses + + | Diagnosis | + + | Status post lumbar spinal fusion - Primary Arthrodesis status | + + documented in this encounter"
--- OUTSIDE RECORDS SUMMARY | ~2019-07-02 | XMS | Encounter Summary ---
Demographics + + + | Address | [address] [facility] [address] | | | [place] [address] | + + + | Home Phone | | + + + | Preferred Language | Unknown | + + + | Marital Status | Single | + + + | Congregation Affiliation | Unknown | + + + | Race | Unknown | + + + | Ethnic Group | Unknown | + + + Author + + + | Author | [facility] | | | and [place] | + + + | Organization | [facility] | | | and [place] [...] [place] | | | | | [address] | | + + + + + Care Team Providers + +------+ + | Care Statistical Analyst Name | Role | Phone | [...] | | | | | | | SC | | | | | | | ARTHRODESIS | | | | | | | POSTERIOR/PO | | | | | | | STEROLATERAL | | | | | | | LUMBAR SC | | | | | | | LUMBAR SPINE | | | | | | | | | | | | | | FUSION,ANTER | | | | | | | APPRCH SC | | | | | | | APPLICATION | | | | | | | INTERVERTEBR | | | | | | | AL | | | | | | | BIOMECHANICA | | | | | | | L DEVICE SC | | | | | | | SPINE | | | | | | | FUSN,POST | | | | | | | TECH,EA | | | | | | | ADDNL SGMT | | | | | | | SC SPINAL | | | | | | | FUSION,ANT,E | | | | | | | A ADNL LEVEL | | | | | | | SC | | | | | | | [...] | | | | | | SEG SC | | | | | | | [...] | | | | | | SEG SC | | | | | | | LAMINEC/FACE | | | | | | | TECT/FORAMIN | | | | | | | ,EACH ADDNL | | | | | | | SC ARTHDSIS | | | | | | [...] | | | | | | SEG SC | | | | | | | [...] + + | 04/09/ | Hospital | [facility] | Fam Bonds, | | | 2013 - | Encounter | MED CTR SURGICAL | DO [address] | | | | | [address] [place] | [address] [place] | | | 04/15/ | | [place] [address] | [id number] | | | 2013 | | [phone] | | | +--------+ + + + [...] instructions. Medications: Steve Carpenter Home Medication Instructions JOAQUIN:[id number] Printed on:04/15/14 5348 Medication Information Cyclobenzaprine HCl (FLEXERIL PO) Take 2 tablets by mouth nightly. budesonide-formoterol (SYMBICORT) 160-4.5 mcg/puff inhaler Inhale 2 puffs into the lungs 2 times daily. GOLDEN Guzmán, [facility] Cholecalciferol (VITAMIN D3) 5000 UNITS CAPS [...] prophylaxis -DC plan: uncertain. DC home with [facility] today. Fam Cortez DO - 04/14/2014 [...] like to "be closer to home" in [place]. Informed patient that insurance w ould need [...] is requesting a short s nathaly at [facility] in [place] if possible. Objective Filed Vitals: 04/12/14 0505 [...] - IPR versus SNF. He is requesting [facility] if not accep baltazar to IPR. Mary [...] follow progress. Thank you for this referral. aKlyan Marquez nically signed by Mary Pradhan RN [...] GOLDEN Velazquez - 04/10/2014 7:30 AM PDT [facility] PROGRESS NOTE Pt. Name/Age/: Steve Carpenter 53 y.o. 1960 Med. Record Number: [id number] Date of admission: 04/09/2014 Subjective: The patient [...] Plan. Start oxycontin. Mobilize. Wean and DC CERTIFIED SURGICAL TECH/FIRST ASSISTANT Electronically signed by: Carson Alegria, 04/10/2014 7:31 [facility] documented in th is encounter Plan of Treatment +--------+---------+ + + + | Date | Type | Specialty | Care Team | Description | +--------+---------+ + + + | 07/04/ | Office | Gastroenterology | [facility], | | | 2018 | Visit | | GILMA Alexander [address] | | | | | | [address] | | | | | | [place] | | | | | | [address] | | | | | | | [...] + | MISCELLANEOUS LAB | | | [phone] | + +---------+ + + | MISCELANIOUS LAB | | | [phone] | + +---------+ + + POC Glucose [...] + | [facility] | [address] | [place] | [phone] | | [facility] | | [address] | | | - LABORATORY | | | | + + + + + | [facility] | [address] | [place] | | | [facility] | | [address] | | | - LABORATORY | | [...] + | [address] [facility] | [address] | [place] | [phone] | | [facility] | | [address] | | | - LABORATORY | | | | + + + + + | [address] [facility] | [address] | [place] | | | [facility] | | [address] | | | - LABORATORY | | [...] + | [address] | [address] | [place], [place] | | | [facility] | | [address] | | | - BLOOD BANK | [...] AM PDT | | | | | [facility] 04/11/14 at 0615, For 4 doses | [...] | | | | (DILAUDID) 1 mg/mL CERTIFIED SURGICAL TECH/FIRST ASSISTANT | | 14 10:33 | | | [...] | | | | Dose(mg): 0, Starting CERTIFIED SURGICAL TECH/FIRST ASSISTANT | | | | | | | Dose(mg): 0.2, Incremental | | | | | | | Increase CERTIFIED SURGICAL TECH/FIRST ASSISTANT Dose(mg): 0.1, | | | | | | | Maximum CERTIFIED SURGICAL TECH/FIRST ASSISTANT Dose(mg): 0.4, | | | | | [...] | | | | | modification) on [facility] 04/11/14 at | | | | | [...]
--- OUTSIDE RECORDS SUMMARY | ~2019-07-02 | XMS | Encounter Summary ---
Demographics + + + | Address | [address] [facility] [address] | | | [place] [address] | + + + | Home Phone | | + + + | Preferred Language | Unknown | + + + | Marital Status | Single | + + + | Mormon Affiliation | Unknown | + + + | Race | Unknown | + + + | Ethnic Group | Unknown | + + + Author + + + | Author | [facility] | | | and [place] | + + + | Organization | [facility] | | | and [place] [...] [place] | | | | | [address] | | + + + + + Care Team Providers + +------+ + | Care Lead Technician Name | Role | Phone | + +------+ + | Lisa Morrow MD | PCP | | + +------+ + Encounter Details +--------+ + + + + | Date | Type | Department | Care Team | Description | +--------+ + + + + | 12/28/ | Abstract | [facility] [place] | [facility] | | | 2012 | | NEPHROLOGY [address] | M, DO [address] | | | | | [address] | [place] | | | | | [place], [place] | [place], [place] | | | | | [address] | [address] | | | | | [phone] | | | +--------+ + + + [...] 07/04/ | Office | Gastroenterology | [facility], | | | 2019 | Visit | | GILMA Alexander [address] | | | | | | [address] | | | | | | [place] | | | | | | [address] | | | | | | | | +--------+---------+ + + + documented as of this encounter Procedures + +--------+ + + + | Procedure Name | Priori | Date/Time | Associated Diagnosis | Comments | | | ty | | | | + +--------+ + + + | CBC WITH | Routin | 12/28/2012 | | Results for this | | DIFFERENTIAL | e | | | procedure are in the | | | | | | results section. | + +--------+ + + + documented in this encounter Results CBC with Differential (12/28/2012) + + + + + + | Component | Value | Ref Range | Performed | Pathologist | | | | | At | Signature | + + + + + + | WBC | 7.8 | K/uL | | | + + + + + + | Hemoglobin | 12.3 (A) | 13.2 - 17.0 | | | | | | g/dL | | | + + + + + + | Hematocrit | 36.2 (A) | 39.0 - 50.0 % | | | + + + + + + | Platelet | 273 | 150 - 400 K/uL | | | | Count | | | | | + + + + + + | MCV | 91.2 | 80.0 - 100.0 fL | | | + + + + + + | Na | 140 | mmol/L | | | + + + + + + | K | 4.0 | mmol/L | | | + + + + + + | Cl | 106 | mmol/L | | | + + + + + + | CO2 | 24 | mmol/L | | | + + + + + + | BUN | 24 | mg/dL | | | + + + + + + | CREA | 1.7 | mg/dL | | | + + + + + + | Glucose | 90 | mg/dL | | | + + + + + + | Calcium | 9.8 | mg/dL | | | + + + + + + | Estimated | 43.0 | mL/min/1.73m2 | | | | GFR | | | | | + + + + + + + + | Specimen | + + | Blood specimen | | (specimen) | + + documented in this encounter Visit Diagnoses Not on filedocumented in this encounter"
--- OUTSIDE RECORDS SUMMARY | ~2019-07-02 | XMS | Encounter Summary ---
Demographics + + + | Address | [address] [facility] [address] | | | [place] [address] | + + + | Home Phone | | + + + | Preferred Language | Unknown | + + + | Marital Status | Single | + + + | Yazidism Affiliation | Unknown | + + + | Race | Unknown | + + + | Ethnic Group | Unknown | + + + Author + + + | Author | [facility] | | | and [place] | + + + | Organization | [facility] | | | and [place] [...] [place] | | | | | [address] | | + + + + + Care Team Providers + +------+ + | Care Claim Approver Name | Role | Phone | + +------+ + | Lisa Morrow MD | PCP | | + +------+ + Reason for Referral Surgical (Routine) +--------+ + + + + [...] | Required | | stenosis of | RETIREMENT OFFICER | [address] | | | | | lumbar | | [address] | | | | | region at | | [place] | | | | | multiple | | [address] Phone: | | | | | levels | | [phone] | | | | | Procedures | | Fax: | | | | | [place] OFFICE | | [phone] | | | | | CONSULTATION | | | | | | | NEW/ESTAB | | | | | | | PATIENT 60 | | | | | | | MIN | | | +--------+ + + + + + Reason for Visit +--------+ + | Reason | Comments | +--------+ + | Other | | +--------+ + Encounter Details +--------+ + + + + | Date | Type | Department | Care Team | Description | +--------+ + + + + | 09/04/ | Telephone | [facility] [place] | Mey De Santiago, | Other | | 2013 | | PHYSIATRY [address] | RETIREMENT OFFICER | | | | | [place], | | | | | | [place] [address] | | | | | | [phone] | | | +--------+ + + + [...] | +--------+---------+ + + + | 07/04/ Office | Gastroenterology | [facility], | | | 2019 | Visit | | GILMA Alexander [address] | | | | | | [address] | | | | | | [place] | | | | | | [address] | | | | | | | | +--------+---------+ + + + + + +--------+ + + | Name | Type | Priori | Associated Diagnoses | Order Schedule | | | | ty | | | + + +--------+ + + | Ambulatory referral | Outpatient | Routin | Spinal stenosis of | 09/04/2013 | | to Neurosurgery | Referral | e | lumbar region at | | | | | | multiple levels | | + + +--------+ + + documented as of this encounter Visit Diagnoses + + | Diagnosis | + + | Spinal stenosis of lumbar region at multiple levels - Primary Spinal stenosis, lumbar | | region, without neurogenic claudication | + + documented in this encounter"
--- OUTSIDE RECORDS SUMMARY | ~2019-07-02 | XMS | Encounter Summary ---
Demographics + + + | Address | [address] [facility] [address] | | | [place] [address] | + + + | Home Phone | | + + + | Preferred Language | Unknown | + + + | Marital Status | Single | + + + | Muslim Affiliation | Unknown | + + + | Race | Unknown | + + + | Ethnic Group | Unknown | + + + Author + + + | Author | [facility] | | | and [place] | + + + | Organization | [facility] | | | and [place] [...] [place] | | | | | [address] | | + + + + + Care Team Providers + +------+ + | Care Medical Customer Service Representative Name | Role | Phone | + +------+ + | Stefano Padgett PA-C | PCP | | + +------+ + Encounter Details +--------+ + + + + | Date | Type | Department | Care Team | Description | +--------+ + + + + | 11/15/ | Abstract | [facility] [place] | Offenstein, | MARY JANE (obstructive | | 2013 | | PULMONARY [address] | Jennifer Ladd MD | sleep apnea) | | | | [place], | | (Primary Dx); | | | | [place] [address] | | Chronic bronchitis | | | | [phone] | | (HCC) | +--------+ + + + + Social [...] | 07/04/ | Office | Gastroenterology | [facility], | | | 2018 | Visit | | GILMA Alexander [address] | | | | | | [address] | | | | | | [place] | | | | | | [address] | | | | | | | | +--------+---------+ + + + documented as of this encounter Visit Diagnoses + + | Diagnosis | + + | MARY JANE (obstructive sleep apnea) - Primary Obstructive sleep apnea (adult) (pediatric) | + + | Chronic bronchitis (HCC) Unspecified chronic bronchitis | + + documented in this encounter"
--- OUTSIDE RECORDS SUMMARY | ~2019-07-02 | XMS | Encounter Summary ---
Demographics + + + | Address | [address] [facility] [address] | | | [place] [address] | + + + | Home Phone | | + + + | Preferred Language | Unknown | + + + | Marital Status | Single | + + + | Latter Day Affiliation | Unknown | + + + | Race | Unknown | + + + | Ethnic Group | Unknown | + + + Author + + + | Author | [facility] | | | and [place] | + + + | Organization | [facility] | | | and [place] [...] [place] | | | | | [address] | | + + + + + Care Team Providers + +------+ + | Care Wax Coating Machine Tender Name | Role | Phone | + +------+ + | Stefano Padgett PA-C | PCP | | + +------+ + Encounter Details +--------+ + + + + | Date | Type | Department | Care Team | Description | +--------+ + + + + | 04/17/ | Orders Only | [facility] [place] | Fam Bonds, | S/P lumbar fusion | | 2013 | | NEUROSURGERY [address] | DO [address] | (Primary Dx) | | | | [address] | [address] [place], [place] | | | | | [place], [place] | [address] | | | | | [address] | | | | | | [phone] | | | +--------+ + + + [...] | 07/04/ | Office | Gastroenterology | [facility], | | | 2019 | Visit | | GILMA Alexander [address] | | | | | | [address] | | | | | | [place] | | | | | | [address] | | | | | | | | +--------+---------+ + + + documented as of this encounter Visit Diagnoses + + | Diagnosis | + + | S/P lumbar fusion - Primary Arthrodesis status | + + documented in this encounter"
--- OUTSIDE RECORDS SUMMARY | ~2019-07-02 | XMS | Encounter Summary ---
Demographics + + + | Address | [address] [facility] [address] | | | [place] [address] | + + + | Home Phone [...] Organization | [facility] | | | and [...] [place] | | | | | [address] | | + + + + + Care Team Providers + +------+ + | Care Enrollment Management Director Name | Role | Phone | + [...] | | [address] | [place] | | | | | [place], [place] | [place], [place] | | | | | [address] | [address] | | | | | [phone] | | | +--------+ + + + [...] | 07/04/ | Office | Gastroenterology | [facility], | | | 2018 | Visit | | GILMA Alexander [address] | | | | | | [address] | | | | | | [place] | | | | | | [address] | | | | | | | | +--------+---------+ + + + documented as of this encounter Visit Diagnoses Not on filedocumented in this encounter"
--- OUTSIDE RECORDS SUMMARY | ~2019-07-02 | XMS | Encounter Summary ---
Demographics + + + | Address | [address] [facility] [address] | | | [place] [address] | + + + | Home Phone [...] + | Author | [facility] | | | and [place] | + + + | Organization | [facility] | | | and [place] [...] [place] | | | | | [address] | | + + + + + Care Team Providers + +------+ + | Care Impregnating Machine Operator Name | Role | Phone [...] | | [address] | [place] | | | | | [place], [place] | [place], [place] | | | | | [address] | [address] | | | | | [phone] | | | +--------+ + + + [...] | 07/04/ | Office | Gastroenterology | [facility], | | | 2019 | Visit | | GILMA Alexander [address] | | | | | | [address] | | | | | | [place] | | | | | | [address] | | | | | | | [...]
--- OUTSIDE RECORDS SUMMARY | ~2019-07-02 | XMS | Encounter Summary ---
Demographics + + + | Address | [address] | | | [place] [address] | + + + | Home Phone | | + + + | Preferred Language | Unknown | + + + | Marital Status | Single | + + + | Alevism Affiliation | Unknown | + + + | Race | Unknown | + + + | Ethnic Group | Unknown | + + + Author + + + | Author | [facility] | | | and [place] | + + + | Organization | [facility] | | | [...] [place] | | | | | [address] | | + + + + + Care Team Providers + +------+ + | Care Medical Illustrator Name | Role | Phone | + +------+ + | Stefano Padgett PA-C | PCP | | + +------+ + Encounter Details +--------+ + + + + | Date | Type | Department | Care Team | Description | +--------+ + + + + | 11/12/ | Orders Only | [facility] [place] | Off[place], | Chronic bronchitis | | 2013 | | PULMONARY [address] | Jennifer Ladd MD | ([facility]) (Primary Dx) | | | | [place], | | | | | | [place] [address] | | | | | | [phone] | | | +--------+ + + + [...] | 07/04/ | Office | Gastroenterology | [facility], | | | 2019 | Visit | | [place] [address] | | | | | | [address] | | | | | | [place] | | | | | | [address] | | | | | | | | +--------+---------+ + + + documented as of this encounter Results PFT PULMONARY FUNCTION TESTING ORDERS Full PFT (Ashwin w/BD, lung volumes, diffusion)?: Yes (01/21/2014 5:16 [...] Raines MD | | | 01/21/2014 17:13 [facility] CC: | | | Stefano Padgett | | + + + + + | Procedure Note | + + | Jennifer Raines MD - 01/21/2014 5:13 PM PDT PULMONARY FUNCTION TESTING | | SPIROMETRY: Prior [...] Jennifer Raines MD 01/21/2014 | | [facility] | |[facility] | | | |CC: Stefano Padgett | + + documented in this encounter Visit Diagnoses + + | Diagnosis | + + | Chronic bronchitis (HCC) - Primary Unspecified chronic bronchitis | + + documented in this encounter"
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
--- OUTSIDE RECORDS SUMMARY | ~2019-07-02 | XMS | Encounter Summary ---
Demographics + + + | Address | [address] | | | [place] [address] | + + + | Home Phone | | + + + | Preferred Language | Unknown | + + + | Marital Status | Single | + + + | Confucianist Affiliation | Unknown | + + + | Race | Unknown | + + + | Ethnic Group | Unknown | + + + Author + + + | Author | [facility] | | | and [place] | + + + | Organization | [facility] | | [...] [place] | | | | | [address] | | + + + + + Care Team Providers + +------+ + | Care Route Returner Name | Role | Phone | + +------+ + | Stefano Padgett PA-C | PCP | | + +------+ + Encounter Details +--------+ + + + + | Date | Type | Department | Care Team | Description | +--------+ + + + + | 02/07/ | Hospital | [facility] | [place] | Fracture of rib of | | 2015 | Encounter | MED CTR LULU XRAY | MD Demi, FACS [address] | right side, closed, | | | | [address] [place] | [address] [place] | initial encounter | | | | [place], [place] | [place] [address] | | | | | [address] | [phone] | | | | | [phone] | | | +--------+ + + + [...] | 07/04/ | Office | Gastroenterology | [facility], | | | 2019 | Visit | | [place] [address] | | | | | | [address] | | | | | | [place] | | | | | | [address] | | | | | | | [...] [address] | [place] | [phone] | | [facility] | | [address] | | | - IMAGING | | | | + + + + + documented in this encounter Visit Diagnoses + + | Diagnosis | + + | Fracture of rib of right side, closed, initial encounter | + + documented in this encounter"
--- OUTSIDE RECORDS SUMMARY | ~2019-07-02 | XMS | Encounter Summary ---
Demographics + + + | Address | [address] [facility] [address] | | | [place] [address] | + + + | Home Phone | | + + + | Preferred Language | Unknown | + + + | Marital Status | Single | + + + | Mandaen Affiliation | Unknown | + + + | Race | Unknown | + + + | Ethnic Group | Unknown | + + + Author + + + | Author | [facility] | | | and [place] | + + + | Organization | [facility] | | | and [place] | + + + | Address | Unknown | + + + | Phone | Unavailable | + + + Support + + + + + | Name | Relationship | Address | Phone | + + + + + | Craig Sinha | ECON | [address] | | | | | [place] | | | | | [address] | | + + + + + Care Team Providers + +------+ + | Care Broadcast Meteorologist Name | Role | Phone | + +------+ + | Yulia Gutierrez PA-C PCP | | + +------+ + Encounter Details +--------+ + + + + | Date | Type | Department | Care Team | Description | +--------+ + + + + | 06/28/ | Abstract | [facility] | [place], | | | 2018 | | GASTROENTEROLOGY | MD [address] | | | | | [address] [facility] | [place] | | | | | [address] [place] | [place] [address] | | | | | [address] | | | | | | [phone] | | | +--------+ + + + [...] | 07/04/ | Office | Gastroenterology | [facility], | | | 2019 | Visit | | G[place]MA [place] [address] | | | | | | [address] | | | | | | [place] | | | | | | [address] | | | | | | | [...] in this encounter Results CBC with Differential (05/16/2019) + +-------+ + [...] + + | Blood | + + External Lab: CBC (05/16/2019) + [...] | + +---------+ + + External Lab: BUN (05/16/2019) + +-------+ + [...]
--- OUTSIDE RECORDS SUMMARY | ~2019-07-02 | XMS | Encounter Summary ---
Demographics + + + | Address | [address] [facility] [address] | | | [place] [address] | + + + | Home Phone | | + + + | Preferred Language | Unknown | + + + | Marital Status | Single | + + + | Methodist Affiliation | Unknown | + + + | Race | Unknown | + + + | Ethnic Group | Unknown | + + + Author + + + | Author | [facility] | | | and [place] | + + + | Organization | [facility] | | | and [...] [place] | | | | | [address] | | + + + + + Care Team Providers + +------+ + | Care Gear Lapper Name | Role | Phone | + [...] + + | 01/21/ | Anesthesia | [facility] | Eddie Keating, | | | 2015 | Event | MED CTR SURGICAL | MD [address] | | | | | [address] [place] | [place] | | | | | [place] [address] | [address] | | | | | [phone] | | | +--------+ + + + [...] | 07/04/ | Office | Gastroenterology | [facility], | | | 2018 | Visit | | G[place]MA [place] [address] | | | | | | [address] | | | | | | [place] | | | | | | [address] | | | | | | | | +--------+---------+ + + + documented as of this encounter Visit Diagnoses Not on filedocumented in this encounter"
--- OUTSIDE RECORDS SUMMARY | ~2019-07-02 | XMS | Encounter Summary ---
Demographics + + + | Address | [address] [facility] [address] | | | [place] [address] | + + + | Home Phone [...] Organization | [facility] | | | and [place] | [...] [place] | | | | | [address] | | + + + + + Care Team Providers + +------+ + | Care Counter Intelligence Name | Role | Phone | + +------+ + | Stefano Padgett PA-C | PCP | | + +------+ + Reason for Visit +--------+ + | Reason | Comments | +--------+ + | Other | Home Health Services | +--------+ + Encounter Details +--------+ + + + + | Date | Type | Department | Care Team | Description | +--------+ + + + + | 04/16/ | Telephone | [facility] | Fam Bonds, | Other (Home Health | | 2014 | | NEUROSUR[address]ERY [address] | DO [address] | Services) | | | | [address] | [address] [place], [place] | | | | | [place], [place] | [address] | | | | | [address] | | | | | | [phone] | | | +--------+ + + + [...] | 07/04/ | Office | Gastroenterology | [facility], | | 2019 | Visit | | GILMA [place] [address] | | | | | | [address] | | | | | | [place] | | | | | | [address] | | | | | | | | +--------+---------+ + + + documented as of this encounter Visit Diagnoses Not on filedocumented in this encounter"
--- OUTSIDE RECORDS SUMMARY | ~2019-07-02 | XMS | Encounter Summary ---
Demographics + + + | Address | [address] [facility] [address] | | | [place] [address] | + + + | Home Phone | | + + + | Preferred Language | Unknown | + + + | Marital Status | Single | + + + | Uatsdin Affiliation | Unknown | + + + | Race | Unknown | + + + | Ethnic Group | Unknown | + + + Author + + + | Author | [facility] | | | and [place] | + + + | Organization | [facility] | | | and [place] | + + + | Address | Unknown | + + + | Phone | Unavailable | + + + Support + + + + + | Name | Relationship | Address | Phone | + + + + + | Criag Sinha | ECON | [address] | | | | | [place] | | | | | [address] | | + + + + + Care Team Providers + +------+ + | Care Cardiopulmonary Technologist Name | Role | Phone | + [...] + | 04/05/ | Telephone | [facility] | Fam Bonds, | Other (Surgery | | 2013 | | NEUROSUR[address]ERY [address] | DO [address] | reminder ) | | | | [address] | [address] [place], [place] | | | | | [place], [place] | [id number] | | | | | [address] | | | | | | [phone] | | | +--------+ + + + [...] | 07/04/ | Office | Gastroenterology | [facility], | | | 2019 | Visit | | GILMA [place] [address] | | | | | | [address] | | | | | | [place] | | | | | | [address] | | | | | | | | +--------+---------+ + + + documented as of this encounter Visit Diagnoses Not on filedocumented in this encounter"
--- OUTSIDE RECORDS SUMMARY | ~2019-07-02 | XMS | Encounter Summary ---
Demographics + + + | Address | [address] [facility] [address] | | | [place] [address] | + + + | Home Phone [...] Organization | [facility] | | | and [...] [place] | | | | | [address] | | + + + + + Care Team Providers + +------+ + | Care Gis Engineer Name | Role | Phone | + +------+ + | Lisa Morrow MD | PCP | | + +------+ + Encounter Details +--------+ + + + + | Date | Type | Department | Care Team | Description | +--------+ + + + + | 12/25/ | Abstract | [facility] [place] | [facility] | | | 2012 | | NEPHROLOGY [address] | M, DO [address] | | | | | [address] | [address] | | | | | [place], [place] | [place], [place] | | | | | [address] | [address] | | | | | [phone] | | | +--------+ + + + [...] | Office | Gastroenterology | [facility], | | | 2019 | Visit | | GILMA Alexander [address] | | | | | | [address] | | | | | | [place] | | | | | | [address] | | | | | | | | +--------+---------+ + + + documented as of this encounter Procedures + +--------+ + + + | Procedure Name | Priori | Date/Time | Associated Diagnosis | Comments | | | ty | | | | + +--------+ + + + | CMP14+LP+CBC/D/PLT+T | Routin | 12/21/2012 | | Results for this | | SH+UA/M (NON ORD) | e | | | procedure are in the | | | | | | results section. | + +--------+ + + + | CMP14+LP+CBC/D/PLT+T | Routin | 12/18/2012 | | Results for this | | SH+UA/M (NON ORD) | e | | | procedure are in the | | | | | | results section. | + +--------+ + + + | CMP14+LP+CBC/D/PLT+T | Routin | 12/17/2012 | | Results for this | | SH+UA/M (NON ORD) | e | | | procedure are in the | | | | | | results section. | + +--------+ + + + | CMP14+LP+CBC/D/PLT+T | Routin | 12/13/2012 | | Results for this | | SH+UA/M (NON ORD) | e | | | procedure are in the | | | | | | results section. | + +--------+ + + + | CMP14+LP+CBC/D/PLT+T | Routin | 12/12/2012 | | Results for this | | SH+UA/M (NON ORD) | e | | | procedure are in the | | | | | | results section. | + +--------+ + + + | CMP14+LP+CBC/D/PLT+T | Routin | 12/07/2012 | | Results for this | | SH+UA/M (NON ORD) | e | | | procedure are in the | | | | | | results section. | + +--------+ + + + | CMP14+LP+CBC/D/PLT+T | Routin | 12/05/2012 | | Results for this | | SH+UA/M (NON ORD) | e | | | procedure are in the | | | | | | results section. | + +--------+ + + + | CMP14+LP+CBC/D/PLT+T | Routin | 12/04/2012 | | Results for this | | SH+UA/M (NON ORD) | e | | | procedure are in the | | | | | | results section. | + +--------+ + + + | CMP14+LP+CBC/D/PLT+T | Routin | 05/20/2011 | | Results for this | | SH+UA/M (NON ORD) | e | | | procedure are in the | | | | | | results section. | + +--------+ + + + | CMP14+LP+CBC/D/PLT+T | Routin | 10/21/2010 | | Results for this | | SH+UA/M (NON ORD) | e | | | procedure are in the | | | | | | results section. | + +--------+ + + + documented in this encounter Results CMP14+LP+CBC/D/Plt+TSH+UA/M (12/21/2012) + + + + + + | Component | Value | Ref Range | Performed | Pathologist | | | | | At | Signature | + + + + + + | Na | 136 | mmol/L | | | + + + + + + | K | 4.6 | mmol/L | | | + + + + + + | Cl | 101 | mmol/L | | | + + + + + + | CO2 | 22 | mmol/L | | | + + + + + + | BUN | 69 | mg/dL | | | + + + + + + | CREA | 5.6 | mg/dL | | | + + + + + + | Glucose | 86 | mg/dL | | | + + + + + + | Calcium | 9.1 | mg/dL | | | + + + + + + | Vitamin D, | 31 | 30 - 100 ng/mL | | | | 25 Hydroxy | | | | | + + + + + + | WBC | 6.9 | K/uL | | | + + + + + + | Hemoglobin | 12.1 (A) | 13.2 - 17.0 | | | | | | g/dL | | | + + + + + + | Hematocrit | 36.1 (A) | 39.0 - 50.0 % | | | + + + + + + | Platelet | 327 | 150 - 400 K/uL | | | | Count | | | | | + + + + + + | MCV | 90.3 | 80.0 - 100.0 fL | | | + + + + + + | Estimated | 11.0 | mL/min/1.73m2 | | | | GFR | | | | | + + + + + + + + | Specimen | + + | | + + CMP14+LP+CBC/D/Plt+TSH+UA/M (12/18/2012) + +---------+ + + + | Component | Value | Ref Range | Performed | Pathologist | | | | | At | Signature | + +---------+ + + + | Na | 139 | mmol/L | | | + +---------+ + + + | K | 4.1 | mmol/L | | | + +---------+ + + + | Cl | 103 | mmol/L | | | + +---------+ + + + | CO2 | 25 | mmol/L | | | + +---------+ + + + | BUN | 57 | mg/dL | | | + +---------+ + + + | CREA | 9.3 | mg/dL | | | + +---------+ + + + | Glucose | 93 | mg/dL | | | + +---------+ + + + | Calcium | 8.7 | mg/dL | | | + +---------+ + + + | Phosphorus | 9.0 (A) | 2.3 - 4.8 mg/dL | | | + +---------+ + + + | Albumin | 3.3 (A) | 3.5 - 5.0 g/dL | | | + +---------+ + + + | Estimated | 6.0 | mL/min/1.73m2 | | | | GFR | | | | | + +---------+ + + + + + | Specimen | + + | | + + CMP14+LP+CBC/D/Plt+TSH+UA/M (12/17/2012) + +---------+ + + + | Component | Value | Ref Range | Performed | Pathologist | | | | | At | Signature | + +---------+ + + + | Na | 139 | mmol/L | | | + +---------+ + + + | K | 4.1 | mmol/L | | | + +---------+ + + + | Cl | 101 | mmol/L | | | + +---------+ + + + | CO2 | 26 | mmol/L | | | + +---------+ + + + | BUN | 53 | mg/dL | | | + +---------+ + + + | CREA | 9.9 | mg/dL | | | + +---------+ + + + | Glucose | 94 | mg/dL | | | + +---------+ + + + | Calcium | 8.4 | mg/dL | | | + +---------+ + + + | Phosphorus | 8.6 (A) | 2.3 - 4.8 mg/dL | | | + +---------+ + + + | Estimated | 6.0 | mL/min/1.73m2 | | | | GFR | | | | | + +---------+ + + + | Albumin | 3.3 (A) | 3.5 - 5.0 g/dL | | | + +---------+ + + + + + | Specimen | + + | | + + CMP14+LP+CBC/D/Plt+TSH+UA/M (12/13/2012) + + + + + + | Component | Value | Ref Range | Performed | Pathologist | | | | | At | Signature | + + + + + + | Na | 134 | mmol/L | | | + + + + + + | K | 5.5 | mmol/L | | | + + + + + + | Cl | 102 | mmol/L | | | + + + + + + | CO2 | 19 | mmol/L | | | + + + + + + | BUN | 46 | mg/dL | | | + + + + + + | CREA | 9.3 | mg/dL | | | + + + + + + | Glucose | 95 | mg/dL | | | + + + + + + | Calcium | 8.0 | mg/dL | | | + + + + + + | WBC | 11.2 | K/uL | | | + + + + + + | Hemoglobin | 11.0 (A) | 13.2 - 17.0 | | | | | | g/dL | | | + + + + + + | Hematocrit | 33.1 (A) | 39.0 - 50.0 % | | | + + + + + + | Platelet | 349 | 150 - 400 K/uL | | | | Count | | | | | + + + + + + | MCV | 92.5 | 80.0 - 100.0 fL | | | + + + + + + | Estimated | 6.0 | mL/min/1.73m2 | | | | GFR | | | | | + + + + + + + + | Specimen | + + | | + + CMP14+LP+CBC/D/Plt+TSH+UA/M (12/12/2012) + +--------+ + + + | Component | Value | Ref Range | Performed | Pathologist | | | | | At | Signature | + +--------+ + + + | Na | 131 | mmol/L | | | + +--------+ + + + | K | 4.8 | mmol/L | | | + +--------+ + + + | Cl | 98 | mmol/L | | | + +--------+ + + + | CO2 | 18 | mmol/L | | | + +--------+ + + + | BUN | 41 | mg/dL | | | + +--------+ + + + | CREA | 8.4 | mg/dL | | | + +--------+ + + + | Glucose | 101 | mg/dL | | | + +--------+ + + + | Calcium | 8.2 | mg/dL | | | + +--------+ + + + | Vitamin D, | 18 (A) | 30 - 100 ng/mL | | | | 25 Hydroxy | | | | | + +--------+ + + + | Bilirubin | 0.4 | 0.1 - 1.5 mg/dL | | | | Total | | | | | + +--------+ + + + | AST | 29 | 10 - 45 U/L | | | + +--------+ + + + | ALT | 58 | U/L | | | + +--------+ + + + | Alkaline | 85 | 35 - 115 U/L | | | | Phosphatase | | | | | + +--------+ + + + | Albumin | 3.7 | 3.5 - 5.0 g/dL | | | + +--------+ + + + | Estimated | 7.0 | mL/min/1.73m2 | | | | GFR | | | | | + +--------+ + + + + + | Specimen | + + | | + + CMP14+LP+CBC/D/Plt+TSH+UA/M (12/07/2012) + + + + + + | Component | Value | Ref Range | Performed | Pathologist | | | | | At | Signature | + + + + + + | Na | 139 | mmol/L | | | + + + + + + | K | 3.6 | mmol/L | | | + + + + + + | Cl | 103 | mmol/L | | | + + + + + + | CO2 | 28 | mmol/L | | | + + + + + + | BUN | 11 | mg/dL | | | + + + + + + | CREA | 1.1 | mg/dL | | | + + + + + + | Glucose | 106 | mg/dL | | | + + + + + + | Calcium | 9.0 | mg/dL | | | + + + + + + | WBC | 9.4 | K/uL | | | + + + + + + | Hemoglobin | 12.2 (A) | 13.2 - 17.0 | | | | | | g/dL | | | + + + + + + | Hematocrit | 37.2 (A) | 39.0 - 50.0 % | | | + + + + + + | Platelet | 197 | 150 - 400 K/uL | | | | Count | | | | | + + + + + + | MCV | 93.5 | 80.0 - 100.0 fL | | | + + + + + + | Bilirubin | 0.7 | 0.1 - 1.5 mg/dL | | | | Total | | | | | + + + + + + | AST | 45 | 10 - 45 U/L | | | + + + + + + | ALT | 75 | U/L | | | + + + + + + | Alkaline | 93 | 35 - 115 U/L | | | | Phosphatase | | | | | + + + + + + | Albumin | 3.5 | 3.5 - 5.0 g/dL | | | + + + + + + | Estimated | 60.0 | mL/min/1.73m2 | | | | GFR | | | | | + + + + + + + + | Specimen | + + | | + + CMP14+LP+CBC/D/Plt+TSH+UA/M (12/05/2012) + + + + + + | Component | Value | Ref Range | Performed | Pathologist | | | | | At | Signature | + + + + + + | Na | 138 | mmol/L | | | + + + + + + | K | 4.4 | mmol/L | | | + + + + + + | Cl | 108 | mmol/L | | | + + + + + + | CO2 | 26 | mmol/L | | | + + + + + + | BUN | 12 | mg/dL | | | + + + + + + | CREA | 1.0 | mg/dL | | | + + + + + + | Glucose | 111 | mg/dL | | | + + + + + + | Calcium | 8.6 | mg/dL | | | + + + + + + | WBC | 9.8 | K/uL | | | + + + + + + | Hemoglobin | 12.0 (A) | 13.2 - 17.0 | | | | | | g/dL | | | + + + + + + | Hematocrit | 37.1 (A) | 39.0 - 50.0 % | | | + + + + + + | Platelet | 145 (A) | 150 - 400 K/uL | | | | Count | | | | | + + + + + + | MCV | 93.7 | 80.0 - 100.0 fL | | | + + + + + + | Bilirubin | 0.5 | 0.1 - 1.5 mg/dL | | | | Total | | | | | + + + + + + | AST | 52 (A) | 10 - 45 U/L | | | + + + + + + | ALT | 93 | U/L | | | + + + + + + | Alkaline | 68 | 35 - 115 U/L | | | | Phosphatase | | | | | + + + + + + | Albumin | 3.3 (A) | 3.5 - 5.0 g/dL | | | + + + + + + | Estimated | 60.0 | mL/min/1.73m2 | | | | GFR | | | | | + + + + + + + + | Specimen | + + | | + + CMP14+LP+CBC/D/Plt+TSH+UA/M (12/04/2012) + + + + + + | Component | Value | Ref Range | Performed | Pathologist | | | | | At | Signature | + + + + + + | Na | 135 | mmol/L | | | + + + + + + | K | 4.7 | mmol/L | | | + + + + + + | Cl | 105 | mmol/L | | | + + + + + + | CO2 | 24 | mmol/L | | | + + + + + + | BUN | 12 | mg/dL | | | + + + + + + | CREA | 1.2 | mg/dL | | | + + + + + + | Glucose | 103 | mg/dL | | | + + + + + + | Calcium | 7.6 | mg/dL | | | + + + + + + | Hemoglobin | 5.7 | % | | | | A1c | | | | | + + + + + + | WBC | 13.0 | K/uL | | | + + + + + + | Hemoglobin | 12.5 (A) | 13.2 - 17.0 | | | | | | g/dL | | | + + + + + + | Hematocrit | 37.8 (A) | 39.0 - 50.0 % | | | + + + + + + | Platelet | 165 | 150 - 400 K/uL | | | | Count | | | | | + + + + + + | MCV | 93.2 | 80.0 - 100.0 fL | | | + + + + + + | Bilirubin | 0.7 | 0.1 - 1.5 mg/dL | | | | Total | | | | | + + + + + + | AST | 78 (A) | 10 - 45 U/L | | | + + + + + + | ALT | 112 | U/L | | | + + + + + + | Alkaline | 49 | 35 - 115 U/L | | | | Phosphatase | | | | | + + + + + + | Albumin | 3.4 (A) | 3.5 - 5.0 g/dL | | | + + + + + + | Estimated | 60.0 | mL/min/1.73m2 | | | | GFR | | | | | + + + + + + + + | Specimen | + + | | + + CMP14+LP+CBC/D/Plt+TSH+UA/M (05/20/2011) + +-------+ + + + | Component | Value | Ref Range | Performed | Pathologist | | | | | At | Signature | + +-------+ + + + | Na | 131 | mmol/L | | | + +-------+ + + + | K | 3.9 | mmol/L | | | + +-------+ + + + | Cl | 101 | mmol/L | | | + +-------+ + + + | CO2 | 23 | mmol/L | | | + +-------+ + + + | BUN | 13 | mg/dL | | | + +-------+ + + + | CREA | 1.0 | mg/dL | | | + +-------+ + + + | Glucose | 90 | mg/dL | | | + +-------+ + + + | Calcium | 9.3 | mg/dL | | | + +-------+ + + + | WBC | 12.0 | K/uL | | | + +-------+ + + + | Hemoglobin | 14.4 | 13.2 - 17.0 | | | | | | g/dL | | | + +-------+ + + + | Hematocrit | 41.6 | 39.0 - 50.0 % | | | + +-------+ + + + | Platelet | 219 | 150 - 400 K/uL | | | | Count | | | | | + +-------+ + + + | MCV | 89.4 | 80.0 - 100.0 fL | | | + +-------+ + + + | Bilirubin | 1.1 | 0.1 - 1.5 mg/dL | | | | Total | | | | | + +-------+ + + + | AST | 21 | 10 - 45 U/L | | | + +-------+ + + + | ALT | 43 | U/L | | | + +-------+ + + + | Alkaline | 69 | 35 - 115 U/L | | | | Phosphatase | | | | | + +-------+ + + + | Albumin | 4.6 | 3.5 - 5.0 g/dL | | | + +-------+ + + + | Estimated | 60.0 | mL/min/1.73m2 | | | | GFR | | | | | + +-------+ + + + + + | Specimen | + + | | + + CMP14+LP+CBC/D/Plt+TSH+UA/M (10/21/2010) + +-------+ + + + | Component | Value | Ref Range | Performed | Pathologist | | | | | At | Signature | + +-------+ + + + | Na | 136 | mmol/L | | | + +-------+ + + + | K | 4.3 | mmol/L | | | + +-------+ + + + | Cl | 100 | mmol/L | | | + +-------+ + + + | CO2 | 22 | mmol/L | | | + +-------+ + + + | BUN | 11 | mg/dL | | | + +-------+ + + + | CREA | 1.2 | mg/dL | | | + +-------+ + + + | Glucose | 100 | mg/dL | | | + +-------+ + + + | Calcium | 8.9 | mg/dL | | | + +-------+ + + + | Bilirubin | 0.7 | 0.1 - 1.5 mg/dL | | | | Total | | | | | + +-------+ + + + | AST | 30 | 10 - 45 U/L | | | + +-------+ + + + | ALT | 61 | U/L | | | + +-------+ + + + | Alkaline | 71 | 35 - 115 U/L | | | | Phosphatase | | | | | + +-------+ + + + | Estimated | 60.0 | mL/min/1.73m2 | | | | GFR | | | | | + +-------+ + + + | Albumin | 4.1 | 3.5 - 5.0 g/dL | | | + +-------+ + + + + + | Specimen | + + | | + + documented in this encounter Visit Diagnoses Not on filedocumented in this encounter"
--- OUTSIDE RECORDS SUMMARY | ~2019-07-02 | XMS | Encounter Summary ---
Demographics + + + | Address | [address] | | | [place] [address] | + + + | Home Phone [...] + + + | Author | [facility] | | | and [place] | + + + | Organization | [facility] | | | and [...] [place] | | | | | [address] | | + + + + + Care Team Providers + +------+ + | Care Nut Former Name | Role | Phone | + [...] Ladd MD | | | | | [place], | | | | | | [place] [address] | | | | | | [phone] | | | +--------+ + + + [...] - 02/15/2014 8:47 AM [facility], and reviewed. Chest x-ray was done on October 06, 2013 and was reviewed and interpreted today. It shows hyp erinflation consistent with obstructive disease. Polysomnogram was done on November 22, 2013 at [facility]. AHI was noted to be 5.5 [...] | 07/04/ | Office | Gastroenterology | [facility], | | | 2019 | Visit | | GILMA Alexander [address] | | | | | | [address] | | | | | | [place] | | | | | | [phone] | | | | | | | | +--------+---------+ + + + documented as of this encounter Visit Diagnoses Not on filedocumented in this encounter"
--- OUTSIDE RECORDS SUMMARY | ~2019-07-02 | XMS | Encounter Summary ---
Demographics + + + | Address | [address] [facility] [address] | | | [place] [address] | + + + | Home Phone | | + + + | Preferred Language | Unknown | + + + | Marital Status | Single | + + + | Adventism Affiliation | Unknown | + + + | Race | Unknown | + + + | Ethnic Group | Unknown | + + + Author + + + | Author | [facility] | | | and [place] | + + + | Organization | [facility] | | | and [...] [place] | | | | | [address] | | + + + + + Care Team Providers + +------+ + | Care Blind Cleaner Name | Role | Phone | + [...] | +--------+ + + + + | 03/07/ | Telephone | [facility] [place] | Quirino Warren | Appointment | | 2012 | | PHYSIATRY [address] | | | | | [place], | [place] | | | | | [place] [address] | [address] | | | | | [phone] | | | +--------+ + + + [...] [facility], | | | 2019 | Visit | | GILMA Alexander [address] | | | | | | [address] | | | | | | [place] | | | | | | [address] | | | | | | | | +--------+---------+ + + + documented as of this encounter Visit Diagnoses Not on filedocumented in this encounter"
--- OUTSIDE RECORDS SUMMARY | ~2019-07-02 | XMS | Encounter Summary ---
Demographics + + + | Address | [address] [facility] [address] | | | [place] [address] | + + + | Home Phone | | + + + | Preferred Language | Unknown | + + + | Marital Status | Single | + + + | Islam Affiliation | Unknown | + + + | Race | Unknown | + + + | Ethnic Group | Unknown | + + + Author + + + | Author | [facility] | | | and [place] | + + + | Organization | [facility] | | [...] [place] | | | | | [address] | | + + + + + Care Team Providers + +------+ + | Care Slicing Machine Tender Name | Role | Phone [...] [address] | [address] [place], [place] | | | | | [place], [place] | [address] | | | | | [address] | | | | | | [phone] | | | +--------+ + + + [...] | 07/04/ | Office | Gastroenterology | [facility], | | | 2019 | Visit | | GILMA Alexander [address] | | | | | | [address] | | | | | | [place] | | | | | | [address] | | | | | | | | +--------+---------+ + + + documented as of this encounter Visit Diagnoses + + | Diagnosis | + + | Arthritis - Primary Arthropathy, unspecified, site unspecified | + + | Acid reflux Esophageal reflux | + + documented in this encounter"
--- OUTSIDE RECORDS SUMMARY | ~2019-07-02 | XMS | Encounter Summary ---
Demographics + + + | Address | [address] [facility] [address] | | | [place] [address] | + + + | Home Phone | | + + + | Preferred Language | Unknown | + + + | Marital Status | Single | + + + | Lutheran Affiliation | Unknown | + + + | Race | Unknown | + + + | Ethnic Group | Unknown | + + + Author + + + | Author | [facility] | | | and [place] | + + + | Organization | [facility] | | | and [...] [place] | | | | | [address] | | + + + + + Care Team Providers + +------+ + | Care Nurse Midwife/Clinical Instructor Name | Role | Phone | + [...] [address] | [address] [place], [place] | | | | | [place], [place] | [address] | | | | | [address] | | | | | | [phone] | | | +--------+ + + + [...] | 07/04/ | Office | Gastroenterology | [facility], | | | 2019 | Visit | | GILMA Alexander [address] | | | | | | [address] | | | | | | [place] | | | | | | [address] | | | | | | | | +--------+---------+ + + + documented as of this encounter Visit Diagnoses + + | Diagnosis | + + | Arthritis - Primary Arthropathy, unspecified, site unspecified | + + | Acid reflux Esophageal reflux | + + documented in this encounter"
--- OUTSIDE RECORDS SUMMARY | ~2019-07-02 | XMS | Encounter Summary ---
Demographics + + + | Address | [address] [facility] [address] | | | [place] [address] | + + + | Home Phone | | + + + | Preferred Language | Unknown | + + + | Marital Status | Single | + + + | Lutheran Affiliation | Unknown | + + + | Race | Unknown | + + + | Ethnic Group | Unknown | + + + Author + + + | Author | [facility] | | | and [place] | + + + | Organization | [facility] | | | and [...] [place] | | | | | [address] | | + + + + + Care Team Providers + +------+ + | Care Estate And Trust Tax Principal Name | Role | Phone | + +------+ + | Stefano Padgett PA-C | PCP | | + +------+ + Encounter Details +--------+ + + + + | Date | Type | Department | Care Team | Description | +--------+ + + + + | 10/22/ | Hospital | [facility] | Fam Bonds, | Back pain | | 2014 | Encounter | MED CTR XRAY [address] | DO [address] | | | | | [place] | [address] [place], [place] | | | | | [place] [address] | [address] | | | | | [phone] | | | +--------+ + + + [...] | | | | | | | ([facility]), Chronic | | | | | | | kidney disease, | | | | | | | stage III (moderate) | | | | | | | ([facility]), 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 | | | | | | | manifestations, not | | | | | | | stated as | | | | | | | uncontrolled(250.40) | | | | | | | ([facility]), | | | | | | | [...] 07/04/ | Office | Gastroenterology | [facility], | | | 2019 | Visit | | GILMA Alexander [address] | | | | | | [address] | | | | | | [place] | | | | | | [address] | | | | | | | [...] + | MISCELLANEOUS LAB | | | [phone] | + +---------+ + + | MISCELANIOUS LAB | | | [phone] | + +---------+ + + documented in this encounter Visit Diagnoses + + | Diagnosis | + + | Back pain Backache, unspecified | + + documented in this encounter"
--- OUTSIDE RECORDS SUMMARY | ~2019-07-02 | XMS | Encounter Summary ---
Demographics + + + | Address | [address] [facility] [address] | | | [place] [address] | + + + | Home Phone [...] | Organization | [facility] | | | and [...] [place] | | | | | [address] | | + + + + + Care Team Providers + +------+ + | Care Mental Health Aide Name | Role | Phone | + +------+ + | Stefano Padgett PA-C | PCP | | + +------+ + Reason for Visit +--------+ + | Reason | Comments | +--------+ + | Other | post op update. | +--------+ + Encounter Details +--------+ + + + + | Date | Type | Department | Care Team | Description | +--------+ + + + + | 04/15/ | Telephone | [facility] | Fam Bonds, | Other (post op | | 2013 | | NEUROSURGERY [address] | DO [address] | update. ) | | | | [address] | [address] [place], [place] | | | | | [place], [place] | [phone] | | | | | [address] | | | | | | [phone] | | | +--------+ + + + [...] | 07/04/ | Office | Gastroenterology | [facility], | | | 2019 | Visit | | GILMA [address] | | | | | | [address] | | | | | | [place] | | | | | | [phone] | | | | | | | | +--------+---------+ + + + documented as of this encounter Visit Diagnoses Not on filedocumented in this encounter"
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
--- OUTSIDE RECORDS SUMMARY | ~2019-07-02 | XMS | Encounter Summary ---
Demographics + + + | Address | [address] [facility] [address] | | | [place] [address] | + + + | Home Phone [...] + + + | Author | [facility] [place] | | | and [place] | + + + | Organization | [facility] [place] [...] | [address] | | | | | [place] | | | | | [address] | | + + + + + Care Team Providers + +------+ + | Care Identification And Records Commander Name | Role | Phone | + +------+ + | Lisa Morrow MD | PCP | | + +------+ + Encounter Details +--------+ + + + + | Date | Type | Department | Care Team | Description | +--------+ + + + + | 02/08/ | Abstract | [facility] [place] | [facility] | | | 2012 | | NEPHROLOGY [address] | M, DO [address] | | | | | [address] | [place] | | | | | [place], [place] | [place], [place] | | | | | [address] | [address] | | | | | [phone] | | | +--------+ + + + [...] | 07/04/ | Office | Gastroenterology | [facility], | | | 2019 | Visit | | GILMA Alexander [address] | | | | | | [address] | | | | | | [place] | | | | | | [address] | | | | | | | | +--------+---------+ + + + documented as of this encounter Visit Diagnoses Not on filedocumented in this encounter"
--- OUTSIDE RECORDS SUMMARY | ~2019-07-02 | XMS | Encounter Summary ---
Demographics + + + | Address | [address] [facility] [address] | | | [place] [address] | + + + | Home Phone | | + + + | Preferred Language | Unknown | + + + | Marital Status | Single | + + + | Judaism Affiliation | Unknown | + + + | Race | Unknown | + + + | Ethnic Group | Unknown | + + + Author + + + | Author | [facility] [place] | | | and [place] | + + + | Organization | [facility] [place] | | | and [place] [...] [place] | | | | | [address] | | + + + + + Care Team Providers + +------+ + | Care Weatherization Operations Manager Name | Role | Phone | [...] | Required | | stenosis of | FILER REPAIRER | [address] | | | | | lumbar | | [address] | | | | | region at | | [place] | | | | | multiple | | [address] Phone: | | | | | levels | | [phone] | | | | | Procedures | | Fax: | | | | | [place] OFFICE | | [phone] | | | | | CONSULTATION | [...] 2013 | | PHYSIATRY [address] | FILER REPAIRER | | | | | [place], | | | | | | [place] [address] | | | | | | [phone] | | | +--------+ + + + [...] + | 07/04/ Office | Gastroenterology | [facility], | | | 2019 | Visit | | GILMA Alexander [address] | | | | | | [place] | | | | | | [place] | | | | | | [address] | | | | | | | [...]
--- OUTSIDE RECORDS SUMMARY | ~2019-07-02 | XMS | Encounter Summary ---
Demographics + + + | Address | [address] [facility] [address] | | | [place] [address] | + + + | Home Phone | | + + + | Preferred Language | Unknown | + + + | Marital Status | Single | + + + | Yazidi Affiliation | Unknown | + + + | Race | Unknown | + + + | Ethnic Group | Unknown | + + + Author + + + | Author | [facility] [place] | | | and [place] | + + + | Organization | [facility] [place] [...] [place] | | | | | [address] | | + + + + + Care Team Providers + +------+ + | Care Barrel Straightener Name | Role | Phone | + +------+ + | Yulia Gutierrez PA-C | PCP | | + +------+ + Encounter Details +--------+ + + + + | Date | Type | Department | Care Team | Description | +--------+ + + + + | 07/28/ | Orders Only | [facility] | Stefano Padgett, | | | 2017 | | CARDIOLOGY JOHN Felder PA-C [address] | | | | | [facility] [address] | [address] | | | | | [address] | [place] [address] | | | | | [place] | [phone] | | | | | [address] | | | | | | [phone] | | | +--------+ + + + [...] [place] | | | | | | [address] | | | | | | | [...] a low-risk stress test. Carlene Perea MD, [facility], | | | | | + + + + + + | Narrative | Performed At | + + + | [facility] [address], [place], [place] | | | [phone] NUCLEAR LEXISCAN-WALK STRESS TEST TEST DATE: | [...] [place], Rad Conversion - 03/08/2019 4:46 PM [facility] [id number] | | , [address], [place], [phone] NUCLEAR LEXISCAN-WALK STRESS TESTTEST DATE: | | 07/27/2017NAME: Steve CarpenterDOB: 1960MRN: [id number] MD: Stefano Bowers | | MD Lorin [...] | | | | |Carlene Perea MD, [facility], | | | | | + + documented in this encounter Visit Diagnoses Not on filedocumented in this encounter"
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
--- OUTSIDE RECORDS SUMMARY | ~2019-07-02 | XMS | Encounter Summary ---
Demographics + + + | Address | [address] [facility] [address] | | | [place] [address] | + + + | Home Phone [...] Organization | [facility] | [...] [place] | | | | | [address] | | + + + + + Care Team Providers + +------+ + | Care Gaming Surveillance Observer Name | Role | Phone | + [...] + | 04/16/ | Telephone | [facility] | Fam Bonds, | Other (Home Health | | 2014 | | NEUROSURGERY [address] | DO [address] | Services) | | | | [address] | [address] [place], [place] | | | | | [place], [place] | [address] | | | | | [address] | | | | | | [phone] | | | +--------+ + + + [...] | 07/04/ | Office | Gastroenterology | [facility], | | 2019 | Visit | | GILMA Alexander [address] | | | | | | [address] | | | | | | [place] | | | | | | [address] | | | | | | | | +--------+---------+ + + + documented as of this encounter Visit Diagnoses Not on filedocumented in this encounter"
--- OUTSIDE RECORDS SUMMARY | ~2019-07-02 | XMS | Encounter Summary ---
Demographics + + + | Address | [address] [facility] [address] | | | [place] [address] | + + + | Home Phone [...] Organization | [facility] | | | and [...] [place] | | | | | [address] | | + + + + + Care Team Providers + +------+ + | Care Business Solutions Architect Name | Role | Phone | + [...] | | [address] | [place] | (moderate) (Primary | | | | [place], [place] | [place], [place] | Dx); Diabetes type | | | | [address] | [address] | 2, controlled (HCC); | | | | [phone] | | HTN (hypertension) | +--------+ + [...] | 07/04/ | Office | Gastroenterology | [facility] | | | 2019 | Visit | | GILMA Alexander [address] | | | | | | [address] | | | | | | [place] | | | | | | [address] | | | | | | | [...] + + | Diabetes type 2, controlled ([facility]) Type II or unspecified type diabetes mellitus | | without mention of complication, not stated as uncontrolled | + + | HTN (hypertension) Unspecified essential hypertension | + + documented in this encounter"
--- OUTSIDE RECORDS SUMMARY | ~2019-07-02 | XMS | Encounter Summary ---
Demographics + + + | Address | [address] [facility] [address] | | | [place] [address] | + + + | Home Phone [...] | [facility] | | | and [...] [place] | | | | | [address] | | + + + + + Care Team Providers + +------+ + | Care Cold Work Operator Name | Role | Phone | [...] + + | 01/21/ | Anesthesia | [facility] | Eddie Keating, | | | 2015 | Event | [facility] SUR[facility] | MD [address] | | | | | [address] [place] | [place] | | | | | [place] [address] | [address] | | | | | [phone] | | | +--------+ + + + [...] 07/04/ | Office | Gastroenterology | [facility], | | | 2018 | Visit | | GILMA Alexander [address] | | | | | | [address] | | | | | | [place] | | | | | | [address] | | | | | | | | +--------+---------+ + + + documented as of this encounter Visit Diagnoses Not on filedocumented in this encounter"
--- OUTSIDE RECORDS SUMMARY | ~2019-07-02 | XMS | Encounter Summary ---
Demographics + + + | Address | [address] | | | [place] [address] | + + + | Home Phone [...] Organization | [facility] [...] [place] | | | | | [address] | | + + + + + Care Team Providers + +------+ + | Care Hotel Lobby Concierge Name | Role | Phone | + [...] Ladd MD | | | | | [place], | | | | | | [place] [address] | | | | | | [phone] | | | +--------+ + + + [...] - 02/15/2014 8:47 AM [facility]. Chest x-ray was done on October 06, 2013 and was reviewed and interpreted today. It shows hyp erinflation consistent with obstructive disease. Polysomnogram was done on November 22, 2013 at [facility]. AHI was noted to be 5.5 [...] | 07/04/ | Office | Gastroenterology | [facility], | | | 2019 | Visit | | GILMA Alexander [address] | | | | | | [address] | | | | | | [place] | | | | | | [phone] | | | | | | | | +--------+---------+ + + + documented as of this encounter Visit Diagnoses Not on filedocumented in this encounter"
--- OUTSIDE RECORDS SUMMARY | ~2019-07-02 | XMS | Encounter Summary ---
Demographics + + + | Address | [address] [facility] [address] | | | [place] [address] | + + + | Home Phone | | + + + | Preferred Language | Unknown | + + + | Marital Status | Single | + + + | Worship Affiliation | Unknown | + + + | Race | Unknown | + + + | Ethnic Group | Unknown | + + + Author + + + | Author | [facility] | | | and [place] | + + + | Organization | [facility] | | | and [place] [...] [place] | | | | | [address] | | + + + + + Care Team Providers + +------+ + | Care Manager Of Manufacturing Name | Role | Phone | + [...] | Required | | stenosis of | ACCESS DIRECTOR | [address] | | | | | lumbar | | [address] | | | | | region at | | [place] | | | | | multiple | | [address] Phone: | | | | | levels | | [phone] | | | | | Procedures | | Fax: | | | | | [place] OFFICE | | [phone] | | | | | CONSULTATION | [...] [address] | [address] [place], [place] | back syndrome; | | | | [place], [place] | [address] | 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 Fam Bonds DO [address] [facility] [address] [place], [place] [address] FAX: NEUROSURGERY HISTORY AND PHYSICAL EXAMINATION CHIEF COMPLAINT: Chief Complaint Patient presents with New Patient Low back pain Numbness Bilateral legs, right worse than left. Gait Problem Difficulty Walking HISTORY OF PRESENT ILLNESS: The patient is a 53 y.o. male with the complaint of back pain that began 15 years ago. The symptoms began insidiously. 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 Since that time [...] has no apparent deficits with short or terminal press operator memory. CRANIAL NERVES: II: Acuity is intact. [...] Intrinsics 5 5 Ulnar Intrinsics 5 5 [employer] Project Manager Strength 5 5 Hip Flexion 4 4 [...] 07/04/ | Office | Gastroenterology | [facility] | | | 2019 | Visit [...]
--- OUTSIDE RECORDS SUMMARY | ~2019-07-02 | XMS | Encounter Summary ---
Demographics + + + | Address | [address] [facility] [address] | | | [place] [address] | + + + | Home Phone | | + + + | Preferred Language | Unknown | + + + | Marital Status | Single | + + + | Orthodoxy Affiliation | Unknown | + + + | Race | Unknown | + + + | Ethnic Group | Unknown | + + + Author + + + | Author | [facility] | | | and [place] | + + + | Organization | [facility] | | | and [...] [place] | | | | | [address] | | + + + + + Care Team Providers + +------+ + | Care Databases Software Consultant Name | Role | Phone | + [...] | 04/15/ | Telephone | [facility] | Fam Bonds, | Other | | 2013 | | NEUROSURGERY [address] | DO [address] | | | | | [address] | [address] [place], [place] | | | | | [place], [place] | [address] | | | | | [address] | | | | | | [phone] | | | +--------+ + + + [...] | 07/04/ | Office | Gastroenterology | [facility], | | | 2018 | Visit | | GILMA Alexander [address] | | | | | | [address] | | | | | | [place] | | | | | | [address] | | | | | | | | +--------+---------+ + + + documented as of this encounter Visit Diagnoses Not on filedocumented in this encounter"
--- OUTSIDE RECORDS SUMMARY | ~2019-07-02 | XMS | Encounter Summary ---
Demographics + + + | Address | [address] [facility] [address] | | | [place] [address] | + + + | Home Phone [...] | [facility] | | [...] [place] | | | | | [address] | | + + + + + Care Team Providers + +------+ + | Care Cytogenetics Technologist Name | Role | Phone | [...] + + | 01/30/ | Telephone | [facility] | El Hassan | Other (Patient | | 2015 | | SURGERY [address] | MD Demi, FACS 380 | stated he is | | | | [place], [place] | [facility] | returning Edin's | | | | [address] | [place] [address] | call) | | | | [phone] | [phone] | | | | | | | [...] | 07/04/ | Office | Gastroenterology | [facility] | | 2019 | Visit | | GILMA Alexander [address] | | | | | | [address] | | | | | | [place] | | | | | | [address] | | | | | | | | +--------+---------+ + + + documented as of this encounter Visit Diagnoses Not on filedocumented in this encounter"
--- OUTSIDE RECORDS SUMMARY | ~2019-07-02 | XMS | Encounter Summary ---
Demographics + + + | Address | [address] [facility] [address] | | | [place] [address] | + + + | Home Phone | | + + + | Preferred Language | Unknown | + + + | Marital Status | Single | + + + | Mandaeism Affiliation | Unknown | + + + | Race | Unknown | + + + | Ethnic Group | Unknown | + + + Author + + + | Author | [facility] | | | and [place] | + + + | Organization | [facility] | | | and [...] [place] | | | | | [address] | | + + + + + Care Team Providers + +------+ + | Care Sports Physiologist Name | Role | Phone | + [...] | | | | | radiculopath | [address] | | | | | | y, lumbar | Phone: | | | | | | region S/P | [phone] | | | | | | lumbar | Fax: | | | | | | fusion | [phone] | | +--------+ + + + + + Reason for Visit + + + | Reason | Comments | + + + | Follow-up | Post op | + + + Encounter Details +--------+---------+ + + + | Date | Type | Department | Care Team | Description | +--------+---------+ + + + | 08/22/ | Office | [facility] | Fam Bonds, | 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 Fam Bonds DO [address] [facility] [place] [address] FAX: NEUROSURGERY FOLLOW-UP CHIEF COMPLAINT: Chief Complaint [...] DM type 2 (diabetes mellitus, type 2) ([facility]) elevated blood sugars while hospitalized Esophageal reflux ANGELES (acute kidney injury) ([facility]) 12/13/2012 creatinine 10.77 Rib fracture [...] ty: N/A; Surgeon: Fam Bonds DO; Location: [facility] MAIN OR CURRENT MEDICATIONS: Current Outpatient Prescriptions [...] DM type 2 (diabetes mellitus, type 2) ([facility]) elevated blood sugars while hospitalized Esophageal reflux ANGELES (acute kidney injury) ([facility]) 12/13/2012 creatinine 10.77 Rib fracture [...] | Office | Gastroenterology | [facility] | | | 2019 | Visit | | GILMA Alexander [address] | | | | | | [address] | | | | | | [place] | | | | | | [address] | | | | | | | [...]
--- OUTSIDE RECORDS SUMMARY | ~2019-07-02 | XMS | Encounter Summary ---
Demographics + + + | Address | [address] [facility] [address] | | | [place] [address] | + + + | Home Phone | | + + + | Preferred Language | Unknown | + + + | Marital Status | Single | + + + | Denominational Affiliation | Unknown | + + + | Race | Unknown | + + + | Ethnic Group | Unknown | + + + Author + + + | Author | [facility] | | | and [place] | + + + | Organization | [facility] | | [...] [place] | | | | | [address] | | + + + + + Care Team Providers + +------+ + | Care Brand Activation Manager Name | Role | Phone | [...] + | 04/15/ | Telephone | [facility] | Fam Bonds, | Other | | 2013 | | NEUROSURGERY [address] | DO [address] | | | | | [address] | [address] [place], [place] | | | | | [place], [place] | [address] | | | | | [address] | | | | | | [phone] | | | +--------+ + + + [...] | 07/04/ | Office | Gastroenterology | [facility], | | | 2018 | Visit | | GILMA Alexander [address] | | | | | | [address] | | | | | | [place] | | | | | | [address] | | | | | | | | +--------+---------+ + + + documented as of this encounter Visit Diagnoses Not on filedocumented in this encounter"
--- OUTSIDE RECORDS SUMMARY | ~2019-07-02 | XMS | Encounter Summary ---
Demographics + + + | Address | [address] [facility] [address] | | | [place] [address] | + + + | Home Phone [...] Organization | [facility] | | | and [place] | [...] [place] | | | | | [address] | | + + + + + Care Team Providers + +------+ + | Care Resort Host Name | Role | Phone | + [...] | | | | testing | PA-C [address] | [address] | | | | | consult, hx | | [address] | | | | | of | [place] | [place], | | | | | anaphylaxis | WAY | [place] [address] | | | | | | [place], | Phone: | | | | | | [place] [address] | [phone] | | | | | | Phone: | Fax: | | | | | | [phone] | [phone] | | | | | | Fax: | | | | | | | [phone] | | +--------+--------+ + + + + Encounter Details +--------+---------+ + + + | Date | Type | Department | Care Team | Description | +--------+---------+ + + + | 04/12/ | Office | [facility] | Garry Carias MD | Multiple allergies | | 2018 | Visit | OTOLARYNGOLOGY [address] | [address] | (Primary Dx); MARY JANE | | | | [address] | [address] [place], | (obstructive sleep | | | | [place], [place] | [place] [address] | apnea) | | | | [address] | [phone] | | | | | [phone] | | | +--------+---------+ + + + [...] into severe problems. He has been [facility] to get a CPAP machine because [...] | 07/04/ | Office | Gastroenterology | [facility], | | | 2018 | Visit | | GILMA Alexander [address] | | | | | | [address] | | | | | | [place] | | | | | | [phone] | | | | | | | [...] + + + + + + | [place] IgE | <0.10 | Class 0 kU/L [...] + + + + + + | [place] IgE | <0.10 | Class 0 kU/L [...] 0 kU/L | REFERENCE | | | [place] IgE | | | LAB [facility] | [...] + + + + + + | [id number] | <0.10 | Class 0 kU/L | [...] At | + + + | Test(s) [id number] Green Barrett Pepper were developed and had | REFERENCE LAB | | performance characteristics determined by [facility]. These tests have | [facility] [...] | | | research. Performed at: - [address], | | | [place], [place] [id number] Wind Field Manager: Steve Stroud MD, Phone: | | | [phone] | | + + + + + + + + | Performing | Address | City/State/Zipcode | Phone Number | | Organization | | | | + + + + + | REFERENCE LAB | [address] | [place] [address] | [phone] | | [facility] | Saleem [...]
--- OUTSIDE RECORDS SUMMARY | ~2019-07-02 | XMS | Encounter Summary ---
Demographics + + + | Address | [address] [facility] [facility] [address] | | | [place] [address] | + + + | Home Phone [...] | Organization | [facility] | | | and [place] [...] [place] | | | | | [address] | | + + + + + Care Team Providers + +------+ + | Care Floor Associate Name | Role | Phone | + [...] [address] | [address] [place], [place] | | | | | [place], [place] | [address] | | | | | [address] | | | | | | [phone] | | | +--------+ + + + [...] | 07/04/ | Office | Gastroenterology | [facility], | | | 2018 | Visit | | GILMA Alexander [address] | | | | | | [address] | | | | | | [place] | | | | | | [address] | | | | | | | | +--------+---------+ + + + documented as of this encounter Visit Diagnoses Not on filedocumented in this encounter"
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
--- OUTSIDE RECORDS SUMMARY | ~2019-07-02 | XMS | Encounter Summary ---
Demographics + + + | Address | [address] [facility] [address] | | | [place] [address] | + + + | Home Phone | | + + + | Preferred Language | Unknown | + + + | Marital Status | Single | + + + | Shinto Affiliation | Unknown | + + + | Race | Unknown | + + + | Ethnic Group | Unknown | + + + Author + + + | Author | [facility] | | | and [place] | + + + | Organization | [facility] | | [...] [place] | | | | | [address] | | + + + + + Care Team Providers + +------+ + | Care Skate Maker Name | Role | Phone | [...] + | 04/08/ | Telephone | [facility] | Fam Bonds, | Other (Surgery | | 2013 | | NEUROSURGERY [address] | DO [address] | clearance) | | | | [address] | [address] [place], [place] | | | | | [place], [place] | [id number] | | | | | [address] | | | | | | [phone] | | | +--------+ + + + [...] | 07/04/ | Office | Gastroenterology | [facility], | | | 2019 | Visit | | GILMA Alexander [address] | | | | | | [address] | | | | | | [place] | | | | | | [address] | | | | | | | | +--------+---------+ + + + documented as of this encounter Visit Diagnoses Not on filedocumented in this encounter"
--- OUTSIDE RECORDS SUMMARY | ~2019-07-02 | XMS | Encounter Summary ---
Demographics + + + | Address | [address] [facility] [address] | | | [place] [address] | + + + | Home Phone | | + + + | Preferred Language | Unknown | + + + | Marital Status | Single | + + + | Yarsanism Affiliation | Unknown | + + + | Race | Unknown | + + + | Ethnic Group | Unknown | + + + Author + + + | Author | [facility] | | | and [place] | + + + | Organization | [facility] | | [...] [place] | | | | | [address] | | + + + + + Care Team Providers + +------+ + | Care Bmw Sales Consultant Name | Role | Phone | + +------+ + | Lisa Morrow MD | PCP | | + +------+ + Reason for Visit + + + | Reason | Comments | + + + | Appointment | Patient cancelled appointment | + + + Encounter Details +--------+ + + + + | Date | Type | Department | Care Team | Description | +--------+ + + + + | 02/12/ | Telephone | [facility] | Aida Almazan | Appointment (Patient | | 2012 | | NEPHROLOGY [address] | M, DO [address] | cancelled | | | | [address] | [address] | appointment) | | | | [place], [place] | [place], [place] | | | | | [address] | [address] | | | | | [phone] | | | +--------+ + + + [...] | 07/04/ | Office | Gastroenterology | [facility], | | | 2019 | Visit | | GILMA Alexander [address] | | | | | | [address] | | | | | | [place] | | | | | | [address] | | | | | | | | +--------+---------+ + + + documented as of this encounter Visit Diagnoses Not on filedocumented in this encounter"
--- OUTSIDE RECORDS SUMMARY | ~2019-07-02 | XMS | Encounter Summary ---
Demographics + + + | Address | [address] [facility] [address] | | | [place] [address] | + + + | Home Phone [...] + + + | Author | [facility] | | | and [place] | + + + | Organization | [facility] | | | and [place] [...] [place] | | | | | [address] | | + + + + + Care Team Providers + +------+ + | Care Field Tax Auditor Name | Role | Phone | + [...] | | [address] | [place] | | | | | [place], [place] | [place], [place] | | | | | [address] | [address] | | | | | [phone] | | | +--------+ + + + [...] | 07/04/ | Office | Gastroenterology | [facility], | | | 2019 | Visit | | GILMA Alexander [address] | | | | | | [place] | | | | | | [place] | | | | | | [address] | | | | | | | | +--------+---------+ + + + documented as of this encounter Procedures + +--------+ + + + | Procedure Name | Priori | Date/Time | Associated Diagnosis | Comments | | | ty | | | | + +--------+ + + + | CMP14+LP+CBC/D/PLT+T | Routin | 02/08/2013 | | Results for this | | SH+UA/M (NON ORD) | e | 10:16 AM | | procedure are in the | | | | PDT | | results section. | + +--------+ + + + | EXTERNAL LAB: AST | Routin | 02/07/2013 | | Results for this | | | e | | | procedure are in the | | | | | | results section. | + +--------+ + + + | EXTERNAL LAB: ALT | Routin | 02/07/2013 | | Results for this | | | e | | | procedure are in the | | | | | | results section. | + +--------+ + + + | EXTERNAL LAB: EGFR | Routin | 02/07/2013 | | Results for this | | | e | | | procedure are in the | | | | | | results section. | + +--------+ + + + | EXTERNAL LAB: | Routin | 02/07/2013 | | Results for this | | CREATININE | e | | | procedure are in the | | | | | | results section. | + +--------+ + + + | EXTERNAL LAB: | Routin | 02/07/2013 | | Results for this | | HEMOGLOBIN A1C | e | | | procedure are in the | | | | | | results section. | + +--------+ + + + documented in this encounter Results CMP14+LP+CBC/D/Plt+TSH+UA/M (02/08/2013 10:16 AM PDT) + +-------+ + + + | Component | Value | Ref Range | Performed | Pathologist | | | | | At | Signature | + +-------+ + + + | Na | 139 | mmol/L | | | + +-------+ + + + | K | 4.1 | mmol/L | | | + +-------+ + + + | Cl | 104 | mmol/L | | | + +-------+ + + + | CO2 | 27 | mmol/L | | | + +-------+ + + + | BUN | 7 | mg/dL | | | + +-------+ + + + | Glucose | 97 | mg/dL | | | + +-------+ + + + | Calcium | 9.4 | mg/dL | | | + +-------+ + + + | WBC | 7.6 | K/uL | | | + +-------+ + + + | Hemoglobin | 14.0 | 13.2 - 17.0 | | | | | | g/dL | | | + +-------+ + + + | Hematocrit | 40.6 | 39.0 - 50.0 % | | | + +-------+ + + + | Platelet | 237 | 150 - 400 K/uL | | | | Count | | | | | + +-------+ + + + | MCV | 94.0 | 80.0 - 100.0 fL | | | + +-------+ + + + | Bilirubin | 0.5 | 0.1 - 1.5 mg/dL | | | | Total | | | | | + +-------+ + + + | Alkaline | 91 | 35 - 115 U/L | | | | Phosphatase | | | | | + +-------+ + + + | Uric Acid | 9.6 | mg/dL | | | + +-------+ + + + | Vit D, | 20 | | | | | 25-Hydroxy | | | | | + +-------+ + + + + + | Specimen | + + | | + + External Lab: BENNY (02/07/2013) + +--------+ + + + | Component | Value | Ref Range | Performed | Pathologist | | | | | At | Signature | + +--------+ + + + | AST, | 69 (A) | 0 - 40 | EXTERNAL | | | External | | | LAB | | + +--------+ + + + + + | Specimen | + + | Blood specimen | | (specimen) | + + + + | Resulting Agency Comment | + + | [facility] | + + + +---------+ + + | Performing | Address | City/State/Zipcode | Phone Number | | Organization | | | | + +---------+ + + | EXTERNAL LAB | | | | + +---------+ + + External Lab: ALT (02/07/2013) + +---------+ + + + | Component | Value | Ref Range | Performed | Pathologist | | | | | At | Signature | + +---------+ + + + | ALT, | 114 (A) | 0 - 46 | EXTERNAL | | | External | | | LAB | | + +---------+ + + + + + | Specimen | + + | Blood specimen | | (specimen) | + + + + | Resulting Agency Comment | + + | [facility] | + + + +---------+ + + | Performing | Address | City/State/Zipcode | Phone Number | | Organization | | | | + +---------+ + + | EXTERNAL LAB | | | | + +---------+ + + External Lab: eGFR (02/07/2013) + +-------+ + + + | Component | Value | Ref Range | Performed | Pathologist | | | | | At | Signature | + +-------+ + + + | eGFR, | >60 | 60 | EXTERNAL | | | External | | | LAB | | + +-------+ + + + | eGFR, | | | EXTERNAL | | | | | | LAB | | | [place], | | | | | | External | | | | | + +-------+ + + + + + | Specimen | + + | Blood specimen | | (specimen) | + + + + | Resulting Agency Comment | + + | [facility] | + + + +---------+ + + | Performing | Address | City/State/Zipcode | Phone Number | | Organization | | | | + +---------+ + + | EXTERNAL LAB | | | | + +---------+ + + External Lab: Creatinine (02/07/2013) + +-------+ + + + | Component | Value | Ref Range | Performed | Pathologist | | | | | At | Signature | + +-------+ + + + | Creatinine, | 1.14 | 0.5 - 1.5 | EXTERNAL | | | External | | | LAB | | + +-------+ + + + + + | Specimen | + + | Blood specimen | | (specimen) | + + + + | Resulting Agency Comment | + + | [facility] | + + + +---------+ + + | Performing | Address | City/State/Zipcode | Phone Number | | Organization | | | | + +---------+ + + | EXTERNAL LAB | | | | + +---------+ + + External Lab: Hemoglobin A1c (02/07/2013) + +-------+ + + + | Component | Value | Ref Range | Performed | Pathologist | | | | | At | Signature | + +-------+ + + + | Hemoglobin | 5.2 | 5.7 | EXTERNAL | | | A1c, | | | LAB | | | external | | | | | + +-------+ + + + + + | Specimen | + + | Blood specimen | | (specimen) | + + + + | Resulting Agency Comment | + + | [facility] | + + + +---------+ + + | Performing | Address | City/State/Zipcode | Phone Number | | Organization | | | | + +---------+ + + | EXTERNAL LAB | | | | + +---------+ + + documented in this encounter Visit Diagnoses Not on filedocumented in this encounter"
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
--- OUTSIDE RECORDS SUMMARY | ~2019-07-02 | XMS | Encounter Summary ---
Demographics + + + | Address | [address] [facility] [address] | | | [place] [address] | + + + | Home Phone [...] Organization | [facility] | | | and [...] [place] | | | | | [address] | | + + + + + Care Team Providers + +------+ + | Care Mogul Operator Name | Role | Phone | [...] [address] | [address] | without neurogenic | | | | [place], [place] | [address] | claudication | | | | [address] | | (Primary Dx); Spinal | | | | [phone] | | stenosis, lumbar | | | [...] | 07/04/ | Office | Gastroenterology | [facility], | | | 2019 | Visit | | GILMA Alexander [address] | | | | | | [address] | | | | | | [place] | | | | | | [address] | | | | | | | [...]
--- OUTSIDE RECORDS SUMMARY | ~2019-07-02 | XMS | Encounter Summary ---
Demographics + + + | Address | [address] [facility] [address] | | | [place] [address] | + + + | Home Phone | | + + + | Preferred Language | Unknown | + + + | Marital Status | Single | + + + | Uatsdin Affiliation | Unknown | + + + | Race | Unknown | + + + | Ethnic Group | Unknown | + + + Author + + + | Author | [facility] | | | and [place] | + + + | Organization | [facility] | | [...] [place] | | | | | [address] | | + + + + + Care Team Providers + +------+ + | Care Jetting Machine Operator Name | Role | Phone [...] [address] | [address] [place], [place] | | | | | [place], [place] | [address] | | | | | [address] | | | | | | [phone] | | | +--------+ + + + [...] | 07/04/ | Office | Gastroenterology | [facility], | | | 2019 | Visit | | GILMA Alexander [address] | | | | | | [place] | | | | | | [place] | | | | | | [address] | | | | | | | | +--------+---------+ + + + documented as of this encounter Visit Diagnoses + + | Diagnosis | + + | S/P lumbar fusion - Primary Arthrodesis status | + + documented in this encounter"
--- OUTSIDE RECORDS SUMMARY | ~2019-07-02 | XMS | Encounter Summary ---
Demographics + + + | Address | [address] [facility] [address] | | | [place] [address] | + + + | Home Phone [...] + + + | Author | [facility] | | | and [place] | + + + | Organization | [facility] | [...] [place] | | | | | [address] | | + + + + + Care Team Providers + +------+ + | Care Assurance Associate Name | Role | Phone | [...] + | 04/16/ | Telephone | [facility] | Fam Bonds, | Other (Home Health | | 2014 | | [address] | DO [address] | Services) | | | | [address] | [address] [place], [place] | | | | | [place], [place] | [address] | | | | | [address] | | | | | | [phone] | | | +--------+ + + + [...] | [facility], | | 2019 | Visit | | GILMA Alexander [address] | | | | | | [address] | | | | | | [place] | | | | | | [address] | | | | | | | | +--------+---------+ + + + documented as of this encounter Visit Diagnoses Not on filedocumented in this encounter"
--- OUTSIDE RECORDS SUMMARY | ~2019-07-02 | XMS | Encounter Summary ---
Demographics + + + | Address | [address] [facility] [address] | | | [place] [address] | + + + | Home Phone [...] + | Organization | [facility] [...] [place] | | | | | [address] | | + + + + + Care Team Providers + +------+ + | Care Women'S Studies Professor Name | Role | Phone | + +------+ + | Stefano Padgett PA-C | PCP | | + +------+ + Encounter Details +--------+ + + + + | Date | Type | Department | Care Team | Description | +--------+ + + + + | 04/15/ | Hospital | [facility] | Orlando Spears, | | | 2013 | Encounter | MED CTR ACUTE | PT [address] | | | | | PHYSICAL THERAPY | [place] | | | | | [address] [place] | [address] | | | | | [place] [address] | | | | | | [phone] | | | +--------+ + + + [...] | 07/04/ | Office | Gastroenterology | [facility], | | | 2019 | Visit | | GILMA Alexander [address] | | | | | | [address] | | | | | | [place] | | | | | | [address] | | | | | | | | +--------+---------+ + + + documented as of this encounter Visit Diagnoses Not on filedocumented in this encounter"
--- OUTSIDE RECORDS SUMMARY | ~2019-07-02 | XMS | Encounter Summary ---
Demographics + + + | Address | [address] [facility] [address] | | | [place] [address] | + + + | Home Phone | | + + + | Preferred Language | Unknown | + + + | Marital Status | Single | + + + | Protestant Affiliation | Unknown | + + + | Race | Unknown | + + + | Ethnic Group | Unknown | + + + Author + + + | Author | [facility] | | | and [place] | + + + | Organization | [facility] | | | and [...] [place] | | | | | [address] | | + + + + + Care Team Providers + +------+ + | Care Commercial Pest Control Technician Name | Role | Phone | + +------+ + | Stefano Padgett PA-C | PCP | | + +------+ + Encounter Details +--------+ + + + + | Date | Type | Department | Care Team | Description | +--------+ + + + + | 06/17/ | Hospital | [facility] | Fam Bonds, | Status post lumbar | | 2013 | Encounter | MED CTR XRAY [address] | DO [address] | spinal fusion | | | | [place] | [address] [place], [place] | | | | | [place] [address] | [address] | | | | | [phone] | | | +--------+ + + + [...] [place] | | | | | | [address] | | | | | | | [...] 2 or 3 Vw (06/17/2014 10:44 AM [facility]) + + | Specimen | + + [...] + | MISCELLANEOUS LAB | | | [phone] | + +---------+ + + | MISCELANIOUS LAB | | | [phone] | + +---------+ + + documented in this encounter Visit Diagnoses + + | Diagnosis | + + | Status post lumbar spinal fusion Arthrodesis status | + + documented in this encounter"
--- OUTSIDE RECORDS SUMMARY | ~2019-07-02 | XMS | Encounter Summary ---
[...] Author + + + | Author | [facility] | | | and [place] | + + + | Organization | [facility] | | [...] [place] | | | | | [address] | | + + + + + Care Team Providers + +------+ + | Care Associate Material Handler Name | Role | Phone | + [...] | | [address] | [place] | | | | | [place], [place] | [place], [place] | | | | | [address] | [address] | | | | | [phone] | | | +--------+ + + + [...] | 07/04/ | Office | Gastroenterology | [facility], | | | 2019 | Visit | | GILMA Alexander [address] | | | | | | [address] [place] [address] | | | | | | [place] | | | | | | [address] | | | | | | | | +--------+---------+ + + + documented as of this encounter Visit Diagnoses Not on filedocumented in this encounter"
--- OUTSIDE RECORDS SUMMARY | ~2019-07-02 | XMS | Encounter Summary ---
Demographics + + + | Address | [address] [facility] [address] | | | [place] [address] | + + + | Home Phone [...] Organization | [facility] | | | and [...] [place] | | | | | [address] | | + + + + + Care Team Providers + +------+ + | Care Entry Level Administrative Assistant Name | Role | Phone | [...] | | | | [address] [facility] | [place] | | | | | [address] [place] | [place] [address] | | | | | [address] | | | | | | [phone] | | | +--------+ + + + [...] | 07/04/ | Office | Gastroenterology | [facility], | | | 2019 | Visit | | GILMA Alexander [address] | | | | | | [address] | | | | | | [place] | | | | | | [address] | | | | | | | [...]
--- OUTSIDE RECORDS SUMMARY | ~2019-07-02 | XMS | Encounter Summary ---
Demographics + + + | Address | [address] [facility] [address] | | | [place] [address] | + + + | Home Phone | | + + + | Preferred Language | Unknown | + + + | Marital Status | Single | + + + | Sabianist Affiliation | Unknown | + + + | Race | Unknown | + + + | Ethnic Group | Unknown | + + + Author + + + | Author | [facility] | | | and [place] | + + + | Organization | [facility] | | | and [place] [...] [place] | | | | | [address] | | + + + + + Care Team Providers + +------+ + | Care Fleet Mechanic Name | Role | Phone | [...] | | [address] | [place] | | | | | [place], [place] | [place], [place] | | | | | [address] | [address] | | | | | [phone] | | | +--------+ + + + [...] [place] | | | | | | [address] | | | | | | | | +--------+---------+ + + + documented as of this encounter Visit Diagnoses Not on filedocumented in this encounter"
--- OUTSIDE RECORDS SUMMARY | ~2019-07-02 | XMS | Encounter Summary ---
Demographics + + + | Address | [address] [facility] [address] | | | [place] [address] | + + + | Home Phone [...] + + + | Author | [facility] | | | and [place] | + + + | Organization | [facility] | | | and [...] [place] | | | | | [address] | | + + + + + Care Team Providers + +------+ + | Care Medical Cost Consultant Name | Role | Phone | [...] [place], [place] | | | | | [place], [place] | [id number] | | | | | [address] | | | | | | [phone] | | | +--------+ + + + [...] | 07/04/ | Office | Gastroenterology | [facility], | | | 2019 | Visit | | GILMA Alexander [address] | | | | | | [address] | | | | | | [place] | | | | | | [address] | | | | | | | | +--------+---------+ + + + documented as of this encounter Visit Diagnoses Not on filedocumented in this encounter"
--- OUTSIDE RECORDS SUMMARY | ~2019-07-02 | XMS | Encounter Summary ---
Demographics + + + | Address | [address] [facility] [address] | | | [place] [address] | + + + | Home Phone | | + + + | Preferred Language | Unknown | + + + | Marital Status | Single | + + + | Tenriism Affiliation | Unknown | + + + | Race | Unknown | + + + | Ethnic Group | Unknown | + + + Author + + + | Author | [facility] | | | and [place] | + + + | Organization | [facility] | | | and [place] [...] [place] | | | | | [address] | | + + + + + Care Team Providers + +------+ + | Care Culinary Instructor Name | Role | Phone | [...] + + | 01/30/ | Telephone | [facility] | El Hassan | Other (Patient | | 2015 | | SURGERY [address] | MD Demi, FACS [address] | stated he is | | | | [place], [place] | [facility] | returning Edin's | | | | [address] | [place] [address] | call) | | | | [phone] | [phone] | | | | | | | [...] | 07/04/ | Office | Gastroenterology | [facility] | | 2019 | Visit | | GILMA Alexander [address] | | | | | | [address] | | | | | | [place] | | | | | | [address] | | | | | | | | +--------+---------+ + + + documented as of this encounter Visit Diagnoses Not on filedocumented in this encounter"
--- OUTSIDE RECORDS SUMMARY | ~2019-07-02 | XMS | Encounter Summary ---
Demographics + + + | Address | [address] [facility] [address] | | | [place] [address] | + + + | Home Phone [...] | Organization | [facility] | | | and [...] [place] | | | | | [address] | | + + + + + Care Team Providers + +------+ + | Care Voting Machine Mechanic Name | Role | Phone | + +------+ + | Stefano Padgett PA-C | PCP | | + +------+ + Reason for Visit + + + | Reason | Comments | + + + | Appointment | Re-schedule | + + + Encounter Details +--------+ + + + + | Date | Type | Department | Care Team | Description | +--------+ + + + + | 05/03/ | Telephone | [facility] | Fam Bonds, | Appointment | | 2013 | | [address]UR[address]UR[address] | DO [address] | (Re-schedule ) | | | | [address] | [address] [place], [place] | | | | | [place], [place] | [id number] | | | | | [address] | | | | | | [phone] | | | +--------+ + + + [...] | 07/04/ | Office | Gastroenterology | [facility], | | | 2019 | Visit | | GILMA Alexander [address] | | | | | | [address] | | | | | | [place] | | | | | | [address] | | | | | | | | +--------+---------+ + + + documented as of this encounter Visit Diagnoses Not on filedocumented in this encounter"
--- OUTSIDE RECORDS SUMMARY | ~2019-07-02 | XMS | Encounter Summary ---
Demographics + + + | Address | [address] [facility] [address] | | | [place] [address] | + + + | Home Phone [...] Organization | [facility] | | | and [place] [...] [place] | | | | | [address] | | + + + + + Care Team Providers + +------+ + | Care Necktie Maker Name | Role | Phone | [...] + | 05/03/ | Telephone | [facility] | Fam Bonds, | Appointment | | 2013 | | [address] | DO [address] | (Re-schedule ) | | | | [address] | [address] [place], [place] | | | | | [place], [place] | [id number] | | | | | [address] | | | | | | [phone] | | | +--------+ + + + [...] 07/04/ | Office | Gastroenterology | [facility], | | | 2019 | Visit | | GILMA Alexander [address] | | | | | | [address] | | | | | | [place] | | | | | | [address] | | | | | | | | +--------+---------+ + + + documented as of this encounter Visit Diagnoses Not on filedocumented in this encounter"
--- OUTSIDE RECORDS SUMMARY | ~2019-07-02 | XMS | Encounter Summary ---
Demographics + + + | Address | [address] [facility] [address] | | | [place] [address] | + + + | Home Phone [...] Organization | [facility] | | | and [place] [...] [place] | | | | | [address] | | + + + + + Care Team Providers + +------+ + | Care Shingles Roofer Name | Role | Phone | + [...] | +--------+ + + + + | 04/25/ | Telephone | [facility] | Fam Bonds, | Letter for | | 2013 | | [address] | DO [address] | School/Work | | | | [address] | [address] [place], [place] | | | | | [place], [place] | [id number] | | | | | [address] | | | | | | [phone] | | | +--------+ + + + [...] | 07/04/ | Office | Gastroenterology | [facility], | | | 2019 | Visit | | GILMA Alexander [address] | | | | | | [address] | | | | | | [place] | | | | | | [address] | | | | | | | | +--------+---------+ + + + documented as of this encounter Visit Diagnoses Not on filedocumented in this encounter"
--- OUTSIDE RECORDS SUMMARY | ~2019-07-02 | XMS | Encounter Summary ---
Demographics + + + | Address | [address] | | | [place] [address] | + + + | Home Phone | | + + + | Preferred Language | Unknown | + + + | Marital Status | Single | + + + | Latter-Day Affiliation | Unknown | + + + | Race | Unknown | + + + | Ethnic Group | Unknown | + + + Author + + + | Author | [facility] | | | and [place] | + + + | Organization | [facility] | | | and [...] [place] | | | | | [address] | | + + + + + Care Team Providers + +------+ + | Care Data Conversion Operator Name | Role | Phone | [...] | | | | | radiculopath | [address] | | | | | | y, lumbar | Phone: | | | | | | region S/P | [phone] | | | | | | lumbar | Fax: | | | | | | fusion | [phone] | | +--------+ + + + + + Reason for Visit + + + | Reason | Comments | + + + | Follow-up | Post op | + + + Encounter Details +--------+---------+ + + + | Date | Type | Department | Care Team | Description | +--------+---------+ + + + | 08/22/ | Office | [facility] | Fam Bonds, | 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 | | | | [address] | [address] [place], [place] | radiculopathy, | | | | [place], [place] | [address] | lumbar region | | | | [address] | | (Primary Dx); S/P | | | | [phone] | | lumbar fusion | +--------+---------+ + [...] Fam Bonds DO [address] [facility] [place] [address] FAX: NEUROSURGERY FOLLOW-UP CHIEF COMPLAINT: Chief Complaint [...] DM type 2 (diabetes mellitus, type 2) ([facility]) elevated blood sugars while hospitalized Esophageal reflux ANGELES (acute kidney injury) ([facility]) 12/13/2012 creatinine 10.77 Rib fracture [...] ty: N/A; Surgeon: Fam Bonds DO; Location: [facility] MAIN OR CURRENT MEDICATIONS: Current Outpatient [...] DM type 2 (diabetes mellitus, type 2) ([facility]) elevated blood sugars while hospitalized Esophageal reflux ANGELES (acute kidney injury) ([facility]) 12/13/2012 creatinine 10.77 Rib fracture [...] 07/04/ | Office | Gastroenterology | [facility] | | | 2019 | Visit | | GILMA Alexander [address] | | | | | | [address] | | | | | | [place] | | | | | | [address] | | | | | | | [...]
--- OUTSIDE RECORDS SUMMARY | ~2019-07-02 | XMS | Encounter Summary ---
Demographics + + + | Address | [address] | | | [place] [address] | + + + | Home Phone [...] | Organization | [facility] | | | and [place] [...] [place] | | | | | [address] | | + + + + + Care Team Providers + +------+ + | Care Regional Facilities Manager Name | Role | Phone | [...] | | | | [address] [facility] | Lewis | | | | | [address] | [place] [address] | | | | | [address] | | | | | | [phone] | | | +--------+ + + + [...] | 07/04/ | Office | Gastroenterology | [facility], | | | 2019 | Visit | | GILMA Alexander [address] | | | | | | [address] | | | | | | [place] | | | | | | [address] | | | | | | | [...]
--- OUTSIDE RECORDS SUMMARY | ~2019-07-02 | XMS | Encounter Summary ---
Demographics + + + | Address | [address] [facility] [address] | | | [place] [address] | + + + | Home Phone | | + + + | Preferred Language | Unknown | + + + | Marital Status | Single | + + + | Hindu Affiliation | Unknown | + + + | Race | Unknown | + + + | Ethnic Group | Unknown | + + + Author + + + | Author | [facility] | | | and [place] | + + + | Organization | [facility] | | [...] [place] | | | | | [address] | | + + + + + Care Team Providers + +------+ + | Care Vending Machine Collector Name | Role | Phone | + [...] | 02/12/ | Telephone | [facility] [place] | Aida Almazan | Appointment (Patient | | 2012 | | NEPHROLOGY [address] | M, DO [address] | cancelled | | | | [address] | [address] | appointment) | | | | [place], [place] | [place], [place] | | | | | [address] | [address] | | | | | [phone] | | | +--------+ + + + [...] [place] | | | | | | [address] | | | | | | | | +--------+---------+ + + + documented as of this encounter Visit Diagnoses Not on filedocumented in this encounter"
--- OUTSIDE RECORDS SUMMARY | ~2019-07-02 | XMS | Encounter Summary ---
Demographics + + + | Address | [address] [facility] [address] | | | [place] [address] | + + + | Home Phone [...] | Organization | [facility] | | | and [place] [...] [place] | | | | | [address] | | + + + + + Care Team Providers + +------+ + | Care Dairy Cattle Farm Worker Name | Role | Phone | [...] Description | +--------+--------+ + + + | 04/29/ | Refill | [facility] [place] | Fam Bonds, | Medication Refill | | 2013 | | NEUROSURGERY [address] | DO [address] | | | | | [address] | [address] [place], [place] | | | | | [place], [place] | [id number] | | | | | [address] | | | | | | [phone] | | | +--------+--------+ + + + [...] | 07/04/ | Office | Gastroenterology | [facility], | | | 2019 | Visit | | GILMA Alexander [address] | | | | | | [address] | | | | | | [place] | | | | | | [address] | | | | | | | | +--------+---------+ + + + documented as of this encounter Visit Diagnoses Not on filedocumented in this encounter"
--- OUTSIDE RECORDS SUMMARY | ~2019-07-02 | XMS | Encounter Summary ---
Demographics + + + | Address | [address] [facility] [address] | | | [place] [address] | + + + | Home Phone [...] [facility] | | | [...] [place] | | | | | [address] | | + + + + + Care Team Providers + +------+ + | Care Grading Supervisor Name | Role | Phone | [...] + + | 04/24/ | Telephone | [facility] | Fam Bonds, | Other (clarifying | | 2013 | | NEUROSURGERY [address] | DO [address] | that rx fentanyl | | | | [address] | [address] [place], [place] | patches will be | | | | [place] | [address] | picked up at | | | | [address] | | [facility]) | | | | [phone] | | | +--------+ + + + [...] | 07/04/ | Office | Gastroenterology | [facility] | | | 2019 | Visit | | GILMA Alexander [address] | | | | | | [address] | | | | | | [place] | | | | | | [address] | | | | | | | | +--------+---------+ + + + documented as of this encounter Visit Diagnoses Not on filedocumented in this encounter"
--- OUTSIDE RECORDS SUMMARY | ~2019-07-02 | XMS | Encounter Summary ---
Demographics + + + | Address | [address] [facility] [address] | | | [place] [address] | + + + | Home Phone | | + + + | Preferred Language | Unknown | + + + | Marital Status | Single | + + + | Anabaptist Affiliation | Unknown | + + + | Race | Unknown | + + + | Ethnic Group | Unknown | + + + Author + + + | Author | [facility] | | | and [place] | + + + | Organization | [facility] | [...] [place] | | | | | [address] | | + + + + + Care Team Providers + +------+ + | Care Reed Cleaner Name | Role | Phone | [...] + | 04/15/ | Telephone | [facility] | Fam Bonds, | Other | | 2013 | | NEUROSURGERY [address] | DO [address] | | | | | [address] | [address] [place], [place] | | | | | [place], [place] | [address] | | | | | [address] | | | | | | [phone] | | | +--------+ + + + [...] Office | Gastroenterology | [facility], | | | 2018 | Visit | | GILMA Alexander [address] | | | | | | [address] | | | | | | [place] | | | | | | [address] | | | | | | | | +--------+---------+ + + + documented as of this encounter Visit Diagnoses Not on filedocumented in this encounter"
--- OUTSIDE RECORDS SUMMARY | ~2019-07-02 | XMS | Encounter Summary ---
Demographics + + + | Address | [address] [facility] [address] | | | [place] [address] | + + + | Home Phone [...] + | Organization | [facility] | | | and [place] [...] [place] | | | | | [address] | | + + + + + Care Team Providers + +------+ + | Care Dross Puller Name | Role | Phone | + +------+ + | Stefano Padgett PA-C | PCP | | + +------+ + Reason for Visit + + + | Reason | Comments | + + + | Appointment | FOLLOW UP | + + + Encounter Details +--------+ + + + + | Date | Type | Department | Care Team | Description | +--------+ + + + + | 06/28/ | Telephone | [facility] [place] | [place], | Appointment (FOLLOW | | 2013 | | PULMONARY [address] | Jennifer Ladd MD | UP) | | | | [place], | | | | | | [place] [address] | | | | | | [phone] | | | +--------+ + + + [...] 07/04/ | Office | Gastroenterology | [facility], | | | 2019 | Visit | | GILMA Alexander [address] | | | | | | [address] | | | | | | [place] | | | | | | [address] | | | | | | | | +--------+---------+ + + + documented as of this encounter Visit Diagnoses Not on filedocumented in this encounter"
--- OUTSIDE RECORDS SUMMARY | ~2019-07-02 | XMS | Encounter Summary ---
Demographics + + + | Address | [address] [facility] [address] | | | [place] [address] | + + + | Home Phone | | + + + | Preferred Language | Unknown | + + + | Marital Status | Single | + + + | Oriental Orthodox Affiliation | Unknown | + + + | Race | Unknown | + + + | Ethnic Group | Unknown | + + + Author + + + | Author | [facility] | | | and [place] | + + + | Organization | [facility] | | | and [...] [place] | | | | | [address] | | + + + + + Care Team Providers + +------+ + | Care Firebrick Layer Helper Name | Role | Phone | + +------+ + | Stefano Padgett PA-C | PCP | | + +------+ + Encounter Details +--------+ + + + + | Date | Type | Department | Care Team | Description | +--------+ + + + + | 01/30/ | Orders Only | [facility] [place] [facility] | El Hassan | | | 2015 | | SURGERY [address] | MD Demi, FACS [address] | | | | | [place], [place] | [address] [facility] | | | | | [address] | [place] [address] | | | | | [phone] | [phone] | | | | | | | [...] | 07/04/ | Office | Gastroenterology | [facility], | | | 2018 | Visit | | GILMA Alexander [address] | | | | | | [address] | | | | | | [place] | | | | | | [address] | | | | | | | | +--------+---------+ + + + documented as of this encounter Visit Diagnoses Not on filedocumented in this encounter"
--- OUTSIDE RECORDS SUMMARY | ~2019-07-02 | XMS | Encounter Summary ---
Demographics + + + | Address | [address] [facility] [address] | | | [place] [address] | + + + | Home Phone | | + + + | Preferred Language | Unknown | + + + | Marital Status | Single | + + + | Sabianism Affiliation | Unknown | + + + | Race | Unknown | + + + | Ethnic Group | Unknown | + + + Author + + + | Author | [facility] | | | and [place] | + + + | Organization | [facility] | | | and [place] | + + + | Address | Unknown | + + + | Phone | Unavailable | + + + Support + + + + + | Name | Relationship | Address | Phone | + + + + + | Craig Sinha | ECON | [address] | | | | | [place] | | | | | [address] | | + + + + + Care Team Providers + +------+ + | Care Medical Secretary Name | Role | Phone | + +------+ + | Stefano Padgett PA-C | PCP | | + +------+ + Reason for Visit +--------+ + | Reason | Comments | +--------+ + | Other | Symbic[facility] | +--------+ + Encounter Details +--------+ + + + + | Date | Type | Department | Care Team | Description | +--------+ + + + + | 02/20/ | Telephone | [facility] [place] | [place], | Other (Symbicort) | | 2013 | | PULMONARY [address] | Jennifer Ladd MD | | | | | [place], | | | | | | [place] [address] | | | | | | [phone] | | | +--------+ + + + [...] | | | | | | [place] | | | | | | [address] | | | | | | | | +--------+---------+ + + + documented as of this encounter Visit Diagnoses Not on filedocumented in this encounter"
--- OUTSIDE RECORDS SUMMARY | ~2019-07-02 | XMS | Encounter Summary ---
Demographics + + + | Address | [address] [facility] [address] | | | [place] [address] | + + + | Home Phone | | + + + | Preferred Language | Unknown | + + + | Marital Status | Single | + + + | Bahai Affiliation | Unknown | + + + | Race | Unknown | + + + | Ethnic Group | Unknown | + + + Author + + + | Author | [facility] | | | and [place] | + + + | Organization | [facility] | | | [...] [place] | | | | | [address] | | + + + + + Care Team Providers + +------+ + | Care Segment Assembler Name | Role | Phone | + [...] + | 04/08/ | Telephone | [facility] | Fam Bonds, | Other (Surgery | | 2013 | | NEUROSURGERY [address] | DO [address] | clearance) | | | | [address] | [address] [place], [place] | | | | | [place], [place] | [address] | | | | | [address] | | | | | | [phone] | | | +--------+ + + + [...] | 07/04/ | Office | Gastroenterology | [facility], | | | 2019 | Visit | | GILMA Alexander [address] | | | | | | [address] | | | | | | [place] | | | | | | [address] | | | | | | | | +--------+---------+ + + + documented as of this encounter Visit Diagnoses Not on filedocumented in this encounter"
--- OUTSIDE RECORDS SUMMARY | ~2019-07-02 | XMS | Encounter Summary ---
Demographics + + + | Address | [address] [facility] [address] | | | [place] [address] | + + + | Home Phone | | + + + | Preferred Language | Unknown | + + + | Marital Status | Single | + + + | Roman Catholic Affiliation | Unknown | + + + | Race | Unknown | + + + | Ethnic Group | Unknown | + + + Author + + + | Author | [facility] | | | and [place] | + + + | Organization | [facility] | | | and [place] [...] [place] | | | | | [address] | | + + + + + Care Team Providers + +------+ + | Care Cash Register Balancer Name | Role | Phone | + [...] [address] | [address] [place], [place] | | | | | [place], [place] | [address] | | | | | [address] | | | | | | [phone] | | | +--------+ + + + [...] | 07/04/ | Office | Gastroenterology | [facility], | | | 2018 | Visit | | GILMA Alexander [address] | | | | | | [address] | | | | | | [place] | | | | | | [address] | | | | | | | | +--------+---------+ + + + documented as of this encounter Visit Diagnoses Not on filedocumented in this encounter"
--- OUTSIDE RECORDS SUMMARY | ~2019-07-02 | XMS | Encounter Summary ---
Demographics + + + | Address | [address] | | | [place] [address] | + + + | Home Phone | | + + + | Preferred Language | Unknown | + + + | Marital Status | Single | + + + | Yarsani Affiliation | Unknown | + + + | Race | Unknown | + + + | Ethnic Group | Unknown | + + + Author + + + | Author | [facility] | | | and [place] | + + + | Organization | [facility] | | | and [...] [place] | | | | | [address] | | + + + + + Care Team Providers + +------+ + | Care Gold And Silver Assayer Name | Role | Phone | + [...] Ladd MD | | | | | [place], | | | | | | [place] [address] | | | | | | [phone] | | | +--------+ + + + [...] [place] | | | | | | [address] | | | | | | | | +--------+---------+ + + + documented as of this encounter Visit Diagnoses Not on filedocumented in this encounter"
--- OUTSIDE RECORDS SUMMARY | ~2019-07-02 | XMS | Encounter Summary ---
Demographics + + + | Address | [address] [facility] [address] | | | [place] [address] | + + + | Home Phone [...] + | Organization | [facility] | | | and [...] [place] | | | | | [address] | | + + + + + Care Team Providers + +------+ + | Care Electronic Parts Salesperson Name | Role | Phone | + [...] + | 04/15/ | Telephone | [facility] | Fam Bonds, | Other (post op | | 2013 | | NEUROSURGERY [address] | DO [address] | update. ) | | | | [address] | [address] [place], [place] | | | | | [place], [place] | [address] | | | | | [address] | | | | | | [phone] | | | +--------+ + + + [...] 07/04/ | Office | Gastroenterology | [facility], | | | 2019 | Visit | | GILMA Alexander [address] | | | | | | [address] | | | | | | [place] | | | | | | [address] | | | | | | | | +--------+---------+ + + + documented as of this encounter Visit Diagnoses Not on filedocumented in this encounter"
--- OUTSIDE RECORDS SUMMARY | ~2019-07-02 | XMS | Encounter Summary ---
Demographics + + + | Address | [address] [facility] [address] | | | [place] [address] | + + + | Home Phone | | + + + | Preferred Language | Unknown | + + + | Marital Status | Single | + + + | Adventist Affiliation | Unknown | + + + | Race | Unknown | + + + | Ethnic Group | Unknown | + + + Author + + + | Author | [facility] | | | and [place] | + + + | Organization | [facility] | [...] [place] | | | | | [address] | | + + + + + Care Team Providers + +------+ + | Care Clinical Laboratory Manager Name | Role | Phone | [...] Description | +--------+--------+ + + + | 04/19/ | Refill | [facility] [place] | Fam Bonds, | Medication Refill | | 2013 | | NEUROSUR[address]ERY [address] | DO [address] | | | | | [address] | [address] [place], [place] | | | | | [place], [place] | [address] | | | | | [address] | | | | | | [phone] | | | +--------+--------+ + + + [...] | 07/04/ | Office | Gastroenterology | [facility], | | | 2019 | Visit | | GILMA Alexander [address] | | | | | | [address] | | | | | | [place] | | | | | | [address] | | | | | | | | +--------+---------+ + + + documented as of this encounter Visit Diagnoses Not on filedocumented in this encounter"
--- OUTSIDE RECORDS SUMMARY | ~2019-07-02 | XMS | Encounter Summary ---
Demographics + + + | Address | [address] [facility] [address] | | | [place] [address] | + + + | Home Phone | | + + + | Preferred Language | Unknown | + + + | Marital Status | Single | + + + | Scientologist Affiliation | Unknown | + + + | Race | Unknown | + + + | Ethnic Group | Unknown | + + + Author + + + | Author | [facility] | | | and [place] | + + + | Organization | [facility] | | | and [...] [place] | | | | | [address] | | + + + + + Care Team Providers + +------+ + | Care Innersole Fitter Name | Role | Phone | + +------+ + | Lisa Morrow MD | PCP | | + +------+ + Encounter Details +--------+ + + + + | Date | Type | Department | Care Team | Description | +--------+ + + + + | 08/15/ | Hospital | [facility] | Quirino Warren | | | 2013 | Encounter | MED CTR XRAY [address] | T, [address] | | | | | [place] | [place], [place] | | | | | [place] [address] | [address] | | | | | [phone] | | | +--------+ + + + [...] | | | | | | | ([facility]), Chronic | | | | | | | kidney disease, | | | | | | | stage III (moderate) | | | | | | | ([facility]), Type II or | | [...] | | | | | | | ([facility]), | | | | | [...] | 07/04/ | Office | Gastroenterology | [facility], | | | 2019 | Visit | | GILMA Alexander [address] | | | | | | [address] | | | | | | [place] | | | | | | [address] | | | | | | | [...] [facility] | [place] | | Department [address] [facility] [place] | [facility] | | [ rep ct [address]] [ rep ct [facility] | | st zip] Signed | - IMAGING | | | | | Patient Name: STEVE POOLE Physician: | | | CASI. : 1960 Age: 53 Sex: M Unit #: [id number] | | | Exam Date: 08/15/13 Location: [facility] | | | Report #: [id number] Page: | | | %(RAD)RES..mtdd.print.filter("pg") of %(RAD) | | | RES..mtdd.print.filter("tpg") | | | | | | Accession Number: [id number] | | | 08/15/2013, EPIDURAL STEROID INJECTIONS [...] | | | Transcribed Date/Time: 08/15/2013 18:11 Belt And Link Assembly Supervisor: | | | <<Signature on File>> | | | Quirino T | | | MD Briana08/28/131815 <Electronically signed by Quirino Baker | | | Briana FRANCIS> Quirino Warren MD 08/15/131806 | | | Belt And Link Assembly Supervisor: Radha Olguin08/15/131810 | | | | | + + + + + + + + | Performing | Address | City/State/Zipcode | Phone Number | | Organization | | | | + + + + + | [address] | [address] | [place] | [phone] | | [facility] | | [address] | | | - IMAGING | | | | + + + + + documented in this encounter Visit Diagnoses Not on filedocumented in this encounter
--- OUTSIDE RECORDS SUMMARY | ~2019-07-02 | XMS | Encounter Summary ---
Demographics + + + | Address | [address] [facility] [address] | | | [place] [address] | + + + | Home Phone | | + + + | Preferred Language | Unknown | + + + | Marital Status | Single | + + + | Baptism Affiliation | Unknown | + + + | Race | Unknown | + + + | Ethnic Group | Unknown | + + + Author + + + | Author | [facility] | | | and [place] | + + + | Organization | [facility] | [...] [place] | | | | | [address] | | + + + + + Care Team Providers + +------+ + | Care Logistics Management Specialist Name | Role | Phone | + [...] | | | | | | | [place] | | | | | | | ARTHRODESIS | | | | | | | POSTERIOR/PO | | | | | | | STEROLATERAL | | | | | | | LUMBAR [place] | | | | | | | LUMBAR SPINE | | | | | | | | | | | | | | FUSION,ANTER | | | | | | | APPRCH [place] | | | | | | | APPLICATION | | | | | | | INTERVERTEBR | | | | | | | AL | | | | | | | BIOMECHANICA | | | | | | | L DEVICE [place] | | | | | | | SPINE | | | | | | | FUSN,POST | | | | | | | TECH,EA | | | | | | | ADDNL SGMT | | | | | | | [place] SPINAL | | | | | | | FUSION,ANT,E | | | | | | | A ADNL LEVEL | | | | | | | [place] | | | | | | | [...] | | | | | | [place]G [place] | | | | | | | [...] | | | | | | [place]G [place] | | | | | | | LAMINEC/FACE | | | | | | | TECT/FORAMIN | | | | | | | ,EACH ADDNL | | | | | | | [place] ARTHDSIS | | | | | | [...] | | | | | | [place] | | | | | | | [...] | | | | | [address] | [place] | | | | | [place] | [address] | | | | | [address] | | | | | | [phone] | | | +--------+ + + + [...] +----+---+ + + | | 1 | [facility] [place] | | | | 1 | 43-degrees [...] | 07/04/ | Office | Gastroenterology | [facility], | | | 2019 | Visit | | GILMA Alexander [address] | | | | | | [place] | | | | | | [place] | | | | | | [id number] | | | | | | | [...]
--- OUTSIDE RECORDS SUMMARY | ~2019-07-02 | XMS | Encounter Summary ---
Demographics + + + | Address | [address] [facility] [address] | | | [place] [address] | + + + | Home Phone | | + + + | Preferred Language | Unknown | + + + | Marital Status | Single | + + + | Christianity Affiliation | Unknown | + + + | Race | Unknown | + + + | Ethnic Group | Unknown | + + + Author + + + | Author | [facility] | | | and [place] | + + + | Organization | [facility] | | | and [place] [...] [place] | | | | | [address] | | + + + + + Care Team Providers + +------+ + | Care Lead Level Designer Name | Role | Phone | [...] | | [address] | [place] | | | | | [place], [place] | [place], [place] | | | | | [address] | [address] | | | | | [phone] | | | +--------+ + + + [...] | 07/04/ | Office | Gastroenterology | [facility], | | | 2019 | Visit | | GILMA Alexander [address] | | | | | | [address] | | | | | | [place] | | | | | | [address] | | | | | | | [...]
--- OUTSIDE RECORDS SUMMARY | ~2019-07-02 | XMS | Encounter Summary ---
Demographics + + + | Address | [address] [facility] [address] | | | [place] [address] | + + + | Home Phone [...] Organization | [facility] [...] [place] | | | | | [address] | | + + + + + Care Team Providers + +------+ + | Care Construction Inspector Name | Role | Phone | + [...] Description | +--------+--------+ + + + | 05/27/ | Refill | [facility] [place] | Hola Villanueva, | Medication Refill | | 2013 | | NEUROSURGERY [address] | PA-C [address] | | | | | [address] | [address] [place] | | | | | [place], [place] | [place] [address] | | | | | [address] | [phone] | | | | | [phone] | | | +--------+--------+ + + + [...] | 07/04/ | Office | Gastroenterology | [facility], | | | 2019 | Visit | | GILMA Alexander [address] | | | | | | [address] | | | | | | [place] | | | | | | [address] | | | | | | | | +--------+---------+ + + + documented as of this encounter Visit Diagnoses Not on filedocumented in this encounter"
--- OUTSIDE RECORDS SUMMARY | ~2019-07-02 | XMS | Encounter Summary ---
Demographics + + + | Address | [address] [facility] [address] | | | [place] [address] | + + + | Home Phone [...] + + + | Author | [facility] | | | and [place] | + + + | Organization | [facility] | | | and [place] [...] [place] | | | | | [address] | | + + + + + Care Team Providers + +------+ + | Care Gripper Attacher Name | Role | Phone | + [...] [place] | | | | | | [address] | [address] Phone: | | | | | | Phone: | [phone] | | | | | | [phone] | Fax: | | | | | | Fax: | [phone] | | | | | | [phone] | | +--------+--------+ + + + + Encounter Details +--------+---------+ + + + | Date | Type | Department | Care Team | Description | +--------+---------+ + + + | 04/12/ | Office | [facility] | Quirino Warren | Lumbar radiculopathy | | 2012 | Visit | PHYSIATRY [address] | T, [address] | (Primary Dx); | | | | [place], | [place] | Spinal stenosis of | | | | [place] [address] | [address] | lumbar region at | | | | [phone] | | multiple levels - | | [...] has no apparent deficits with short or skilled nursing memory. The cranial nerves appear grossly intact. [...] [address] | | | | | | [place], [address] | | | | | | [place] | | | | | | [address] | | | | | | | [...]
--- OUTSIDE RECORDS SUMMARY | ~2019-07-02 | XMS | Encounter Summary ---
Demographics + + + | Address | [address] [facility] [address] | | | [place] [address] | + + + | Home Phone | | + + + | Preferred Language | Unknown | + + + | Marital Status | Single | + + + | Advent Affiliation | Unknown | + + + | Race | Unknown | + + + | Ethnic Group | Unknown | + + + Author + + + | Author | [facility] | | | and [place] | + + + | Organization | [facility] | [...] [place] | | | | | [address] | | + + + + + Care Team Providers + +------+ + | Care Plumber'S Assistant Name | Role | Phone | [...] | 04/19/ | Refill | [facility] [place] | Fam Bonds, | Medication Refill | | 2013 | | NEUROSURGERY [address] | DO [address] | | | | | [address] | [address] [place], [place] | | | | | [place], [place] | [id number] | | | | | [address] | | | | | | [phone] | | | +--------+--------+ + + + [...] | 07/04/ | Office | Gastroenterology | [facility], | | | 2019 | Visit | | GILMA Alexander [address] | | | | | | [address] | | | | | | [place] | | | | | | [address] | | | | | | | | +--------+---------+ + + + documented as of this encounter Visit Diagnoses Not on filedocumented in this encounter"
--- OUTSIDE RECORDS SUMMARY | ~2019-07-02 | XMS | Clinical Summary ---
Demographics + + + | Address | [address] [facility] [address] | | | [place] [address] | + + + | Home Phone | | + + + | Preferred Language | Unknown | + + + | Marital Status | Single | + + + | Spiritism Affiliation | Unknown | + + + | Race | Unknown | + + + | Ethnic Group | Unknown | + + + Author + + + | Author | [facility] | | | and [place] | + + + | Organization | [facility] | | | and [place] | [...] [place] | | | | | [address] | | + + + + + Care Team Providers + +------+ + | Care Naturopathic Physician Name | Role | Phone | + [...] + + + | Overview: Problem list rn urology utility | + + + + + [...] 07/04/ | Office | Gastroenterology | [facility], | | | 2019 | Visit | | GILMA Alexander [address] | | | | | | [address] | | | | | | [place] | | | | | | [address] | | | | | | | [...] | MEDTRONIC - | | 12/30/ | [id number] | | 5ccImplanted: Qty: 1 on | | Spine | MEDT | | 2019 | | | 04/09/2014 by Fam Bonds | | Lumbar | | | | /[id number] | | ADO at [facility] | | | | | | 0-036 | | [facility] | | | | | | / | + +------+--------+ +--------+--------+--------+ | ScrewImplanted: Qty: 5 on | | N/A: | MEDTRONIC - | | | [id number] | | 04/09/2014 by Fam Bonds | | Spine | MEDT | | | [id number] | | A, DO at [facility] | | Lumbar | | | | / / | | [facility] | | | | | | | + +------+--------+ +--------+--------+--------+ | ScrewImplanted: Qty: 2 on | | N/A: | [employer]TR[employer] - | | | [id number] | | 04/09/2014 by Fam Bonds | | Spine | MEDT | | | [id number] | | A, DO at [facility] | | Lumbar | | | | / / | | [facility] | | | | | | | + +------+--------+ +--------+--------+--------+ | ScrewImplanted: Qty: 1 on | | N/A: | [employer] - | | | [id number] | | 04/09/2014 by Fam Bonds | | Spine | MEDT | | | [id number] | | A, DO at [facility] | | Lumbar | | | | / / | | [facility] | | | | | | | + +------+--------+ +--------+--------+--------+ | Screw 7.5x50mm Sextant - | | N/A: | [employer]TR[employer]IC - | | | [id number] | | [id number]: Qty: 2 on | | Spine | MEDT | | | [id number] | | 04/09/2014 by Fam Bonds | | Lumbar | | | | / / | | A DO at [facility] | | | | | | | | [facility] | | | | | | | + +------+--------+ +--------+--------+--------+ | Imp Spn Spcr Cpstn [id number] - | | N/A: | SOFAMOR | | 08/24/ | [id number] | | [id number]: Qty: 1 on | | Spine | DANEK - DIV | | 2020 | 2 / | | 04/09/2014 by Fam Bonds | | Lumbar | [employer] | | | /[id number] | | A, DO at [facility] | | | - SFDK | | | 032 | | [facility] | | | | | | | + +------+--------+ +--------+--------+--------+ | Sealant Duraseal Exact Sys | | N/A: | INTEGRA | | 06/16/ | [id number] | | 5ml - [id number]: | | Spine | LIFESCIENCE | | 2015 | / | | Qty: 1 on 04/09/2014 by | | Lumbar | S CHETNA - | | | /[id number] | | Fam Bonds DO at [facility] | | | RUEL | | | 33X | | [facility] | | | | | | | | CENTER | | | | | | | + +------+--------+ +--------+--------+--------+ | Set Scrw Ns G5 Brk Off Ti | | N/A: | SOFAMOR | | | [id number] | | 4.75 - [id number]: | | Spine | DANEK - DIV | | | 0 / / | | Qty: 11 on 04/09/2014 by | | Lumbar | [employer] | | | | | Fam Bonds DO at [facility] | | | - SFDK | | | | | [facility] | | | | | | | | CENTER | | | | | | | + +------+--------+ +--------+--------+--------+ | RodImplanted: Qty: 2 on | | N/A: | [employer] - | | | [id number] | | 04/09/2014 by Fam Bonds | | Spine | MEDT | | | [id number] / | Emerita Torres DO at [facility] | | Lumbar | | | | / | | [facility] | | | | | | | + +------+--------+ +--------+--------+--------+ | Cancellous Chips | | | | | 12/30/ | [id number] | | 5ccImplanted: Qty: 1 on | | | | | 2018 | | | 04/09/2014 at [facility] | | | | | | /[id number] | | [facility] | | | | | | 0-35 / | + +------+--------+ +--------+--------+--------+ | Cancellous Chips | | | | | 03/28/ | [id number] | | 5ccImplanted: Qty: 1 on | | | | | 2018 | | | 04/09/2014 at [facility] | | | | | | /[id number] | | [facility] | | | | | | 7-033 | | | | | | | | / | + +------+--------+ +--------+--------+--------+ | Putty Alexis 10cc Dbm - | | N/A: | OSTEOTECH - | | 11/28/ | [id number] | | [id number]: Qty: 1 | | Spine | OSTT | | 2017 | | | on 04/09/2014 by Cammie, | | Lumbar | | | | /[id number] | | Fam Torres DO at [facility] | | | | | | 5-036 | | [facility] | | | | | | / | + +------+--------+ +--------+--------+--------+ | Graft Infuse Bone Kit Xs - | | N/A: | SOFAMOR | | 10/15/ | [id number] | | [id number]: Qty: 3 on | | Spine | DANEK - DIV | | 2014 | 0 / | | 04/09/2014 by Fam Bonds | | Lumbar | [employer] | | | /[id number] | | DO Melissa at [facility] | | | - SFDK | | | 06AAO | | [facility] | | | | | | | + +------+--------+ +--------+--------+--------+ | Putty Jenkins 10cc Dbm - | | N/A: | OSTEOTECH - | | 11/28/ | [id number] | | [id number]: Qty: 1 | | Spine | OSTT | | 2017 | | | on 04/09/2014 by Cammie, | | Lumbar | | | | /[id number] | | Fam Torres DO at [facility] | | | | | | 5-033 | | [facility] | | | | | | / | + +------+--------+ +--------+--------+--------+ | Cage Xl Wide [id number] - | | N/A: | NUVASIVE - | | | [id number] | | [id number]: Qty: 2 on | | Spine | NVSV | | | 0 / / | | 04/09/2014 by Fam Bonds | | Lumbar | | | | | | A DO at [facility] | | | | | | | | [facility] | | | | | | | + +------+--------+ +--------+--------+--------+ | Imp Spn Spcr Peek Xlw | | N/A: | NUVASIVE - | | | [id number] | | [id number] - | | Spine | NVSV | | | 5 / / | | [id number]: Qty: 1 on | | Lumbar | | | | | | 04/09/2014 by Fam Bonds | | | | | | | | ADO at [facility] | | | | | | | | [facility] | | | | | | | + +------+--------+ +--------+--------+--------+ | Imp Spn Spcr Xlxw [id number] 10d | | N/A: | NUVASIVE - | | | [id number] | | - [id number]: Qty: 1 | | Spine | NVSV | | | 0 / / | | on 04/09/2014 by Cammie, | | Lumbar | | | | | | Fam Torres DO at [facility] | | | | | | | | [facility] | | | | | | | + +------+--------+ +--------+--------+--------+ | Cage Aston Miranda 9x32mm - | | N/A: | MEDTRONIC - | | 03/13/ | [id number] | | [id number]: Qty: 1 on | | Spine | MEDT | | 2021 | 2 / | | 04/09/2014 by Fam Bonds | | Lumbar | | | | /[id number] | | A, DO at [facility] | | | | | | 464 | | [facility] | | | | | | | + +------+--------+ +--------+--------+--------+ | ScrewImplanted: Qty: 1 on | | N/A: | [employer]IC - | | | [id number] | | 04/09/2014 by Fam Bonds | | Spine | MEDT | | | [id number] | | A, DO at [facility] | | Lumbar | | | | / / | | [facility] | | | | | [...] +--------+ +---------+--------+ | MEDICARE | MEDICA | [id number] | 07/18/19 | [phone] | | Medica | | | RE | | 16-Pre | 5 | | re | | | PART A | | sent | | | | | | AND B | | | | | | + +--------+ +--------+ +---------+--------+ | [place]ICAID [place] | MEDICA | [id number] | | [phone] | | Medica | | | [place] | | 017-Pr | 2 | | id | | | PLUS | | esent | | | | + +--------+ +--------+ +---------+--------+ | [facility] | IHS | [id number] | 08/21/19 | | | [place] | [...] | | 3 (Home) | [place] [address] | + +--------+ +--------+ + + Advance Directives + + + + + | Type | Date Recorded | Patient | Explanation | | | | Bar Machine Operator Multiple Spindle | | + + + + + | Power of | | | | | Insurance Attorney | | | | + + + [...]
--- OUTSIDE RECORDS SUMMARY | ~2019-07-02 | XMS | Encounter Summary ---
Demographics + + + | Address | [address] [facility] [address] | | | [place] [address] | + + + | Home Phone [...] Organization | [facility] | [...] [place] | | | | | [address] | | + + + + + Care Team Providers + +------+ + | Care Medical Record Consultant Name | Role | Phone | [...] | | | | | | | [place] | | | | | | | ARTHRODESIS | | | | | | | POSTERIOR/PO | | | | | | | STEROLATERAL | | | | | | | LUMBAR [place] | | | | | | | LUMBAR SPINE | | | | | | | | | | | | | | FUSION,ANTER | | | | | | | APPRCH [place] | | | | | | | APPLICATION | | | | | | | INTERVERTEBR | | | | | | | AL | | | | | | | BIOMECHANICA | | | | | | | L DEVICE [place] | | | | | | | SPINE | | | | | | | FUSN,POST | | | | | | | TECH,EA | | | | | | | ADDNL SGMT | | | | | | | [place] SPINAL | | | | | | | FUSION,ANT,E | | | | | | | A ADNL LEVEL | | | | | | | [place] | | | | | | | [...] | | | | | | SEG [place] | | | | | | | [...] | | | | | | SEG [place] | | | | | | | LAMINEC/FACE | | | | | | | TECT/FORAMIN | | | | | | | ,EACH ADDNL | | | | | | | [place] ARTHDSIS | | | | | | [...] | | | | | | SEG [place] | | | | | | | [...] + + | 04/09/ | Hospital | [facility] | Fam Bonds, | | | 2013 - | Encounter | MED CTR SURGICAL | DO [address] | | | | | [address] [place] | [address] [place] | | | 04/15/ | | [place] [address] | [id number] | | | 2013 | | [phone] | | | +--------+ + + + [...] instructions. Medications: Steve Carpenter Home Medication Instructions JOAQUIN:[id number] Printed on:04/15/14 8783 Medication Information Cyclobenzaprine HCl (FLEXERIL PO) Take 2 tablets by mouth nightly. budesonide-formoterol (SYMBICORT) 160-4.5 mcg/puff inhaler Inhale 2 puffs into the lungs 2 times daily. GOLDEN Guzmán, Marcoschanning homeshanae Cholecalciferol (VITAMIN D3) 5000 UNITS CAPS Take [...] prophylaxis -DC plan: uncertain. DC home with [facility] today. Fam Cortez DO - 04/14/2014 9:07 [...] like to "be closer to home" in [place]. Informed patient that insurance w ould need [...] is requesting a short s nathaly at [facility] in [place] if possible. Objective Filed Vitals: 04/12/14 0505 [...] - IPR versus SNF. He is requesting [place] if not accep baltazar to IPR. Mary [...] GOLDEN Velazquez - 04/10/2014 7:30 AM PDT [facility] PROGRESS NOTE Pt. Name/Age/: Steve Carpenter 53 y.o. 1960 Med. Record Number: [id number] Date of admission: 04/09/2014 Subjective: The patient [...] Plan. Start oxycontin. Mobilize. Wean and DC DRIER AND EVAPORATOR OPERATOR Electronically signed by: Carson Alegria, 04/10/2014 7:31 [facility] documented in th is encounter Plan of Treatment +--------+---------+ + + + | Date | Type | Specialty | Care Team | Description | +--------+---------+ + + + | 07/04/ | Office | Gastroenterology | [facility], | | | 2018 | Visit | | GILMA Alexander [address] | | | | | | [address] | | | | | | [place] | | | | | | [address] | | | | | | | [...] + | MISCELLANEOUS LAB | | | [phone] | + +---------+ + + | MISCELANIOUS LAB | | | [phone] | + +---------+ + + POC Glucose [...] + | [facility] | [address] | [place] | [phone] | | [facility] | | [address] | | | - LABORATORY | | | | + + + + + | [facility] | [address] | [place] | | | [facility] | | [address] | | | - LABORATORY | | [...] + | [facility] | [address] | [place] | [phone] | | [facility] | | [address] | | | - LABORATORY | | | | + + + + + | [facility] | [address] | [place] | | | [facility] | | [address] | | | - LABORATORY | | [...] | | | | | | [facility] | | | | | | MEDICAL [...] + | [facility] | [address] | [place], [place] | | | [facility] | | [address] | | | - BLOOD BANK | [...] AM PDT | | | | | [facility] 04/11/14 at 0615, For 4 doses [...] | | | | (DILAUDID) 1 mg/mL DRIER AND EVAPORATOR OPERATOR | | 14 10:33 | | | [...] | | | | Dose(mg): 0, Starting DRIER AND EVAPORATOR OPERATOR | | | | | | | Dose(mg): 0.2, Incremental | | | | | | | Increase DRIER AND EVAPORATOR OPERATOR Dose(mg): 0.1, | | | | | | | Maximum DRIER AND EVAPORATOR OPERATOR Dose(mg): 0.4, | | | | | [...] | | | | | modification) on [facility] 04/11/14 at | | | | [...]
--- OUTSIDE RECORDS SUMMARY | ~2019-07-02 | XMS | Encounter Summary ---
Demographics + + + | Address | [address] [facility] [address] | | | [place] [address] | + + + | Home Phone | | + + + | Preferred Language | Unknown | + + + | Marital Status | Single | + + + | Moravian Affiliation | Unknown | + + + | Race | Unknown | + + + | Ethnic Group | Unknown | + + + Author + + + | Author | [facility] | | | and [place] | + + + | Organization | [facility] | | | and [place] | [...] [place] | | | | | [address] | | + + + + + Care Team Providers + +------+ + | Care Laboratory Scientist Name | Role | Phone | + +------+ + | Stefano Padgett PA-C | PCP | | + +------+ + Encounter Details +--------+ + + + + | Date | Type | Department | Care Team | Description | +--------+ + + + + | 08/22/ | Hospital | [facility] | Hola Villanueva, | S/P lumbar fusion | | 2015 | Encounter | MED CTR XRAY [address] | PA-C [address] | | | | | [place] | [address] [place] | | | | | [place] [address] | [place] [address] | | | | | [phone] | [phone] | | | | | | | [...] | 07/04/ | Office | Gastroenterology | [facility], | | | 2019 | Visit | | GILMA Alexander [address] | | | | | | [address] | | | | | | [place] | | | | | | [address] | | | | | | | [...] + | MISCELLANEOUS LAB | | | [phone] | + +---------+ + + | MISCELANIOUS LAB | | | [phone] | + +---------+ + + documented in this encounter Visit Diagnoses + + | Diagnosis | + + | S/P lumbar fusion Arthrodesis status | + + documented in this encounter"
--- OUTSIDE RECORDS SUMMARY | ~2019-07-02 | XMS | Encounter Summary ---
Demographics + + + | Address | [address] [facility] [address] | | | [place] [address] | + + + | Home Phone [...] + + + | Author | [facility] | | | and [place] | + + + | Organization | [facility] | | [...] [place] | | | | | [address] | | + + + + + Care Team Providers + +------+ + | Care Soiled Linen Distributor Name | Role | Phone | + [...] [address] | [address] [place], [place] | | | | | [place], [place] | [address] | | | | | [address] | | | | | | [phone] | | | +--------+ + + + [...] [facility], | | 2019 | Visit | | GILMA Alexander [address] | | | | | | [address] | | | | | | [place] | | | | | | [id number] | | | | | | | | +--------+---------+ + + + documented as of this encounter Visit Diagnoses Not on filedocumented in this encounter"
--- OUTSIDE RECORDS SUMMARY | ~2019-07-02 | XMS | Encounter Summary ---
Demographics + + + | Address | [address] [facility] [address] | | | [place] [address] | + + + | Home Phone [...] + | Organization | [facility] | | [...] [place] | | | | | [address] | | + + + + + Care Team Providers + +------+ + | Care Fountain Pen Nibs Inspector Name | Role | Phone | [...] [address] | [address] [place], [place] | | | | | [place], [place] | [id number] | | | | | [address] | | | | | | [phone] | | | +--------+--------+ + + + [...] 07/04/ | Office | Gastroenterology | [facility], | | | 2019 | Visit | | GILMA Alexander [address] | | | | | | [address] | | | | | | [place] | | | | | | [address] | | | | | | | | +--------+---------+ + + + documented as of this encounter Visit Diagnoses + + | Diagnosis | + + | Status post lumbar spinal fusion - Primary Arthrodesis status | + + documented in this encounter"
--- OUTSIDE RECORDS SUMMARY | ~2019-07-02 | XMS | Encounter Summary ---
Demographics + + + | Address | [address] [facility] [address] | | | [place] [address] | + + + | Home Phone | | + + + | Preferred Language | Unknown | + + + | Marital Status | Single | + + + | Anglican Affiliation | Unknown | + + + | Race | Unknown | + + + | Ethnic Group | Unknown | + + + Author + + + | Author | [facility] | | | and [place] | + + + | Organization | [facility] | | | and [place] [...] [place] | | | | | [address] | | + + + + + Care Team Providers + +------+ + | Care Director Of Services Name | Role | Phone | + [...] [address] | Jennifer Ladd MD | ([facility]) (Primary Dx) | | | | [place], | | | | | | [place] [address] | | | | | | [phone] | | | +--------+ + + + [...] | 07/04/ | Office | Gastroenterology | [facility], | | | 2019 | Visit | | GILMA Alexander [address] | | | | | | [address] | | | | | | [place] | | | | | | [address] | | | | | | | [...] Raines MD | | | 01/21/2014 17:13 [facility] CC: | | | Stefano Padgett | [...] Jennifer Raines MD 01/21/2014 | | [facility] | |[facility] | | | |CC: Stefano Padgett | + + documented in this encounter Visit Diagnoses + + | Diagnosis | + + | Chronic bronchitis (HCC) - Primary Unspecified chronic bronchitis | + + documented in this encounter"
--- OUTSIDE RECORDS SUMMARY | ~2019-07-02 | XMS | Encounter Summary ---
Demographics + + + | Address | [address] | | | [place] [address] | + + + | Home Phone | | + + + | Preferred Language | Unknown | + + + | Marital Status | Single | + + + | Latter-Day Affiliation | Unknown | + + + | Race | Unknown | + + + | Ethnic Group | Unknown | + + + Author + + + | Author | [facility] | | | and [place] | + + + | Organization | [facility] | | | and [place] [...] [place] | | | | | [address] | | + + + + + Care Team Providers + +------+ + | Care Air Crew Officer Name | Role | Phone | + +------+ + | Stefano Padgett PA-C | PCP | | + +------+ + Encounter Details +--------+ + + + + | Date | Type | Department | Care Team | Description | +--------+ + + + + | 01/21/ | Hospital | [facility] | Offenstein, | Chronic bronchitis | | 2013 | Encounter | MED CTR PULMONARY | Jennifer Ladd MD | ([facility]) | | | | FUNCTION [address] | | | | | | [place], | | | | | | [place] [address] | | | | | | [phone] | | | +--------+ + + + [...] 07/04/ | Office | Gastroenterology | [facility], | | | 2019 | Visit | | GILMA Alexander [address] | | | | | | [address] | | | | | | [place] | | | | | | [address] | | | | | | | [...] FUNCTION TESTING | | 5:16 PM | ([facility]) | procedure are in the | | [...] PFT PULMONARY FUNCTION TESTING ORDERS Full PFT ([place] w/BD, lung volumes, diffusion)?: Yes (01/21/2014 5:16 [...] Raines MD | | | 01/21/2014 17:13 [facility] CC: | | | Stefano Padgett | | + + + + + | Procedure Note | + + | Jennifer Raines MD - 01/21/2014 5:13 PM [facility] PULMONARY FUNCTION TESTING | | SPIROMETRY: Prior [...] Raines MD 01/21/2014 | | [facility] | |[facility] | | | |CC: Stefano Padgett | [...]
--- OUTSIDE RECORDS SUMMARY | ~2019-07-02 | XMS | Encounter Summary ---
Demographics + + + | Address | [address] [facility] [facility] | | | [place] [address] | + + + | Home Phone [...] | Organization | [facility] | | [...] [place] | | | | | [address] | | + + + + + Care Team Providers + +------+ + | Care Geotechnical Operating Engineer Name | Role | Phone | [...] + + | 01/30/ | Telephone | [facility] | El Hassan | Other (Patient | | 2014 | | SURGERY [address] | MD Demi, FACS 380 | called wondering why | | | | [facility] [place] | L[facility] | he had not heard | | | | [address] | [facility] [place] [address] | back from the nurse) | | | | [phone] | [phone] | | | | | | | [...] | 07/04/ | Office | Gastroenterology | [facility], | | | 2019 | Visit | | GILMA Alexander [address] | | | | | | [address] | | | | | | [place] | | | | | | [address] | | | | | | | | +--------+---------+ + + + documented as of this encounter Visit Diagnoses Not on filedocumented in this encounter"
--- OUTSIDE RECORDS SUMMARY | ~2019-07-02 | XMS | Encounter Summary ---
Demographics + + + | Address | [address] | | | [place] [address] | + + + | Home Phone [...] | Organization | [facility] | [...] [place] | | | | | [address] | | + + + + + Care Team Providers + +------+ + | Care Debt Counselor Name | Role | Phone | + +------+ + | Stefano Padgett PA-C | PCP | | + +------+ + Reason for Visit +--------+ + | Reason | Comments | +--------+ + | Other | Rx issue | +--------+ + Encounter Details +--------+ + + + + | Date | Type | Department | Care Team | Description | +--------+ + + + + | 04/23/ | Telephone | [facility] | Fam Bonds, | Other (Rx issue ) | | 2013 | | NEUROSURGERY [address] | DO [address] | | | | | [address] | [address] [place], [place] | | | | | [place], [place] | [id number] | | | | | [address] | | | | | | [phone] | | | +--------+ + + + [...] | 07/04/ | Office | Gastroenterology | [facility], | | | 2019 | Visit | | GILMA Alexander [address] | | | | | | [address] | | | | | | [place] | | | | | | [address] | | | | | | | | +--------+---------+ + + + documented as of this encounter Visit Diagnoses Not on filedocumented in this encounter"
--- OUTSIDE RECORDS SUMMARY | ~2019-07-02 | XMS | Encounter Summary ---
Demographics + + + | Address | [address] [facility] [address] | | | [place] [address] | + + + | Home Phone [...] | Organization | [facility] | | | and [place] | [...] [place] | | | | | [address] | | + + + + + Care Team Providers + +------+ + | Care Qa Reviewer Name | Role | Phone | + [...] | | | | | | | [place] [id number] | | | | | | | Phone: | | | | | | | [phone] | | | | | | | Fax: | | | | | | | [phone] | | +--------+ + + + + + Reason for Visit + + + | Reason | Comments | + + + | Follow-up | 4 Week PO | + + + Encounter Details +--------+---------+ + + + | Date | Type | Department | Care Team | Description | +--------+---------+ + + + | 06/17/ | Office | [facility] | Hola Villanueva, | S/P lumbar fusion | | 2013 | Visit | NEUR[address]URGERY [address] | PA-C [address] | (Primary Dx) | | | | [address] | [address] [place] | | | | | [place], [place] | [place] [address] | | | | | [address] | [phone] | | | | | [phone] | | | +--------+---------+ + + + [...] your back and use good technique when peanut picker things and bending. documented in this encounter Progress Notes Hola Villanueva PA - 06/17/2014 12:05 PM PSTFormatting of this note might be different f rom the original. 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 Otherwise, no other complaints or conc erns. [...] [place] | | | | | | [address] | | | | | | | [...] + | MISCELLANEOUS LAB | | | [phone] | + +---------+ + + | MISCELANIOUS LAB | | | [phone] | + +---------+ + + documented in this encounter Visit Diagnoses + + | Diagnosis | + + | S/P lumbar fusion - Primary Arthrodesis status | + + documented in this encounter"
--- OUTSIDE RECORDS SUMMARY | ~2019-07-02 | XMS | Encounter Summary ---
Demographics + + + | Address | [address] [facility] [address] | | | [place] [address] | + + + | Home Phone [...] | Organization | [facility] | | | and [...] [place] | | | | | [address] | | + + + + + Care Team Providers + +------+ + | Care Ferry Boat Captain Name | Role | Phone | + [...] + | 05/03/ | Telephone | [facility] | Fam Bonds, | Appointment | | 2013 | | NEUROSUR[address]ERY [address] | DO [address] | (Re-schedule ) | | | | [address] | [address] [place], [place] | | | | | [place], [place] | [id number] | | | | | [address] | | | | | | [phone] | | | +--------+ + + + [...] | 07/04/ | Office | Gastroenterology | [facility], | | | 2019 | Visit | | GILMA Alexander [address] | | | | | | [address] | | | | | | [place] | | | | | | [address] | | | | | | | | +--------+---------+ + + + documented as of this encounter Visit Diagnoses Not on filedocumented in this encounter"
--- OUTSIDE RECORDS SUMMARY | ~2019-07-02 | XMS | Encounter Summary ---
Demographics + + + | Address | [address] | | | [place] [address] | + + + | Home Phone | | + + + | Preferred Language | Unknown | + + + | Marital Status | Single | + + + | Anabaptism Affiliation | Unknown | + + + | Race | Unknown | + + + | Ethnic Group | Unknown | + + + Author + + + | Author | [facility] | | | and [place] | + + + | Organization | [facility] | | | and [...] Team Providers + +------+ + | Care Pediatrics Physician Name | Role | Phone | + +------+ + | Lisa Morrow MD | PCP | | + +------+ + Encounter Details +--------+ + + + + | Date | Type | Department | Care Team | Description | +--------+ + + + + | 12/13/ | Hospital | [facility] | Nikki Muñiz, | | | 2013 - | Encounter | MED CTR MED ONC | [address] | | | | | [address] [place] | [place] | | | 12/18/ | | [place] [address] | [address] | | | 2012 | | [phone] | | | | | | | Aida Almazan | | | | | | M, DO [address] | | | | | | [address] | | | | | | [place] | | | | | | [address] | | | | | | | [...] Almazan DO - 03/12/2013 8:39 [place] [address] Patient Name: THOM POOLE Provider: Aida Almazan DO Unit #: [id number] Location : [address] [place] [address] #: [id number] : 1960 ADMISSION DATE: 12/13/2012 DISCHARGE DATE: [...] male who was transferr ed from the [facility] as a direct admit. He was recently admitted to [facility] with sepsis syndrome, originated from soft tissue [...] with me in 1 week at the [facility]. I gave him a standing order to have a renal panel done outpatient week , to follow him. DICTATED BY: Aida Almazan DO Nephrology JOB #: [id number] EXT JOB #:[id number] cc: [facility] <<Signature on File>> Aida Almazan DO03/26/13 [...] | 07/04/ | Office | Gastroenterology | [facility], | | | 2019 | Visit | | GILMA Alexander [address] | | | | | | [address] [place] [address] | | | | | | [place] | | | | | | [address] | | | | | | | [...] + | [address] [facility] | [address] | [place], [place] | [phone] | | [facility] | | [address] | | | - LABORATORY | | | | + + + + + | [address] | [address] | [place], [place] | | | [facility] | | [address] | | | - LABORATORY | | [...] + | [facility] | [address] | [place] | [phone] | | [facility] | | [address] | | | - LABORATORY | | | | + + + + + | [facility] | [address] | [place] | | | [facility] | | [address] | | | - LABORATORY | | [...] | | Neutrophils | | | [facility] | | | | | | MEDICAL [...] [address] | [place] | [phone] | | [facility] | | [address] | | | - LABORATORY | | | | + + + + + | [facility] | [address] | [place] | | | [facility] | | [address] | | | - LABORATORY | | [...] + | [address] [facility] | [address] | [place], [place] | [phone] | | [facility] | | [address] | | | - LABORATORY | | | | + + + + + | [address] [facility] | [address] | [place], [place] | | | [facility] | | [address] | | | - LABORATORY | | [...] + | [facility] | [address] | [place], [place] | [phone] | | [facility] | | [address] | | | - LABORATORY | | | | + + + + + | [facility] | [address] | [place], [place] | | | [facility] | | [address] | | | - LABORATORY | | [...] [address] | [place] | [phone] | | [facility] | | [address] | | | - LABORATORY | | | | + + + + + | [address] | [address] | [place] | | | [facility] | | [address] | | | - LABORATORY | | [...] [address] | [place] | [phone] | | [facility] | | [address] | | | - LABORATORY | | | | + + + + + | [facility] | [address] | [place] | | | [facility] | | [address] | | | - LABORATORY | | [...] + | [facility] | [address] | [place] | [phone] | | [facility] | | [address] | | | - LABORATORY | | | | + + + + + | [facility] | [address] | [place] | | | [facility] | | [address] | | | - LABORATORY | | | | + + + + + US Renal Limited (12/14/2012 8:52 AM PDT) + + | Specimen | + + | | + + + + + | Narrative | Performed At | + + + | [facility] | [place] | | Department [address] [facility] | [facility] | | [ rep ct street[address]] [ rep [facility] | | st zip] Signed | - IMAGING | | | | | Patient Name: THOM POOLE Physician: | | | STRO.[id number] : 1960 Age: 52 Sex: M Unit #: [id number] | | | Exam Date: 12/13/12 Location: [address] [place] [address] | | | Report #: [id number] Page: | | | %(RAD)RES..mtdd.print.filter("pg") of %(RAD) | | | RES..mtdd.print.filter("tpg") | | | | | | Accession Number: [id number] | | | ULTRASOUND RENAL CLINICAL HISTORY: [...] Transcribed Date/Time: 12/14/2012 | | | 09:06 Lead Recreation Assistant: <<Signature | | | on File>> | | | Ede | | | Samuel Tapia MD12/14/122009 <Electronically signed by Ede Baker | | | Willie FRANCIS> Ede Tapia MD 12/14/12 0852 | | | Lead Recreation Assistant: Iencuentra [id number] | | | Aida Almazan DO | | + + + + + + + + | Performing | Address | City/State/Zipcode | Phone Number | | Organization | | | | + + + + + | [address] [facility] | [address] | [place] | [phone] | | [facility] | | [address] | | | - IMAGING | | [...] [place] | | | | | | [address] CLIA: [id number] | | | | | | Test Performed by | | | | | | [facility] | | | | | | [facility] | | | | | | | | | | | | [address], | | | | | | [place] [address] | | | | + + + + + + + + | Specimen | + + | | + + + + + + + | Performing | Address | City/State/Zipcode | Phone Number | | Organization | | | | + + + + + | [facility] | [address] | [place] | [phone] | | [facility] | | [address] | | | - LABORATORY | | | | + + + + + | [facility] | [address] | [place], [place] | | | [facility] | | [address] | | | - LABORATORY | | [...] + | [facility] | [address] | [place] | [phone] | | [facility] | | [address] | | | - LABORATORY | | | | + + + + + | [facility] | [address] | [place] | | | [facility] | | [address] | | | - LABORATORY | | [...] + | [address] [facility] | [address] | [place], [place] | [phone] | | [facility] | | [address] | | | - LABORATORY | | | | + + + + + | [address] | [address] | [place] | | | [facility] | | [address] | | | - LABORATORY | | [...] + | [facility] | [address] | [place] | [phone] | | [facility] | | [address] | | | - LABORATORY | | | | + + + + + | [facility] | [address] | [place] | | | [facility] | | [address] | | | - LABORATORY | | [...] + | [facility] | [address] | [place] | [phone] | | [facility] | | [address] | | | - LABORATORY | | | | + + + + + | [facility] | [address] | [place] | | | [facility] | | [address] | | | - LABORATORY | | [...] MEDICAL | | | | | | [place] - | | | | | | [...] + + | Performing | Address | [facility] | Phone Number | | Organization | | | | + + + + + | [facility] [facility] | [address] | [place] | [phone] | | [facility] | | [address] | | | - LABORATORY | | | | + + + + + | [facility] [facility] | [address] | [place] | | | [facility] | | [address] | | | - LABORATORY | | [...] + | [facility] | [address] | [place] | [phone] | | [facility] | | [address] | | | - LABORATORY | | | | + + + + + | [facility] | [address] | [place] | | | [facility] | | [address] | | | - LABORATORY | | [...] [facility] | | | | 12/13/12 @3205 by JONNA | | MEDICAL | | [...] [address] | [place] | [phone] | | [facility] | | [address] | | | - LABORATORY | | | | + + + + + | [address] [facility] | [address] | [place] | | | [facility] | | [address] | | | - LABORATORY | | [...] + | [facility] | [address] | [place] | [phone] | | [facility] | | [address] | | | - LABORATORY | | | | + + + + + | [facility] | [address] | [place] | | | [facility] | | [address] | | | - LABORATORY | | [...] + | [facility] [facility] | [address] | [place] | [phone] | | [facility] | | [address] | | | - LABORATORY | | | | + + + + + | [address] [facility] | [address] | [place] | | | [facility] | | [address] | | | - LABORATORY | | [...] | | | | | MOSM/KG | [facility] | | | | | | MEDICAL [...] + | [facility] | [address] | [place], [place] | [phone] | | [facility] | | [address] | | | - LABORATORY | | | | + + + + + | [facility] | [address] | [place], [place] | | | [facility] | | [address] | | | - LABORATORY | | [...] [address] | [place] | [phone] | | [facility] | | [address] | | | - LABORATORY | | | | + + + + + documented in this encounter Visit Diagnoses Not on filedocumented in this encounter
--- OUTSIDE RECORDS SUMMARY | ~2019-07-02 | XMS | Encounter Summary ---
Demographics + + + | Address | [address] | | | [place] [address] | + + + | Home Phone | | + + + | Preferred Language | Unknown | + + + | Marital Status | Single | + + + | Judaism Affiliation | Unknown | + + + | Race | Unknown | + + + | Ethnic Group | Unknown | + + + Author + + + | Author | [facility] | | | and [place] | + + + | Organization | [facility] | | [...] [place] | | | | | [address] | | + + + + + Care Team Providers + +------+ + | Care Hand Folder Name | Role | Phone | + [...] [address] | | | | | [place], [place] | [facility] | | | | | [address] | [place] [address] | | | | | [phone] | [phone] | | | | | | | [...] | 07/04/ | Office | Gastroenterology | [facility], | | | 2018 | Visit | | GILMA Alexander [address] | | | | | | [address] | | | | | | [place] | | | | | | [address] | | | | | | | | +--------+---------+ + + + documented as of this encounter Visit Diagnoses Not on filedocumented in this encounter"
--- OUTSIDE RECORDS SUMMARY | ~2019-07-02 | XMS | Encounter Summary ---
Demographics + + + | Address | [address] [facility] [address] | | | [place] [address] | + + + | Home Phone [...] + + + | Author | [facility] | | | and [place] | + + + | Organization | [facility] [...] [place] | | | | | [address] | | + + + + + Care Team Providers + +------+ + | Care Managing Broker Name | Role | Phone | + [...] + | 04/23/ | Telephone | [facility] | Fam Bonds, | Other (Rx issue ) | | 2013 | | NEUROSUR[address]ERY [address] | DO [address] | | | | | [address] | [address] [place], [place] | | | | | [place], [place] | [id number] | | | | | [address] | | | | | | [phone] | | | +--------+ + + + [...] | Office | Gastroenterology | [facility], | | | 2019 | Visit | | GILMA Alexander [address] | | | | | | [address] | | | | | | [place] | | | | | | [address] | | | | | | | | +--------+---------+ + + + documented as of this encounter Visit Diagnoses Not on filedocumented in this encounter"
--- OUTSIDE RECORDS SUMMARY | ~2019-07-02 | XMS | Encounter Summary ---
Demographics + + + | Address | [address] [facility] [address] | | | [place] [address] | + + + | Home Phone [...] | [facility] | | | and [...] [place] | | | | | [address] | | + + + + + Care Team Providers + +------+ + | Care Collator Hand Name | Role | Phone | [...] | | [address] | [place] | | | | | [place], [place] | [place], [place] | | | | | [address] | [address] | | | | | [phone] | | | +--------+ + + + [...] [facility], | | | 2019 | Visit | | GILMA Alexander [address] | | | | | | [address] | | | | | | [place] | | | | | | [address] | | | | | | | [...] Agency Comment | + + | [facility] | + + + +---------+ + + [...] Agency Comment | + + | [facility] | + + + +---------+ + + [...] | | | LAB | | | [place], | | | | | | External | | | | | + +-------+ + + + + + | Specimen | + + | Blood specimen | | (specimen) | + + + + | Resulting Agency Comment | + + | [facility] | + + + +---------+ + + [...] Agency Comment | + + | [facility] | + + + +---------+ + + [...] Agency Comment | + + | [facility] | + + + +---------+ + + | Performing | Address | City/State/Zipcode | Phone Number | | Organization | | | | + +---------+ + + | EXTERNAL LAB | | | | + +---------+ + + documented in this encounter Visit Diagnoses Not on filedocumented in this encounter"
--- OUTSIDE RECORDS SUMMARY | ~2019-07-02 | XMS | Encounter Summary ---
Demographics + + + | Address | [address] [facility] [address] | | | [place] [address] | + + + | Home Phone | | + + + | Preferred Language | Unknown | + + + | Marital Status | Single | + + + | Holiness Affiliation | Unknown | + + + | Race | Unknown | + + + | Ethnic Group | Unknown | + + + Author + + + | Author | [facility] | | | and [place] | + + + | Organization | [facility] | | | and [...] [place] | | | | | [address] | | + + + + + Care Team Providers + +------+ + | Care Program Admin Name | Role | Phone | + +------+ + | Stefano Padgett PA-C | PCP | | + +------+ + Encounter Details +--------+ + + + + | Date | Type | Department | Care Team | Description | +--------+ + + + + | 01/21/ | Hospital | [facility] | Offenstein, | Chronic bronchitis | | 2013 | Encounter | MED CTR PULMONARY | Jennifer Ladd MD | ([facility]) | | | | FUNCTION [address] | | | | | | [place], | | | | | | [place] [address] | | | | | | [phone] | | | +--------+ + + + [...] 07/04/ | Office | Gastroenterology | [facility], | | | 2019 | Visit | | GILMA Alexander [address] | | | | | | [address] | | | | | | [place] | | | | | | [address] | | | | | | | [...] FUNCTION TESTING | | 5:16 PM | ([facility]) | procedure are in the | [...] PFT PULMONARY FUNCTION TESTING ORDERS Full PFT ([place] w/BD, lung volumes, diffusion)?: Yes (01/21/2014 5:16 [...] Raines MD | | | 01/21/2014 17:13 [facility] CC: | | | Stefano Padgett | | + + + + + | Procedure Note | + + | Jennifer Raines MD - 01/21/2014 5:13 PM [facility] PULMONARY FUNCTION TESTING | | SPIROMETRY: Prior [...] Raines MD 01/21/2014 | | [facility] | [facility] | | | |CC: Stefano Padgett [...]
--- OUTSIDE RECORDS SUMMARY | ~2019-07-02 | XMS | Encounter Summary ---
Demographics + + + | Address | [address] [facility] [address] | | | [place] [address] | + + + | Home Phone | | + + + | Preferred Language | Unknown | + + + | Marital Status | Single | + + + | Druze Affiliation | Unknown | + + + | Race | Unknown | + + + | Ethnic Group | Unknown | + + + Author + + + | Author | [facility] | | | and [place] | + + + | Organization | [facility] | | | and [...] [place] | | | | | [address] | | + + + + + Care Team Providers + +------+ + | Care Cuff Presser Name | Role | Phone | + [...] | | | | | | | [place] [address] | | | | | | | Phone: | | | | | | | [phone] | | | | | | | Fax: | | | | | | | [phone] | | +--------+ + + + + + Reason for Visit + + + | Reason | Comments | + + + | Follow-up | 4 Week PO | + + + Encounter Details +--------+---------+ + + + | Date | Type | Department | Care Team | Description | +--------+---------+ + + + | 06/17/ | Office | [facility] | Hola Villanueva, | S/P lumbar fusion | | 2013 | Visit | NEUROSURGERY [address] | PA-C [address] | (Primary Dx) | | | | [address] | [address] [place] | | | | | [place], [place] | [place] [address] | | | | | [address] | [phone] | | | | | [phone] | | | +--------+---------+ + + + [...] your back and use good technique when picking machine operator helper things and bending. documented in this encounter Progress Notes Hola Villanueva PA - 06/17/2014 12:05 PM PSTFormatting of this note might be different f rom the original. GOLDEN Muñoz [address] 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 Otherwise, no other complaints or conc [...] | 07/04/ | Office | Gastroenterology | [facility], | | | 2019 | Visit | | GILMA Alexander [address] | | | | | | [address] | | | | | | [place] | | | | | | [address] | | | | | | | [...] + | MISCELLANEOUS LAB | | | [phone] | + +---------+ + + | MISCELANIOUS LAB | | | [phone] | + +---------+ + + documented in this encounter Visit Diagnoses + + | Diagnosis | + + | S/P lumbar fusion - Primary Arthrodesis status | + + documented in this encounter"
--- OUTSIDE RECORDS SUMMARY | ~2019-07-02 | XMS | Encounter Summary ---
Demographics + + + | Address | [address] [facility] [address] | | | [place] [address] | + + + | Home Phone [...] | [facility] | | | and [...] [place] | | | | | [address] | | + + + + + Care Team Providers + +------+ + | Care Organ Pipe Voicer Name | Role | Phone | + [...] | | [address] | [place] | | | | | [place], [place] | [place], [place] | | | | | [address] | [address] | | | | | [phone] | | | +--------+ + + + [...] | 07/04/ | Office | Gastroenterology | [facility], | | | 2019 | Visit | | GILMA Alexander [address] | | | | | | [place] | | | | | | [place] | | | | | | [address] | | | | | | | [...]
--- OUTSIDE RECORDS SUMMARY | ~2019-07-02 | XMS | Encounter Summary ---
Demographics + + + | Address | [address] [facility] [address] | | | [place] [address] | + + + | Home Phone | | + + + | Preferred Language | Unknown | + + + | Marital Status | Single | + + + | Yarsani Affiliation | Unknown | + + + | Race | Unknown | + + + | Ethnic Group | Unknown | + + + Author + + + | Author | [facility] | | | and [place] | + + + | Organization | [facility] | | | and [place] [...] [place] | | | | | [address] | | + + + + + Care Team Providers + +------+ + | Care Media Senior Recruiter Name | Role | Phone | [...] | 04/16/ | Telephone | [facility] | Fam Bonds, | Other (Medication | | 2013 | | NEUROSURGERY [address] | DO [address] | approval ) | | | | [address] | [address] [place], [place] | | | | | [place], [place] | [address] | | | | | [address] | | | | | | [phone] | | | +--------+ + + + [...] | 07/04/ | Office | Gastroenterology | [facility], | | | 2019 | Visit | | GILMA Alexander [address] | | | | | | [address] | | | | | | [place] | | | | | | [address] | | | | | | | | +--------+---------+ + + + documented as of this encounter Visit Diagnoses Not on filedocumented in this encounter"
--- OUTSIDE RECORDS SUMMARY | ~2019-07-02 | XMS | Encounter Summary ---
Demographics + + + | Address | [address] [facility] [address] | | | [place] [address] | + + + | Home Phone [...] + | Organization | [facility] | | | and [...] [place] | | | | | [address] | | + + + + + Care Team Providers + +------+ + | Care Button Decorating Machine Operator Name | Role | Phone [...] | | | up, food | PA-C [address] | [address] | | | | | panel/self/Y | | [address] | | | | | claudia/Si | [place] | [place], | | | | | eders/LVM | WAY | [place] [address] | | | | | w/Mikhy at | [place], | Phone: | | | | | [facility] to | [place] [address] | [phone] | | | | | request auth | Phone: | Fax: | | | | | Spoke to | [phone] | [phone] | | | | | Mikhy at [facility] | Fax: | | | | | | and she | [phone] | | | | | | will [...] + + | 04/26/ | Office | [facility] | Garry Carias MD | Angioedema, sequela | | 2018 | Visit | OTOLARYNGOLOGY [address] | [address] | (Primary Dx) | | | | [address] | [address] [place], | | | | | [place], [place] | [place] [address] | | | | | [address] | [phone] | | | | | [phone] | | | +--------+---------+ + + + [...] diary. If he has any medications or [id number]-xtadnnw medicines he needs to keep track of [...] Gastroenterology | [facility], | | | 2018 | Visit | | GILMA Alexander [address] | | | | | | [address] | | | | | | [place] | | | | | | [address] | | | | | | | | +--------+---------+ + + + documented as of this encounter Visit Diagnoses + + | Diagnosis | + + | Angioedema, sequela - Primary | + + documented in this encounter"
--- OUTSIDE RECORDS SUMMARY | ~2019-07-02 | XMS | Encounter Summary ---
Demographics + + + | Address | [address] [facility] [address] | | | [place] [address] | + + + | Home Phone [...] + + | Author | [facility] | | | and [place] | + + + | Organization | [facility] | | | [...] [place] | | | | | [address] | | + + + + + Care Team Providers + +------+ + | Care Airline Captain Name | Role | Phone | [...] 2013 | | PHYSIATRY [address] | YOUTH SERVICES SPECIALIST | injection) | | | | [place], | | | | | | [place] [address] | | | | | | [phone] | | | +--------+ + + + [...]
--- OUTSIDE RECORDS SUMMARY | ~2019-07-02 | XMS | Encounter Summary ---
Demographics + + + | Address | [address] [facility] [address] | | | [place] [address] | + + + | Home Phone [...] + | Organization | [facility] | | | and [place] [...] [place] | | | | | [address] | | + + + + + [...] + + | 04/24/ | Telephone | [facility] | Fam Bonds, | Other (clarifying | | 2013 | | NEUROSURGERY [address] | DO [address] | that rx fentanyl | | | | [address] | [address] [place], [place] | patches will be | | | | [place] | [address] | picked up at | | | | [address] | | Anahi) | | | | [phone] | | | +--------+ + + + [...] | 07/04/ | Office | Gastroenterology | [facility] | | | 2019 | Visit | | GILMA Alexander [address] | | | | | | [address] | | | | | | [place] | | | | | | [address] | | | | | | | | +--------+---------+ + + + documented as of this encounter Visit Diagnoses Not on filedocumented in this encounter"
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
--- OUTSIDE RECORDS SUMMARY | ~2019-07-02 | XMS | Encounter Summary ---
Demographics + + + | Address | [address] [facility] [address] | | | [place] [address] | + + + | Home Phone [...] Organization | [facility] [...] [place] | | | | | [address] | | + + + + + Care Team Providers + +------+ + | Care Nuclear Fuel Processing Technician Name | Role | Phone | [...] [address] | [address] [place], [place] | (Primary Dx) | | | | [place], [place] | [address] | | | | | [address] | | | | | | [phone] | | | +--------+ + + + [...] | 07/04/ | Office | Gastroenterology | [facility], | | | 2019 | Visit | | GILMA Alexander [address] | | | | | | [place], [address] | | | | | | [place] | | | | | | [address] | | | | | | | [...] | | | |Dictated and Signed by: Jusitn Menendez MD | | Electronically signed: 06/17/2014 1:34 PM | + + + +---------+ + + | Performing | Address | City/State/Zipcode | Phone Number | | Organization | | | | + +---------+ + + | MISCELLANEOUS LAB | | | [phone] | + +---------+ + + | MISCELANIOUS LAB | | | [phone] | + +---------+ + + documented in this encounter Visit Diagnoses + + | Diagnosis | + + | Status post lumbar spinal fusion - Primary Arthrodesis status | + + documented in this encounter"
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
--- OUTSIDE RECORDS SUMMARY | ~2019-07-02 | XMS | Encounter Summary ---
Demographics + + + | Address | [address] [facility] [address] | | | [place] [address] | + + + | Home Phone [...] | [facility] [...] [place] | | | | | [address] | | + + + + + Care Team Providers + +------+ + | Care Bridge Club Manager Name | Role | Phone | + +------+ + | Yulia Gutierrez PA-C | PCP | | + +------+ + Encounter Details +--------+ + + + + | Date | Type | Department | Care Team | Description | +--------+ + + + + | 07/28/ | Orders Only | [facility] | Stefano Padgett, | | | 2017 | | CARDIOLOGY JOHN Felder PA-C [address] | | | | | [address] | [address] | | | | | [address] | [place] [address] | | | | | [place] | [phone] | | | | | [address] | | | | | | [phone] | | | +--------+ + + + [...] | 07/04/ | Office | Gastroenterology | [facility], | | | 2019 | Visit | | GILMA Alexander [address] | | | | | | [address] | | | | | | [place] | | | | | | [address] | | | | | | | [...] a low-risk stress test. Carlene Perea MD, [facility], | | | | | + + + + + + | Narrative | Performed At | + + + | [facility] CARDIOLOGY [address], [place], [place] | | | [phone] NUCLEAR LEXISCAN-WALK STRESS TEST TEST DATE: | [...] [place], Rad Conversion - 03/08/2019 4:46 PM [facility] [id number] | | , [address], [place], [phone] NUCLEAR LEXISCAN-WALK STRESS TESTTEST DATE: | | 07/27/2017NAME: Steve CarpenterDOB: 1960MRN: [id number] MD: Stefano Bowers | | MD Lorin [...] | | | | |Carlene Perea MD, [facility], | | | | | + + documented in this encounter Visit Diagnoses Not on filedocumented in this encounter"
--- OUTSIDE RECORDS SUMMARY | ~2019-07-02 | XMS | Encounter Summary ---
Demographics + + + | Address | [address] [facility] [address] | | | [place] [address] | + + + | Home Phone [...] Organization | [facility] | [...] [place] | | | | | [address] | | + + + + + Care Team Providers + +------+ + | Care Analyst Sales Name | Role | Phone | + +------+ + | Lisa Morrow MD | PCP | | + +------+ + Encounter Details +--------+ + + + + | Date | Type | Department | Care Team | Description | +--------+ + + + + | 02/15/ | Hospital | [facility] | Lisa Morrow MD | | | 2012 | Encounter | MED CTR XRAY [address] | [address] | | | | | [place] | [place], [place] | | | | | [place] [address] | [address] | | | | | [phone] | | | +--------+ + + + [...] | | | | | | | ([facility]), Type II or | | [...] | | | | | | | ([facility]), | | | | | [...] 07/04/ | Office | Gastroenterology | [facility] | | | 2019 | Visit | | GILMA Alexander [address] | | | | | | [address] | | | | | | [place] | | | | | | [address] | | | | | | | [...] Performed At | + + + | [facility] | [place] | | Department [address] [facility] | [facility] | | [ rep ct [address]] [ rep [facility] | | st zip] Signed | - IMAGING | | | | | Patient Name: STEVE POOLE Physician: | | | EHLE. : 1960 Age: 52 Sex: M Unit #: [id number] | | | Exam Date: 02/15/13 Location: [facility] | | | Report #: [id number] Page: | | | %(RAD)RES..mtdd.print.filter("pg") of %(RAD) | | | RES..mtdd.print.filter("tpg") | | | | | | Accession Number: [id number] | | | MRI OF THE LUMBAR [...] Transcribed Date/Time: 02/15/2013 | | | 14:11 Area Field Manager: <<Signature | | | on File>> | | | Justin | | | MD Shon02/15/132 <Electronically signed by Justin Menendez MD> | | | Justin Menendez MD 02/15/13 2753 Area Field Manager: Radha | | | Bdkrwlelszgju85/01/13 1411 Lisa Morrow MD | | + + + + + + + + | Performing | Address | City/State/Zipcode | Phone Number | | Organization | | | | + + + + + | [place] [address] | [address] | [place] | [phone] | | [facility] | | [address] | | | - IMAGING | | | | + + + + + documented in this encounter Visit Diagnoses Not on filedocumented in this encounter
--- OUTSIDE RECORDS SUMMARY | ~2019-07-02 | XMS | Encounter Summary ---
Demographics + + + | Address | [address] [facility] [address] | | | [place] [address] | + + + | Home Phone [...] + | Organization | [facility] | [...] [place] | | | | | [address] | | + + + + + Care Team Providers + +------+ + | Care Cloth Drier Name | Role | Phone | + [...] | sleep apnea) | | | | [place], | | (Primary Dx); | | | | [place] [address] | | Chronic bronchitis | | | | [phone] | | (HCC) | +--------+ + + [...] [facility], | | | 2018 | Visit | | GILMA Alexander [address] | | | | | | [address] | | | | | | [place] | | | | | | [address] | | | | | | | | +--------+---------+ + + + documented as of this encounter Visit Diagnoses + + | Diagnosis | + + | MARY JANE (obstructive sleep apnea) - Primary Obstructive sleep apnea (adult) (pediatric) | + + | Chronic bronchitis (HCC) Unspecified chronic bronchitis | + + documented in this encounter"
--- OUTSIDE RECORDS SUMMARY | ~2019-07-02 | XMS | Encounter Summary ---
Demographics + + + | Address | [address] [facility] [address] | | | [place] [address] | + + + | Home Phone [...] Organization | [facility] | | | and [place] [...] [place] | | | | | [address] | | + + + + + Care Team Providers + +------+ + | Care Associate Professor Physician Name | Role | Phone | + +------+ + | Lisa Morrow MD | PCP | | + +------+ + Encounter Details +--------+ + + + + | Date | Type | Department | Care Team | Description | +--------+ + + + + | 08/15/ | Hospital | [facility] | Quirino Warren | | | 2013 | Encounter | MED CTR XRAY [address] | [address], [address] | | | | | [place] | [place], [place] | | | | | [place] [address] | [address] | | | | | [phone] | | | +--------+ + + + [...] | | | | | ([facility]), Chronic | | | | | | | kidney disease, | | | | | | | stage III (moderate) | | | | | | | ([facility]), Type II or | | | | [...] | | | | | ([facility]), | | | | | | | [...] | 07/04/ | Office | Gastroenterology | [facility], | | | 2019 | Visit | | GILMA Alexander [address] | | | | | | [address] | | | | | | [place] | | | | | | [address] | | | | | | | [...] Performed At | + + + | [facility] Diagnostic [facility] | [place] | | Department [address] [facility] [place] | [facility] | | [ rep ct street1[address]] [ rep ct [facility] | | st zip] Signed | - IMAGING | | | | | Patient Name: STEVE POOLE Physician: | | | CASI. : 1960 Age: 53 Sex: M Unit #: [id number] | | | Exam Date: 08/15/13 Location: [facility] | | | Report #: [id number] Page: | | | %(RAD)RES..mtdd.print.filter("pg") of %(RAD) | | | RES..mtdd.print.filter("tpg") | | | | | | Accession Number: [id number] | | | 08/15/2013, EPIDURAL STEROID INJECTIONS [...] | | | Transcribed Date/Time: 08/15/2013 18:11 Inspection And Testing Supervisor: | | | <<Signature on File>> | | | Quirino T | | | MD Briana08/28/131815 <Electronically signed by Quirino Baker | | | Briana FRANCIS> Quirino Warren MD 08/15/131806 | | | Inspection And Testing Supervisor: Radha Olguin08/15/131810 | | | | | + + + + + + + + | Performing | Address | City/State/Zipcode | Phone Number | | Organization | | | | + + + + + | [address] | [address] | [place] | [phone] | | [facility] | | [address] | | | - IMAGING | | | | + + + + + documented in this encounter Visit Diagnoses Not on filedocumented in this encounter
--- OUTSIDE RECORDS SUMMARY | ~2019-07-02 | XMS | Encounter Summary ---
Demographics + + + | Address | [address] [facility] [address] | | | [place] [address] | + + + | Home Phone | | + + + | Preferred Language | Unknown | + + + | Marital Status | Single | + + + | Catholic Affiliation | Unknown | + + + | Race | Unknown | + + + | Ethnic Group | Unknown | + + + Author + + + | Author | [facility] | | | and [place] | + + + | Organization | [facility] | [...] [place] | | | | | [address] | | + + + + + Care Team Providers + +------+ + | Care Health Insurance Sales Agent Name | Role | Phone | + [...] | 04/16/ | Telephone | [facility] | Fam Bonds, | Other (Medication | | 2013 | | NEUROSURGERY [address] | DO [address] | approval ) | | | | [address] | [address] [place], [place] | | | | | [place], [place] | [address] | | | | | [address] | | | | | | [phone] | | | +--------+ + + + [...] | 07/04/ | Office | Gastroenterology | [facility], | | | 2019 | Visit | | GILMA Alexander [address] | | | | | | [address] | | | | | | [place] | | | | | | [address] | | | | | | | | +--------+---------+ + + + documented as of this encounter Visit Diagnoses Not on filedocumented in this encounter"
--- OUTSIDE RECORDS SUMMARY | ~2019-07-02 | XMS | Encounter Summary ---
Demographics + + + | Address | [address] [facility] [address] | | | [place] [address] | + + + | Home Phone [...] + | Organization | [facility] | | | and [place] [...] [place] | | | | | [address] | | + + + + + Care Team Providers + +------+ + | Care Director Pediatric Name | Role | Phone | + +------+ + | tSefano Padgett PA-C | PCP | | + +------+ + Reason for Visit +--------+ + | Reason | Comments | +--------+ + | Other | Rx issue | +--------+ + Encounter Details +--------+ + + + + | Date | Type | Department | Care Team | Description | +--------+ + + + + | 04/23/ | Telephone | [facility] | Fam Bonds, | Other (Rx issue ) | | 2013 | | NEUROSURGERY [address] | DO [address] | | | | | [address] | [address] [place], [place] | | | | | [place], [place] | [id number] | | | | | [address] | | | | | | [phone] | | | +--------+ + + + [...] [place] | | | | | | [id number] | | | | | | | | +--------+---------+ + + + documented as of this encounter Visit Diagnoses Not on filedocumented in this encounter"
--- OUTSIDE RECORDS SUMMARY | ~2019-07-02 | XMS | Encounter Summary ---
Demographics + + + | Address | [address] [facility] [address] | | | [place] [address] | + + + | Home Phone | | + + + | Preferred Language | Unknown | + + + | Marital Status | Single | + + + | Orthodox Affiliation | Unknown | + + + | Race | Unknown | + + + | Ethnic Group | Unknown | + + + Author + + + | Author | [facility] | | | and [place] | + + + | Organization | [facility] | | | and [...] [place] | | | | | [address] | | + + + + + Care Team Providers + +------+ + | Care Ring Maker Name | Role | Phone | + +------+ + | Stefano Padgett PA-C | PCP | | + +------+ + Encounter Details +--------+ + + + + | Date | Type | Department | Care Team | Description | +--------+ + + + + | 08/22/ | Hospital | [facility] | Hola Villanueva, | S/P lumbar fusion | | 2015 | Encounter | MED CTR XRAY [address] | PA-C [address] | | | | | [place] | [address] [place] | | | | | [place] [address] | [place] [address] | | | | | [phone] | [phone] | | | | | | | [...] | 07/04/ | Office | Gastroenterology | [facility], | | | 2019 | Visit | | GILMA Alexander [address] | | | | | | [address] | | | | | | [place] | | | | | | [address] | | | | | | | [...] + | MISCELLANEOUS LAB | | | [phone] | + +---------+ + + | MISCELANIOUS LAB | | | [phone] | + +---------+ + + documented in this encounter Visit Diagnoses + + | Diagnosis | + + | S/P lumbar fusion Arthrodesis status | + + documented in this encounter"
--- OUTSIDE RECORDS SUMMARY | ~2019-07-02 | XMS | Encounter Summary ---
Demographics + + + | Address | [address] | | | [place] [address] | + + + | Home Phone | | + + + | Preferred Language | Unknown | + + + | Marital Status | Single | + + + | Uatsdin Affiliation | Unknown | + + + | Race | Unknown | + + + | Ethnic Group | Unknown | + + + Author + + + | Author | [facility] | | | and [place] | + + + | Organization | [facility] | | | and [place] [...] [place] | | | | | [address] | | + + + + + Care Team Providers + +------+ + | Care Wall Attendant Name | Role | Phone | + +------+ + | Stefano Padgett PA-C | PCP | | + +------+ + Encounter Details +--------+ + + + + | Date | Type | Department | Care Team | Description | +--------+ + + + + | 04/15/ | Hospital | [facility] | Orlando Spears, | | | 2013 | Encounter | MED CTR ACUTE | PT [address] | | | | | PHYSICAL THERAPY | [place] | | | | | [address] [place] | [address] | | | | | [place] [address] | | | | | | [phone] | | | +--------+ + + + [...] [place] | | | | | | [address] | | | | | | | | +--------+---------+ + + + documented as of this encounter Visit Diagnoses Not on filedocumented in this encounter"
--- OUTSIDE RECORDS SUMMARY | ~2019-07-02 | XMS | Encounter Summary ---
Demographics + + + | Address | [address] [facility] [address] | | | [place] [address] | + + + | Home Phone [...] + + + | Author | [facility] | | | and [place] | + + + | Organization | [facility] | | | and [...] [place] | | | | | [address] | | + + + + + Care Team Providers + +------+ + | Care Rehab Therapist Name | Role | Phone | + [...] [address] | [address] [place], [place] | | | | | [place], [place] | [address] | | | | | [address] | | | | | | [phone] | | | +--------+ + + + [...] Gastroenterology | [facility], | | | 2019 | Visit | | GILMA Alexander [address] | | | | | | [place] | | | | | | [place] | | | | | | [address] | | | | | | | | +--------+---------+ + + + documented as of this encounter Visit Diagnoses + + | Diagnosis | + + | S/P lumbar fusion - Primary Arthrodesis status | + + documented in this encounter"
--- OUTSIDE RECORDS SUMMARY | ~2019-07-02 | XMS | Encounter Summary ---
Demographics + + + | Address | [address] [facility] [address] | | | [place] [address] | + + + | Home Phone [...] Organization | [facility] | | | and [place] [...] [place] | | | | | [address] | | + + + + + Care Team Providers + +------+ + | Care Weight Calculator Name | Role | Phone | + +------+ + | Stefano Padgett PA-C | PCP | | + +------+ + Encounter Details +--------+ + + + + | Date | Type | Department | Care Team | Description | +--------+ + + + + | 02/07/ | Hospital | [facility] | El Hassan | Fracture of rib of | | 2015 | Encounter | MED CTR LULU XRAY | MD Demi, FACS [address] | right side, closed, | | | | [address] [place] | [address] [place] | initial encounter | | | | [place], [place] | [place] [address] | | | | | [address] | [phone] | | | | | [phone] | | | +--------+ + + + [...] [place] | | | | | | [address] | | | | | | | [...] [address] | [place] | [phone] | | [facility] | | [address] | | | - IMAGING | | | | + + + + + documented in this encounter Visit Diagnoses + + | Diagnosis | + + | Fracture of rib of right side, closed, initial encounter | + + documented in this encounter"
--- OUTSIDE RECORDS SUMMARY | ~2019-07-02 | XMS | Encounter Summary ---
Demographics + + + | Address | [address] [facility] [address] | | | [place] [address] | + + + | Home Phone [...] | Author | [facility] | | | and [place] | + + + | Organization | [facility] [...] [place] | | | | | [address] | | + + + + + Care Team Providers + +------+ + | Care Corridor Redevelopment Manager Name | Role | Phone | [...] [address] [place] | | | | | [place], [place] | [place] [address] | | | | | [address] | [phone] | | | | | [phone] | | | +--------+--------+ + + + [...] | 07/04/ | Office | Gastroenterology | [facility], | | | 2019 | Visit | | GILMA Alexander [address] | | | | | | [address] | | | | | | [place] | | | | | | [address] | | | | | | | | +--------+---------+ + + + documented as of this encounter Visit Diagnoses Not on filedocumented in this encounter"
--- OUTSIDE RECORDS SUMMARY | ~2019-07-02 | XMS | Encounter Summary ---
Demographics + + + | Address | [address] [facility] [address] | | | [place] [address] | + + + | Home Phone | | + + + | Preferred Language | Unknown | + + + | Marital Status | Single | + + + | Rastafarian Affiliation | Unknown | + + + | Race | Unknown | + + + | Ethnic Group | Unknown | + + + Author + + + | Author | [facility] | | | and [place] | + + + | Organization | [facility] | | | and [...] [place] | | | | | [address] | | + + + + + Care Team Providers + +------+ + | Care Skid Man Name | Role | Phone | + [...] [address] | [address] [place], [place] | | | | | [place] | [address] | | | | | [address] | | | | | | [phone] | | | +--------+ + + + [...] | 07/04/ | Office | Gastroenterology | [facility], | | | 2019 | Visit | | GILMA Alexander [address] | | | | | | [address] | | | | | | [place] | | | | | | [address] | | | | | | | [...] + | MISCELLANEOUS LAB | | | [phone] | + +---------+ + + | MISCELANIOUS LAB | | | [phone] | + +---------+ + + documented in this encounter Visit Diagnoses + + | Diagnosis | + + | Back pain - Primary Backache, unspecified | + + documented in this encounter"
--- OUTSIDE RECORDS SUMMARY | ~2019-07-02 | XMS | Encounter Summary ---
Demographics + + + | Address | [address] [facility] [address] | | | [place] [address] | + + + | Home Phone [...] | Organization | [facility] | | | and [place] [...] [place] | | | | | [address] | | + + + + + Care Team Providers + +------+ + | Care Coring Machine Operator Name | Role | Phone [...] + + | 04/09/ | Surgery | [facility] | Fam Bonds, | T12-L1, L1-2, L2-3, | | 2013 | | MED CTR OR INTRA OP | DO [address] | L3-4, LAIF WITH L4-5 | | | | [address] | [address] [place] | AND L5-S1 TLIF AND | | | | [place] | [address] | LAMINECTOMY T12-S1 | | | | [address] | | | | | | [phone] | | | +--------+---------+ + + + [...] instructions. Medications: Steve Carpenter Home Medication Instructions JOAQUIN:[id number] Printed on:04/15/14 1594 Medication Information Cyclobenzaprine HCl (FLEXERIL PO) Take [...] prophylaxis -DC plan: uncertain. DC home with [facility] today. Fam Cortez DO - 04/14/2014 [...] like to "be closer to home" in [place]. Informed patient that insurance w ould need [...] is requesting a short s nathaly at [facility] in [place] if possible. Objective Filed Vitals: 04/12/14 0505 BP: 120/72 Pulse: 98 Temp: 36.6 C (97.9 F) Resp: 18 No results found for this or any previous visit (from the past 24 hour(s)). Level of consciousness: Alert and orientated to person, place, and time. Motor: Moving all extremities well. Sensations: Sensation intact. Incision: Dressing is clean, dry, and intact. Assessment Stvee Carpenter is a 53 y.o. y.o. male s/p T12-S1 fusion postoperative day # 3. Plan -Doing better -Increase diet/activity -PT/OT -Pain control -DVT prophylaxis -DC plan: ready for DC tomorrow - IPR versus SNF. He is requesting Rochelle if not accep baltazar to IPR. Mary [...] Pradhan RN at 04/11/2014 2:24 PM Mary Casteloln RN - 04/11/2014 8:13 AM PDTOrder received [...] Casillas PA - 04/10/2014 7:30 AM PDT [facility] PROGRESS NOTE Pt. Name/Age/: Steve Carpenter 53 y.o. 1960 Med. Record Number: [id number] Date of admission: 04/09/2014 Subjective: The patient [...] Plan. Start oxycontin. Mobilize. Wean and DC WAREHOUSE OPERATOR Electronically signed by: Carson Alegria, 04/10/2014 7:31 [facility] documented in th is encounter Plan of [...] GARCIA | | | | | | [id number] | | | | | | | [...] + | MISCELLANEOUS LAB | | | [phone] | + +---------+ + + | MISCELANIOUS LAB | | | [phone] | + +---------+ + + POC Glucose [...] [address] | [place] | [phone] | | [facility] | | [address] | | | - LABORATORY | | | | + + + + + | [address] | [address] | [place] | | | [facility] | | [address] | | | - LABORATORY | | [...] + | [address] | [address] | [place] | [phone] | | [facility] | | [address] | | | - LABORATORY | | | | + + + + + | [facility] | [address] | [place] | | | [facility] | | [address] | | | - LABORATORY | | [...] ST. | [address] | [place] | | | [facility] | | [address] | | | - BLOOD BANK | [...] mLs | | Surgical | | 1:200,000 0.25-1:937374 % | | 14 12:26 | | [...]
--- OUTSIDE RECORDS SUMMARY | ~2019-07-02 | XMS | Encounter Summary ---
Demographics + + + | Address | [address] [facility] [address] | | | [place] [address] | + + + | Home Phone [...] Organization | [facility] | | | and [place] [...] [place] | | | | | [address] | | + + + + + Care Team Providers + +------+ + | Care Teacher Visually Impaired Name | Role | Phone | + +------+ + | Lisa Morrow MD | PCP | | + +------+ + Encounter Details +--------+ + + + + | Date | Type | Department | Care Team | Description | +--------+ + + + + | 01/01/ | Orders Only | [facility] | Aida Almazan | | | 2012 | | NEPHROLOGY [address] | M, DO [address] | | | | | [address] | [place] | | | | | [place], [place] | [place], [place] | | | | | [address] | [address] | | | | | [phone] | | | +--------+ + + + [...] 07/04/ | Office | Gastroenterology | [facility], | | | 2018 | Visit | | GILMA Alexander [address] | | | | | | [address] | | | | | | [place] | | | | | | [id number] | | | | | | | | +--------+---------+ + + + documented as of this encounter Visit Diagnoses Not on filedocumented in this encounter"
--- OUTSIDE RECORDS SUMMARY | ~2019-07-02 | XMS | Encounter Summary ---
Demographics + + + | Address | [address] [facility] [address] | | | [place] [address] | + + + | Home Phone | | + + + | Preferred Language | Unknown | + + + | Marital Status | Single | + + + | Taoism Affiliation | Unknown | + + + | Race | Unknown | + + + | Ethnic Group | Unknown | + + + Author + + + | Author | [facility] | | | and [place] | + + + | Organization | [facility] | | [...] [place] | | | | | [address] | | + + + + + Care Team Providers + +------+ + | Care Mixing And Dispensing Supervisor Name | Role | Phone | [...] | | [address] | [place] | (moderate) (Primary | | | | [place], [place] | [place], [place] | Dx); Diabetes type | | | | [address] | [address] | 2, controlled (HCC); | | | | [phone] | | HTN (hypertension) | +--------+ + [...] | 07/04/ | Office | Gastroenterology | [facility] | | | 2019 | Visit | | GILMA Alexander [address] | | | | | | [address] | | | | | | [place] | | | | | | [address] | | | | | | | [...] + + | Diabetes type 2, controlled ([facility]) Type II or unspecified type diabetes mellitus | | without mention of complication, not stated as uncontrolled | + + | HTN (hypertension) Unspecified essential hypertension | + + documented in this encounter"
--- OUTSIDE RECORDS SUMMARY | ~2019-07-02 | XMS | Encounter Summary ---
Demographics + + + | Address | [address] [facility] [address] | | | [place] [address] | + + + | Home Phone [...] Organization | [facility] | [...] [place] | | | | | [address] | | + + + + + Care Team Providers + +------+ + | Care Offal Trimmer Name | Role | Phone | + [...] | | | | | | | [place] | | | | | | | ARTHRODESIS | | | | | | | POSTERIOR/PO | | | | | | | STEROLATERAL | | | | | | | LUMBAR [place] | | | | | | | LUMBAR SPINE | | | | | | | | | | | | | | FUSION,ANTER | | | | | | | APPRCH [place] | | | | | | | APPLICATION | | | | | | | INTERVERTEBR | | | | | | | AL | | | | | | | BIOMECHANICA | | | | | | | L DEVICE [place] | | | | | | | SPINE | | | | | | | FUSN,POST | | | | | | | TECH,EA | | | | | | | ADDNL SGMT | | | | | | | [place] SPINAL | | | | | | | FUSION,ANT,E | | | | | | | A ADNL LEVEL | | | | | | | [place] | | | | | | | [...] | | | | | | SEG [place] | | | | | | | [...] | | | | | | SEG [place] | | | | | | | LAMINEC/FACE | | | | | | | TECT/FORAMIN | | | | | | | ,EACH ADDNL | | | | | | | [place] ARTHDSIS | | | | | | [...] | | | | | | SEG [place] | | | | | | | [...] + + | 04/09/ | Hospital | [facility] | Fam Bonds, | 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
--- OUTSIDE RECORDS SUMMARY | ~2019-07-02 | XMS | Encounter Summary ---
Demographics + + + | Address | [address] [facility] [address] | | | [place] [address] | + + + | Home Phone [...] + + + | Author | [facility] | | | and [place] | + + + | Organization | [facility] | [...] [place] | | | | | [address] | | + + + + + Care Team Providers + +------+ + | Care Appliquer Name | Role | Phone | + [...] [address] | Jennifer Ladd MD | ([facility]) (Primary Dx) | | | | [place], | | | | | | [place] [address] | | | | | | [phone] | | | +--------+ + + + [...] | 07/04/ | Office | Gastroenterology | [facility], | | | 2019 | Visit | | GILMA Alexander [address] | | | | | | [address] | | | | | | [place] | | | | | | [address] | | | | | | | [...] Raines MD | | | 01/21/2014 17:13 [facility] CC: | | | Stefano Padgett | [...] Jennifer Raines MD 01/21/2014 | | [facility] Stefano [facility]gett | |[facility] | | | |CC: Stefano Padgett | + + documented in this encounter Visit Diagnoses + + | Diagnosis | + + | Chronic bronchitis (HCC) - Primary Unspecified chronic bronchitis | + + documented in this encounter"
--- OUTSIDE RECORDS SUMMARY | ~2019-07-02 | XMS | Encounter Summary ---
Demographics + + + | Address | [address] [facility] [address] | | | [place] [address] | + + + | Home Phone [...] | [facility] | | [...] [place] | | | | | [address] | | + + + + + Care Team Providers + +------+ + | Care Electrical Development Engineer Name | Role | Phone | [...] [address] | | | | | [address] [place], [place] | [address] [facility] | | | | | [address] | [place] [address] | | | | | [phone] | [phone] | | | | | | | [...] | Office | Gastroenterology | [facility], | | | 2018 | Visit | | GILMA Alexander [address] | | | | | | [address] | | | | | | [place] | | | | | | [address] | | | | | | | | +--------+---------+ + + + documented as of this encounter Visit Diagnoses Not on filedocumented in this encounter"
--- OUTSIDE RECORDS SUMMARY | ~2019-07-02 | XMS | Encounter Summary ---
Demographics + + + | Address | [address] [facility] [address] | | | [place] [address] | + + + | Home Phone [...] | Organization | [facility] | | | and [...] [place] | | | | | [address] | | + + + + + Care Team Providers + +------+ + | Care Leather Coater Name | Role | Phone | + [...] + | 04/25/ | Telephone | [facility] | Fam Bonds, | Letter for | | 2013 | | NEUROSURGERY [address] | DO [address] | School/Work | | | | [address] | [address] [place], [place] | | | | | [place], [place] | [id number] | | | | | [address] | | | | | | [phone] | | | +--------+ + + + [...] | 07/04/ | Office | Gastroenterology | [facility], | | | 2019 | Visit | | GILMA Alexander [address] | | | | | | [address] | | | | | | [place] | | | | | | [address] | | | | | | | | +--------+---------+ + + + documented as of this encounter Visit Diagnoses Not on filedocumented in this encounter"
--- OUTSIDE RECORDS SUMMARY | ~2019-07-02 | XMS | Encounter Summary ---
Demographics + + + | Address | [address] [facility] [address] | | | [place] [address] | + + + | Home Phone | | + + + | Preferred Language | Unknown | + + + | Marital Status | Single | + + + | Worship Affiliation | Unknown | + + + | Race | Unknown | + + + | Ethnic Group | Unknown | + + + Author + + + | Author | [facility] | | | and [place] | + + + | Organization | [facility] | [...] [place] | | | | | [address] | | + + + + + Care Team Providers + +------+ + | Care Resident Care Assistant Name | Role | Phone | [...] + | 10/23/ | Telephone | [facility] | Fam Bonds, | Letter for | | 2013 | | [address]UROSUR[address]ERY [address] | DO [address] | School/Work | | | | [address] | [address] [place], [place] | | | | | [place], [place] | [id number] | | | | | [address] | | | | | | [phone] | | | +--------+ + + + [...] [place] | | | | | | [address] | | | | | | | | +--------+---------+ + + + documented as of this encounter Visit Diagnoses Not on filedocumented in this encounter"
--- OUTSIDE RECORDS SUMMARY | ~2019-07-02 | XMS | Encounter Summary ---
Demographics + + + | Address | [address] [facility] [address] | | | [place] [address] | + + + | Home Phone | | + + + | Preferred Language | Unknown | + + + | Marital Status | Single | + + + | Tenriism Affiliation | Unknown | + + + | Race | Unknown | + + + | Ethnic Group | Unknown | + + + Author + + + | Author | [facility] | | | and [place] | + + + | Organization | [facility] | | | and [place] [...] [place] | | | | | [address] | | + + + + + Care Team Providers + +------+ + | Care Hide Mill Worker Name | Role | Phone | [...] [place] | | | | | | [address] | [address] Phone: | | | | | | Phone: | [phone] | | | | | | [phone] | Fax: | | | | | | Fax: | [phone] | | | | | | [phone] | | +--------+--------+ + + + + Encounter Details +--------+---------+ + + + | Date | Type | Department | Care Team | Description | +--------+---------+ + + + | 04/12/ | Office | [facility] | Quirino Warren | Lumbar radiculopathy | | 2012 | Visit | PHYSIATRY [address] | T, [address] | (Primary Dx); | | | | [place], | [place], [place] | Spinal stenosis of | | | | [place] [address] | [address] | lumbar region at | | | | [phone] | | multiple levels - | | [...] has no apparent deficits with short or assisted memory. The cranial nerves appear grossly intact. [...] | 07/04/ | Office | Gastroenterology | [facility], | | | 2019 | Visit | | GILMA Alexander [address] | | | | | | [address] | | | | | | [place] | | | | | | [address] | | | | | | | [...]
--- OUTSIDE RECORDS SUMMARY | ~2019-07-02 | XMS | Encounter Summary ---
Demographics + + + | Address | [address] [facility] [address] | | | [place] [address] | + + + | Home Phone [...] | Organization | [facility] | | [...] [place] | | | | | [address] | | + + + + + Care Team Providers + +------+ + | Care Curing Oven Tender Name | Role | Phone | [...] | 04/29/ | Refill | [facility] [place] | Fam Bonds, | Medication Refill | | 2013 | | NE[address]OSUR[address]ERY [address] | DO [address] | | | | | [address] | [address] [place], [place] | | | | | [place], [place] | [address] | | | | | [address] | | | | | | [phone] | | | +--------+--------+ + + + [...] [place] | | | | | | [address] | | | | | | | | +--------+---------+ + + + documented as of this encounter Visit Diagnoses Not on filedocumented in this encounter"
--- OUTSIDE RECORDS SUMMARY | ~2019-07-02 | XMS | Encounter Summary ---
Demographics + + + | Address | [address] [facility] [address] | | | [place] [address] | + + + | Home Phone [...] + + + | Author | [facility] | | | and [place] | + + + | Organization | [facility] | | | and [place] [...] [place] | | | | | [address] | | + + + + + Care Team Providers + +------+ + | Care Network Pricing Consultant Name | Role | Phone | [...] | | | | Ex-smoker | [place] [address] | MD [address] | | | | | Procedures | [place] | [address] | | | | | [place] OFFICE | WAY | [place], | | | | | OUTPATIENT | [place] | [place] [address] | | | | | VISIT 25 | [place] [address] | | | | | | MINUTES | Phone: | | | | | | 11/26 - DOS | [phone] | | | | | | 12/14/13 - | Fax: | | | | | | PENDING | [phone] | | | | | | MEDICAID [...] + | 01/21/ | Office | [facility] | [place], | COPD (chronic | | 2013 | Visit | PULMONARY [address] | Jennifer Ladd MD | obstructive | | | | [address] [place], | | pulmonary disease) | | | | [place] [address] | | (HCC) (Primary Dx); | | | | [phone] | | MARY JANE (obstructive | | [...] will also get your chest x-ray from [facility]. You need to get a yearly flu shot. Electronically signed by Jennifer Raines MD at 01/2014 3:42 PM PDT documented in this encounter Progress Notes Jennifer Raines MD - 01/21/2014 2:46 PM PDTFormatting of this note might be differe nt from the original. Pulmonary Consult Referring Provider: Stefano Padgett PA-C HPI Steve Carpenter is a 53 y.o. male patient [...] jesus him to the emergency room at [facility]. He received a nebulizer treatment, st [...] chronic bronchitis as well, and works with [employer] and gets sick much more often. 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 Electronically signed [...] [place] | | | | | | [address] | | | | | | | [...] for prophylactic vaccination with combined | | busyckfqsd-pftjgip-apoemkysj (DTP) vaccine | + + documented in this encounter"
--- OUTSIDE RECORDS SUMMARY | ~2019-07-02 | XMS | Encounter Summary ---
Demographics + + + | Address | [address] [facility] [address] | | | [place] [address] | + + + | Home Phone [...] | Organization | [facility] | | | and [place] [...] [place] | | | | | [address] | | + + + + + Care Team Providers + +------+ + | Care Fruit Thinner Name | Role | Phone | + [...] | 04/19/ | Refill | [facility] [place] | Fam Bonds, | Medication Refill | | 2013 | | NEUROSUR[address]ERY [address] | DO [address] | | | | | [address] | [address] [place], [place] | | | | | [place], [place] | [address] | | | | | [address] | | | | | | [phone] | | | +--------+--------+ + + + [...] [place] | | | | | | [address] | | | | | | | | +--------+---------+ + + + documented as of this encounter Visit Diagnoses Not on filedocumented in this encounter"
--- OUTSIDE RECORDS SUMMARY | ~2019-07-02 | XMS | Encounter Summary ---
Demographics + + + | Address | [address] [facility] [address] | | | [place] [address] | + + + | Home Phone [...] Organization | [facility] | | | and [...] [place] | | | | | [address] | | + + + + + Care Team Providers + +------+ + | Care Master Police Detective Name | Role | Phone | + [...] | | | | | | | [place] | | | | | | | ARTHRODESIS | | | | | | | POSTERIOR/PO | | | | | | | STEROLATERAL | | | | | | | LUMBAR [place] | | | | | | | LUMBAR SPINE | | | | | | | | | | | | | | FUSION,ANTER | | | | | | | APPRCH [place] | | | | | | | APPLICATION | | | | | | | INTERVERTEBR | | | | | | | AL | | | | | | | BIOMECHANICA | | | | | | | L DEVICE [place] | | | | | | | SPINE | | | | | | | FUSN,POST | | | | | | | TECH,EA | | | | | | | ADDNL SGMT | | | | | | | [place] SPINAL | | | | | | | FUSION,ANT,E | | | | | | | A ADNL LEVEL | | | | | | | [place] | | | | | | | [...] | | | | | | SEG [place] | | | | | | | [...] | | | | | | SEG [place] | | | | | | | LAMINEC/FACE | | | | | | | TECT/FORAMIN | | | | | | | ,EACH ADDNL | | | | | | | [place] ARTHDSIS | | | | | | [...] | | | | | | SEG [place] | | | | | | | [...] | | | | | [address] | [place] | | | | | [place] | [address] | | | | | [address] | | | | | | [phone] | | | +--------+ + + + [...] +----+---+ + + | | 1 | [place] | | | | 1 | 43-degrees [...] Office | Gastroenterology | [facility], | | | 2019 | Visit | | GILMA Alexander [address] | | | | | | [place] | | | | | | [place] | | | | | | [address] | | | | | | | [...]
--- OUTSIDE RECORDS SUMMARY | ~2019-07-02 | XMS | Encounter Summary ---
Demographics + + + | Address | [address] [facility] [address] | | | [place] [address] | + + + | Home Phone [...] | Organization | [facility] | [...] [place] | | | | | [address] | | + + + + + Care Team Providers + +------+ + | Care Lab Technologist Name | Role | Phone | [...] [address] | [address] [place], [place] | (Primary Dx) | | | | [place], [place] | [address] | | | | | [address] | | | | | | [phone] | | | +--------+ + + + [...] 07/04/ | Office | Gastroenterology | [facility], | | | 2019 | Visit | | GILMA Alexander [address] | | | | | | [place], [address] | | | | | | [place] | | | | | | [address] | | | | | | | [...] + | MISCELLANEOUS LAB | | | [phone] | + +---------+ + + | MISCELANIOUS LAB | | | [phone] | + +---------+ + + documented in this encounter Visit Diagnoses + + | Diagnosis | + + | Status post lumbar spinal fusion - Primary Arthrodesis status | + + documented in this encounter"
--- OUTSIDE RECORDS SUMMARY | ~2019-07-02 | XMS | Encounter Summary ---
Demographics + + + | Address | [address] [facility] [address] | | | [place] [address] | + + + | Home Phone [...] + | Organization | [facility] | | | and [place] [...] [place] | | | | | [address] | | + + + + + Care Team Providers + +------+ + | Care Machine Sand Mixer Name | Role | Phone | + [...] MD | UP) | | | | [place], | | | | | | [place] [address] | | | | | | [phone] | | | +--------+ + + + [...] [place] | | | | | | [address] | | | | | | | | +--------+---------+ + + + documented as of this encounter Visit Diagnoses Not on filedocumented in this encounter"
--- OUTSIDE RECORDS SUMMARY | ~2019-07-02 | XMS | Encounter Summary ---
Demographics + + + | Address | [address] [facility] [address] | | | [place] [address] | + + + | Home Phone [...] Organization | [facility] | | | and [place] [...] [place] | | | | | [address] | | + + + + + Care Team Providers + +------+ + | Care Manager Msw Name | Role | Phone | + [...] [address] | [address] [place], [place] | | | | | [place], [place] | [address] | | | | | [address] | | | | | | [phone] | | | +--------+ + + + [...] | 07/04/ | Office | Gastroenterology | [facility], | | | 2018 | Visit | | GILMA Alexander [address] | | | | | | [address] | | | | | | [place] | | | | | | [address] | | | | | | | | +--------+---------+ + + + documented as of this encounter Visit Diagnoses Not on filedocumented in this encounter"
--- OUTSIDE RECORDS SUMMARY | ~2019-07-02 | XMS | Encounter Summary ---
Demographics + + + | Address | [address] [facility] [address] | | | [place] [address] | + + + | Home Phone [...] + + + | Author | [facility] | | | and [place] | + + + | Organization | [facility] | | | and [place] [...] [place] | | | | | [address] | | + + + + + Care Team Providers + +------+ + | Care Utility Technician Name | Role | Phone | [...] [address] | [address] [place], [place] | | | | | [place], [place] | [address] | | | | | [address] | | | | | | [phone] | | | +--------+--------+ + + + [...] Gastroenterology | [facility], | | | 2019 | Visit | | GILMA Alexander [address] | | | | | | [address] | | | | | | [place] | | | | | | [address] | | | | | | | | +--------+---------+ + + + documented as of this encounter Visit Diagnoses + + | Diagnosis | + + | Status post lumbar spinal fusion - Primary Arthrodesis status | + + documented in this encounter"
--- OUTSIDE RECORDS SUMMARY | ~2019-07-02 | XMS | Encounter Summary ---
Demographics + + + | Address | [address] [facility] [address] | | | [place] [address] | + + + | Home Phone [...] | Organization | [facility] | [...] [place] | | | | | [address] | | + + + + + Care Team Providers + +------+ + | Care Service Desk Lead Name | Role | Phone | + [...] | | [address] | [address] | | | | | [place], [place] | [place], [place] | | | | | [address] | [address] | | | | | [phone] | | | +--------+ + + + [...] | 07/04/ | Office | Gastroenterology | [facility], | | | 2018 | Visit | | GILMA Alexander [address] | | | | | | [address] | | | | | | [place] | | | | | | [address] | | | | | | | | +--------+---------+ + + + documented as of this encounter Visit Diagnoses Not on filedocumented in this encounter"
--- OUTSIDE RECORDS SUMMARY | ~2019-07-02 | XMS | Encounter Summary ---
Demographics + + + | Address | [address] [facility] [address] | | | [place] [address] | + + + | Home Phone [...] Author + + + | Author | [facility] | | | and [place] | + + + | Organization | [facility] | | | and [place] | [...] [place] | | | | | [address] | | + + + + + Care Team Providers + +------+ + | Care Poultry Eviscerator Name | Role | Phone | + [...] MD | UP) | | | | [place], | | | | | | [place] [address] | | | | | | [phone] | | | +--------+ + + + [...] | 07/04/ | Office | Gastroenterology | [facility], | | | 2019 | Visit | | GILMA Alexander [address] | | | | | | [place] [address] | | | | | | [place] | | | | | | [address] | | | | | | | | +--------+---------+ + + + documented as of this encounter Visit Diagnoses Not on filedocumented in this encounter"
--- OUTSIDE RECORDS SUMMARY | ~2019-07-02 | XMS | Encounter Summary ---
Demographics + + + | Address | [address] [facility] [address] | | | [place] [address] | + + + | Home Phone [...] Organization | [facility] | [...] [place] | | | | | [address] | | + + + + + Care Team Providers + +------+ + | Care Cost Clerk Name | Role | Phone | + +------+ + | Stefano Padgett PA-C | PCP | | + +------+ + Encounter Details +--------+ + + + + | Date | Type | Department | Care Team | Description | +--------+ + + + + | 10/22/ | Hospital | [facility] | Fam Bonds, | Back pain | | 2014 | Encounter | MED CTR XRAY [address] | DO [address] | | | | | [place] | [address] [place], [place] | | | | | [place] [address] | [address] | | | | | [phone] | | | +--------+ + + + [...] | | | | | ([facility]), Chronic | | | | | | | kidney disease, | | | | | | | stage III (moderate) | | | | | | | ([facility]), Type II or | | | | [...] | | | | | ([facility]), | | | | | | | [...] | 07/04/ | Office | Gastroenterology | [facility], | | | 2019 | Visit | | GILMA Alexander [address] | | | | | | [address] | | | | | | [place] | | | | | | [address] | | | | | | | [...] + | MISCELLANEOUS LAB | | | [phone] | + +---------+ + + | MISCELANIOUS LAB | | | [phone] | + +---------+ + + documented in this encounter Visit Diagnoses + + | Diagnosis | + + | Back pain Backache, unspecified | + + documented in this encounter"
--- OUTSIDE RECORDS SUMMARY | ~2019-07-02 | XMS | Encounter Summary ---
Demographics + + + | Address | [address] [facility] [address] | | | [place] [address] | + + + | Home Phone [...] + + + | Author | [facility] | | | and [place] | + + + | Organization | [facility] [...] [place] | | | | | [address] | | + + + + + Care Team Providers + +------+ + | Care Tub Washer Name | Role | Phone | + +------+ + | Stefano Padgett PA-C | PCP | | + +------+ + Encounter Details +--------+ + + + + | Date | Type | Department | Care Team | Description | +--------+ + + + + | 04/15/ | Hospital | [facility] | [place] Spears, | | | 2013 | Encounter | MED CTR ACUTE | PT [address] | | | | | PHYSICAL THERAPY | [place] | | | | | [address] [place] [place] | [address] | | | | | [place] [address] | | | | | | [phone] | | | +--------+ + + + [...] [place] | | | | | | [address] | | | | | | | | +--------+---------+ + + + documented as of this encounter Visit Diagnoses Not on filedocumented in this encounter"
--- OUTSIDE RECORDS SUMMARY | ~2019-07-02 | XMS | Encounter Summary ---
Demographics + + + | Address | [address] [facility] [address] | | | [place] [address] | + + + | Home Phone [...] | Organization | [facility] | | | and [place] [...] [place] | | | | | [address] | | + + + + + Care Team Providers + +------+ + | Care Field Specialist Name | Role | Phone | [...] | +--------+ + + + + | 07/27/ | Telephone | [facility] [place] | Quirino Warren | Other | | 2013 | | PHYSIATRY [address] | [address] | | | | | [place], | [place], [place] | | | | | [place] [address] | [address] | | | | | [phone] | | | +--------+ + + + [...] | 07/04/ | Office | Gastroenterology | [facility], | | | 2019 | Visit | | GILMA Alexander [address] | | | | | | [address] | | | | | | [place] | | | | | | [address] | | | | | | | | +--------+---------+ + + + documented as of this encounter Visit Diagnoses Not on filedocumented in this encounter"
--- OUTSIDE RECORDS SUMMARY | ~2019-07-02 | XMS | Encounter Summary ---
Demographics + + + | Address | [address] [facility] [address] | | | [place] [address] | + + + | Home Phone [...] Author | [facility] | | | and [place] | + + + | Organization | [facility] | | | and [...] [place] | | | | | [address] | | + + + + + Care Team Providers + +------+ + | Care Coremaker Supervisor Name | Role | Phone | [...] [address] | [address] [place], [place] | | | | | [place], [place] | [address] | | | | | [address] | | | | | | [phone] | | | +--------+ + + + [...] [place] | | | | | | [address] | | | | | | | | +--------+---------+ + + + documented as of this encounter Visit Diagnoses Not on filedocumented in this encounter"
--- OUTSIDE RECORDS SUMMARY | ~2019-07-02 | XMS | Clinical Summary ---
Demographics + + + | Address | [address] [facility] [address] | | | [place] [address] | + + + | Home Phone [...] Organization | [facility] | [...] [place] | | | | | [address] | | + + + + + Care Team Providers + +------+ + | Care Electrical Power Engineer Name | Role | Phone [...] + + + | Overview: Problem list [employer] | + + + + + [...] [place] | | | | | | [id number] | | | | | | | [...] | [employer] - | | 12/30/ | [id number] | | 5ccImplanted: Qty: 1 on | | Spine | MEDT | | 2019 | | | 04/09/2014 by Fam Bonds | | Lumbar | | | | /[id number] | | ADO at [facility] | | | | | | 0-036 | | [facility] | | | | | | / | + +------+--------+ +--------+--------+--------+ | ScrewImplanted: Qty: 5 on | | N/A: | [employer] - | | | [id number] | | 04/09/2014 by Fam Bonds | | Spine | MEDT | | | [id number] | | A, DO at [facility] | | Lumbar | | | | / / | | [facility] | | | | | | | + +------+--------+ +--------+--------+--------+ | ScrewImplanted: Qty: 2 on | | N/A: | [employer] - | | | [id number] | | 04/09/2014 by Fam Bonds | | Spine | MEDT | | | [id number] | | A, DO at [facility] | | Lumbar | | | | / / | | [facility] | | | | | | | + +------+--------+ +--------+--------+--------+ | ScrewImplanted: Qty: 1 on | | N/A: | [employer] - | | | [id number] | | 04/09/2014 by Fam Bonds | | Spine | MEDT | | | [id number] | | A, DO at [facility] | | Lumbar | | | | / / | | [facility] | | | | | | | + +------+--------+ +--------+--------+--------+ | Screw 7.5x50mm Sextant - | | N/A: | [employer] - | | | [id number] | | [id number]: Qty: 2 on | | Spine | MEDT | | | [id number] | | 04/09/2014 by Fam Bonds | | Lumbar | | | | / / | | A DO at [facility] | | | | | | | | [facility] | | | | | | | + +------+--------+ +--------+--------+--------+ | Imp Spn Spcr Cpstn [id number] - | | N/A: | SOFAMOR | | 08/24/ | [id number] | | [id number]: Qty: 1 on | | Spine | DANEK - DIV | | 2020 | 2 / | | 04/09/2014 by Fam Bonds | | Lumbar | [employer] | | | /[id number] | | A, DO at [facility] | | | - SFDK | | | 032 | | [facility] | | | | | | | + +------+--------+ +--------+--------+--------+ | Sealant Duraseal Exact Sys | | N/A: | [employer] | | 06/16/ | [id number] | | 5ml - [id number]: | | Spine | LIFESCIENCE | | 2015 | / | | Qty: 1 on 04/09/2014 by | | Lumbar | S CHETNA - | | | /[id number] | | Fam Bonds DO at [facility] | | | RUEL | | | 33X | | [facility] | | | | | | | | [facility] | | | | | | | + +------+--------+ +--------+--------+--------+ | Set Scrw Ns G5 Brk Off Ti | | N/A: | SOFAMOR | | | [id number] | | 4.75 - [id number]: | | Spine | DANEK - DIV | | | 0 / / | | Qty: 11 on 04/09/2014 by | | Lumbar | [employer] | | | | | Fam Bonds DO at [facility] | | | - SFDK | | | | | [facility] | | | | | | | | [facility] | | | | | | | + +------+--------+ +--------+--------+--------+ | RodImplanted: Qty: 2 on | | N/A: | [employer] - | | | [id number] | | 04/09/2014 by Fam Bonds | | Spine | MEDT | | | 6210 / | Emerita Torres DO at [facility] | | Lumbar | | | | / | | [facility] | | | | | | | + +------+--------+ +--------+--------+--------+ | Cancellous Chips | | | | | 12/30/ | [id number] | | 5ccImplanted: Qty: 1 on | | | | | 2018 | | | 04/09/2014 at [facility] | | | | | | /[id number] | | [facility] | | | | | | 0-35 / | + +------+--------+ +--------+--------+--------+ | Cancellous Chips | | | | | 03/28/ | [id number] | | 5ccImplanted: Qty: 1 on | | | | | 2018 | | | 04/09/2014 at [facility] | | | | | | /[id number] | | [facility] | | | | | | 7-033 | | | | | | | | / | + +------+--------+ +--------+--------+--------+ | Putty Alexis 10cc Dbm - | | N/A: | OSTEOTECH - | | 11/28/ | [id number] | | [id number]: Qty: 1 | | Spine | OSTT | | 2017 | | | on 04/09/2014 by Cammie, | | Lumbar | | | | /[id number] | | Fam Torres DO at [facility] | | | | | | 5-036 | | [facility] | | | | | | / | + +------+--------+ +--------+--------+--------+ | Graft Infuse Bone Kit Xs - | | N/A: | SOFAMOR | | 10/15/ | [id number] | | [id number]: Qty: 3 on | | Spine | DANEK - DIV | | 2014 | 0 / | | 04/09/2014 by Fam Bonds | | Lumbar | [employer] | | | /[id number] | | DO Melissa at [facility] | | | - SFDK | | | 06AAO | | [facility] | | | | | | | + +------+--------+ +--------+--------+--------+ | Putty Cotton 10cc Dbm - | | N/A: | OSTEOTECH - | | 11/28/ | [id number] | | [id number]: Qty: 1 | | Spine | OSTT | | 2017 | | | on 04/09/2014 by Cammie, | | Lumbar | | | | /[id number] | | Fam Torres DO at [facility] | | | | | | 5-033 | | [facility] | | | | | | / | + +------+--------+ +--------+--------+--------+ | Cage Xl Wide [id number] - | | N/A: | NUVASIVE - | | | [id number] | | [id number]: Qty: 2 on | | Spine | NVSV | | | 0 / / | | 04/09/2014 by Fam Bonds | | Lumbar | | | | | | A DO at [facility] | | | | | | | | [facility] | | | | | | | + +------+--------+ +--------+--------+--------+ | Imp Spn Spcr Peek Xlw | | N/A: | NUVASIVE - | | | [id number] | | [id number] - | | Spine | NVSV | | | 5 / / | | [id number]: Qty: 1 on | | Lumbar | | | | | | 04/09/2014 by Fam Bonds | | | | | | | | ADO at [facility] | | | | | | | | [facility] | | | | | | | + +------+--------+ +--------+--------+--------+ | Imp Spn Spcr Xlxw [id number] | | N/A: | NUVASIVE - | | | [id number] | | - [id number]: Qty: 1 | | Spine | NVSV | | | 0 / / | | on 04/09/2014 by Cammie, | | Lumbar | | | | | | Fam Torres DO at [facility] | | | | | | | | [facility] | | | | | | | + +------+--------+ +--------+--------+--------+ | Cage Aston Miranda [id number] - | | N/A: | [employer] - | | 03/13/ | [id number] | | [id number]: Qty: 1 on | | Spine | MEDT | | 2021 | 2 / | | 04/09/2014 by Fam Bonds | | Lumbar | | | | /[id number] | | A, DO at [facility] | | | | | | 464 | | [facility] | | | | | | | + +------+--------+ +--------+--------+--------+ | ScrewImplanted: Qty: 1 on | | N/A: | [employer] - | | | [id number] | | 04/09/2014 by Fam Bonds | | Spine | MEDT | | | [id number] | | A, DO at [facility] | | Lumbar | | | | / / | | [facility] | | | | | | [...] +--------+ +---------+--------+ | MEDICARE | MEDICA | [id number] | 07/18/19 | [phone] | | Medica | | | RE | | 16-Pre | 5 | | re | | | PART A | | sent | | | | | | AND B | | | | | | + +--------+ +--------+ +---------+--------+ | MEDICAID [place] | MEDICA | [id number] | | [phone] | | Medica | | | [place] | | 017-Pr | 2 | | id | | | PLUS | | esent | | | | + +--------+ +--------+ +---------+--------+ | [facility] | IHS | [id number] | 08/21/19 | | | [place] | [...] | | 3 (Home) | [place] [address] | + +--------+ +--------+ + + Advance Directives + + + + + | Type | Date Recorded | Patient | Explanation | | | | Community Service Worker | | + + + + + | Power of | | | | | User Experience Designer | | | | + + + [...]
--- OUTSIDE RECORDS SUMMARY | ~2019-07-02 | XMS | Encounter Summary ---
Demographics + + + | Address | [address] [facility] [address] | | | [place] [address] | + + + | Home Phone [...] | Organization | [facility] | | [...] [place] | | | | | [address] | | + + + + + Care Team Providers + +------+ + | Care Android Ios Developer Name | Role | Phone | [...] | Required | | stenosis of | HEALTH AND SAFETY TECH | [address] | | | | | lumbar | | [address] | | | | | region at | | [place] | | | | | multiple | | [address] Phone: | | | | | levels | | [phone] | | | | | Procedures | | Fax: | | | | | [place] OFFICE | | [phone] | | | | | CONSULTATION | [...] [address] | [address] [place], [place] | back syndrome; | | | | [place], [place] | [address] | Epidural | | | | [address] | | lipomatosis; Lumbar | | | | [phone] | | stenosis; Lumbar | | | [...] [facility] [address] [place], [place] [address] FAX: NEUROSURGERY HISTORY AND PHYSICAL EXAMINATION CHIEF COMPLAINT: Chief Complaint Patient presents with New Patient Low back pain Numbness Bilateral legs, right worse than left. Gait Problem Difficulty Walking HISTORY OF PRESENT ILLNESS: The patient is a 53 y.o. male with the complaint of back pain that began 15 years ago. The symptoms began insidiously. 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 CRANIAL NERVES: II: Acuity is intact. [...] Intrinsics 5 5 Ulnar Intrinsics 5 5 Automation Software Engineer Strength 5 5 Hip Flexion 4 [...] Office | Gastroenterology | [facility] | | | 2019 | Visit [...]
--- OUTSIDE RECORDS SUMMARY | ~2019-07-02 | XMS | Encounter Summary ---
Demographics + + + | Address | [address] [facility] [address] | | | [place] [address] | + + + | Home Phone [...] | Organization | [facility] | | [...] [place] | | | | | [address] | | + + + + + Care Team Providers + +------+ + | Care Chemical Research Worker Name | Role | Phone | [...] Ladd MD | | | | | [place], | | | | | | [place] [address] | | | | | | [phone] | | | +--------+ + + + [...] | 07/04/ | Office | Gastroenterology | [facility], | | | 2019 | Visit | | GILMA Alexander [address] | | | | | | [address] | | | | | | [place] | | | | | | [address] | | | | | | | | +--------+---------+ + + + documented as of this encounter Visit Diagnoses Not on filedocumented in this encounter"
--- OUTSIDE RECORDS SUMMARY | ~2019-07-02 | XMS | Encounter Summary ---
Demographics + + + | Address | [address] [facility] [address] | | | [place] [address] | + + + | Home Phone [...] | Author | [facility] | | | and [place] | + + + | Organization | [facility] | | | and [...] [place] | | | | | [address] | | + + + + + Care Team Providers + +------+ + | Care Historical Interpreter Name | Role | Phone | + [...] | Required | | stenosis of | FURNITURE DIPPER | [address] | | | | | lumbar | | [address] | | | | | region at | | [place] | | | | | multiple | | [address] Phone: | | | | | levels | | [phone] | | | | | Procedures | | Fax: | | | | | [place] OFFICE | | [phone] | | | | | CONSULTATION | [...] 2013 | | PHYSIATRY [address] | FURNITURE DIPPER | | | | | [place], | | | | | | [place] [address] | | | | | | [phone] | | | +--------+ + + + [...] + | 07/04/ Office | Gastroenterology | [facility], | | | 2019 | Visit | | GILMA Alexander [address] | | | | | | [place] | | | | | | [place] | | | | | | [address] | | | | | | | [...]
--- OUTSIDE RECORDS SUMMARY | ~2019-07-02 | XMS | Encounter Summary ---
Demographics + + + | Address | [address] [facility] [address] | | | [place] [address] | + + + | Home Phone [...] Organization | [facility] | | | and [place] [...] [place] | | | | | [address] | | + + + + + Care Team Providers + +------+ + | Care Post Adoption Coordinator Name | Role | Phone | + [...] + + | 03/21/ | Office | [facility] | Fam Bonds, | Flat back syndrome | | 2013 | Visit | NEUROSURGERY [address] | DO [address] | (Primary Dx); | | | | [address] | [address] [place], [place] | Epidural | | | | [place], [place] | [address] | lipomatosis; Lumbar | | | | [address] | | spondylosis; Lumbar | | | | [phone] | | stenosis; Lumbar | | | [...] Instructions Patient Instructions Fam Bonds DO - 03/21/2014 3:13 PM PDTPlease follow-up with you r primary care physician for preoperative clearance. Please present for surgery when scheduled. documented in this encounter Progress Notes Fam Bonds DO - 03/21/2014 3:14 PM PDTFormatting of this note might be different fro m the original. Fam Bonds DO [address] [facility] [address] [place] [address] FAX: NEUROSURGERY HISTORY AND PHYSICAL EXAMINATION CHIEF COMPLAINT: Chief Complaint Patient presents with Follow-up Pre-Op HISTORY OF PRESENT ILLNESS: The patient is a 53 y.o. male with the complaint of back pain that began 15 years ago. The symptoms began insidiously. 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 CRANIAL NERVES: II: Acuity is [...] Intrinsics 5 5 Ulnar Intrinsics 5 5 Printing Supplies Sales Representative Strength 5 5 Hip Flexion 4 4 [...] type 2 (diabetes mellitus, type 2) ([facility]) elevated blood sugars while hospitalized Esophageal reflux ANGELES (acute kidney injury) ([facility]) 12/13/2012 creatinine 10.77 Rib fracture [...] [place] | | | | | | [address] | | | | | | | [...]
--- OUTSIDE RECORDS SUMMARY | ~2019-07-02 | XMS | Encounter Summary ---
Demographics + + + | Address | [address] [facility] [address] | | | [place] [address] | + + + | Home Phone [...] | Organization | [facility] [...] [place] | | | | | [address] | | + + + + + Care Team Providers + +------+ + | Care Access Coordinator Name | Role | Phone | [...] | | [address] | [place] | | | | | [place], [place] | [place], [place] | | | | | [address] | [address] | | | | | [phone] | | | +--------+ + + + [...] | 07/04/ | Office | Gastroenterology | [facility], | | | 2018 | Visit | | GILMA Alexander [address] | | | | | | [address] | | | | | | [place] | | | | | | [address] | | | | | | | | +--------+---------+ + + + documented as of this encounter Visit Diagnoses Not on filedocumented in this encounter"
--- OUTSIDE RECORDS SUMMARY | ~2019-07-02 | XMS | Encounter Summary ---
Demographics + + + | Address | [address] | | | [place] [address] | + + + | Home Phone | | + + + | Preferred Language | Unknown | + + + | Marital Status | Single | + + + | Gnosticist Affiliation | Unknown | + + + | Race | Unknown | + + + | Ethnic Group | Unknown | + + + Author + + + | Author | [facility] | | | and [place] | + + + | Organization | [facility] | | | and [place] [...] [place] | | | | | [address] | | + + + + + Care Team Providers + +------+ + | Care Stenocaptioner Name | Role | Phone | + [...] + | 04/17/ | Telephone | [facility] | Fam Bonds, | Other (Rx ready ) | | 2013 | | NEUROSURGERY [address] | DO [address] | | | | | [address] | [address] [place], [place] | | | | | [place], [place] | [phone] | | | | | [address] | | | | | | [phone] | | | +--------+ + + + [...] [place] | | | | | | [address] | | | | | | | | +--------+---------+ + + + documented as of this encounter Visit Diagnoses Not on filedocumented in this encounter"
--- OUTSIDE RECORDS SUMMARY | ~2019-07-02 | XMS | Encounter Summary ---
Demographics + + + | Address | [address] [facility] [address] | | | [place] [address] | + + + | Home Phone | | + + + | Preferred Language | Unknown | + + + | Marital Status | Single | + + + | Moravian Affiliation | Unknown | + + + | Race | Unknown | + + + | Ethnic Group | Unknown | + + + Author + + + | Author | [facility] | | | and [place] | + + + | Organization | [facility] | [...] [place] | | | | | [address] | | + + + + + Care Team Providers + +------+ + | Care Bowstring Maker Name | Role | Phone | [...] | 07/27/ | Telephone | [facility] [place] | Quirino Warren | Other | | 2013 | | PHYSIATRY [address] | T, [address] | | | | [place], | [facility] [place] | | | | | [place] [address] | [address] | | | | | [phone] | | | +--------+ + + + [...] [place] | | | | | | [address] | | | | | | | | +--------+---------+ + + + documented as of this encounter Visit Diagnoses Not on filedocumented in this encounter"
--- OUTSIDE RECORDS SUMMARY | ~2019-07-02 | XMS | Encounter Summary ---
Demographics + + + | Address | [address] | | | [place] [address] | + + + | Home Phone [...] | Organization | [facility] | | | and [...] [place] | | | | | [address] | | + + + + + Care Team Providers + +------+ + | Care Depot Manager Name | Role | Phone | [...] | 04/29/ | Refill | [facility] [place] | Fam Bonds, | Medication Refill | | 2013 | | NEUROSURGERY [address] | DO [address] | | | | | [address] | [address] [place], [place] | | | | | [place], [place] | [phone] | | | | | [address] | | | | | | [phone] | | | +--------+--------+ + + + [...] [facility], | | | 2019 | Visit | | GILMA Alexander [address] | | | | | | [address] | | | | | | [place] | | | | | | [address] | | | | | | | | +--------+---------+ + + + documented as of this encounter Visit Diagnoses Not on filedocumented in this encounter"
--- OUTSIDE RECORDS SUMMARY | ~2019-07-02 | XMS | Encounter Summary ---
Demographics + + + | Address | [address] [facility] [address] | | | [place] [address] | + + + | Home Phone | | + + + | Preferred Language | Unknown | + + + | Marital Status | Single | + + + | Yazdanism Affiliation | Unknown | + + + | Race | Unknown | + + + | Ethnic Group | Unknown | + + + Author + + + | Author | [facility] | | | and [place] | + + + | Organization | [facility] | | | and [...] [place] | | | | | [address] | | + + + + + Care Team Providers + +------+ + | Care Playground Aide Name | Role | Phone | [...] | | | | Ex-smoker | [place] [address] | MD [address] | | | | | Procedures | [address] | [address] | | | | | [place] OFFICE | WAY | [place], | | | | | OUTPATIENT | [place] | [place] [address] | | | | | VISIT 25 | [place] [address] | | | | | | MINUTES | Phone: | | | | | | 11/26 - DOS | [phone] | | | | | | 12/14/13 - | Fax: | | | | | | PENDING | [phone] | | | | | | MEDICAID [...] + | 01/21/ | Office | [facility] | Offenstein, | COPD (chronic | | 2013 | Visit | PULMONARY [address] | Jennifer Ladd MD | obstructive | | | | [place], | | pulmonary disease) | | | | [place] [address] | | (HCC) (Primary Dx); | | | | [phone] | | MARY JANE (obstructive | | [...] will also get your chest x-ray from [facility]. You need to get a yearly flu [...] jesus him to the emergency room at [facility]. He received a nebulizer treatment, st eroids, [...] chronic bronchitis as well, and works with [employer] and gets sick much more often. Currently [...] he had a sleep study done at [facility] about 1 1/2- 2 months ago, and [...] 2 (diabetes mellitus, type 2) ([facility]) elevated blood sugars while hospitalized Esophageal reflux ANGELES (acute kidney injury) ([facility]) 12/13/2012 creatinine 10.77 Rib fracture [...] Bhatt With: his sisterGrew up: [place] then [place] Has previously lived in: [place], [place], [place]posure to toxic chemicals: land appraiser, dust, concrete and sawdustExposure to asbe stos: [...] made to ensure accuracy; however, inadvertent computerized cutter aluminum sheet errors may be pre sent. Electronically signed by: Jennifer Raines MD 01/21/2014 15:22 documented in t his encounter Plan of Treatment +--------+---------+ + + + | Date | Type | Specialty | Care Team | Description | +--------+---------+ + + + | 07/04/ | Office | Gastroenterology | [facility], | | | 2019 | Visit | | CatherineGILMA mccain [address] | | | | | | [address] | | | | | | [place] | | | | | | [address] | | | | | | | [...] for prophylactic vaccination with combined | | eguojxloib-vydykmu-yzmqpyfym (DTP) vaccine | + + documented in this encounter"
--- OUTSIDE RECORDS SUMMARY | ~2019-07-02 | XMS | Encounter Summary ---
Demographics + + + | Address | [address] [facility] [address] | | | [place] [address] | + + + | Home Phone [...] Organization | [facility] | | [...] [place] | | | | | [address] | | + + + + + Care Team Providers + +------+ + | Care Lead Ios Developer Name | Role | Phone [...] | | | | | | | CT | | | | | | | ARTHRODESIS | | | | | | | POSTERIOR/PO | | | | | | | STEROLATERAL | | | | | | | LUMBAR CT | | | | | | | LUMBAR SPINE | | | | | | | | | | | | | | FUSION,ANTER | | | | | | | APPRCH CT | | | | | | | APPLICATION | | | | | | | INTERVERTEBR | | | | | | | AL | | | | | | | BIOMECHANICA | | | | | | | L DEVICE CT | | | | | | | SPINE | | | | | | | FUSN,POST | | | | | | | TECH,EA | | | | | | | ADDNL SGMT | | | | | | | CT SPINAL | | | | | | | FUSION,ANT,E | | | | | | | A ADNL LEVEL | | | | | | | CT | | | | | | | [...] | | | | | | SEG CT | | | | | | | [...] | | | | | | SEG CT | | | | | | | LAMINEC/FACE | | | | | | | TECT/FORAMIN | | | | | | | ,EACH ADDNL | | | | | | | CT ARTHDSIS | | | | | | [...] | | | | | | SEG CT | | | | | | | [...] + + | 04/09/ | Hospital | [facility] | Fam Bonds, | Lumbosacral | | 2013 | Encounter | MED CTR XRAY [address] | DO [address] | spondylosis without | | | | [place] | [address] [place] | myelopathy (Primary | | | | [place] [address] | [address] | Dx) | | | | [phone] | | | +--------+ + + + [...] | 07/04/ | Office | Gastroenterology | [facility], | | | 2019 | Visit | | GILMA Alexander [address] | | | | | | [place] | | | | | | [place] | | | | | | [address] | | | | | | | [...]
--- OUTSIDE RECORDS SUMMARY | ~2019-07-02 | XMS | Encounter Summary ---
Demographics + + + | Address | [address] [facility] [address] | | | [place] [address] | + + + | Home Phone | | + + + | Preferred Language | Unknown | + + + | Marital Status | Single | + + + | Pentecostalism Affiliation | Unknown | + + + | Race | Unknown | + + + | Ethnic Group | Unknown | + + + Author + + + | Author | [facility] | | | and [place] | + + + | Organization | [facility] [...] [place] | | | | | [address] | | + + + + + Care Team Providers + +------+ + | Care Marine Engineering Consultant Name | Role | Phone | [...] | | | | [address] [facility] | [place] | | | | | [address] [place] | [place] [address] | | | | | [address] | | | | | | [phone] | | | +--------+ + + + [...] Gastroenterology | [facility], | | | 2019 | Visit | | GILMA Alexander [address] | | | | | | [address] | | | | | | [place] | | | | | | [address] | | | | | | | [...]
--- OUTSIDE RECORDS SUMMARY | ~2019-07-02 | XMS | Encounter Summary ---
Demographics + + + | Address | [address] [facility] [address] | | | [place] [address] | + + + | Home Phone | | + + + | Preferred Language | Unknown | + + + | Marital Status | Single | + + + | Taoist Affiliation | Unknown | + + + | Race | Unknown | + + + | Ethnic Group | Unknown | + + + Author + + + | Author | [facility] | | | and [place] | + + + | Organization | [facility] | [...] [place] | | | | | [address] | | + + + + + Care Team Providers + +------+ + | Care Repack Room Worker Name | Role | Phone | [...] | | [address] | [place] | | | | | [place], [place] | [place], [place] | | | | | [address] | [address] | | | | | [phone] | | | +--------+ + + + [...] [facility], | | | 2018 | Visit | | GILMA Alexander [address] | | | | | | [address] | | | | | | [place] | | | | | | [address] | | | | | | | | +--------+---------+ + + + documented as of this encounter Visit Diagnoses Not on filedocumented in this encounter"
--- OUTSIDE RECORDS SUMMARY | ~2019-07-02 | XMS | Encounter Summary ---
Demographics + + + | Address | [address] [facility] [address] | | | [place] [address] | + + + | Home Phone [...] | Organization | [facility] | [...] [place] | | | | | [address] | | + + + + + Care Team Providers + +------+ + | Care Staff Respiratory Therapist Name | Role | Phone | [...] + + | 01/30/ | Telephone | [facility] | El Hassan | Other (Patient | | 2014 | | SURGERY [address] | MD Demi, FACS 380 | called wondering why | | | | [facility] [place] | L[facility]U [facility] | he had not heard | | | | [address] | [facility] [place] [address] | back from the nurse) | | | | [phone] | [phone] | | | | | | | [...] | 07/04/ | Office | Gastroenterology | [facility], | | | 2019 | Visit | | GILMA Alexander [address] | | | | | | [address] [place] [address] | | | | | | [place] | | | | | | [address] | | | | | | | | +--------+---------+ + + + documented as of this encounter Visit Diagnoses Not on filedocumented in this encounter"
--- OUTSIDE RECORDS SUMMARY | ~2019-07-02 | XMS | Encounter Summary ---
Demographics + + + | Address | [address] [facility] [address] | | | [place] [address] | + + + | Home Phone [...] Organization | [facility] | [...] [place] | | | | | [address] | | + + + + + Care Team Providers + +------+ + | Care Township Supervisor Name | Role | Phone | [...] | 02/12/ | Telephone | [facility] [place] | Aida Almazan | Appointment (Patient | | 2012 | | NEPHROLOGY [address] | M, DO [address] | cancelled | | | | [address] | [place], [address] | appointment) | | | | [place], [place] | [place], [place] | | | | | [address] | [address] | | | | | [phone] | | | +--------+ + + + [...] | 07/04/ | Office | Gastroenterology | [facility], | | | 2019 | Visit | | GILMA Alexander [address] | | | | | | [address] | | | | | | [place] | | | | | | [address] | | | | | | | | +--------+---------+ + + + documented as of this encounter Visit Diagnoses Not on filedocumented in this encounter"
--- OUTSIDE RECORDS SUMMARY | ~2019-07-02 | XMS | Encounter Summary ---
Demographics + + + | Address | [address] [facility] [address] | | | [place] [address] | + + + | Home Phone [...] [facility] | | [...] [place] | | | | | [address] | | + + + + + Care Team Providers + +------+ + | Care Construction Pit Worker Name | Role | Phone | [...] [address] | | | | | [place], | [place] | | | | | [place] [address] | [address] | | | | | [phone] | | | +--------+ + + + [...] [facility], | | | 2019 | Visit | | GILMA Alexander [address] | | | | | | [address] | | | | | | [place] | | | | | | [address] | | | | | | | | +--------+---------+ + + + documented as of this encounter Visit Diagnoses Not on filedocumented in this encounter"
--- OUTSIDE RECORDS SUMMARY | ~2019-07-02 | XMS | Encounter Summary ---
Demographics + + + | Address | [address] [facility] [address] | | | [place] [address] | + + + | Home Phone [...] | Organization | [facility] | | | and [...] [place] | | | | | [address] | | + + + + + Care Team Providers + +------+ + | Care Social Service Coordinator Name | Role | Phone | [...] [address] | [address] [place], [place] | | | | | [place], [place] | [address] | | | | | [address] | | | | | | [phone] | | | +--------+ + + + [...] 07/04/ | Office | Gastroenterology | [facility], | | | 2018 | Visit | | GILMA Alexander [address] | | | | | | [address] | | | | | | [place] | | | | | | [address] | | | | | | | | +--------+---------+ + + + documented as of this encounter Visit Diagnoses Not on filedocumented in this encounter"
--- OUTSIDE RECORDS SUMMARY | ~2019-07-02 | XMS | Encounter Summary ---
Demographics + + + | Address | [address] [facility] [address] | | | [place] [address] | + + + | Home Phone | | + + + | Preferred Language | Unknown | + + + | Marital Status | Single | + + + | Zoroastrianism Affiliation | Unknown | + + + | Race | Unknown | + + + | Ethnic Group | Unknown | + + + Author + + + | Author | [facility] | | | and [place] | + + + | Organization | [facility] | | | and [...] [place] | | | | | [address] | | + + + + + Care Team Providers + +------+ + | Care Lead Inspector Name | Role | Phone | [...] + | 10/23/ | Telephone | [facility] | Fam Bonds, | Letter for | | 2013 | | NEUROSURGERY [address] | DO [address] | School/Work | | | | [address] | [address] [place], [place] | | | | | [place], [place] | [id number] | | | | | [address] | | | | | | [phone] | | | +--------+ + + + [...] [place] | | | | | | [address] | | | | | | | | +--------+---------+ + + + documented as of this encounter Visit Diagnoses Not on filedocumented in this encounter"
--- OUTSIDE RECORDS SUMMARY | ~2019-07-02 | XMS | Encounter Summary ---
Demographics + + + | Address | [address] [facility] [address] | | | [place] [address] | + + + | Home Phone [...] Organization | [facility] | | | and [place] | + + + | Address | Unknown | + + + | Phone | Unavailable | + + + Support + + + + + | Name | Relationship | Address | Phone | + + + + + | Craig Sinha | ECON | [address] | | | | | [place] | | | | | [address] | | + + + + + Care Team Providers + +------+ + | Care Regrinder Operator Name | Role | Phone | [...] | sleep apnea) | | | | [place], | | (Primary Dx); | | | | [place] [address] | | Chronic bronchitis | | | | [phone] | | (HCC) | +--------+ + + [...] | | | | | [place] | | | | | | [address] | | | | | | | | +--------+---------+ + + + documented as of this encounter Visit Diagnoses + + | Diagnosis | + + | MARY JANE (obstructive sleep apnea) - Primary Obstructive sleep apnea (adult) (pediatric) | + + | Chronic bronchitis (HCC) Unspecified chronic bronchitis | + + documented in this encounter"
--- OUTSIDE RECORDS SUMMARY | ~2019-07-02 | XMS | Encounter Summary ---
Demographics + + + | Address | [address] [facility] [address] | | | [place] [address] | + + + | Home Phone [...] [facility] | | | and [...] [place] | | | | | [address] | | + + + + + Care Team Providers + +------+ + | Care Detective Homicide Squad Name | Role | Phone | + +------+ + | Stefano Padgett PA-C | PCP | | + +------+ + Encounter Details +--------+ + + + + | Date | Type | Department | Care Team | Description | +--------+ + + + + | 06/17/ | Hospital | [facility] | Fam Bonds, | Status post lumbar | | 2013 | Encounter | MED CTR XRAY [address] | DO [address] | spinal fusion | | | | [place] | [address] [place], [place] | | | | | [place] [address] | [address] | | | | | [phone] | | | +--------+ + + + [...] [place] | | | | | | [address] | | | | | | | [...] 2 or 3 Vw (06/17/2014 10:44 AM [facility]) + + | Specimen | + + [...] T12 through S1.Dictated and Signed by: Justin Mneendez MD Electronically signed: 06/17/2014 | | 1:34 [...] + + | Performing | Address | City[facility]State[facility] | Phone Number | | Organization | | | | + +---------+ + + | MISCELLANEOUS LAB | | | [phone] | + +---------+ + + | MISCELANIOUS LAB | | | [phone] | + +---------+ + + documented in this encounter Visit Diagnoses + + | Diagnosis | + + | Status post lumbar spinal fusion Arthrodesis status | + + documented in this encounter"
--- OUTSIDE RECORDS SUMMARY | ~2019-07-02 | XMS | Encounter Summary ---
Demographics + + + | Address | [address] [facility] [address] | | | [place] [address] | + + + | Home Phone [...] | Organization | [facility] [...] [place] | | | | | [address] | | + + + + + Care Team Providers + +------+ + | Care Religion Instructor Name | Role | Phone | + +------+ + | Lisa Morrow MD | PCP | | + +------+ + Encounter Details +--------+ + + + + | Date | Type | Department | Care Team | Description | +--------+ + + + + | 02/15/ | Hospital | [facility] | Lisa Morrow MD | | | 2012 | Encounter | MED CTR XRAY [address] | [address] | | | | | [place] | [place], [place] | | | | | [place] [address] | [address] | | | | | [phone] | | | +--------+ + + + [...] | | | | | ([facility]), Type II or | | [...] | | | | | ([facility]), | | | | | [...] | 07/04/ | Office | Gastroenterology | [facility] | | | 2019 | Visit | | GILMA Alexander [address] | | | | | | [address] | | | | | | [place] | | | | | | [address] | | | | | | | [...] | [facility] Diagnostic Imaging | [place] | | Department [address] [facility] | [facility] | | [ rep [phone]] [ rep [facility] | | st zip] Signed | - IMAGING | | | | | Patient Name: STEVE POOLE Physician: | | | EHLE. : 1960 Age: 52 Sex: M Unit #: [id number] | | | Exam Date: 02/15/13 Location: [facility] | | | Report #: [id number] Page: | | | %(RAD)RES..mtdd.print.filter("pg") of %(RAD) | | | RES..mtdd.print.filter("tpg") | | | | | | Accession Number: [id number] | | | MRI OF THE LUMBAR [...] Transcribed Date/Time: 02/15/2013 | | | 14:11 Events Intern: <<Signature | | | on File>> | | | Justin | | | MD Shon02/15/132 <Electronically signed by Justin Menendez MD> | | | Justin Menendez MD 02/15/13 9633 Events Intern: Radha | | | Kfjatnqhpbssv14/01/13 1411 Lisa Morrow MD | | + + + + + + + + | Performing | Address | City/State/Zipcode | Phone Number | | Organization | | | | + + + + + | ANTOLIN FITZGERALD | [address] | [place] | [phone] | | [facility] | | [address] | | | - IMAGING | | | | + + + + + documented in this encounter Visit Diagnoses Not on filedocumented in this encounter
--- OUTSIDE RECORDS SUMMARY | ~2019-07-02 | XMS | Encounter Summary ---
Demographics + + + | Address | [address] [facility] [address] | | | [place] [address] | + + + | Home Phone [...] Organization | [facility] | | | [...] [place] | | | | | [address] | | + + + + + Care Team Providers + +------+ + | Care Mortgage Loan Interviewer Name | Role | Phone | + [...] + | 04/15/ | Telephone | [facility] | Fam Bonds, | Other (post op | | 2013 | | NEUROSURGERY [address] | DO [address] | update. ) | | | | [address] | [address] [place], [place] | | | | | [place], [place] | [id number] | | | | | [address] | | | | | | [phone] | | | +--------+ + + + [...] | 07/04/ | Office | Gastroenterology | [facility], | | | 2019 | Visit | | GILMA Alexander [address] | | | | | | [address] | | | | | | [place] | | | | | | [address] | | | | | | | | +--------+---------+ + + + documented as of this encounter Visit Diagnoses Not on filedocumented in this encounter"
--- OUTSIDE RECORDS SUMMARY | ~2019-07-02 | XMS | Encounter Summary ---
Demographics + + + | Address | [address] [facility] [address] | | | [place] [address] | + + + | Home Phone [...] [facility] | | | and [...] [place] | | | | | [address] | | + + + + + Care Team Providers + +------+ + | Care Escrow Manager Name | Role | Phone | [...] [address] | | | | | [place], | [place] | | | | | [place] [address] | [address] | | | | | [phone] | | | +--------+ + + + [...] [place] | | | | | | [address] | | | | | | | | +--------+---------+ + + + documented as of this encounter Visit Diagnoses Not on filedocumented in this encounter"
--- OUTSIDE RECORDS SUMMARY | ~2019-07-02 | XMS | Encounter Summary ---
Demographics + + + | Address | [address] [facility] [address] | | | [place] [address] | + + + | Home Phone [...] [facility] | | | and [place] | [...] [place] | | | | | [address] | | + + + + + Care Team Providers + +------+ + | Care Protective Services Social Worker Name | Role | Phone | [...] | | | | [address] [facility] [facility] | [place] | | | | | [address] [place] | [place] [address] | | | | | [address] | | | | | | [phone] | | | +--------+ + + + [...] [place] | | | | | | [address] | | | | | | | [...]
--- OUTSIDE RECORDS SUMMARY | ~2019-07-02 | XMS | Encounter Summary ---
Demographics + + + | Address | [address] [facility] [address] | | | [place] [address] | + + + | Home Phone [...] Organization | [facility] | | | and [place] [...] [place] | | | | | [address] | | + + + + + Care Team Providers + +------+ + | Care Regional Otr Company Driver Name | Role | Phone | + [...] | | [address] | [place] | | | | | [place], [place] | [place], [place] | | | | | [address] | [address] | | | | | [phone] | | | +--------+ + + + [...] [place] | | | | | | [address] | | | | | | | [...]
--- OUTSIDE RECORDS SUMMARY | ~2019-07-02 | XMS | Encounter Summary ---
Demographics + + + | Address | [address] [facility] [address] | | | [place] [address] | + + + | Home Phone | | + + + | Preferred Language | Unknown | + + + | Marital Status | Single | + + + | Restorationist Affiliation | Unknown | + + + | Race | Unknown | + + + | Ethnic Group | Unknown | + + + Author + + + | Author | [facility] | | | and [place] | + + + | Organization | [facility] | | | and [place] [...] [place] | | | | | [address] | | + + + + + Care Team Providers + +------+ + | Care Web Design Intern Name | Role | Phone | [...] + | 04/25/ | Telephone | [facility] | Fam Bonds, | Letter for | | 2013 | | NEUROSURGERY [address] | DO [address] | School/Work | | | | [address] | [address] [place], [place] | | | | | [place], [place] | [id number] | | | | | [address] | | | | | | [phone] | | | +--------+ + + + [...] [facility], | | | 2019 | Visit | | GILMA Alexander [address] | | | | | | [address] | | | | | | [place] | | | | | | [address] | | | | | | | | +--------+---------+ + + + documented as of this encounter Visit Diagnoses Not on filedocumented in this encounter"
--- OUTSIDE RECORDS SUMMARY | ~2019-07-02 | XMS | Encounter Summary ---
Demographics + + + | Address | [address] [facility] [address] | | | [place] [address] | + + + | Home Phone [...] Organization | [facility] | | | [...] [place] | | | | | [address] | | + + + + + Care Team Providers + +------+ + | Care Supplier Specialist Name | Role | Phone | [...] | | | | testing | PA-C [address] | [address] | | | | | consult, hx | | [address] | | | | | of | [address] | [place], | | | | | anaphylaxis | WAY | [place] [address] | | | | | | [place], | Phone: | | | | | | [place] [address] | [phone] | | | | | | Phone: | Fax: | | | | | | [phone] | [phone] | | | | | | Fax: | | | | | | | [phone] | | +--------+--------+ + + + + Encounter Details +--------+---------+ + + + | Date | Type | Department | Care Team | Description | +--------+---------+ + + + | 04/12/ | Office | [facility] | Garry Carias MD | Multiple allergies | | 2018 | Visit | OTOLARYNGOLOGY [address] | [address] | (Primary Dx); MARY JANE | | | | [address] | [address] [place], | (obstructive sleep | | | | [place], [place] | [place] [address] | apnea) | | | | [address] | [phone] | | | | | [phone] | | | +--------+---------+ + + + [...] into severe problems. He has been [facility] to get a CPAP [...] | 07/04/ | Office | Gastroenterology | [facility], | | | 2018 | Visit | | GILMA Alexander [address] | | | | | | [address] | | | | | | [place] | | | | | | [address] | | | | | | | [...] + + + + + + | [place] IgE | <0.10 | Class 0 [...] + + + + + + | [place] IgE | <0.10 | Class 0 kU/L [...] 0 kU/L | REFERENCE | | | [place] IgE | | | LAB [facility] | [...] + + + + + + | [id number] | <0.10 | Class 0 kU/L | [...] At | + + + | Test(s) [id number] Green Barrett Pepper were developed and had | REFERENCE LAB | | performance characteristics determined by [employer]. These tests have | [facility] [...] | | | research. Performed at: - [address], | | | [place], [place] [id number] Professor Of English: Steve Stroud MD, Phone: | | | [phone] | | + + + + + + + + | Performing | Address | City/State/Zipcode | Phone Number | | Organization | | | | + + + + + | REFERENCE LAB | [address] | [place] [address] | [phone] | | [facility] | Saleem [...]
--- OUTSIDE RECORDS SUMMARY | ~2019-07-02 | XMS | Encounter Summary ---
Demographics + + + | Address | [address] [facility] [address] | | | [place] [address] | + + + | Home Phone | | + + + | Preferred Language | Unknown | + + + | Marital Status | Single | + + + | Voodoo Affiliation | Unknown | + + + | Race | Unknown | + + + | Ethnic Group | Unknown | + + + Author + + + | Author | [facility] | | | and [place] | + + + | Organization | [facility] | | [...] [place] | | | | | [address] | | + + + + + Care Team Providers + +------+ + | Care Dry Dip Worker Name | Role | Phone | [...] [address] [place] | | | | | [place], [place] | [place] [address] | | | | | [address] | [phone] | | | | | [phone] | | | +--------+--------+ + + + [...] [place] | | | | | | [address] | | | | | | | | +--------+---------+ + + + documented as of this encounter Visit Diagnoses Not on filedocumented in this encounter"
--- OUTSIDE RECORDS SUMMARY | ~2019-07-02 | XMS | Encounter Summary ---
Demographics + + + | Address | [address] [facility] [address] | | | [place] [address] | + + + | Home Phone [...] + + | Author | [facility] | | | and [place] | + + + | Organization | [facility] — [...] [place] | | | | | [address] | | + + + + + Care Team Providers + +------+ + | Care Infantry Weapons Officer Name | Role | Phone | [...] + | 04/17/ | Telephone | [facility] | Fam Bonds, | Other (Rx ready ) | | 2013 | | NEUROSURGERY [address] | DO [address] | | | | | [address] | [address] [place], [place] | | | | | [place], [place] | [id number] | | | | | [address] | | | | | | [phone] | | | +--------+ + + + [...] 07/04/ | Office | Gastroenterology | [facility], | | | 2019 | Visit | | GILMA Alexander [address] | | | | | | [address] | | | | | | [place] | | | | | | [address] | | | | | | | | +--------+---------+ + + + documented as of this encounter Visit Diagnoses Not on filedocumented in this encounter"
--- OUTSIDE RECORDS SUMMARY | ~2019-07-02 | XMS | Encounter Summary ---
Demographics + + + | Address | [address] | | | [place] [address] | + + + | Home Phone [...] | Organization | [facility] | [...] [place] | | | | | [address] | | + + + + + Care Team Providers + +------+ + | Care Mason Liner Name | Role | Phone | + [...] | | | | | | | [place] | | | | | | | ARTHRODESIS | | | | | | | POSTERIOR/PO | | | | | | | STEROLATERAL | | | | | | | LUMBAR [place] | | | | | | | LUMBAR SPINE | | | | | | | | | | | | | | FUSION,ANTER | | | | | | | APPRCH [place] | | | | | | | APPLICATION | | | | | | | INTERVERTEBR | | | | | | | AL | | | | | | | BIOMECHANICA | | | | | | | L DEVICE [place] | | | | | | | SPINE | | | | | | | FUSN,POST | | | | | | | TECH,EA | | | | | | | ADDNL SGMT | | | | | | | [place] SPINAL | | | | | | | FUSION,ANT,E | | | | | | | A ADNL LEVEL | | | | | | | [place] | | | | | | | [...] | | | | | | SEG [place] | | | | | | | [...] | | | | | | SEG [place] | | | | | | | LAMINEC/FACE | | | | | | | TECT/FORAMIN | | | | | | | ,EACH ADDNL | | | | | | | [place] ARTHDSIS | | | | | | [...] | | | | | | SEG [place] | | | | | | | [...] + + | 04/09/ | Surgery | [facility] | Fam Bonds, | T12-L1, L1-2, L2-3, | | 2013 | | MED CTR OR INTRA OP | DO [address] | L3-4, LAIF WITH L4-5 | | | | [address] | [address] [place] | AND L5-S1 TLIF AND | | | | [place] | [address] | LAMINECTOMY T12-S1 | | | | [address] | | | | | | [phone] | | | +--------+---------+ + + + [...] instructions. Medications: Steve Carpenter Home Medication Instructions JOAQUIN:[id number] Printed on:04/15/14 6593 Medication Information Cyclobenzaprine HCl (FLEXERIL PO) Take [...] like to "be closer to home" in [place]. Informed patient that insurance w ould need [...] is requesting a short s nathaly at [facility] in [place] if possible. Objective Filed Vitals: 04/12/14 0505 [...] - IPR versus SNF. He is requesting [place] if not accep baltazar to IPR. Mary [...] Casillas PA - 04/10/2014 7:30 AM PDT [facility] PROGRESS NOTE Pt. Name/Age/: Steve Carpenter 53 y.o. 1960 Med. Record Number: [id number] Date of admission: 04/09/2014 Subjective: The patient [...] Plan. Start oxycontin. Mobilize. Wean and DC PETROLEUM INSPECTOR Electronically signed by: Carson Alegria, 04/10/2014 7:[address] [facility] documented in th is encounter Plan of Treatment +--------+---------+ + + + | Date | Type | Specialty | Care Team | Description | +--------+---------+ + + + | 07/04/ | Office | Gastroenterology | [facility], | | | 2019 | Visit | | GILMA Alexander [address] | | | | | | [address] | | | | | | [place] | | | | | | [phone] | | | | | | | [...] + | MISCELLANEOUS LAB | | | [phone] | + +---------+ + + | MISCELANIOUS LAB | | | [phone] | + +---------+ + + POC Glucose [...] [address] | [place] | [phone] | | [facility] | | [address] | | | - LABORATORY | | | | + + + + + | [facility] | [address] | [place] | | | [facility] | | [address] | | | - LABORATORY | | [...] + | [facility] [facility] | [address] | [place] | [phone] | | [facility] | | [address] | | | - LABORATORY | | | | + + + + + | [facility] | [address] | [place] | | | [facility] | | [address] | | | - LABORATORY | | [...] ST. | [address] | [place] | | | [facility] | | [address] | | | - BLOOD BANK | [...] mLs | | Surgical | | 1:200,000 0.25-1:009860 % | | 14 12:26 | | [...]
--- OUTSIDE RECORDS SUMMARY | ~2019-07-02 | XMS | Encounter Summary ---
Demographics + + + | Address | [address] | | | [place] [address] | + + + | Home Phone [...] Organization | [facility] | | | and [...] [place] | | | | | [address] | | + + + + + Care Team Providers + +------+ + | Care Medicare Interviewer Name | Role | Phone | [...] | 11/25/ | Telephone | [facility] | Fam Bonds, | Imaging Only (6m PO | | 2015 | | NEUROSURGERY [address] | DO [address] | Xrays ) | | | | [address] | [address] [place], [place] | | | | | [place], [place] | [phone] | | | | | [address] | | | | | | [phone] | | | +--------+ + + + [...] | 07/04/ | Office | Gastroenterology | [facility] | | 2019 | Visit | | GILMA Alexander [address] | | | | | | [address] | | | | | | [place] | | | | | | [phone] | | | | | | | | +--------+---------+ + + + documented as of this encounter Visit Diagnoses Not on filedocumented in this encounter"
--- OUTSIDE RECORDS SUMMARY | ~2019-07-02 | XMS | Encounter Summary ---
Demographics + + + | Address | [address] | | | [place] [address] | + + + | Home Phone [...] | Organization | [facility] | | | and [...] [place] | | | | | [address] | | + + + + + Care Team Providers + +------+ + | Care Grain Cleaner And Transfer Operator Name | Role | Phone | [...] | | [address] | [address] | | | | | [place], [place] | [place], [place] | | | | | [address] | [address] | | | | | [phone] | | | +--------+ + + + [...] [place] | | | | | | [address] | | | | | | | [...] Agency Comment | + + | [facility] | + + + +---------+ + + [...] Agency Comment | + + | [facility] | + + + +---------+ + + [...] | | | LAB | | | [place], | | | | | | External | | | | | + +-------+ + + + + + | Specimen | + + | Blood specimen | | (specimen) | + + + + | Resulting Agency Comment | + + | [facility] | + + + +---------+ + + [...] Agency Comment | + + | [facility] | + + + +---------+ + + [...] Agency Comment | + + | [facility] | + + + +---------+ + + | Performing | Address | City/State/Zipcode | Phone Number | | Organization | | | | + +---------+ + + | EXTERNAL LAB | | | | + +---------+ + + documented in this encounter Visit Diagnoses Not on filedocumented in this encounter"
--- OUTSIDE RECORDS SUMMARY | ~2019-07-02 | XMS | Encounter Summary ---
Demographics + + + | Address | [address] [facility] [address] | | | [place] [address] | + + + | Home Phone [...] + + | Author | [facility] | | | and [place] | + + + | Organization | [facility] | | [...] [place] | | | | | [address] | | + + + + + Care Team Providers + +------+ + | Care Custodian Blood Bank Name | Role | Phone | + [...] + + | 03/21/ | Office | 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 Fam Bonds DO [address] [place] [address] FAX: NEUROSURGERY HISTORY AND PHYSICAL EXAMINATION CHIEF COMPLAINT: Chief Complaint Patient presents with Follow-up Pre-Op HISTORY OF PRESENT ILLNESS: The patient is a 53 y.o. male with the complaint of back pain that began 15 years ago. The symptoms began insidiously. 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 Since that time [...] 2 (diabetes mellitus, type 2) ([facility]) elevated blood sugars while hospitalized Esophageal reflux ANGELES (acute kidney injury) ([facility]) 12/13/2012 creatinine 10.77 Rib fracture PLMD [...] has no apparent deficits with short or weapons and tactics instructor memory. CRANIAL NERVES: II: Acuity is intact. [...] Intrinsics 5 5 Ulnar Intrinsics 5 5 Band Log Mill And Carriage Operator Strength 5 5 Hip Flexion 4 4 [...] 2 (diabetes mellitus, type 2) ([facility]) elevated blood sugars while hospitalized Esophageal reflux ANGELES (acute kidney injury) ([facility]) 12/13/2012 creatinine 10.77 Rib fracture PLMD [...] | 07/04/ | Office | Gastroenterology | [facility], | | | 2019 | Visit | | GILMA Alexander [address] | | | | | | [address] | | | | | | [place] | | | | | | [address] | | | | | | | [...]
--- OUTSIDE RECORDS SUMMARY | ~2019-07-02 | XMS | Encounter Summary ---
Demographics + + + | Address | [address] | | | [place] [address] | + + + | Home Phone [...] | Organization | [facility] [...] [place] | | | | | [address] | | + + + + + Care Team Providers + +------+ + | Care [place] Name | Role | Phone | + [...] | 07/27/ | Telephone | [facility] [place] | Quirino Warren | Other | | 2013 | | PHYSIATRY [address] | [address] | | | | | [place], | [facility] [place] | | | | | [place] [address] | [address] | | | | | [phone] | | | +--------+ + + + [...] [place] | | | | | | [address] | | | | | | | | +--------+---------+ + + + documented as of this encounter Visit Diagnoses Not on filedocumented in this encounter"
[~2019-07-02 06:47] MED LIST changes: +IPRAT-ALBUT 0.5-3 ML INH; +TRUNEB NEBULIZ1 EACH NEB
--- NOTE | 2019-07-02 10:00 | NUR ---
RECEIVED PATIENT TO ROOM 130. SLIGHT DIZZINESS AT THIS TIME. NON-SLIP SOCKS DONNED. UP TO BATHROOM TO URINATE. INDEPENDENT WITH AMBULATION.
--- NOTE | 2019-07-02 10:59 | NUR ---
PT SITTING AT EDGE OF BED. NON-PRODUCTIVE COUGH D/T BRONCHITIS. STARTED MIRALAX AT 1100.
--- NOTE | 2019-07-02 13:29 | NUR ---
PT HAD 300ML OF MIXED WATERY/BLOODY STOOL AND URINE IN COMMODE. COMMODE NEXT TO BED FOR EASE OF USE. GOWN CHANGED D/T SOILING.
[2019-07-02] MEDS ORDERED: LISINOPRIL20 MG PO (16:13)
[2019-07-02] MEDS ORDERED: POTASSIUM CHLO10 ME1 PO (16:14)
[2019-07-02] MEDS ORDERED: IBUPROFEN800 MG PO (16:14)
[2019-07-02] MEDS ORDERED: FUROSEMIDE20 MG PO (16:14)
[2019-07-02] MEDS ORDERED: FLUTICASONE PRO16 GM NAS (16:15)
[2019-07-02] MEDS ORDERED: TRIAMCINOLONE A15 G1 TOP (16:16)
--- NOTE | 2019-07-02 16:27 | NUR ---
PT HAVING WATERY BLOODY STOOL IN COMMODE. NO DIZZINESS WITH POSITION CHANGES. TYLENOL GIVEN FOR BACK PAIN. PROVIDED 2ND/FINAL BOTTLE OF MIRALAX BULK BOTTLE FOR BOWEL PREP. ENCOURAGED TO FINISH BEFORE MIDNIGHT.
[2019-07-02] MEDS ORDERED: NITROSTAT0.4 MG SL (17:42)
--- NOTE | 2019-07-02 17:44 | NUR ---
Medications reconciled using pharmacy records and patient interview. In addition to the Albuterol and Symbicort inhalers, patient claims that he uses a third inhaler once daily, that he believes is Anoro Ellipta
--- NOTE | 2019-07-02 19:30 | NUR ---
REPORT RECEIVED FROM DONNA JONES. PT IN ROOM, SITTING UP IN BED WITH VISITOR IN ROOM, HR 90'S, DENIES NEEDS AT THIS TIME.
--- NOTE | 2019-07-02 20:15 | NUR ---
LAB IN TO DRAW, PT GIVEN WATER PER REQUEST.
--- NOTE | 2019-07-02 21:47 | NUR ---
DR LIZARRAGA CALLED WITH NEW ORDER FOR IVF CHANGE TO 3%NS AND REDRAW LABS AT 0200. PT RESTING IN BED, GIVEN HS MEDS INCLUDING TYLENOL FOR 6/10 CHRONIC BACK PAIN AND CEPACOL LOZENGE FOR THROAT IRRITAION. HR 80-90'S.
--- NOTE | 2019-07-03 01:50 | NUR ---
LAB CALLED TO SAY MACHINE IS DOWN AND 0200 SCHEDULED LAB DRAW WILL BE DELAYED.
--- NOTE | 2019-07-03 03:36 | NUR ---
UPDATED DR LIZARRAGA ON [facility] LAB RESULTS-ORDER GIVEN FOR 3%NS TO RUN AT 25ML/HR UNTIL 729. PT SLEEPING, RESP EVEN UNLABORED. IVF RESTARTED.
--- NOTE | 2019-07-03 04:20 | NUR ---
PT UP TO BSC FOR LIQUID STOOL MIXED WITH URINE 500ML TOTAL, LIQUID IS RED, PT STATES HE BELIEVES THE BLEEDING IS STARTING UP AGAIN.
--- NOTE | 2019-07-03 04:45 | NUR ---
PT CALLS, STATES HE HAS PULLED IV OUT, DC'D WITH TIP INTACT AND 2 NEW IV'S STARTED.
--- NOTE | 2019-07-03 06:00 | NUR ---
PT UP TO CHAIR WITH CALL LIGHT IN REACH.
--- NOTE | 2019-07-03 06:17 | CONS ---
[facility] [address], [place] [address] Signed DATE OF CONSULTATION: 07/02/2019 CHIEF COMPLAINT: Rectal bleeding. HISTORY OF PRESENT ILLNESS: Steve is a 58-year-old obese gentleman, whom I took care of in July 2015. He had a screening colonoscopy at that time. He had a large 15 mm tubulovillous adenomatous polyp removed at 32 cm. He had a hyperplastic polyp removed at about 30 cm. He does continue to drink alcohol on a daily basis. He noticed some diarrhea for 4 days and dark stool and then some bright red blood. He came to emergency room for evaluation. He has been hemodynamically stable. He has been admitted to the Internal Medicine Service. I was asked to see him as a general surgeon on-call for consideration of both upper and lower endoscopy. In the meantime, he started his bowel prep. He gives no family history of colon cancer or polyps or inflammatory bowel disease. ALLERGIES: None. MEDICATIONS: Budesonide/formoterol, vitamin D, gabapentin, lisinopril, prednisone, ibuprofen, and albuterol. PAST MEDICAL HISTORY: Includes hypertension, edema, bronchitis, COPD, obstructive sleep apnea with a CPAP machine, esophageal reflux, renal failure, hyperlipidemia, vitamin D deficiency, obesity, left lower extremity cellulitis, gout, rib fractures, low back pain, lumbar canal stenosis, hypoglycemia, bone spurs in his back, and heart murmur. PAST SURGICAL HISTORY: Includes tonsillectomy as a child, his lumbar fusion in 2013, laparoscopic appendectomy [place] [address] Onel Peng, and lumbar surgery with Dr. Bonds in 2013 with metal remaining. SOCIAL HISTORY: He has been on medical disability in the past. He likes caffeine and was a former smoker. He does use marijuana once in a while. He tends to drink every day, usually a 6-pack at least every 2 days. He is single and does not have any children. Yulia Banda is his primary care provider. FAMILY HISTORY: His mother had diabetes, but no heart disease. There has been no family history of colon cancer or polyps. He said he was slow to wake up after his appendectomy and they Electronically Signed By: BAILEY GUZMAN MD 07/03/19 0617 PATIENT NAME: STEVE POOLE CONSULTATION DATE OF : 64 REPORT #: [id number] PHYSICIAN: BAILEY GUZMAN MD PCP: YULIA BANDA REPORT IS CONFIDENTIAL AND NOT TO BE RELEASED WITHOUT AUTHORIZATION [facility] [address], [place] [address] Signed had to reintubate him until he woke up later. He said he always has trouble with his throat, and he has a very thick heavy neck, very full round face as well. REVIEW OF SYSTEMS: He had 10 systems reviewed. We talked about high blood pressure and his difficulty breathing at the laparoscopic appendectomy along with his diabetes. PHYSICAL EXAMINATION: VITAL SIGNS: His blood pressure is 136/74, heart rate 91, respiratory rate 18, temperature is 98.4, and he is 98% on room air. He is 6 feet 1 inch tall and weighs 130 kg. GENERAL: He is currently on the bedside commode, so we were unable to do physical exam, but we know he has a previous history of heart murmur. He seems to be in no acute distress. He is missing several of his front teeth. I could see that his abdomen is moderate to significantly round and protuberant. LABORATORY DATA: His white blood cell count is 4.3, hemoglobin 13.6, neutrophils 47, and platelets 140. His sodium is 122, BUN 7, creatinine 0.6, glucose 96, INR 0.9, total bilirubin 0.8, ALT 145, AST 182, alkaline phosphatase 116, and albumin 4.3. RADIOGRAPHIC STUDIES: A chest x-ray shows clear lungs and small rib fractures. ASSESSMENT AND PLAN: Steve is a 58-year-old obese gentleman, who has a previous history of colonic polyps in 2016. He likes to drink alcohol every day. He also uses some ibuprofen. He has been having loose stool and some dark stool and now some red blood with the stool. I explained to Steve we would plan on putting him through his bowel prep today and as so long as his sodium returns to normal, we could probably get his upper and lower endoscopy done tomorrow. He is very familiar with endoscopy along with its risks and benefits. Because of his difficulty waking up after surgery. He has a very full heavy around face and thick neck and so forth, we are going to ask an anesthesia provider to help with increased monitoring sedation with propofol. He had expressed understanding and wishes to proceed. Bailey Guzman MD ALB/MODL /[id number] Electronically Signed By: BAILEY GUZMAN MD 07/03/19 0617 PATIENT NAME: STEVE POOLE CONSULTATION DATE OF : 64 REPORT #: [id number] PHYSICIAN: BAILEY GUZMAN MD PCP: YULIA BANDA REPORT IS CONFIDENTIAL AND NOT TO BE RELEASED WITHOUT AUTHORIZATION [facility] [address] [place], [place] [address] Signed cc: MD Yulia Sunshine Copies: BAILEY GUZMAN MD, ELIZABETH ~ Electronically Signed By: BAILEY GUZMAN MD 07/03/19 0617 PATIENT NAME: STEVE POOLE CONSULTATION DATE OF : 64 REPORT #: [id number] PHYSICIAN: BAILEY GUZMAN MD PCP: YULIA BANDA REPORT IS CONFIDENTIAL AND NOT TO BE RELEASED WITHOUT AUTHORIZATION
--- NOTE | 2019-07-03 07:26 | NUR ---
UP TO BSC, 200ML URINE STOOL MIX DARK RED.
--- NOTE | 2019-07-03 07:39 | NUR ---
REPORT RECEIVED FROM MARIA A JONES. ALL QUESTIONS ANSWERED. PATIENT AWAKE SITTING AT EDGE OF BED. WHITE BOARD UPDATED. BLINDS OPENED. WIPES PROVIDED FOR PATIENT. 3% NORMAL SALINE STOPPED AT 0740.
--- NOTE | 2019-07-03 08:30 | NUR ---
UP TO COMMODE TO EXPELL URINE WITH BRIGHT RED BLOOD LIQUID STOOL. TOTAL AMOUT OF STOOL WITH UDBKB=409 ML. ZIA CORMIER HERE AND AWARE.
--- NOTE | 2019-07-03 10:00 | NUR ---
IVF OF LR ON STRAIGHT TUBING HUNG SURGERY RN HERE TO TAKE PATIENT TO OR. TRANSFER TO OR STRETCHER WITHOUT DIFFICULTY. TO OR VIA STRETCHER.
--- NOTE | 2019-07-03 11:33 | NUR ---
PT ASLEEP. UNABLE TO AROUSE TO SHAKING AND VOICE. BACK TO ROOM 130 AT 1128. PATIENT AWAKE AT 1134 AFTER COUGHING OUT TEMPORARY AIRWAY AT 1133.
--- NOTE | 2019-07-03 11:45 | NUR ---
TRANSFERRED FROM OR STRETCHER TO BED. STOOD AND PIVOT TO BED. DR. GUZMAN TALKING WITH PATIENT REGARDING SCOPE RESULTS. PATIENT DENIES PAIN OR NAUSEA.
--- NOTE | 2019-07-03 12:51 | EKG ---
[facility] [address] [facility] [place] [address] Signed Normal sinus rhythm Nonspecific intraventricular conduction delay Nonspecific T wave abnormality Abnormal ECG When compared with ECG of 18-APR-2018 20:18, T wave inversion less evident in Anterior leads Confirmed by DAVID LIZARRAGA MD ([id number]) on 07/03/2019 12:51:09 PM Electronically Signed By: DAVID LIZARRAGA MD 07/03/19 1251 PATIENT NAME: THOM POOLE Electrocardiogram DATE OF : 64 PHYSICIAN: DAVID LIZARRAGA MD REPORT #: [id number] REPORT IS CONFIDENTIAL AND NOT TO BE RELEASED WITHOUT AUTHORIZATION
--- NOTE | 2019-07-03 14:00 | NUR ---
In and spoke with Jac. He had a scope today. States he has been taking to much ibuprofen and will have to stop this. Is disabled do to back issues. LIves with his sister, Ondina, in an . Plans on discharging home to when dcd to care of his sister. Denies use of food bank or issues with paying bills.
--- NOTE | 2019-07-03 16:30 | NUR ---
ambulated to shower.A WALI JONES MONIORING PATIENT WHILE IN SHOWER.
--- NOTE | 2019-07-03 16:47 | NUR ---
VISITED WITH PT, WHO WAS AGREEABLE TO TEACHING. WENT OVER THE GI BLEED AND ALSO THE COLONOSCOPY AND THINGS TO WATCH OUT FOR FAR BLEEDING AGAIN, PAIN ETC, WHEN TO CONTACT THE DR, WHEN IT BECOMES EMERGENT. WE DISCUSSED HIM STOPPNG DRINKING HIS BEERS, AND TAKING IBUPROFEN FOR HIS BACK PAIN. PT STATES UNDERSTANDING OF DX AND WHAT HE NEEDS TO DO FOR THIS.
--- NOTE | 2019-07-03 16:50 | NUR ---
TOLERATED SHOWER WELL. SITTING IN CHAIR AT THIS TIME. C/O BACK PAIN. REFUSING TYLENOL AT THIS TIME.
--- NOTE | 2019-07-03 17:15 | NUR ---
PT AMBULATED FROM ROOM 130 TO ROOM 126 TO SHOWER. PROVIDED ALL NECESSARY TOILETRIES AND ALLOWED PATIENT TO SHOWER PRIVATELY LONG HE SAT ON THE BENCH. HE WAS AGREEABLE. HE TOLERATED IT WELL AND AMBULATED BACK TO ROOM WITH STANDBY ASSIST. HEART MONITOR REAPPLIED AND 3% SALINE RESTARTED. WILL STOP SALINE AT 1730 PRIOR TO LAB DRAW AT 1800.
--- NOTE | 2019-07-03 18:30 | NUR ---
TOOK DINNER WELL. REMAINS IN CHAIR. CONTINUE TO C/O BACK PAIN. POSITION IN CHAIR FOR COMFORT.
--- NOTE | 2019-07-03 20:00 | NUR ---
PATIENT RECEIVED SCHEDULED NAB FROM RT. CPT AND IS WERE ALSO DONE AT THIS TIME. PATIENT TOLERATING ROOM AIR. CONTINUES TO HAVE DRY COUGH. PRN LOZENGE PROVIDED. PATIENT'S LUNGS ARE CLEAR. REPORTS SORE THROAT. TAKING ORAL FLUIDS WELL. NO PAIN, SOME DISCOMFORT IN HIS BACK WHICH IS CHRONIC FOR HIM. VS STABLE. IV SITE SL, WNL. PATIENT'S ABD IS SOFT, NONTENDER WITH ACTIVE BOWEL SOUNDS. REPORTS ONGOING LOOSE RED STOOLS. PATIENT RESTING IN RECLINER. DENIES ANY NEEDS AT THIS TIME.
--- NOTE | 2019-07-03 20:59 | NUR ---
PATIENT VOIDED A LARGE AMOUNT AND HAD SOME BRIGHT RED BLOOD PER HIS RECTUM. NO STOOL NOTED. BLOOD IS THICK WITH CLOTS, ABOUT 20 MLS. PATIENT DENIES ANY PAIN WHEN PASSING THIS. PATIENT'S SISTER AT BEDSIDE. REVIEWED PLAN OF CARE WITH HER HIS PRIMARY SAFETY DEPOSIT CLERK.
--- NOTE | 2019-07-03 22:33 | NUR ---
PATIENT PROVIDED WITH PRN COUGH MEDS DUE TO ONGOING COUGHING DISRUPTING HIS ATTEMPTS TO SLEEP. FRESH ICE WATER PROVIDED. PATIENT DENIES OTHER NEEDS. VS STABLE.
--- NOTE | 2019-07-04 00:15 | NUR ---
PATIENT RESTING IN BED. EYES OPEN WHEN RN ENTERS ROOM. PATIENT STATES HE HAS BEEN SLEEPING OFF AND ON. CONTINUES TO COUGH FREQUENTLY, DENIES ANY INTERVENTION FOR THIS. LUNGS ARE CLEAR. TOLERATING ROOM AIR. NO ABD PAIN OR NAUSEA. VS STABLE. ALLOWED PATIENT TO REST. CALL LIGHT IN REACH.
--- NOTE | 2019-07-04 04:30 | NUR ---
PATIENT SITTING UP AT EDGE OF BED. REPORTS PAIN IN HIS BACK AND KNEES. DENIES HOT/COLD PACKS. NO NAUSEA. NO ABD DISCOMFORT. IV SL. VS STABLE.
--- NOTE | 2019-07-04 06:19 | OR ---
[facility] [address], [place] [address] Signed DATE OF OPERATION: 07/03/2019 SURGEON: Bailey Guzman MD PREOPERATIVE DIAGNOSES: 1. Rectal bleeding. 2. Daily NSAID use. 3. Daily alcohol use. 4. Gastroesophageal reflux disease. 5. History of colonic polyps in 2016. POSTOPERATIVE DIAGNOSES: 1. Cnfpnqsd-of-bzaxpd diffuse gastritis. 2. Small nonbleeding antral gastric ulcer. 3. Small hiatal hernia. 4. Moderate internal hemorrhoids. 5. 3 mm polyps x2 in cecum. 6. 4 mm polyp at 110 cm. PROCEDURES: 1. EGD with CLOtest and biopsy of the antrum. 2. Colonoscopy with hot biopsy. ESTIMATED BLOOD LOSS: None. FINDINGS: Steve had a small shallow ulcer right in the bottom of his antrum. I suspect this is the area that caused his bleeding. It is currently not bleeding. INDICATIONS: Steve is a 58-year-old obese gentleman who has been using alcohol on a daily basis along with daily ibuprofen. He is known to have colonic polyps removed in 2016 along with acid reflux. He presented to the emergency room with bright red blood per rectum. He had been admitted to the Internal Medicine Service. He remained hemodynamically stable. He did not require any blood transfusion. He did undergo a bowel prep yesterday. I was asked to see me as a local general surgeon for upper and lower endoscopy. I had met with Steve here in the ICU. We reviewed upper and lower endoscopy together. He understands those tests quite well. There is risk including, but not limited to gas, bloating, crampy abdominal pain, bleeding, perforation requiring Electronically Signed By: BAILEY GUZMAN MD 07/04/19 0619 PATIENT NAME: STEVE POOLE OPERATIVE REPORT DATE OF : 64 REPORT #: [id number] PHYSICIAN: BAILEY GUZMAN MD PCP: YULIA BANDA REPORT IS CONFIDENTIAL AND NOT TO BE RELEASED WITHOUT AUTHORIZATION [facility] [address], [place] [address] Signed surgery, and missed diagnosis. Also because of his daily alcohol use, his body mass index is very round, full face, very heavy neck, and has history of obstructive sleep apnea. We did ask an anesthesia provider to help us with increased monitoring sedation with propofol. That actually proved to be a lawton decision as he frequently needed airway management. He had expressed understanding and wished to proceed. PROCEDURE NOTE: Steve was taken into our endoscopy suite and placed in the supine semi-recumbent position. A bite block was utilized for the case. He was given IV sedation with propofol per our nurse papier mache' molder. The adult gastroscope was introduced and advanced out into the third portion of the duodenum under direct visualization of camera without difficulty. The duodenum and pyloric channel were unremarkable. Back in the stomach, he had [id number] diffuse erythematous changes and a small ulcerated area at the bottom of his antrum. Currently, this is nonbleeding. I suspect this is the source of his blood that he has experienced. We took a biopsy out of the antrum for pathologic review as well as CLOtest. Upon retroflexion of the scope, he does have a small hiatal hernia. We did not see any gastric or esophageal varices. The scope was withdrawn up through the area of GE junction, which was compliant without stricture. No evidence of a Selam-Ruiz tear. He does have a little disruption to the Z-line. There was no Galarza's mucosa and no distal esophagitis. The middle and upper esophagus were unremarkable. We did not take any biopsies around the Z-line on this occasion. After this, the gas had been suctioned out and the gastroscope removed. Steve tolerated his upper endoscopy quite well. Steve was then rotated into the left lateral decubitus position. He was maintained on IV sedation with propofol per our nurse papier mache' molder. A digital rectal exam was performed and this was unremarkable. Very little in the way of external hemorrhoids. The adult colonoscope was introduced and advanced all around into the cecum under direct visualization of camera without difficulty. We could easily see the appendiceal orifice and the ileocecal valve. His prep was good. The scope was slowly withdrawn. We saw two tiny polyps in the cecum and they were easily removed with hot biopsy forceps. He did not have any diverticulosis. We saw another tiny polyp at 110 cm and it was removed with hot biopsy forceps. His entire colon was clear of blood. He had just a little bit red blood in his colon. I suspect that is some residual left over. The scope had been retroflexed and he does have moderate internal hemorrhoids. After this, the gas was suctioned out and the colonoscope removed. Steve tolerated the lower endoscopy quite well. RECOMMENDATIONS: Stvee will be returned to his ICU bed. He will be maintained on his proton pump inhibitor twice a day. We can resume his diet slowed down and decrease his IV fluids. Electronically Signed By: BAILEY GUZMAN MD 07/04/19 0619 PATIENT NAME: STEVE POOLE OPERATIVE REPORT DATE OF : 64 REPORT #: [id number] PHYSICIAN: BAILEY GUZMAN MD PCP: YULIA BANDA REPORT IS CONFIDENTIAL AND NOT TO BE RELEASED WITHOUT AUTHORIZATION [facility] [address] [place], [place] [address] Signed Bailey Guzman MD ALB/MODL /[id number] cc: Yulia Guzman MD Copies: YULIA BANDA ANDREW L MD ~ Electronically Signed By: BAILEY GUZMAN MD 07/04/19 0619 PATIENT NAME: STEVE POOLE OPERATIVE REPORT DATE OF : 64 REPORT #: [id number] PHYSICIAN: BAILEY GUZMAN MD PCP: YULIA BANDA REPORT IS CONFIDENTIAL AND NOT TO BE RELEASED WITHOUT AUTHORIZATION
--- NOTE | 2019-07-04 08:37 | NUR ---
SHIFT REPORT WAS RECEIVED FROM ROBERT GILMAN. ASSESSMENT COMPLETED, SEE DOCUMENTATION. PRN COUGH MEDICINE GIVEN FOR FREQUENT DRY COUGH. PT DENIES SOB OR CHEST PAIN. LUNGS CLEAR, RA. PRN TYLENOL GIVEN FOR CHRONIC BACK PAIN. IV PATENT, SALINE LOCKED. VITAL SIGNS STABLE. PT DENIES NAUSEA, ABDOMINAL DISCOMFORT. URINE EMPTIED FROM HAT IN TOILET. FRESH ICE WATER PROVIDED. PT'S BREAKFAST HAS ARRIVED, DENIES FURTHER REQUESTS AT THIS TIME. CALL LIGHT WITHIN REACH.
--- NOTE | 2019-07-04 09:16 | NUR ---
IN TO CHECK ON PT, WHO FINISHED ABOUT 25% OF THE BREAKFAST HE ORDERED. PT STATES THAT HIS BACK PAIN IS IMPROVED, DENIED OFFER FOR HEAT OR ICE PACK. URINE EMPTIED FROM HAT. NO FURTHER REQUESTS AT THIS TIME.
--- NOTE | 2019-07-04 12:00 | NUR ---
ASSESSMENT COMPLETED, SEE DOCUMENTATION. PT DENIES PAIN AT THIS TIME. NO REQUESTS OR CONCERNS, CALL LIGHT WITHIN REACH.
[2019-07-04] MEDS ORDERED: PANTOPRAZOLE SO40 MG PO (12:06)
[2019-07-04] MEDS ORDERED: PREDNISONE20 MG PO (12:06)
[2019-07-04] MEDS ORDERED: SODIUM CHLORIDE1 GM PO (12:07)
[2019-07-04] MEDS ORDERED: IPRAT-ALBUT 0.5-3 ML INH (12:12)
--- NOTE | 2019-07-04 13:05 | NUR ---
DISCHARGE PACKET REVIEWED WITH PT. PT HAS BELONGINGS AND PRESCRIPTIONS WITH HIM. VITAL SIGNS STABLE. SALINE LOCK REMOVED, CATHETER TIP INTACT, PT TOLERATED WELL. PT ESCORTED TO FRONT VIA WHEELCHAIR BY EZEQUIEL GUEVARA.
--- NOTE | 2019-07-04 13:42 | NUR ---
HAD THE OPPORTUNITY TO ESCORT PT FOLLOWING DC TO HIS RIDE. HAD GOOD VISIT ON WAY OUT-PT EXPRESSED HIS APPRECIATION FOR THE CARE HE RECEIVED AT [facility]. PT DID MENTION HOW MUCH BETTER HE FELT. GAVE BLESSING, HELPED IN CAR.
== END 2019-07-04 13:05 | disposition home or self-care (01) | DRG 378 ==
LOC: ED 06:47 → CCU 09:37
PROVIDERS: Colon & Rectal Surgery; ADMIT Internal Medicine
PROC: 0DBL8ZX Excision of Transverse Colon, Via Natural or Artificial Opening Endoscopic, Diagnostic (ICD-10-PCS; 2019-07-03)
PROC: 0DB68ZX Excision of Stomach, Via Natural or Artificial Opening Endoscopic, Diagnostic (ICD-10-PCS; principal; 2019-07-03 11:30)
PROC: 0DBH8ZX Excision of Cecum, Via Natural or Artificial Opening Endoscopic, Diagnostic (ICD-10-PCS; 2019-07-03 11:30)
DX: K25.4 Chronic or unspecified gastric ulcer with hemorrhage (principal); J44.1 Chronic obstructive pulmonary disease with (acute) exacerbation; E87.1 Hypo-osmolality and hyponatremia; E66.01 Morbid (severe) obesity due to excess calories; I10 Essential (primary) hypertension; K29.70 Gastritis, unspecified, without bleeding; K44.9 Diaphragmatic hernia without obstruction or gangrene; G89.29 Other chronic pain; M48.061 Spinal stenosis, lumbar region without neurogenic claudication; G47.33 Obstructive sleep apnea (adult) (pediatric); J40 Bronchitis, not specified as acute or chronic; K70.10 Alcoholic hepatitis without ascites; K64.8 Other hemorrhoids; K63.5 Polyp of colon; E55.9 Vitamin D deficiency, unspecified; Z87.891 Personal history of nicotine dependence; Z86.010 Personal history of colon polyps; Z79.1 Long term (current) use of non-steroidal anti-inflammatories (NSAID); Z79.51 Long term (current) use of inhaled steroids; Z79.52 Long term (current) use of systemic steroids; Z79.899 Other long term (current) drug therapy; Z68.37 Body mass index [BMI] 37.0-37.9, adult
CPT/HCPCS: 36415; 71046; 80048; 80053; 83690; 83735; 83930; 83935; 84100; 85025; 85610; 85730; 86677; 86850; 86900; 86901; 86920; 93005; 93010; 94640; 94667; 94668; 96374; 99284-25; C9113; J0696; J2704; J7121; J7512

== ENCOUNTER 2020-08-07 08:47 | Inpatient (IN) | payer MEDICARE, OTHER ==
[~2020-08-07] VITALS: Ht 185.4 cm; Wt 125.6 kg
[~2020-08-07 08:47] MED LIST changes: +FLUTICASONE PRO16 GM NAS; +FUROSEMIDE20 MG PO; +IBUPROFEN800 MG PO; +LISINOPRIL20 MG PO; +NITROSTAT0.4 MG SL; +PANTOPRAZOLE SO40 MG PO; +POTASSIUM CHLO10 ME1 PO; +SODIUM CHLORIDE1 GM PO; +TRIAMCINOLONE A15 G1 TOP
[2020-08-07] MEDS ORDERED: CEPHALEXIN500 MG PO (09:37)
--- NOTE | 2020-08-07 12:49 | NUR ---
RECEIVED REPORT FROM MACY JONES. Pt being admitted for Left Leg Cellulitis. Pt is also an alcoholic, last drink was this morning. Pt currently not showing s/sx of withdrawal. Pt VSS, and afebrile at this time. Pt indpendent in the room. All my questions answered. Pt to be transported by Diana JONES within the next 20mins.
--- NOTE | 2020-08-07 13:00 | NUR ---
PT ARRIVED TO [facility] FLOOR Pt brought over by Diana Jules RN from [facility]. Pt alert and oriented, calm and cooperative with cares. Pt able to transfer himself onto bed in room. Pt assessment complete, VSS, pt reports 7/10 pain in his back and no pain in his left leg due to having chronic numbness & tingling in his feet. Pt denies nausea at this time. Pt IV site patent and running Vanco at this time. Pt educated on IV site s/sx of infiltration and instructed to call with any issues, pt verbalized understanding. Pt able to take all meds without difficulty. Pt getting IV LR with 20K and cefepime as ordered. Pt was able to get up to the bathroom and void into the urinal. Pt in bed, table and call light within reach.
[2020-08-07] MEDS ORDERED: ALLERGY RELIEF180 MG PO (13:21)
[2020-08-07] MEDS ORDERED: B-121000 MC2 PO (13:22)
[2020-08-07] MEDS ORDERED: LIPITOR10 MG PO (13:22)
[2020-08-07] MEDS ORDERED: FOLIC ACID1 MG PO (13:24)
--- NOTE | 2020-08-07 14:00 | NUR ---
ROUNDING + DINNER Pt was given PRN tylenol for pain. Pt denies nausea at this time. Pt sitting up in bed, having dinner, table and call light within reach.
--- NOTE | 2020-08-07 14:09 | NUR ---
Spoke with Bill. Burch. lives with his sister Raisa in an RV. Pt states he has had cellulites several times. He denies needs to go home, plans on dc to home when discharged.
--- NOTE | 2020-08-07 15:15 | NUR ---
ROUNDING + ASSESSMENT Pt assessment complete, VSS, pt reports 6/10 pain and no nausea at this time. Pt reports feeling somewhat dizzy at this time. Pt finished about half of his dinner, with water and beer as well. Finished 100% of his beer. Pt denies further needs at this time. Pt in bed, watching TV, table and call light within reach.
--- NOTE | 2020-08-07 16:20 | NUR ---
ROUNDING Pt resting in bed, eyes closed, breathing even and unlabored. Table and call light within reach.
--- NOTE | 2020-08-07 17:00 | NUR ---
ROUNDING Pt resting in bed, eyes closed, breathing even and unlabored. Table and call light within reach.
--- NOTE | 2020-08-07 18:15 | NUR ---
SOLUTION SALES SENIOR EXECUTIVE + UP TO BATHROOM Pt up to bathroom. 1 unmeasured void. Pt back to bed, sitting up to edge of the bed. Pt denies nausea at this time and reports tolerable 5/10 pain in his back. Pt leg still appears pink and warm and swollen, but not increased in size since first assessment. Table and call light within reach.
--- NOTE | 2020-08-07 19:06 | NUR ---
RECEIVED REPORT FROM ROBERT LEAVITT. pt RESTING IN BED. VISUALIZED LEFT LEG. pt REPORTED BACK PAIN. STATED THAT SCABS ARE FROM ITCHING KNEE. EATING DINNER. CALL LIGHT WITHIN REACH.
--- NOTE | 2020-08-07 20:10 | NUR ---
HEARD pt COUGHING. IN TO ASSESS. pt REQUESTED INHALER. MEDICATIONS GIVEN (SEE MAR). LUNG SOUNDS DIM THROUGHOUT. pt DEMONSTRATED PROPER USE OF INHALER. ASSESSMENT DONE. pt REPORTED 7/10 PAIN IN BACK, "I THINK THE GABAPENTIN SHOULD HELP A LOT" pt RESTING IN BED. LEFT LEG ELEVATED. IV INFUSING. CALL LIGHT WITHIN REACH.
--- NOTE | 2020-08-07 20:44 | NUR ---
PT CALLED 2030 STATING HIS RN TOLD HIM TO CALL IF HE FELT DIFFERENT OR ITCHY WITH HIS IV ABX. HE STATES HE FEELS A LITTLE ITCHING IN HIS HAND. HAD PT SHOW THIS RN WHERE ON HIS HAND AND HE POINTED TO THE DISTAL END JUST UNDER THE OPSITE WHICH IS OPPOSITE TO WHERE THE CANULA IS. THERE IS NO REDNESS TO THE SITE. JUST RECHECKED PT'S IV SITE AND HE DENIES ANY ITCHING OR PROBLEMS WITH HIS L HAND AND THERE IS NO REDNESS NOTED. HE DENIES FURTHER NEEDS AND CALL LIGHT IS CLOSE.
--- NOTE | 2020-08-07 21:58 | NUR ---
IN TO HANG NEW BAG OF FLUIDS. pt REQUESTED A BEER "I'M FEELING REAL SHAKY, I THINK I REALLY NEED A BEER." PROVIDED. IVF INFUSING. CALL LIGHT WITHIN REACH.
--- NOTE | 2020-08-07 22:24 | NUR ---
DISCUSSED CIWA WITH MD. ALVAREZ TO GIVE BEER AT THIS TIME. WILL CONTINUE TO MONITOR CIWA.
--- NOTE | 2020-08-08 00:11 | NUR ---
IV PUMP BEEPING, ERROR RESOLVED. pt REPORTED "I FEEL MUCH BETTER AFTER THAT BEER." NO FURTHER REQUESTS AT THIS TIME. CALL LIGHT WITHIN REACH.
--- NOTE | 2020-08-08 02:24 | NUR ---
pt REPORTED A HEADACHE AND REQUESTED GABAPENTIN, EXPLAINED OPTIONS, PRN GIVEN FOR 7/10 HEADACHE/BACK PAIN. VANCO INFUSING PER ORDERS. ASSESSMENT DONE. NO CHANGES. TEMP SLIGHTLY ELEVATED. NO FURTHER REQUESTS AT THIS TIME. CALL LIGHT WITHIN REACH.
--- NOTE | 2020-08-08 03:36 | NUR ---
ROUNDED ON pt. RESTING WITH EYES CLOSED, RESPIRATIONS REGULAR AND UNLABORED. CALL LIGHT WITHIN REACH.
--- NOTE | 2020-08-08 03:53 | NUR ---
PT CALLED STATING HIS IV WAS COMING OFF. THE EDGE OF THE TAPE WAS COMING UP, RETAPED IT. FRESH WATER IS AT BEDSIDE AND PT DENIES FURTHER NEEDS. CALL LIGHT IS CLOSE.
--- NOTE | 2020-08-08 05:43 | NUR ---
ROUNDED ON pt. REPORTED PAIN, PROVIDED A WARM PACK FOR BACK PAIN. DISCUSSED PAIN MANAGEMENT. VITALS AND I&O RECORDED pt HAS YET TO VOID THIS AM. NO REQUESTS AT THIS TIME. CALL LIGHT WITHIN REACH.
--- NOTE | 2020-08-08 07:05 | NUR ---
SHIFT REPORT FROM CANDIDO JONES INCLUDED: Pt had no real changes throughout the evening. His leg appears slightly better than start of overnight cashier. Pt CIWAs still low, minimal concerns for ETOH withdrawl. Pt currently in bed, eyes closed, breathing even and unlabored, table and call light within reach.
--- NOTE | 2020-08-08 08:00 | NUR ---
MED PASS + ASSESSMENT Pt assessment complete, some HTN otherwise VSS. Afebrile. Pts left leg appears less pink and less warm than yesterday. Pt reports "feeling better already" today. Pt alert and oriented x4, pleasant and cooperative with cares. Pt able to take all meds without difficulty. Pt given fresh water and repositioned in bed, leg elevated. Pt in bed, table and call light within reach. Pt having breakfast.
--- NOTE | 2020-08-08 09:00 | NUR ---
ROUNDING Pt on the phone at this time, breathing even and unlabored, table and call light within reach.
--- NOTE | 2020-08-08 10:00 | NUR ---
MED PASS + ROUNDING Pt gets IV ABX infusion as ordered. Reminded to call with any IV concerns. Pt verbalized understanding. Pt in bed, table and call light within reach.
--- NOTE | 2020-08-08 10:37 | NUR ---
PT ADMITTED AT HIGH RISK FOR MALNUTRITION D/T 33 LBS OR MORE WT LOSS NOTED ON ADMISSION SCREENING. PT STATES THAT HE ONLY EATS 1-2 MEALS PER DAY AND SKIPS BREAKFAST. PT MENTIONED THAT HE LOST A SIGNIFICANT AMOUNT OF WT, WHICH RELIEVED PAIN IN HIS HIPS AND KNEES. PT IS AFRAID TO GAIN WT BECAUSE HE WANTS TO "AVOID GETTING THAT BIG AGAIN" D/T THE ASSOCIATED PAIN. THE STATED WT LOSS OCCURRED GRADUALLY; HIS LAST ADMISSION ON 07/02/2019, HIS WT WAS 287 LBS. PT STATED HIS USUAL WT WAS 330 LBS PRIOR TO HIS LAST VISIT. CONTINUE REGULAR DIET WITH 1 BEER WITH EACH MEAL. WILL CONTINUE TO MONITOR THROUGHOUT ADMISSION.
--- NOTE | 2020-08-08 11:00 | NUR ---
ROUNDING Pt in bed, lying on his side, breathing even and unlabored, table and call light within reach.
--- NOTE | 2020-08-08 12:30 | NUR ---
ROUNDING + BINDERY LEADPERSON Pt has new med ordered. Pt able to take med without difficulty. Pt reports that normally his lisinopril makes him "dizzy" at home. Pt verbalized understanding of call light safety and assures me he will call us to get up. Pt refuses to order a lunch at this time, but says he will order lately. Pt in bed, table and call light within reach.
--- NOTE | 2020-08-08 12:53 | NUR ---
Notes faxed to [facility] as requested for update.
--- NOTE | 2020-08-08 13:25 | NUR ---
PATIENT AWAKE IN BED, SISTER IN ROOM. PATIENT HAD 1 BEER FOR BREAKFAST, NOT INTERESTED IN BREAKFAST OR LUNCH AT THIS TIME. PATIENT HAS NO OUTPUT IN LAST 4 HOURS, RN AWARE. CALL LIGHT IS WITHIN REACH
--- NOTE | 2020-08-08 13:30 | NUR ---
ROUNDING Pt sitting in bed, breathing even and unlabored, table and call light within reach.
--- NOTE | 2020-08-08 14:50 | NUR ---
ROUNDING Pt sitting in bed, breathing even and unlabored, table and call light within reach.
--- NOTE | 2020-08-08 15:15 | NUR ---
ASSESSMENT + UP TO CHAIR Pt assessment completed. Pts lungs sound a bit coarse. Pt up to chair, denies dizziness, with steady gait. Pt denies nausea and reports tolerable baseline pain at this time. Pts left leg appears pink still, less swollen than last shift, only slightly warmer than his right leg. Pt denies further needs at this time. Table and call light within reach.
--- NOTE | 2020-08-08 15:45 | NUR ---
SBA PATIENT TO BR, PATIENT USED CALL LIGHT APPROPRIATELY. LINENS CHANGED. C/O LEFT LEG AND BACK PAIN, DECLINED HEAT PACK. CALL LIGTH IN REACH, NO OTHER NEEDS
--- NOTE | 2020-08-08 16:39 | NUR ---
ROUNDING Pt back to bed, unsure of when he returned to bed. Pt denies pain and nausea at this time, says his back pain is minimal and tolerable. Pt in bed, table and call light within reach.
--- NOTE | 2020-08-08 17:12 | NUR ---
ROUNDING Pt up to bathroom, and back to bed. Pt reports minimal tolerable pain at this time, denies nausea. Pt sitting up to eat dinner in bed, table and call light within reach.
--- NOTE | 2020-08-08 20:15 | NUR ---
PATIENT HAVING 7/10 CHRONIC BACK PAIN. PATIENT BELIEVES HIS NEURONTIN WILL TAKE CARE OF THIS. EVENING MEDS GIVEN, IV FLUSHES WELL, CALL LIGHT IS IN REACH AAND WATER REFILLED.
--- NOTE | 2020-08-08 22:23 | NUR ---
PATIENT HAVING NO PAIN NOW, PATIENT WATCHING TV. URINE DUMPED IN THE BATHROOM AND NEW ICE WATER GIVEN. PATIENT HAS NO NEEDS AT THIS TIME. CALL LIGHT IS IN REACH.
--- NOTE | 2020-08-08 23:37 | NUR ---
PATIENT RESTING QUIETLY ON HIS RIGHT SIDE, RESPIRATIONS REGULAR AND EVEN, EYES CLOSED, CALL LIGHT IN REACH.
--- NOTE | 2020-08-09 01:15 | NUR ---
PATIENT RESTING QUIETLY ON HIS LEFT SIDE, RESPIRATIONS REGULAR AND EVEN, EYES CLOSED, CALL LIGHT IN REACH.
--- NOTE | 2020-08-09 03:25 | NUR ---
IN PT ROOM TO EMPTY URINE HAT IN THE TOILET, ASKING ABOUT HAVING A SHOWER THIS MORNING, BUT PT IS OKAY WAITING UNTIL IV IS D/C IF NESSICERY, THIS WOODWORKING MACHINE OFFBEARER DISCUSSED WITH PRIMARY RN
--- NOTE | 2020-08-09 03:49 | NUR ---
PATIENT'S ICE WATER REFILLED, PATIENT SITTING UP WATCHING TV, CALL LIGHT IN REACH.
--- NOTE | 2020-08-09 05:48 | NUR ---
IN ROOM TO COLLECT VS AND I&O'S. BOTH STABLE. pt RECENTLY TOOK SHOWER, BATHROOM CLEANED AND ROOM TIDED. IV SITE WNL AND FLUSHES EASILY. REMAINS SALINE LOCKED AT THIS TIME. PRIMARY RN TIFFANIE MADE AWARE. CALL LIGHT IN REACH.
--- NOTE | 2020-08-09 06:41 | NUR ---
PATIENT HAS KEPT HIS LEG ELEVATED THROUGH THE NIGHT, PATIENT SAID HE GOT SOME GOOD SLEEP AN IS ANXIOS TO GO HOME TODAY. PATIENT HAD A SHOWER THIS MORNING, HAS HAD GREAT ORAL INTAKE AND HAS BEEN INDEPENDAT IN THE ROOM. PATIENT WATCHING TV AT THIS TIME. CALL LIGHT IN REACH.
--- NOTE | 2020-08-09 07:26 | NUR ---
REPORT RECEIVED FROM ROBERT MORENO. PT UP TO CHAIR WATCHING TV. PT DENIES PAIN AND NAUSEA. PT REPORTS HE HAD A SHOWER THIS MORNING AND IS ANTICIPATING BREAKFAST. PT ALSO ANTICIPATING DISCHARGE TODAY. PT DENIES REQUESTS OR COMPLAINTS AT THIS TIME. CALL LIGHT WITHIN REACH. WATER REFILLED.
--- NOTE | 2020-08-09 08:00 | NUR ---
PATIENT SITTING AT SIDE OF BED, EATING BREAKFAST. PATIENT HAS AHOWERED THIS MORNING AND IS EAGERLY WAITING TO SEE THE DR TO POSSIBLY D/C
--- NOTE | 2020-08-09 09:38 | NUR ---
VITALS AND I&OS CHARTED. CALL LIGHT IN REACH
--- NOTE | 2020-08-09 09:45 | NUR ---
MORNING ASESSESSMENT AND MEDICATION DUE. PT RESTING IN BED ON BACK. PT DENIES PAIN AND NAUSEA. PT STATES "MY BACK DOESN'T EVEN HURT." CIWA SCORE OF 0. PT REPORTS HE HAD A BEER WITH BREAKFAST. VITAL SIGNS STABLE. ASSESSMENT DONE: PT ORIENTED TO ALL. PT INDEPENDANT IN ROOM, STEADY ON FEET WITH STAND BY ASSIST. +1 MINIMAL PITTING EDEMA NOTED OT LEFT LOWER EXTREMITY. LEFT LOWER EXTREMITY LESS WARM TO TOUCH, NEAR EQUAL TO RIGHT LOWER EXTREMITY. PT REPORTS "IT'S A LOT BETTER TODAY, NOT HOT OR ANYTHING." LEFT LEG ELEVATED WHEN PT IS IN BED OR CHAIR. PT REPORTS HIS APPITITE IS "MUCH BETTER, I ATE MY WHOLE BREAKFAST TODAY." PT REPORTS HE IS READY TO GO HOME. MEDICATIONS GIVEN (SEE MAR). PT CONTINUES RESTING IN BED. HEAD OF BED ELEVATED TO 30 DEGREES. BED RAILS UP. CALL LIGHT WITHIN REACH. PT DENIES ADDITIONAL REQUESTS OR COMPLAINTS AT THIS TIME.
[2020-08-09] MEDS ORDERED: DOXYCYCLINE HY100 MG PO (11:11)
--- NOTE | 2020-08-09 11:40 | NUR ---
DISCHARGE INSTRUCTIONS PROVIDED. PT WITH NO QUESTIONS. HAS FOLLOW UP WITH PRIMARY DR ON TUESDAY. EDUCATION ON CELLULITIS PROVIDED. IKER PHARMASIST IN TO DISCUSS MEDICAITONS. IV DC'D AND WNL. VITALS TAKEN AND STABLE. PT WITHOUT PAIN.
--- NOTE | 2020-08-09 12:00 | NUR ---
DRY HOUSE ATTENDANT, FAYE, STATES SHE HAS DISCHARGED PT AND ALL EDUCATION, VITALS, IV DC, AND CHARTING IS COMPLETE. PT HAS LEFT FLOOR WITH BELONGINGS AND DISCHRAGE INSTRUCTIONS.
== END 2020-08-09 11:35 | disposition home or self-care (01) | DRG 603 ==
LOC: ED 08:47 → MS 12:36
PROVIDERS: ADMIT Internal Medicine; ATTEND Internal Medicine
DX: L03.116 Cellulitis of left lower limb (principal); Z20.822 Contact with and (suspected) exposure to COVID-19; B95.62 Methicillin resistant Staphylococcus aureus infection as the cause of diseases classified elsewhere; K70.10 Alcoholic hepatitis without ascites; E66.9 Obesity, unspecified; G47.33 Obstructive sleep apnea (adult) (pediatric); L40.9 Psoriasis, unspecified; F10.20 Alcohol dependence, uncomplicated; M10.9 Gout, unspecified; M54.9 Dorsalgia, unspecified; G89.29 Other chronic pain; J42 Unspecified chronic bronchitis; Z86.79 Personal history of other diseases of the circulatory system; Z79.899 Other long term (current) drug therapy; Z79.51 Long term (current) use of inhaled steroids
CPT/HCPCS: 36415; 80053; 80202; 82140; 83605; 84550; 85025; 93971; 96365; 96375; 99284-25; C9803; J0692; J1885; J3370; J3411; J3480; J7060; J7120; U0003

== ENCOUNTER 2020-12-26 06:20 | Day surgery (SDC) | payer MEDICARE, OTHER ==
[~2020-12-26] VITALS: Ht 185.4 cm; Wt 128.0 kg
[~2020-12-26 06:20] MED LIST changes: +ALLERGY RELIEF180 MG PO; +B-121000 MC2 PO; +CEPHALEXIN500 MG PO; +DOXYCYCLINE HY100 MG PO; +FOLIC ACID1 MG; +FOLIC ACID1 MG PO; +LASIX20 MG PO; +LIPITOR10 MG PO; +THERA-D50 MCG PO; +VITAMIN B-1100 MG PO
--- NOTE | 2020-12-26 07:54 | NUR ---
12/26/20 0754 Cherelle Srivastava 0709 PATIENT ARRIVES TO PACU AWAKE TALKING WITH STAFF. RESP EVEN AND UNLABORED, NC AT 2 LITERS.PATIENT DENIES PAIN OR NAUSEA.
--- NOTE | 2020-12-26 12:10 | OR ---
[facility] [address] [place], [place] [address] Signed DATE OF OPERATION: 12/26/2020 SURGEON: Bailey Guzman MD PREOPERATIVE DIAGNOSES: 1. Epigastric abdominal pain. 2. Anemia. 3. Daily alcohol use. 4. History of gastritis, gastric ulcer and small hiatal hernia. POSTOPERATIVE DIAGNOSES: 1. Mild to moderate punctate hemorrhagic gastroduodenitis. 2. Small hiatal hernia. PROCEDURE: EGD with CLOtest and biopsies of the antrum. ESTIMATED BLOOD LOSS: None. INDICATIONS: Steve is a 60-year-old obese gentleman, who was asked to see me for a repeat upper endoscopy. We know in 2019 that he was negative for H pylori. He had a small hiatal hernia with severe gastritis and an ulcer in the gastric antrum at that time. He continues to use alcohol on a daily basis. He had noticed increasing epigastric abdominal pain. His blood work came back with a slightly elevated AST at 41 and alkaline phosphatase 122. His ammonia level was normal at 32. He is a little anemic with a hemoglobin of 12.5, but the mean cell volume is normal at 94.9. The platelet count is normal at 264. An INR was normal at 1.0. His albumin level is good at 4.1. We know he has cholelithiasis from his upper abdominal ultrasound. No other major findings. We asked him to undergo a CT scan of abdomen and pelvis, but that has not been performed yet. He is planning on seeing the career technical education instructor at our medical school this summer. In the office I gave Steve and his sister, a pamphlet on upper endoscopy. He is very familiar with upper and lower endoscopy. He understands there is risk including, but not limited to gas bloating, crampy abdominal pain, bleeding, perforation requiring surgery, and missed diagnosis. Also because of his large size, his very around face, heavy neck and his significant medical issues along with his daily alcohol use, we always have an anesthesia provider to help us with increased monitoring and sedation with propofol. That always proves to be a lawton decision. In addition, he always receives an albuterol treatment because of his asthma prior to the procedure. He Electronically Signed By: BAILEY GUZMAN MD 12/26/20 1210 PATIENT NAME: STEVE POOLE OPERATIVE REPORT DATE OF : 64 REPORT #: [id number] PHYSICIAN: BAILEY GUZMAN MD PCP: JO ANN BANDA REPORT IS CONFIDENTIAL AND NOT TO BE RELEASED WITHOUT AUTHORIZATION [facility] [address] [place], [place] [address] Signed had expressed understanding and wished to proceed. PROCEDURE NOTE: Steve was taken into our endoscopy suite and placed in the supine semi-recumbent position. He was given an albuterol treatment. After this, he was given monitored anesthesia care with propofol per our nurse shotgun shell assembly machine operator. A bite block was utilized for the case. The adult gastroscope had been introduced and advanced under direct visualization of the camera without difficulty. He was actually a little better on this occasion than he was previously in 2019. The duodenum itself was unremarkable, but he did have some mild inflammatory changes in the pyloric bulb. No ulcer in the pyloric bulb nor into the stomach. He also had mild diffuse inflammatory changes throughout the stomach. He had a couple of areas of punctate hemorrhage. Upon retroflexion of scope, once again, we can see his small hiatal hernia. We withdrew the scope up through the area of the GE junction, which was compliant without stricture. We did not see any gastric or esophageal varices. He has mild disruption to his Z-line. There was no Galarza's mucosa, no distal esophagitis. He was coughing a bit at that point, we really could not measure out the hiatal hernia. I would say it is probably 3 cm. It looks the same as 2019. His middle and upper esophagus were unremarkable. After this, the gas was suctioned out and the gastroscope removed. Steve tolerated the procedure quite well. RECOMMENDATIONS: I will see Steve back in my office in 7 to 14 days to review his results. He is encouraged to maintain his appointment for the CT scan of the abdomen and pelvis. He is encouraged to see the career technical education instructor at [facility]. He has been encouraged to discontinue drinking alcohol, but he said that is not an option. Bailey Guzman MD ALB/MODL /[id number] cc: Bailey Guzman MD [facility] Electronically Signed By: BAILEY GUZMAN MD 12/26/20 1210 PATIENT NAME: STEVE POOLE OPERATIVE REPORT DATE OF : 64 REPORT #: [id number] PHYSICIAN: BAILEY GUZMAN MD PCP: JO ANN BANDA REPORT IS CONFIDENTIAL AND NOT TO BE RELEASED WITHOUT AUTHORIZATION [facility] [address] [facility] [place] [address] Signed [facility] Copies: BAILEY GUZMAN MD ~ Electronically Signed By: BAILEY GUZMAN MD 12/26/20 1210 PATIENT NAME: STEVE POOLE OPERATIVE REPORT DATE OF : 64 REPORT #: [id number] PHYSICIAN: BAILEY GUZMAN MD PCP: JO ANN BANDA REPORT IS CONFIDENTIAL AND NOT TO BE RELEASED WITHOUT AUTHORIZATION
--- NOTE | 2020-12-29 16:28 | PATH ---
[facility] [address] [place], [place] [address] Signed SPECIMEN(S): A ANTRUM BIOPSY SPECIMEN SOURCE: A. ANTRUM BIOPSY CLINICAL HISTORY: EGD biopsy. Epigastric pain. Postop: Gastroduodenitis, small hiatal hernia. MICROSCOPIC DESCRIPTION: Histologic sections of all submitted blocks are examined by light microscopy. These findings, together with the gross examination, support the pathologic diagnosis. FINAL PATHOLOGIC DIAGNOSIS: Stomach, antrum, biopsy: - Antral mucosa with chronic, inactive gastritis. - Negative for Helicobacter organisms (HE and IHC). - Negative for dysplasia or malignancy. COMMENT: An H. pylori immunohistochemical stain (with appropriately staining controls) is negative for Helicobacter organisms. NAL:cml:C2NR GROSS DESCRIPTION: The specimen, labeled "WB, 1," and designated on the requisition "antrum/pylorus biopsy," is received in formalin and consists of one fragment of pink-fonseca tissue (0.4 x 0.2 x 0.2 cm). The specimen is submitted entirely in cassette (A1). AC (under the direct supervision of a pathologist The Gross Description was prepared using a voice recognition system. The report was reviewed for accuracy; however, sound-alike word errors, addition and/or deletions may occur. If there is any question about this report, please contact Client Services. ADDITIONAL NOTES: Immunohistochemical and/or in situ hybridization studies were performed on this case with the appropriate positive controls that react as expected. This test was developed and its performance characteristics determined by [employer] [facility]. It has not been cleared or approved by the U.S. Food and Drug Administration. The FDA has determined that such clearance or approval is not PATIENT NAME: THOM POOLE PATHOLOGY DATE OF : 64 REPORT #: [id number] PHYSICIAN: DELMER GALINDO PCP: JO ANN BANDA REPORT IS CONFIDENTIAL AND NOT TO BE RELEASED WITHOUT AUTHORIZATION [facility] [address] [place], [place] [address] Signed necessary. This test is used for clinical purposes. It should not be regarded as investigational or for research. [facility] is certified under the Clinical Laboratory Improvement Amendments of 1988 (CLIA) as qualified to perform high complexity clinical laboratory testing. This assay has not been validated for specimens that have been decalcified. PERFORMING LABORATORY: The technical component was performed by [facility] [address] (Medical Staff Credentialing Coordinator: Danay Kerr MD; CLIA# [id number]). Professional interpretation was performed by [employer] [facility], [address] [address] (CLIA# [id number]). Diagnostician: Angelic Calix MD Pathologist Electronically Signed 12/29/2020 Copies: ~ PATIENT NAME: THOM POOLE PATHOLOGY DATE OF : 64 REPORT #: [id number] PHYSICIAN: DELMER GALNIDO PCP: JO ANN BANDA REPORT IS CONFIDENTIAL AND NOT TO BE RELEASED WITHOUT AUTHORIZATION
== END 2020-12-26 08:25 | disposition home or self-care (01) ==
LOC: DS 06:20 → OPS 06:20 → DS 06:45 → OPS 08:25 → DS 10:45
PROVIDERS: ATTEND Colon & Rectal Surgery
PROC: 0DB68ZZ Excision of Stomach, Via Natural or Artificial Opening Endoscopic (ICD-10-PCS; principal; 2020-12-26 06:45)
DX: K29.91 Gastroduodenitis, unspecified, with bleeding (principal); K44.9 Diaphragmatic hernia without obstruction or gangrene; D64.9 Anemia, unspecified; E66.9 Obesity, unspecified; K80.20 Calculus of gallbladder without cholecystitis without obstruction; E78.5 Hyperlipidemia, unspecified; K21.9 Gastro-esophageal reflux disease without esophagitis; I10 Essential (primary) hypertension; G47.33 Obstructive sleep apnea (adult) (pediatric); J44.9 Chronic obstructive pulmonary disease, unspecified; Z80.0 Family history of malignant neoplasm of digestive organs; Z72.89 Other problems related to lifestyle; Z87.891 Personal history of nicotine dependence; Z68.37 Body mass index [BMI] 37.0-37.9, adult
CPT/HCPCS: 86677; 88305; 88342; J2001; J2704; J7121

== ENCOUNTER 2021-06-23 21:58 | Emergency (ER) | payer MEDICARE, OTHER ==
[~2021-06-23] VITALS: Ht 185.4 cm; Wt 127.5 kg
[2021-06-24] MEDS ORDERED: GABAPENTIN300 MG PO (00:20)
== END 2021-06-24 01:37 | disposition home or self-care (01) ==
LOC: ED 21:58
DX: R60.0 Localized edema (principal); Z91.19 Patient's noncompliance with other medical treatment and regimen; G47.30 Sleep apnea, unspecified; J44.9 Chronic obstructive pulmonary disease, unspecified; I10 Essential (primary) hypertension; Z87.891 Personal history of nicotine dependence; Z88.8 Allergy status to other drugs, medicaments and biological substances; Z79.899 Other long term (current) drug therapy
CPT/HCPCS: 80053; 85025; 85379; 93971; 99284-25

== ENCOUNTER 2021-12-22 15:57 | Emergency (ER) | payer MEDICARE, OTHER ==
[~2021-12-22] VITALS: Ht 185.4 cm; Wt 127.5 kg
[2021-12-22] MEDS ORDERED: PANTOPRAZOLE SO40 MG PO (18:24)
[2021-12-22] MEDS ORDERED: ZESTRIL10 MG PO (18:26)
== END 2021-12-22 22:00 | disposition home or self-care (01) ==
LOC: ED 15:57
DX: S00.83XA Contusion of other part of head, initial encounter (principal); J44.9 Chronic obstructive pulmonary disease, unspecified; I10 Essential (primary) hypertension; Z88.6 Allergy status to analgesic agent; Z87.891 Personal history of nicotine dependence; Z79.899 Other long term (current) drug therapy; X58.XXXA Exposure to other specified factors, initial encounter
CPT/HCPCS: 36415; 70450; 80053; 81001; 82140; 85025; 85610; G0480

== ENCOUNTER 2022-07-06 19:26 | Inpatient (IN) | payer MEDICARE, OTHER ==
[~2022-07-06] VITALS: Ht 185.4 cm; Wt 126.8 kg
[~2022-07-06 19:26] MED LIST changes: +ZESTRIL10 MG PO
[2022-07-06] MEDS ORDERED: ATORVASTATIN CA10 MG PO (19:40)
[2022-07-06] MEDS ORDERED: FUROSEMIDE20 MG PO (19:40)
--- NOTE | 2022-07-07 11:19 | EKG ---
[facility] [address] [facility] [place] [address] Signed Sinus rhythm with fusion complexes Nonspecific intraventricular conduction delay T wave abnormality, consider lateral ischemia Abnormal ECG When compared with ECG of 23-DEC-2020 10:36, fusion complexes are now present QRS duration has increased T wave inversion no longer evident in Anterior leads T wave inversion now evident in Lateral leads Confirmed by Ramo Berry MD () on 07/07/2022 11:18:50 AM Electronically Signed By: RAMO BERRY MD 07/07/22 1119 PATIENT NAME: THOM POOLE Electrocardiogram DATE OF : 64 PHYSICIAN: RAMO BERRY MD REPORT #: [id number] REPORT IS CONFIDENTIAL AND NOT TO BE RELEASED WITHOUT AUTHORIZATION
[2022-07-08] MEDS ORDERED: LACTULOSE10 GM/151 PO (10:08)
[2022-07-08] MEDS ORDERED: LISINOPRIL20 MG PO (10:09)
[2022-07-08] MEDS ORDERED: ALBUTEROL2.5 MG/3 M INH (12:01)
[2022-07-08] MEDS ORDERED: SPIRIVA18 MCG INH (12:03)
[2022-07-08] MEDS ORDERED: VITAMIN B-1100 M1 PO (12:03)
[2022-07-08] MEDS ORDERED: LIDODERM1 EACH TOP (12:08)
[2022-07-08] MEDS ORDERED: FEOSOL325 MG PO (12:08)
[2022-07-08] MEDS ORDERED: VITAMIN B-121000 MCG PO (12:09)
[2022-07-08] MEDS ORDERED: ALLEGRA ALLERG180 MG PO (12:09)
[2022-07-08] MEDS ORDERED: VITAMIN C500 M1 PO (12:10)
[2022-07-10] MEDS ORDERED: OSELTAMIVIR PHO75 MG PO (09:59)
[2022-07-10] MEDS ORDERED: MUCINEX600 MG PO (10:00)
[2022-07-10] MEDS ORDERED: BENZONATATE100 MG PO (10:01)
== END 2022-07-10 12:45 | disposition home or self-care (01) | DRG 193 ==
LOC: ED 19:26 → MS 19:28
PROVIDERS: ADMIT Family Medicine; ATTEND Family Medicine
DX: J10.1 Influenza due to other identified influenza virus with other respiratory manifestations (principal); J96.01 Acute respiratory failure with hypoxia; E87.1 Hypo-osmolality and hyponatremia; F10.239 Alcohol dependence with withdrawal, unspecified; E87.70 Fluid overload, unspecified; Z20.822 Contact with and (suspected) exposure to COVID-19; J44.9 Chronic obstructive pulmonary disease, unspecified; Z87.891 Personal history of nicotine dependence; Z98.1 Arthrodesis status; Z90.49 Acquired absence of other specified parts of digestive tract; Z90.89 Acquired absence of other organs; Z98.890 Other specified postprocedural states; Z88.8 Allergy status to other drugs, medicaments and biological substances; Z79.899 Other long term (current) drug therapy
CPT/HCPCS: 36415; 71045; 71260; 80048; 80053; 82803; 83735; 83880; 84100; 85025; 85060; 85379; 87502; 93005; 93010; 93306; 94640; 94667; 94668; 94760; 94761; 96374; 96375; 99285-25; A9270; C9113; J1650; J1940; J2060; J2405; J2930; J3475; J7030; Q9967; U0003

== ENCOUNTER 2022-07-20 10:47 | Emergency (ER) | payer MEDICARE, OTHER ==
[~2022-07-20] VITALS: Ht 185.4 cm; Wt 147.9 kg
[~2022-07-20 10:47] MED LIST changes: +ALBUTEROL2.5 MG/3 M INH; +ALLEGRA ALLERG180 MG PO; +ATORVASTATIN CA10 MG PO; +BENZONATATE100 MG PO; +LACTULOSE10 GM/151 PO; +LIDODERM1 EACH TOP; +MUCINEX600 MG PO; +OSELTAMIVIR PHO75 MG PO; +SPIRIVA18 MCG INH; +VITAMIN B-1100 M1 PO; +VITAMIN B-121000 MCG PO; +VITAMIN C500 M1 PO
--- OUTSIDE RECORDS SUMMARY | 2022-07-20 10:50 | XMS ---
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 Care History Medical/Surgical 07/02/2019 [facility] \T\middot;\T\nbsp; PATIENT- [facility] ELIGIBLE \T\middot;\T\nbsp; PLEASE REFER PATIENT TO [facility] FOR NON EMERGENT MEDICAL NEEDS. \T\middot;\ T\nbsp; [facility] CAN SEE PATIENTS SAME DAY FOR APTS IF PATIENT CALLS FIRST THING IN THE MORNING. E.D. VISIT COUNT (12 MO.) 1 Lauren Leyva DanielitoKirstin 5 ADELINE Schroeder TOTAL 6 NOTE: Visits indicate total known visits. ED/UCC VISIT TRACKING (12 MO.) 07/20/2022 10:48 [facility] [place] TYPE: Emergency COMPLAINT: - RETAINING WATER 2022 23:28 [facility] [place] TYPE: Emergency COMPLAINT: - SOB DIAGNOSES: - Allergy status to analgesic agent - Personal history of nicotine dependence - Heart failure, unspecified - Chronic obstructive pulmonary disease with (acute) exacerbation - Shortness of breath - Other chcf (current) drug therapy - Hypertensive heart disease with heart failure 07/06/2022 19:[address] [facility] TYPE: Emergency COMPLAINT: - SHORTNESS OF BREATH 05/31/2022 21:[address] [facility] TYPE: Emergency COMPLAINT: - RECTAL BLEEDING DIAGNOSES: - Chronic obstructive pulmonary disease, unspecified - Hemorrhage of anus and rectum - Other chcf (current) drug therapy - Melena - Personal history of nicotine dependence - Contact with and (suspected) exposure to COVID-19 - Alcohol abuse with intoxication, unspecified - Unspecified hemorrhoids - Essential (primary) hypertension 03/22/2022 13:43 [facility] TYPE: Emergency DIAGNOSES: - Cellulitis of left lower limb - Leg Swelling - feet swelling 12/22/2021 15:57 [facility] [place] TYPE: Emergency COMPLAINT: - CONFUSION DIAGNOSES: - Essential (primary) hypertension - Contusion of other part of head, initial encounter - Exposure to other specified factors, initial encounter - Personal history of nicotine dependence - Other chcf (current) drug therapy - Chronic obstructive pulmonary disease, unspecified - Allergy status to analgesic agent INPATIENT VISIT TRACKING (12 MO.) 07/08/2022 18:32 [facility] [place] TYPE: Medical Surgical COMPLAINT: - CHF EXACERBATION, INFLUENZA WITH HYPOXIA DIAGNOSES: - Personal history of nicotine dependence - Alcohol dependence with withdrawal, unspecified - Fluid overload, unspecified - Contact with and (suspected) exposure to COVID-19 - Allergy status to other drugs, medicaments and biological substances - Acute respiratory failure with hypoxia - Acquired absence of other specified parts of digestive tract - Hypo-osmolality and hyponatremia - Allergy status to other drugs, medicaments and biological substances - Alcohol dependence with withdrawal, unspecified - Other chcf (current) drug therapy - Acute respiratory failure with hypoxia - Contact with and (suspected) exposure to COVID-19 - Acquired absence of other specified parts of digestive tract - Fluid overload, unspecified - Arthrodesis status - Arthrodesis status - Acquired absence of other organs - Other specified postprocedural states - Chronic obstructive pulmonary disease, unspecified - Other chcf (current) drug therapy - Hypo-osmolality and hyponatremia - Acquired absence of other organs - Influenza due to other identified influenza virus with other respiratory manifestations - Chronic obstructive pulmonary disease, unspecified - Personal history of nicotine dependence - Other specified postprocedural states [email or web address]
[2022-07-20] MEDS ORDERED: FUROSEMIDE20 MG PO (12:55)
[2022-07-20] MEDS ORDERED: IPRAT-ALBUT 0.5-3 ML INH (12:55)
[2022-07-20] MEDS ORDERED: PREDNISONE20 MG PO (13:39)
== END 2022-07-20 14:34 | disposition home or self-care (01) ==
LOC: ED 10:47
DX: J44.1 Chronic obstructive pulmonary disease with (acute) exacerbation (principal); R60.9 Edema, unspecified; I11.0 Hypertensive heart disease with heart failure; I50.9 Heart failure, unspecified; G47.30 Sleep apnea, unspecified; Z87.891 Personal history of nicotine dependence; Z88.8 Allergy status to other drugs, medicaments and biological substances; Z79.899 Other long term (current) drug therapy
CPT/HCPCS: 36415; 71045; 80053; 83735; 83880; 85025; 85060; 94640; 99285-25; J1940; J7512

== ENCOUNTER 2022-12-02 19:54 | Emergency (ER) | payer MEDICARE, OTHER ==
[~2022-12-02] VITALS: Ht 185.4 cm; Wt 147.1 kg
[2022-12-02] MEDS ORDERED: LASIX40 MG PO (22:07)
[2022-12-02 23:25] VITALS: BP 120/81
== END 2022-12-02 23:26 | disposition home or self-care (01) ==
LOC: ED 19:54
DX: R60.0 Localized edema (principal); E87.1 Hypo-osmolality and hyponatremia; J44.9 Chronic obstructive pulmonary disease, unspecified; I11.0 Hypertensive heart disease with heart failure; I50.9 Heart failure, unspecified; Z87.891 Personal history of nicotine dependence; Z88.6 Allergy status to analgesic agent; Z79.899 Other long term (current) drug therapy
CPT/HCPCS: 36415; 80053; 83735; 85025; 96365; 96375; 99283-25; J1940; J3475

== ENCOUNTER 2022-12-05 16:43 | Inpatient (IN) | payer MEDICARE, OTHER ==
[~2022-12-05] VITALS: Ht 185.4 cm; Wt 143.0 kg
[~2022-12-05 16:43] MED LIST changes: +LASIX40 MG PO
--- OUTSIDE RECORDS SUMMARY | 2022-12-05 16:46 | XMS ---
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 Care History Medical/Surgical 07/02/2019 [facility] \T\middot;\T\nbsp; PATIENT- [facility] ELIGIBLE \T\middot;\T\nbsp; PLEASE REFER PATIENT TO [facility] FOR NON EMERGENT MEDICAL NEEDS. \T\middot;\ T\nbsp; [facility] CAN SEE PATIENTS SAME DAY FOR APTS IF PATIENT CALLS FIRST THING IN THE MORNING. E.D. VISIT COUNT (12 MO.) 1 Lauren Felton Cecy EstevesKirstin 7 ADELINE Parikhony Robin TOTAL 8 NOTE: Visits indicate total known visits. ED/UCC VISIT TRACKING (12 MO.) 12/05/2022 16:44 [facility] [place] TYPE: Emergency COMPLAINT: - DIFFICULTY BREATHING, CHILLS, L LEG SWELLING 12/02/2022 19:55 [facility] [place] TYPE: Emergency COMPLAINT: - WOUND CHECK 07/20/2022 10:48 [facility] [place] TYPE: Emergency COMPLAINT: - RETAINING WATER DIAGNOSES: - Allergy status to other drugs, medicaments and biological substances - Chronic obstructive pulmonary disease with (acute) exacerbation - Chronic obstructive pulmonary disease, unspecified - Edema, unspecified - Heart failure, unspecified - Hypertensive heart disease with heart failure - Other shipping coordinator (current) drug therapy - Personal history of nicotine dependence - Shortness of breath - Sleep apnea, unspecified 2022 23:28 [facility] [place] TYPE: Emergency COMPLAINT: - SOB DIAGNOSES: - Allergy status to analgesic agent - Chronic obstructive pulmonary disease with (acute) exacerbation - Heart failure, unspecified - Hypertensive heart disease with heart failure - Other shipping coordinator (current) drug therapy - Personal history of nicotine dependence - Shortness of breath 07/06/2022 19:27 [facility] [place] TYPE: Emergency COMPLAINT: - SHORTNESS OF BREATH 05/31/2022 21:38 [facility] [place] TYPE: Emergency COMPLAINT: - RECTAL BLEEDING DIAGNOSES: - Alcohol abuse with intoxication, unspecified - Chronic obstructive pulmonary disease, unspecified - Contact with and (suspected) exposure to COVID-19 - Essential (primary) hypertension - Hemorrhage of anus and rectum - Melena - Other shipping coordinator (current) drug therapy - Personal history of nicotine dependence - Unspecified hemorrhoids [facility] DIAGNOSES: - Cellulitis of left lower limb - feet swelling - Leg Swelling 12/22/2021 15:57 [facility] [place] TYPE: Emergency COMPLAINT: - CONFUSION DIAGNOSES: - Allergy status to analgesic agent - Chronic obstructive pulmonary disease, unspecified - Contusion of other part of head, initial encounter - Essential (primary) hypertension - Exposure to other specified factors, initial encounter - Other shipping coordinator (current) drug therapy - Personal history of nicotine dependence INPATIENT VISIT TRACKING (12 MO.) 07/08/2022 18:[address] [facility] [place] TYPE: Medical Surgical COMPLAINT: - CHF EXACERBATION, INFLUENZA WITH HYPOXIA DIAGNOSES: - Acquired absence of other organs - Acquired absence of other organs - Acquired absence of other specified parts of digestive tract - Acquired absence of other specified parts of digestive tract - Acute respiratory failure with hypoxia - Acute respiratory failure with hypoxia - Alcohol dependence with withdrawal, unspecified - Alcohol dependence with withdrawal, unspecified - Allergy status to other drugs, medicaments and biological substances - Allergy status to other drugs, medicaments and biological substances - Arthrodesis status - Arthrodesis status - Chronic obstructive pulmonary disease, unspecified - Chronic obstructive pulmonary disease, unspecified - Contact with and (suspected) exposure to COVID-19 - Contact with and (suspected) exposure to COVID-19 - Fluid overload, unspecified - Fluid overload, unspecified - Hypo-osmolality and hyponatremia - Hypo-osmolality and hyponatremia - Influenza due to other identified influenza virus with other respiratory manifestations - Other shipping coordinator (current) drug therapy - Other correction (current) drug therapy - Other specified postprocedural states - Other specified postprocedural states - Personal history of nicotine dependence - Personal history of nicotine dependence [email or web address]
[2022-12-05 20:20] VITALS: BP 161/109
[2022-12-05 21:00] VITALS: BP 155/92
--- NOTE | 2022-12-05 21:00 | NUR ---
RECEIVED REPORT FROM TARGET DEVELOPER, PT WAS BROUGHT TO UNIT VIA STRETCH, ABLE TO TRANSFER SELF TO BED, C/O OF SOB, BACK/RIB PAIN FROM A PREVIOUS ACCIDENT, FEBRILE, TYLENOL WAS GIVEN IN THE ED, ST, HR 110-120'S, HTN, WILL CONTINUE TO MONITOR AND NOTIFY PROVIDER WITH ANY CHANGES IN PT STATUS.
[2022-12-05 21:39] VITALS: BP 155/92
--- NOTE | 2022-12-05 21:43 | EKG ---
[facility] [address] [place] [address] Signed Sinus tachycardia Right superior axis deviation Pulmonary disease pattern Incomplete right bundle branch block Right ventricular hypertrophy Septal infarct , age undetermined ST \T\ T wave abnormality, consider anterior ischemia Abnormal ECG When compared with ECG of 14-JUL-2022 23:37, Incomplete right bundle branch block is now present Septal infarct is now present Confirmed by Ramo Berry MD () on 12/05/2022 9:43:51 PM Electronically Signed By: RAMO BERRY MD 12/05/222142 PATIENT NAME: THOM POOLE Electrocardiogram DATE OF : 64 PHYSICIAN: RAMO BERRY MD REPORT #: [id number] REPORT IS CONFIDENTIAL AND NOT TO BE RELEASED WITHOUT AUTHORIZATION
[2022-12-05 22:00] VITALS: BP 178/90
[2022-12-05 23:00] VITALS: BP 169/90
[2022-12-06] VITALS: BP 169/86
--- NOTE | 2022-12-06 01:57 | NUR ---
PT STILL FEBRILE, TEMP 102 F, PRN TYLENOL WAS GIVEN, HR 100S, HTN, PT ON 2L NC FOR COMFORT, SATING IN THE HIGH 90'S, PT CALLS APPROPRIATELY, UP TO BSC Karen SANCHES, 1 PERSON SBA, WILL CONTINUE TO MONITOR
[2022-12-06 06:23] VITALS: BP 148/72
--- NOTE | 2022-12-06 08:30 | NUR ---
PAIENT SITTING AT SIDE OF BED FOR BREAKFAST. 2CUPS OF WATER AND A BEER ALSO PROVIDED. VITALS CHARTED. SISTER IN TO SEE PATIENT THIS MORNING. CALL LIGHT IN EASY REACH
--- NOTE | 2022-12-06 12:19 | NUR ---
PATIENT NOW AWAKE FROM NAP AND SITTING ON SIDE OF BED FOR LUNCH. BEER PROVIDED WELL.
--- NOTE | 2022-12-06 14:30 | NUR ---
PT SLEEPING, ROBERT HENLEY REQUESTED I NOT DISTURB PT. WILL FOLLOW
--- NOTE | 2022-12-06 14:43 | NUR ---
Patient lying on left side, speaking with pharmacist. Denies pain and other needs. Allowed to rest at this time. Call light in reach. See EMAR for meds administered. Assessment remains unchanged from this AM.
[2022-12-06] MEDS ORDERED: FUROSEMIDE20 MG PO (14:53)
[2022-12-06] MEDS ORDERED: IBUPROFEN800 MG PO (14:57)
[2022-12-06] MEDS ORDERED: POTASSIUM CHLO10 ME2 PO (14:59)
[2022-12-06] MEDS ORDERED: ASCORBIC ACID500 M3 PO (15:01)
--- NOTE | 2022-12-06 15:03 | NUR ---
MED REC COMPLETE
--- NOTE | 2022-12-06 17:20 | NUR ---
PATIENT UP TO BSC FOR BM, PATIENT WAS ALSO INCONTINENT OF STOOL WHILE SLEEPING. LINEN AND GOWN CHANGED. HINT OF RED NOTED IN STOOL, RN AWARE. PATIENT STATES HE HAS A HISTORY OF INTERNAL HEMORRHOIDS. RN AWARE. R/T IN FOR NEB TREATMENT.
[2022-12-06 17:52] VITALS: BP 143/76
[2022-12-06 20:00] VITALS: BP 165/86
--- NOTE | 2022-12-06 20:00 | NUR ---
RECEIVED REPORT ON PT, NO SIGNIFICANT CHANGES OVER DAY SHIFT, HR REMAINS ST, BP STABLE, WILL CONTINUE TO MONITOR AND NOTIFY PROVIDER WITH ANY CHANGES IN PT STATUS
[2022-12-07] VITALS (7 sets, daily range): BP systolic 157–175; BP diastolic 86–105
--- NOTE | 2022-12-07 05:50 | NUR ---
pt slept well, VSS, pt remains in ST, HR 100's, results came back positive for blood cultures, pt receiving vanco and zosyn , notified MD, will continue to monitor and notify MD with any changes in pt status.
--- NOTE | 2022-12-07 07:20 | NUR ---
RECEIVED REPORT FROM NOC NURSE. PT IS A/O, RESPIRATIONS EVEN AND REGULAR. CALL LIGHT WITHIN REACH.
--- NOTE | 2022-12-07 08:00 | NUR ---
PT ASSESSEMENT AND MEDICAION ADMINISTRATION COMPLETED. PT IS A/O, RESPIRATIONS EVEN AND REGULAR. CALL LIGHT WITHIN REACH.
--- NOTE | 2022-12-07 10:06 | NUR ---
ambulated with pt in hallway. pt ambulates with assist of cane. does ges sob with exertion.
--- NOTE | 2022-12-07 12:42 | NUR ---
pt requested to walk in [place], thang pt to room 112 on room air, sl iv, due to void, completed 100% of lunch and milk. denies needs, omar john met us in [place] and showed us to new room 112 - pt sat in chair for vitals and assess, all belongings moved with pt.
--- NOTE | 2022-12-07 14:10 | NUR ---
MEDICATION ADMINISTRATION COMPLETED. PT IS A/O, RESPIRATIONS EVEN AND REGULAR. PT DENIES NEEDS/COMPLAINTS ATT. CALL LIGHT WITHIN REACH.
--- NOTE | 2022-12-07 15:27 | NUR ---
PATIENT TO MED SURG. ASSESSMENT COMPLETE. PATIENT DENIES NEEDS AT THIS TIME.
--- NOTE | 2022-12-07 15:38 | NUR ---
PATIENT TO MED SURG. PATIENT IS SITTING UP IN BED, TO BE AD JOHN. IV ZOSYN INFUSING FOR ANOTHER 2 HOURS. PATIENT REPORTS NO PAIN OR NAUSEA. PATIENT DID REQUEST BREATHING TREATMENT.
--- NOTE | 2022-12-07 20:11 | NUR ---
REPORT RECEIVED FROM DAY SHIFT RN. PT SITTING IN RECLINER ALERT AND ORIENTED. DENIES NEEDS. WHITE BOARD UPDATED. CALL LIGHT IN REACH.
--- NOTE | 2022-12-07 22:15 | NUR ---
EVENING ASSESSMENT COMPLETE. IV ABX INFUSING WNL. PRN FOR PAIN ADMIN FOR 7/10 CHRONIC BACK PAIN. LLE REDNESS AND SWELLING NOTED. REDNESS WITHIN OUTLINE. SISTER IN ROOM TO SPEND THE NIGHT. LINENS PROVIDED. PT DENIES QUESTIONS OR CONCERNS. CALL LIGHT IN REACH.
--- NOTE | 2022-12-08 00:14 | NUR ---
PT RESTING IN BED WITH EYES CLOSED. RESPIRATIONS EVEN. CALL LIGHT IN REACH.
--- NOTE | 2022-12-08 02:33 | NUR ---
PT AWAKE IN BED USING URINAL. URINALS EMPTIED. FRESH WATER PROVIDED. PT REPORTS HE IS RESTING WELL. DENIES FURTHER NEEDS.
--- NOTE | 2022-12-08 04:33 | NUR ---
PT RESTING IN BED WITH EYES CLOSED. RESPIRATIONS EVEN. CALL LIGHT IN REACH.
[2022-12-08 04:42] VITALS: BP 150/83
--- NOTE | 2022-12-08 04:49 | NUR ---
PT CALLED TO HAVE URINAL EMPTIED. IN ROOM FOR VS AND I&O. PT DENIES PAIN OR NAUSEA. LLE EDEMA IMPROVED AFTER ELEVATION. NO FURTHER NEEDS. CALL LIGHT IN REACH.
--- NOTE | 2022-12-08 07:08 | NUR ---
Report received from night shift supervisor RN, all questiosn answered. Pt awake in bed, denies needs at this time. Call light in reach.
--- NOTE | 2022-12-08 08:58 | NUR ---
MORNING ASSESSMENT COMPLETE. PT AWAKE IN BED, C/O 02/24 BACK PAIN. STATES HIS BACK PAIN IS CHRONIC, GIVEN PRN IBU PER PT REQUEST. REDNESS TO LLE RECEDING FROM PREVIOUS OUTLINE, PINK AND WARM TO TOUCH. BILAT PEDAL PULSES PALPABLE. PT DENIES FURTHER NEEDS AT THIS TIME. CALL LIGHT IN REACH. FAMILY AT BEDSIDE.
[2022-12-08] MEDS ORDERED: AMOXICILLIN-CL1 EACH PO (09:45)
== END 2022-12-08 10:27 | disposition home or self-care (01) | DRG 872 ==
LOC: ED 16:43 → MS 19:04 → CCU 19:04 → MS 12-07 15:20
PROVIDERS: ADMIT Family Medicine; ATTEND Internal Medicine
PROC: HZ2ZZZZ Detoxification Services for Substance Abuse Treatment (ICD-10-PCS; principal; 2022-12-05)
PROC: 3E03329 Introduction of Other Anti-infective into Peripheral Vein, Percutaneous Approach (ICD-10-PCS; 2022-12-05)
DX: A41.89 Other specified sepsis (principal); L03.116 Cellulitis of left lower limb; E87.1 Hypo-osmolality and hyponatremia; Z68.41 Body mass index [BMI] 40.0-44.9, adult; E66.2 Morbid (severe) obesity with alveolar hypoventilation; Z20.822 Contact with and (suspected) exposure to COVID-19; I11.0 Hypertensive heart disease with heart failure; I50.9 Heart failure, unspecified; F10.229 Alcohol dependence with intoxication, unspecified; J44.9 Chronic obstructive pulmonary disease, unspecified; B96.89 Other specified bacterial agents as the cause of diseases classified elsewhere; F12.90 Cannabis use, unspecified, uncomplicated; R06.89 Other abnormalities of breathing; G89.4 Chronic pain syndrome; R01.1 Cardiac murmur, unspecified; M77.9 Enthesopathy, unspecified; I89.0 Lymphedema, not elsewhere classified; F15.90 Other stimulant use, unspecified, uncomplicated; Z91.198 Patient's noncompliance with other medical treatment and regimen for other reason; Z87.891 Personal history of nicotine dependence; Z88.6 Allergy status to analgesic agent; Z90.49 Acquired absence of other specified parts of digestive tract; Z98.890 Other specified postprocedural states; Z90.89 Acquired absence of other organs; Z98.1 Arthrodesis status; Z79.899 Other long term (current) drug therapy
CPT/HCPCS: 36415; 71045; 73630; 80053; 80202; 81003; 83605; 83735; 84100; 85025; 85610; 85730; 87502; 93005; 93010; 94640; 94760; A9270; G0480; J0360; J0878; J1650; J2543; J3370; J3411; J3475; J7030; J7060; U0002

== ENCOUNTER 2024-04-05 09:59 | Emergency (ER) | payer MEDICARE, OTHER ==
[~2024-04-05] VITALS: Ht 185.4 cm; Wt 145.0 kg
[~2024-04-05 09:59] MED LIST changes: +AMOXICILLIN-CL1 EACH PO; +ASCORBIC ACID500 M3 PO; +POTASSIUM CHLO10 ME2 PO
[2024-04-05] MEDS ORDERED: MIDAZOLAM HCL 2 MG/2 ML VIAL ONE ×2 (10:12→10:24)
[2024-04-05] MEDS ORDERED: propofoL 200 MG/20 ML VIAL ONE (10:12)
[2024-04-05] MEDS ORDERED: CEFAZOLIN SODIUM 2 GM/20 ML SYR IV ONE (10:15)
[2024-04-05] MEDS ORDERED: CEFAZOLIN SODIUM 2 GM/20 ML SYR ONE (10:18)
[2024-04-05] MEDS ORDERED: DIPHTH,PERTUSS(ACELL),TET VAC 0.5 ML SYRINGE ONE (10:18)
[2024-04-05] MEDS ORDERED: fentaNYL citrate 100 MCG/2 ML VIAL ONE (10:19)
[2024-04-05] MEDS ORDERED: TRANEXAMIC ACID 1,000 MG/10 ML AMP ONE (10:26)
[2024-04-05] MEDS ORDERED: fentaNYL citrate 100 MCG/2 ML VIAL IV PRN (10:30)
[2024-04-05] MEDS ORDERED: MIDAZOLAM HCL 2 MG/2 ML VIAL IV PRN ×2 (10:30)
[2024-04-05] MEDS ORDERED: propofoL 100 ML IV SCH (10:30)
[2024-04-05] MEDS ORDERED: propofoL 200 MG/20 ML VIAL IV PRN (10:30)
[2024-04-05] MEDS ORDERED: DIPHTH,PERTUSS(ACELL),TET VAC 0.5 ML SYRINGE IM ONE (10:30)
[2024-04-05] MEDS ORDERED: ETOMIDATE 40 MG/20 ML VIAL IV ONE (10:30)
[2024-04-05] MEDS ORDERED: TRANEXAMIC ACID IN NACL,ISO-OS 1,000 MG/100 ML PIGGYBACK IV ONE (10:30)
[2024-04-05] MEDS ORDERED: ETOMIDATE 40 MG/20 ML VIAL IV PRN (10:30)
[2024-04-05] MEDS ORDERED: MIDAZOLAM HCL 2 MG/2 ML VIAL IV ONE (10:30)
[2024-04-05 10:32] LABS: BASOPHILS 0.5 % (0-2); EOSINOPHILS 0.4 % (0-6); HEMATOCRIT 37.7 % (35.0-50.0); HEMOGLOBIN 12.2 g/dL (12.0-18.0); LYMPHOCYTES 25.7 % (24-44); MCH 29.7 (27-36); MCHC 32.4 g/dl (30-36); MCV 91.6 fl (81-99); MONOCYTES 10.5 % (0-12); NEUTROPHILS 62.9 % (39-80); PLATELET COUNT 76 K/uL (140-440); RBC 4.11 M/ul (4.3-5.7); RDW 16.8 (10.5-15.0)
[2024-04-05] MEDS ORDERED: KETAMINE in NS 50 MG/5 ML SYR ONE ×2 (10:32→10:53)
[2024-04-05 10:45] LABS: ALBUMIN 3.6 g/dL (3.4-5.0); ALBUMIN/GLOBULIN RATIO 0.82 (1.1-2.4); ALCOHOL, MEDICAL <3 ng/dL (<3); ALKALINE PHOSPHATASE 169 U/L (46-116); ALT (SGPT) 51 U/L (14-59); ANION GAP 23.4 (7-21); AST (SGOT) 88 U/L (15-37); BILIRUBIN, TOTAL 1.2 ng/dL (0.2-1.0); BUN/CREATININE RATIO 2.08 (6.0-28.6); CALCIUM 8.3 mg/dL (8.5-10.1); CARBON DIOXIDE 19 mmol/L (21-32); CHLORIDE 88 mmol/L (98-107); CREATININE, SERUM 1.44 mg/dL (0.70-1.30); GLOMERULAR FILTRATION RATE,EST 55 mL/min (>60); POTASSIUM 3.4 mmol/L (3.5-5.1); UREA NITROGEN 3 mg/dL (7-18)
[2024-04-05] MEDS ORDERED: KETAMINE HCL IN NACL, ISO-OSM 100 ML IV SCH (10:45)
[2024-04-05] MEDS ORDERED: KETAMINE in NS 50 MG/5 ML SYR IV PRN ×2 (10:45→11:45)
[2024-04-05 10:59] LABS: INR 1.24 (0.80-1.30); PROTIME 14.9 Sec (11.2-14.2)
[2024-04-05] MEDS ORDERED: KETAMINE HCL 500 MG/5 ML MDV ONE (11:09)
[2024-04-05] MEDS ORDERED: FENTANYL CITRATE-0.9 % NACL/PF 100 ML IV SCH (11:15)
[2024-04-05 11:25] LABS: BASOPHILS 0.2 % (0-2); EOSINOPHILS 0.4 % (0-6); HEMATOCRIT 32.6 % (35.0-50.0); HEMOGLOBIN 10.8 g/dL (12.0-18.0); LYMPHOCYTES 4.1 % (24-44); MCH 30.4 (27-36); MCHC 33.2 g/dl (30-36); MCV 91.6 fl (81-99); MONOCYTES 6.6 % (0-12); NEUTROPHILS 88.7 % (39-80); PLATELET COUNT 52 K/uL (140-440); RBC 3.56 M/ul (4.3-5.7); RDW 16.3 (10.5-15.0)
[2024-04-05 11:25] LABS: ABO O; ANTIBODY SCREEN NEGATIVE; RH POSITIVE
[2024-04-05 11:26] LABS: IS CROSSMATCH COMPATIBLE
[2024-04-05] MEDS ORDERED: fentaNYL citrate 100 MCG/2 ML VIAL IV STA (11:32)
[2024-04-05 11:33] LABS: BASE EXCESS, BLOOD GAS -5.9 mmol/L (-2-2); HCO3, BLOOD GAS 20.6 mmol/L (22-26); O2 SATURATION, BLOOD GAS 98.7 % (95.0-100.0); PCO2, BLOOD GAS 44.5 mmHg (35-45); PH, BLOOD GAS 7.28 (7.35-7.45); PO2, BLOOD GAS 110 mmHg (80-100); TOTAL CO2, BLOOD GAS 21.9
[2024-04-05 11:34] LABS: OXYGEN RECEIVED, BLOOD GAS 40%
[2024-04-05 11:40] LABS: ALBUMIN 2.8 g/dL (3.4-5.0); ALBUMIN/GLOBULIN RATIO 0.8 (1.1-2.4); ANION GAP 18.2 (7-21); BILIRUBIN, TOTAL 0.8 ng/dL (0.2-1.0); BUN/CREATININE RATIO 3.03 (6.0-28.6); CALCIUM 7.5 mg/dL (8.5-10.1); CREATININE, SERUM 1.32 mg/dL (0.70-1.30); POTASSIUM 3.2 mmol/L (3.5-5.1); PROTEIN, TOTAL 6.3 g/dL (6.4-8.2)
[2024-04-05 11:42] LABS: BILIRUBIN, URINE NEGATIVE (negative); BLOOD/HGB, URINE MODERATE (Negative); KETONE, URINE NEGATIVE (Negative); LEUK ESTERASE, URINE SMALL (negative); NITRITE, URINE NEGATIVE (negative)
[2024-04-05] MEDS ORDERED: ROCURONIUM BROMIDE 50 MG/5 ML VIAL IV PRN ×2 (11:45)
[2024-04-05 11:52] LABS: BACTERIA, URINE NONE SEEN /hpf (negative); CASTS, URINE NONE SEEN \\lpf; COLLECTION TYPE, URINE CLEAN CATCH; CRYSTALS, URINE NONE SEEN (0-1+); EPITHELIAL CELLS, URINE SQUAMOUS 1+ /lpf (0-1+); REFLEX CULTURE, URINE Yes (No); WHITE BLOOD CELLS, URINE >50 /HPF (0-5)
[2024-04-05 12:04] LABS: AMPHETAMINES, URINE NEGATIVE (NEGATIVE); BARBITURATES, URINE NEGATIVE (NEGATIVE); BENZODIAZEPINE, URINE POSITIVE (NEGATIVE); BUPRENORPHINE, URINE NEGATIVE (NEGATIVE); CANNABINOID, URINE POSITIVE (NEGATIVE); COCAINE, URINE NEGATIVE (NEGATIVE); ECSTASY, URINE NEGATIVE (NEGATIVE); FENTANYL, URINE POSITIVE (NEGATIVE); METHADONE, URINE NEGATIVE (NEGATIVE); OPIATES, URINE NEGATIVE (NEGATIVE); OXYCODONE, URINE NEGATIVE (NEGATIVE); PHENCYCLIDINE, URINE NEGATIVE (NEGATIVE)
[2024-04-05 12:07] VITALS: BP 109/69
[2024-04-05] MEDS ORDERED: SUCCINYLCHOLINE CHLORIDE 20 MG/ML MDV IV STA (12:10)
[2024-04-06] MEDS ORDERED: fentaNYL citrate 100 MCG/2 ML VIAL IV PRN ×2 (10:15)
== END 2024-04-05 12:07 | disposition short-term general hospital (02) ==
LOC: ED 09:59
PROVIDERS: Emergency Medicine
DX: S12.300A Unspecified displaced fracture of fourth cervical vertebra, initial encounter for closed fracture (principal); S12.400A Unspecified displaced fracture of fifth cervical vertebra, initial encounter for closed fracture; S12.500A Unspecified displaced fracture of sixth cervical vertebra, initial encounter for closed fracture; S12.600A Unspecified displaced fracture of seventh cervical vertebra, initial encounter for closed fracture; S22.41XA Multiple fractures of ribs, right side, initial encounter for closed fracture; S51.812A Laceration without foreign body of left forearm, initial encounter; S70.02XA Contusion of left hip, initial encounter; S20.211A Contusion of right front wall of thorax, initial encounter; S02.2XXA Fracture of nasal bones, initial encounter for closed fracture; G47.30 Sleep apnea, unspecified; J44.9 Chronic obstructive pulmonary disease, unspecified; I11.0 Hypertensive heart disease with heart failure; I50.9 Heart failure, unspecified; V89.2XXA Person injured in unspecified motor-vehicle accident, traffic, initial encounter; Z79.899 Other long term (current) drug therapy; Z79.51 Long term (current) use of inhaled steroids; Z87.891 Personal history of nicotine dependence
CPT/HCPCS: 31500; 36415; 36430; 70450; 70486; 71045; 71260; 72125; 73090; 74177; 80053; 80307; 81001; 82803; 83605; 85025; 85610; 85730; 86850; 86900; 86901; 86922; 87077; 87088; 87186; 90471; 90715; 99291; G0390; G0480; J0330; J0690; J2250; J3010; J3490; P9016; P9059; Q9967

== ENCOUNTER 2024-04-22 14:33 | Emergency (ER) | payer MEDICARE, OTHER ==
[~2024-04-22] VITALS: Ht 185.4 cm; Wt 145.5 kg
[2024-04-22] MEDS ORDERED: SODIUM CHLORIDE 0.9% 1,000 ML IV ONE (14:45)
[2024-04-22 14:46] LABS: BASOPHILS 0.8 % (0-2); EOSINOPHILS 2.6 % (0-6); HEMATOCRIT 26.1 % (35.0-50.0); HEMOGLOBIN 8.8 g/dL (12.0-18.0); LYMPHOCYTES 19.7 % (24-44); MCH 31.4 (27-36); MCHC 33.6 g/dl (30-36); MCV 93.5 fl (81-99); MONOCYTES 8.4 % (0-12); NEUTROPHILS 68.5 % (39-80); PLATELET COUNT 539 K/uL (140-440); RBC 2.79 M/ul (4.3-5.7); RDW 19.3 (10.5-15.0)
[2024-04-22 14:58] LABS: ALBUMIN 2.6 g/dL (3.4-5.0); ALBUMIN/GLOBULIN RATIO 0.67 (1.1-2.4); ALCOHOL, MEDICAL <3 ng/dL (<3); ALKALINE PHOSPHATASE 232 U/L (46-116); ALT (SGPT) 26 U/L (14-59); ANION GAP 13.8 (7-21); AST (SGOT) 26 U/L (15-37); BILIRUBIN, TOTAL 0.6 ng/dL (0.2-1.0); BUN/CREATININE RATIO 5.88 (6.0-28.6); CALCIUM 8.3 mg/dL (8.5-10.1); CARBON DIOXIDE 26 mmol/L (21-32); CHLORIDE 100 mmol/L (98-107); CREATININE, SERUM 1.19 mg/dL (0.70-1.30); GLOMERULAR FILTRATION RATE,EST 70 mL/min (>60); POTASSIUM 3.8 mmol/L (3.5-5.1); PROTEIN, TOTAL 6.5 g/dL (6.4-8.2); UREA NITROGEN 7 mg/dL (7-18)
[2024-04-22 16:32] LABS: BILIRUBIN, URINE NEGATIVE (negative); BLOOD/HGB, URINE NEGATIVE (Negative); KETONE, URINE NEGATIVE (Negative); LEUK ESTERASE, URINE NEGATIVE (negative); NITRITE, URINE NEGATIVE (negative)
[2024-04-22 16:46] LABS: AMPHETAMINES, URINE NEGATIVE (NEGATIVE); BARBITURATES, URINE NEGATIVE (NEGATIVE); BENZODIAZEPINE, URINE NEGATIVE (NEGATIVE); BUPRENORPHINE, URINE NEGATIVE (NEGATIVE); CANNABINOID, URINE POSITIVE (NEGATIVE); COCAINE, URINE NEGATIVE (NEGATIVE); ECSTASY, URINE NEGATIVE (NEGATIVE); FENTANYL, URINE NEGATIVE (NEGATIVE); METHADONE, URINE NEGATIVE (NEGATIVE); OPIATES, URINE NEGATIVE (NEGATIVE); OXYCODONE, URINE POSITIVE (NEGATIVE); PHENCYCLIDINE, URINE NEGATIVE (NEGATIVE)
[2024-04-22] MEDS ORDERED: OXYCODONE HCL5 MG PO (17:20)
[2024-04-22] MEDS ORDERED: NARCAN4 MG BUCCAL (17:20)
[2024-04-22 17:30] VITALS: BP 169/99
--- NOTE | 2024-04-24 19:54 | EKG ---
[facility] [address] [facility] [place] [address] Signed Normal sinus rhythm T wave abnormality, consider anterior ischemia Abnormal ECG When compared with ECG of 28-SEP-2023 18:24, QRS duration has decreased Confirmed by Patrick Flores MD ([id number]) on 04/24/2024 7:54:30 PM Electronically Signed By: PATRICK FLORES MD 04/24/241953 PATIENT NAME: VIRGILIOTHOM Gentile Electrocardiogram DATE OF : 64 PHYSICIAN: PATRICK FLORES MD REPORT #: [id number] REPORT IS CONFIDENTIAL AND NOT TO BE RELEASED WITHOUT AUTHORIZATION
== END 2024-04-22 17:35 | disposition home or self-care (01) ==
LOC: ED 14:33
PROVIDERS: Emergency Medicine
DX: R41.82 Altered mental status, unspecified (principal); I95.9 Hypotension, unspecified; F12.90 Cannabis use, unspecified, uncomplicated; J44.9 Chronic obstructive pulmonary disease, unspecified; I11.0 Hypertensive heart disease with heart failure; I50.9 Heart failure, unspecified; Z87.828 Personal history of other (healed) physical injury and trauma; Z87.891 Personal history of nicotine dependence; Z79.899 Other long term (current) drug therapy
CPT/HCPCS: 36415; 71045; 74176; 80053; 80307; 81003; 85025; 93005; 93010; 99285-25; G0480; J7030